=== PATIENT | female | born 1950 | race Caucasian/White ===

== ENCOUNTER → 2016-08-06 | Outpatient (CLI) | payer OTHER ==
[2016-08-06 13:53] VITALS: BP 133/61; PULSE 60; RESP 16; TEMP 97; BMI 52.5
--- NOTE | 2016-08-07 07:55 | PN ---
DATE OF SERVICE: 08/06/2016 CHIEF COMPLAINT: Bariatric assessment. HISTORY OF PRESENT ILLNESS: Rita Morales is a 66-year-old female who has been undergoing the bariatric program. At her height of 5 foot 3-1/2 inches, her ideal body weight is 140 pounds. Her highest weight was 304 pounds. Today she comes in weighing 301 pounds. Since her last visit a month ago, she has lost another 3 pounds. Body mass index is reduced and 53.1 down to 52.6. She was also recently hospitalized for hyperkalemia as well as chronic renal insufficiency. She regularly sees a cutter brake lining. She is also seeing the pc network technician for history of congestive heart failure. She is still pending a psych assessment. She is also pending completion of her medical supervised weight loss. She has been seeing her primary care provider regularly for over 2 years on a monthly basis. Now she presents particularly looking for a Nancy-en-Y gastric bypass to address both her reflux disease including her insulin-dependent diabetes. She is 161 pounds overweight. PAST MEDICAL HISTORY: 1. Gout. 2. Vitamin D deficiency. 3. Hyperlipidemia. 4. Hypertension. 5. Hypothyroidism. 6. Hypertensive cardiomyopathy. 7. Gastroesophageal reflux disease. 8. Magnesium deficiency. 9. Insulin-dependent diabetes. 10. Congestive heart failure. 11. Asthma. 12. Deep venous thrombosis. 13. Fibromyalgia. 14. Varicose veins. 15. Obstructive sleep apnea. 16. History of abnormal vaginal bleeding. 17. Renal insufficiency. PAST SURGICAL HISTORY: 1. . 2. Cholecystectomy. 3. Heart catheterization. 4. Tubal ligation. 5. History of cardioversion. 6. Upper endoscopy. MEDICATIONS: 1. Coumadin. 2. Omeprazole. 3. Lopressor. 4. Magnesium oxide. 5. Synthroid. 6. Humalog mix. 7. [place]. 8. Lasix. 9. Fenofibrate. 10. Vitamin D. 11. Lipitor. 12. Amiodarone. 13. Allopurinol. 14. Ventolin inhaler. 15. Ventolin nebulizer. ALLERGIES: 1. CLINDAMYCIN. 2. HYDROCODONE. SOCIAL HISTORY: No active alcohol or tobacco use. FAMILY HISTORY: Pertinent for diabetes including morbid obesity. REVIEW OF SYSTEMS: CONSTITUTIONAL: [place] body weight of 140 pounds. Highest weight is 304 pounds. Body mass index reduced from 53.1 down to 52.6. CARDIOVASCULAR: History of congestive heart failure. Denies any recent chest pain or heart attack. GENITOURINARY: History of persistent hyperkalemia as well as chronic renal insufficiency secondary to diabetes. She was recently hospitalized and is pending clearance from her cutter brake lining. GASTROINTESTINAL: History of gastroesophageal. No reported hepatitis. Also has diaphragmatic hiatal hernia with Hill grade 3 lower esophageal valve. HEENT: No troubles with vision or hearing. No reports of active dysphagia. ENDOCRINE: History of insulin-dependent diabetes type 2 over 10+ years. No active thyroid disorder. RESPIRATORY: History of obstructive sleep apnea. History of asthma. NEURO: No reports of recent stroke or seizure disorders. PSYCH: No active depression. Anxiety. HEMATOLOGIC: Prior history of DVT. No reports easy bruising or bleeding. PHYSICAL EXAM: VITAL SIGNS: 97.0, 60, 16, 133/61, 5 feet 3-1/2 inches, 301 pounds. Body mass index of 52.6. GENERAL: Well-developed female in no acute distress. HEENT: No scleral icterus. Extraocular movements grossly intact. Moist mucosa. NECK: Supple without lymphadenopathy. CHEST: Nonlabored respirations. Equal bilateral excursions. CARDIOVASCULAR: Regular rate and rhythm. ABDOMEN: Soft, nontender, nondistended. MUSCULOSKELETAL: No clubbing, cyanosis, or edema. NEURO: No focal or lateralizing signs. Cranial nerves II through XII grossly within normal limits. PSYCH: Appropriate affect. Alert and oriented to person, place and time. LABS: Previous labs reviewed, demonstrating hemoglobin low at 11.2. MCHC was low at 30.6. INR was subtherapeutic at 1.6. Potassium was elevated at 5.1. BUN elevated at 51 and creatinine was elevated at 2.15. Hemoglobin A1c was 8.8%. This is down from 9.9. Albumin low at 3.4. Triglycerides elevated at 239. ASSESSMENT: 1. Morbid obesity due to excess calories. 2. Body mass index reduced from 53.1 down to 52.6. 3. Uncontrolled insulin-dependent diabetes type 2, with stage III, renal insufficiency. 4. Hypertensive heart disease with cardiomyopathy. 5. Obstructive sleep apnea. 6. Fibromyalgia. 7. Osteoarthritis bilateral hips. 8. Osteoarthritis lower back. 9. Prior history of deep venous thromboses. 10. Chronic obstructive pulmonary disease. 11. Dietary surveillance and counseling. 12. Chronic kidney disease, stage III. 13. Chronic pain syndrome. 14. Congestive heart failure with diastolic dysfunction. PLAN: 1. She has received cardiac risk assessment from her pc network technician, Dr. Puga. Optimization of her cardiac status is recommended. 2. She is on Coumadin with renal insufficiency and we discussed anticoagulation. Lovenox will be challenging to manage with chronic renal insufficiency, hence alternatives to anticoagulation were described. Likely IV heparin and Coumadin were also reviewed. Alternatives such as Xarelto or Pradaxa is pending her cardiology assessment. 3. She will need a nephrology assessment as the dietary guidelines include high protein burden onto the kidneys. This may put her at risk of worsening renal function including hyperkalemia. 4. Would recommend optimize renal status prior to proceeding with surgical intervention. 5. She will likely need multiple consultants during her hospitalization as she is a very high risk for cardiac, including renal and surgical complications which she demonstrated understanding. 6. She will need medical supervised weight loss visits as she has had been consistently for 2 years with her primary care provider on a regular basis monthly. 7. Surgical options were reviewed she has elected for Nancy-en-Y gastric bypass. An 8-page bariatric consent form was handed to her for additional review. 8. She will follow up in one month. NAV
--- NOTE | 2016-08-17 19:07 | P.PN ---
Progress Note - Text DATE OF SERVICE: 08/06/2016 CHIEF COMPLAINT: Bariatric assessment. HISTORY OF PRESENT ILLNESS: Rita Morales is a 66-year-old female who has been undergoing the bariatric program. At her height of 5 foot 3-1/2 inches, her ideal body weight is 140 pounds. Her highest weight was 304 pounds. Today she comes in weighing 301 pounds. Since her last visit a month ago, she has lost another 3 pounds. Body mass index is reduced and 53.1 down to 52.6. She was also recently hospitalized for hyperkalemia as well as chronic renal insufficiency. She regularly sees a gravure press operator. She is also seeing the relationship consultant for history of congestive heart failure. She is still pending a psych assessment. She is also pending completion of her medical supervised weight loss. She has been seeing her primary care provider regularly for over 2 years on a monthly basis. Now she presents particularly looking for a Nancy-en-Y gastric bypass to address both her reflux disease including her insulin-dependent diabetes. She is 161 pounds overweight. PAST MEDICAL HISTORY: 1. Gout. 2. Vitamin D deficiency. 3. Hyperlipidemia. 4. Hypertension. 5. Hypothyroidism. 6. Hypertensive cardiomyopathy. 7. Gastroesophageal reflux disease. 8. Magnesium deficiency. 9. Insulin-dependent diabetes. 10. Congestive heart failure. 11. Asthma. 12. Deep venous thrombosis. 13. Fibromyalgia. 14. Varicose veins. 15. Obstructive sleep apnea. 16. History of abnormal vaginal bleeding. 17. Renal insufficiency. PAST SURGICAL HISTORY: 1. . 2. Cholecystectomy. 3. Heart catheterization. 4. Tubal ligation. 5. History of cardioversion. 6. Upper endoscopy. MEDICATIONS: 1. Coumadin. 2. Omeprazole. 3. Lopressor. 4. Magnesium oxide. 5. Synthroid. 6. Humalog mix. 7. [place]. 8. Lasix. 9. Fenofibrate. 10. Vitamin D. 11. Lipitor. 12. Amiodarone. 13. Allopurinol. 14. Ventolin inhaler. 15. Ventolin nebulizer. ALLERGIES: 1. CLINDAMYCIN. 2. HYDROCODONE. SOCIAL HISTORY: No active alcohol or tobacco use. FAMILY HISTORY: Pertinent for diabetes including morbid obesity. REVIEW OF SYSTEMS: CONSTITUTIONAL: [place] body weight of 140 pounds. Highest weight is 304 pounds. Body mass index reduced from 53.1 down to 52.6. CARDIOVASCULAR: History of congestive heart failure. Denies any recent chest pain or heart attack. GENITOURINARY: History of persistent hyperkalemia as well as chronic renal insufficiency secondary to diabetes. She was recently hospitalized and is pending clearance from her gravure press operator. GASTROINTESTINAL: History of gastroesophageal. No reported hepatitis. Also has diaphragmatic hiatal hernia with Hill grade 3 lower esophageal valve. HEENT: No troubles with vision or hearing. No reports of active dysphagia. ENDOCRINE: History of insulin-dependent diabetes type 2 over 10+ years. No active thyroid disorder. RESPIRATORY: History of obstructive sleep apnea. History of asthma. NEURO: No reports of recent stroke or seizure disorders. PSYCH: No active depression. Anxiety. HEMATOLOGIC: Prior history of DVT. No reports easy bruising or bleeding. PHYSICAL EXAM: VITAL SIGNS: 97.0, 60, 16, 133/61, 5 feet 3-1/2 inches, 301 pounds. Body mass index of 52.6. GENERAL: Well-developed female in no acute distress. HEENT: No scleral icterus. Extraocular movements grossly intact. Moist mucosa. NECK: Supple without lymphadenopathy. CHEST: Nonlabored respirations. Equal bilateral excursions. CARDIOVASCULAR: Regular rate and rhythm. ABDOMEN: Soft, nontender, nondistended. MUSCULOSKELETAL: No clubbing, cyanosis, or edema. NEURO: No focal or lateralizing signs. Cranial nerves II through XII grossly within normal limits. PSYCH: Appropriate affect. Alert and oriented to person, place and time. LABS: Previous labs reviewed, demonstrating hemoglobin low at 11.2. MCHC was low at 30.6. INR was subtherapeutic at 1.6. Potassium was elevated at 5.1. BUN elevated at 51 and creatinine was elevated at 2.15. Hemoglobin A1c was 8.8%. This is down from 9.9. Albumin low at 3.4. Triglycerides elevated at 239. ASSESSMENT: 1. Morbid obesity due to excess calories. 2. Body mass index reduced from 53.1 down to 52.6. 3. Uncontrolled insulin-dependent diabetes type 2, with stage III, renal insufficiency. 4. Hypertensive heart disease with cardiomyopathy. 5. Obstructive sleep apnea. 6. Fibromyalgia. 7. Osteoarthritis bilateral hips. 8. Osteoarthritis lower back. 9. Prior history of deep venous thromboses. 10. Chronic obstructive pulmonary disease. 11. Dietary surveillance and counseling. 12. Chronic kidney disease, stage III. 13. Chronic pain syndrome. 14. Congestive heart failure with diastolic dysfunction. PLAN: 1. She has received cardiac risk assessment from her relationship consultant, Dr. Puga. Optimization of her cardiac status is recommended. 2. She is on Coumadin with renal insufficiency and we discussed anticoagulation. Lovenox will be challenging to manage with chronic renal insufficiency, hence alternatives to anticoagulation were described. Likely IV heparin and Coumadin were also reviewed. Alternatives such as Xarelto or Pradaxa is pending her cardiology assessment. 3. She will need a nephrology assessment as the dietary guidelines include high protein burden onto the kidneys. This may put her at risk of worsening renal function including hyperkalemia. 4. Would recommend optimize renal status prior to proceeding with surgical intervention. 5. She will likely need multiple consultants during her hospitalization as she is a very high risk for cardiac, including renal and surgical complications which she demonstrated understanding. 6. She will need medical supervised weight loss visits as she has had been consistently for 2 years with her primary care provider on a regular basis monthly. 7. Surgical options were reviewed she has elected for Nancy-en-Y gastric bypass. An 8-page bariatric consent form was handed to her for additional review. 8. She will follow up in one month.
== END | disposition home or self-care (01) ==
LOC: BARWHC3 13:07
PROVIDERS: ATTEND Surgery Plastic and Reconstructive Surgery
DX: Z01.818 Encounter for other preprocedural examination (principal); Z79.4 Long term (current) use of insulin; Z68.43 Body mass index [BMI] 50.0-59.9, adult; E11.21 Type 2 diabetes mellitus with diabetic nephropathy; E66.01 Morbid (severe) obesity due to excess calories; N18.3 Chronic kidney disease, stage 3 (moderate); G89.4 Chronic pain syndrome; I50.30 Unspecified diastolic (congestive) heart failure; Z79.01 Long term (current) use of anticoagulants; Z79.899 Other long term (current) drug therapy
CPT/HCPCS: 99211

== ENCOUNTER → 2016-08-11 | Outpatient (CLI) | payer OTHER ==
[2016-08-11 12:40] VITALS: BMI 52.9
== END | disposition home or self-care (01) ==
LOC: BARWHC3 09:05
PROVIDERS: ATTEND Surgery Plastic and Reconstructive Surgery
DX: Z71.3 Dietary counseling and surveillance (principal); E66.01 Morbid (severe) obesity due to excess calories; Z68.43 Body mass index [BMI] 50.0-59.9, adult
CPT/HCPCS: 97804

== ENCOUNTER → 2016-09-04 | Outpatient (CLI) | payer OTHER ==
[2016-09-04 10:04] VITALS: BP 141/60; PULSE 61; RESP 20; TEMP 97.5; BMI 52.4
--- NOTE | 2016-10-20 11:18 | PN ---
DATE OF SERVICE: 09/04/2016 CHIEF COMPLAINT: Bariatric assessment. HISTORY OF PRESENT ILLNESS: Rita Morales is a 66-year-old female who had her [facility] a month ago. At her height of 5 foot 3-1/2 inches, her ideal body weight is 140 pounds. Her initial weight was 304 pounds. She has now lost 4 pounds. Body mass index is reduced from 53.1 down to 52.5. She is still 160 pounds overweight. In the last several months, she had troubles with her kidneys whereby she has diabetic nephropathy. Separately, she has history of diverticulosis including intermittent constipation. With her history of severe kidney disease, now she is evaluating for gastrectomy-type procedures. Her main goal is to get to under 300 pounds potentially 292 pounds. She also reports moderate swelling of the bilateral legs. At this time, she is pending completion of her specialist evaluation, including from her appeals specialist, her tool maker and infant toddler lead teacher. PAST MEDICAL HISTORY: 1. Gout. 2. Vitamin D deficiency. 3. Hyperlipidemia. 4. Hypertension. 5. Hypothyroidism. 6. Hypertensive cardiomyopathy. 7. Gastroesophageal reflux disease. 8. Magnesium deficiency. 9. Insulin-dependent diabetes. 10. Congestive heart failure. 11. Asthma. 12. Deep venous thrombosis. 13. Fibromyalgia. 14. Varicose veins. 15. Obstructive sleep apnea. 16. History of abnormal vaginal bleeding. 17. Renal insufficiency. PAST SURGICAL HISTORY: 1. . 2. Cholecystectomy. 3. Heart catheterization. 4. Tubal ligation. 5. History of cardioversion. 6. Upper endoscopy. MEDICATIONS: 1. Albuterol inhaler. 2. Magnesium oxide. 3. Synthroid. 4. Insulin. 5. Hydrocodone 7.5. 6. Lasix. 7. Fenofibrate. 8. Vitamin D. 9. Lipitor. 10. Amiodarone. 11. Allopurinol. 12. Amlodipine. 13. Coumadin. 14. Omeprazole. 15. Lopressor. ALLERGIES: 1. CLINDAMYCIN. 2. HYDROCODONE. SOCIAL HISTORY: No active alcohol or tobacco use. FAMILY HISTORY: Pertinent for diabetes including morbid obesity. REVIEW OF SYSTEMS: CONSTITUTIONAL: Recent weight loss of 4 pounds in one month. At her height of 5 foot 3-1/2 inches, her ideal body weight is 140 pounds. Her initial weight was 304 pounds. She has now lost 4 pounds. Body mass index is reduced from 53.1 down to 52.5. She is still 160 pounds overweight. GASTROINTESTINAL: History of gastroesophageal. No reported hepatitis. Also has diaphragmatic hiatal hernia with Hill grade 3 lower esophageal valve. She reports severe constipation. GENITOURINARY: History of persistent hyperkalemia as well as chronic renal insufficiency secondary to diabetes. She was recently hospitalized and is pending clearance from her tool maker. MUSCULOSKELETAL: Reports increased leg swelling. CARDIOVASCULAR: History of congestive heart failure. Denies any recent chest pain or heart attack. HEENT: No troubles with vision or hearing. No reports of active dysphagia. ENDOCRINE: History of insulin-dependent diabetes type 2 over 10+ years. No active thyroid disorder. RESPIRATORY: History of obstructive sleep apnea. History of asthma. NEURO: No reports of recent stroke or seizure disorders. PSYCH: No active depression. Anxiety. HEMATOLOGIC: Prior history of DVT. No reports easy bruising or bleeding. PHYSICAL EXAM: VITAL SIGNS: 97.5, 61, 20, 141/60, 5 foot 3-1/2, 300 pounds. Body mass index of 52.5. ABDOMEN: Soft, nontender, nondistended. GENERAL: Well-developed female in no acute distress. HEENT: No scleral icterus. Extraocular movements grossly intact. Moist mucosa. NECK: Supple without lymphadenopathy. CHEST: Nonlabored respirations. Equal bilateral excursions. CARDIOVASCULAR: Regular rate and rhythm. MUSCULOSKELETAL: No clubbing, cyanosis. 2+ bilateral pitting edema. NEURO: No focal or lateralizing signs. Cranial nerves II through XII grossly within normal limits. PSYCH: Appropriate affect. Alert and oriented to person, place and time. ASSESSMENT: 1. Morbid obesity due to excess calories. 2. Body mass index down from 53.1 down to 52.5. 3. Uncontrolled insulin-dependent diabetes type 2, with stage III, renal insufficiency. 4. Hypertensive heart disease with cardiomyopathy. 5. Obstructive sleep apnea. 6. Fibromyalgia. 7. Osteoarthritis bilateral hips. 8. Osteoarthritis lower back. 9. Prior history of deep venous thromboses. 10. Chronic obstructive pulmonary disease. 11. Dietary surveillance and counseling. 12. Stage III renal insufficiency from diabetic nephropathy. 13. Chronic pain syndrome. 14. Congestive heart failure with diastolic dysfunction. 15. Bilateral lower extremity edema. 16. Diverticulosis. 17. Constipation. PLAN: 1. She has completed most of her bariatric evaluation and a bariatric consent form was reviewed in detail. 2. As she is almost pounds 200 pounds with her multiple medical comorbidities, she is still evaluating for a Nancy-en-Y gastric bypass. 3. I did review with her the increased risk of burden along her kidneys with a protein shake diet. As a result, close evaluation with her tool maker during her presurgical stage is recommended. 4. On exam, she does have 2+ pitting edema, including dyspnea. Again, recommend further evaluation with her infant toddler lead teacher. 5. Review of her weight loss journey, ideally more weight loss would definitely help with the safety of her surgery. Goal to 292 pounds was also discussed. 6. Recommend followup upon completion of evaluation from the rest of her specialist including completion of her dietary class. NAV
--- NOTE | 2016-10-26 19:49 | P.PN ---
Progress Note - Text DATE OF SERVICE: 09/04/2016 CHIEF COMPLAINT: Bariatric assessment. HISTORY OF PRESENT ILLNESS: Rita Morales is a 66-year-old female who had her last visit [facility] a month ago. At her height of 5 foot 3-1/2 inches, her ideal body weight is 140 pounds. Her initial weight was 304 pounds. She has now lost 4 pounds. Body mass index is reduced from 53.1 down to 52.5. She is still 160 pounds overweight. In the last several months, she had troubles with her kidneys whereby she has diabetic nephropathy. Separately, she has history of diverticulosis including intermittent constipation. With her history of severe kidney disease, now she is evaluating for gastrectomy-type procedures. Her main goal is to get to under 300 pounds potentially 292 pounds. She also reports moderate swelling of the bilateral legs. At this time, she is pending completion of her specialist evaluation, including from her supervisor furnace process, her head of it and integrated circuits inspector. PAST MEDICAL HISTORY: 1. Gout. 2. Vitamin D deficiency. 3. Hyperlipidemia. 4. Hypertension. 5. Hypothyroidism. 6. Hypertensive cardiomyopathy. 7. Gastroesophageal reflux disease. 8. Magnesium deficiency. 9. Insulin-dependent diabetes. 10. Congestive heart failure. 11. Asthma. 12. Deep venous thrombosis. 13. Fibromyalgia. 14. Varicose veins. 15. Obstructive sleep apnea. 16. History of abnormal vaginal bleeding. 17. Renal insufficiency. PAST SURGICAL HISTORY: 1. . 2. Cholecystectomy. 3. Heart catheterization. 4. Tubal ligation. 5. History of cardioversion. 6. Upper endoscopy. MEDICATIONS: 1. Albuterol inhaler. 2. Magnesium oxide. 3. Synthroid. 4. Insulin. 5. Hydrocodone 7.5. 6. Lasix. 7. Fenofibrate. 8. Vitamin D. 9. Lipitor. 10. Amiodarone. 11. Allopurinol. 12. Amlodipine. 13. Coumadin. 14. Omeprazole. 15. Lopressor. ALLERGIES: 1. CLINDAMYCIN. 2. HYDROCODONE. SOCIAL HISTORY: No active alcohol or tobacco use. FAMILY HISTORY: Pertinent for diabetes including morbid obesity. REVIEW OF SYSTEMS: CONSTITUTIONAL: Recent weight loss of 4 pounds in one month. At her height of 5 foot 3-1/2 inches, her ideal body weight is 140 pounds. Her initial weight was 304 pounds. She has now lost 4 pounds. Body mass index is reduced from 53.1 down to 52.5. She is still 160 pounds overweight. GASTROINTESTINAL: History of gastroesophageal. No reported hepatitis. Also has diaphragmatic hiatal hernia with Hill grade 3 lower esophageal valve. She reports severe constipation. GENITOURINARY: History of persistent hyperkalemia as well as chronic renal insufficiency secondary to diabetes. She was recently hospitalized and is pending clearance from her head of it. MUSCULOSKELETAL: Reports increased leg swelling. CARDIOVASCULAR: History of congestive heart failure. Denies any recent chest pain or heart attack. HEENT: No troubles with vision or hearing. No reports of active dysphagia. ENDOCRINE: History of insulin-dependent diabetes type 2 over 10+ years. No active thyroid disorder. RESPIRATORY: History of obstructive sleep apnea. History of asthma. NEURO: No reports of recent stroke or seizure disorders. PSYCH: No active depression. Anxiety. HEMATOLOGIC: Prior history of DVT. No reports easy bruising or bleeding. PHYSICAL EXAM: VITAL SIGNS: 97.5, 61, 20, 141/60, 5 foot 3-1/2, 300 pounds. Body mass index of 52.5. ABDOMEN: Soft, nontender, nondistended. GENERAL: Well-developed female in no acute distress. HEENT: No scleral icterus. Extraocular movements grossly intact. Moist mucosa. NECK: Supple without lymphadenopathy. CHEST: Nonlabored respirations. Equal bilateral excursions. CARDIOVASCULAR: Regular rate and rhythm. MUSCULOSKELETAL: No clubbing, cyanosis. 2+ bilateral pitting edema. NEURO: No focal or lateralizing signs. Cranial nerves II through XII grossly within normal limits. PSYCH: Appropriate affect. Alert and oriented to person, place and time. ASSESSMENT: 1. Morbid obesity due to excess calories. 2. Body mass index down from 53.1 down to 52.5. 3. Uncontrolled insulin-dependent diabetes type 2, with stage III, renal insufficiency. 4. Hypertensive heart disease with cardiomyopathy. 5. Obstructive sleep apnea. 6. Fibromyalgia. 7. Osteoarthritis bilateral hips. 8. Osteoarthritis lower back. 9. Prior history of deep venous thromboses. 10. Chronic obstructive pulmonary disease. 11. Dietary surveillance and counseling. 12. Stage III renal insufficiency from diabetic nephropathy. 13. Chronic pain syndrome. 14. Congestive heart failure with diastolic dysfunction. 15. Bilateral lower extremity edema. 16. Diverticulosis. 17. Constipation. PLAN: 1. She has completed most of her bariatric evaluation and a bariatric consent form was reviewed in detail. 2. As she is almost pounds 200 pounds with her multiple medical comorbidities, she is still evaluating for a Nancy-en-Y gastric bypass. 3. I did review with her the increased risk of burden along her kidneys with a protein shake diet. As a result, close evaluation with her head of it during her presurgical stage is recommended. 4. On exam, she does have 2+ pitting edema, including dyspnea. Again, recommend further evaluation with her integrated circuits inspector. 5. Review of her weight loss journey, ideally more weight loss would definitely help with the safety of her surgery. Goal to 292 pounds was also discussed. 6. Recommend followup upon completion of evaluation from the rest of her specialist including completion of her dietary class.
== END | disposition home or self-care (01) ==
LOC: BARWHC3 09:39
PROVIDERS: ATTEND Surgery Plastic and Reconstructive Surgery
DX: Z01.818 Encounter for other preprocedural examination (principal); E66.01 Morbid (severe) obesity due to excess calories; Z68.43 Body mass index [BMI] 50.0-59.9, adult; Z79.4 Long term (current) use of insulin; Z79.01 Long term (current) use of anticoagulants; Z79.899 Other long term (current) drug therapy; Z88.1 Allergy status to other antibiotic agents; Z88.8 Allergy status to other drugs, medicaments and biological substances; M10.9 Gout, unspecified; E03.9 Hypothyroidism, unspecified; E11.22 Type 2 diabetes mellitus with diabetic chronic kidney disease; E11.65 Type 2 diabetes mellitus with hyperglycemia; N18.3 Chronic kidney disease, stage 3 (moderate); E11.21 Type 2 diabetes mellitus with diabetic nephropathy; I11.9 Hypertensive heart disease without heart failure; I42.9 Cardiomyopathy, unspecified; G47.33 Obstructive sleep apnea (adult) (pediatric); M79.7 Fibromyalgia; M16.0 Bilateral primary osteoarthritis of hip; M47.816 Spondylosis without myelopathy or radiculopathy, lumbar region; Z86.718 Personal history of other venous thrombosis and embolism; J44.9 Chronic obstructive pulmonary disease, unspecified; J45.909 Unspecified asthma, uncomplicated; G89.4 Chronic pain syndrome; I50.30 Unspecified diastolic (congestive) heart failure; R60.0 Localized edema; K57.90 Diverticulosis of intestine, part unspecified, without perforation or abscess without bleeding; K59.09 Other constipation
CPT/HCPCS: 99211

== ENCOUNTER → 2016-09-25 | Outpatient (CLI) | payer OTHER ==
[2016-09-25 09:10] VITALS: BP 179/80; PULSE 64; RESP 20; TEMP 97.6; BMI 53.1
--- NOTE | 2016-10-27 12:21 | PN ---
DATE OF SERVICE: 09/25/2016 CHIEF COMPLAINT: Bariatric assessment. HISTORY OF PRESENT ILLNESS: Rita Morales is a 66-year-old female who comes in with a history of morbid obesity including multiple comorbidities related to her weight such as congestive heart failure, hypertensive heart disease, hypercholesterolemia, diabetes type 2, with kidney disorder as well as obstructive sleep apnea. She comes in after completion of multiple consultants including a transport driver, semiconductor dies loader as well. Her kidneys are poorly functioning at least at stage III to stage IV. She is aware of being on protein shakes may also aggravate her kidney disorder. She has also been seeing her transport driver in the interim as well. She reports moderate increase in lower leg swelling. At her height of 5 feet 3-1/2 inch frame, her ideal body weight is 140 pounds. Her highest weight is 326 pounds. Today she comes in weighing 304 pounds, it appears she has maintained a 22-pound weight loss. Percent excess weight loss is 12%. She is still 164 pounds overweight. Body mass index is reduced from 57 down to 53. BMI point reduction is 4. PAST MEDICAL HISTORY: 1. Gout. 2. Vitamin D deficiency. 3. Hyperlipidemia. 4. Hypertension. 5. Hypothyroidism. 6. Hypertensive cardiomyopathy. 7. Gastroesophageal reflux disease. 8. Magnesium deficiency. 9. Insulin-dependent diabetes. 10. Congestive heart failure. 11. Asthma. 12. Deep venous thrombosis. 13. Fibromyalgia. 14. Varicose veins. 15. Obstructive sleep apnea. 16. History of abnormal vaginal bleeding. 17. Renal insufficiency. PAST SURGICAL HISTORY: 1. . 2. Cholecystectomy. 3. Heart catheterization. 4. Tubal ligation. 5. History of cardioversion. 6. Upper endoscopy. MEDICATIONS: 1. Norvasc. 2. Coumadin. 3. MiraLax. 4. Omeprazole. 5. Lopressor. 6. Magnesium oxide. 7. Synthroid. 8. Humalog. 9. [place]. 10. Lasix. 11. Fenofibrate. 12. Drisdol. 13. Lipitor. 14. Cordarone. 15. Zyloprim. 16. Ventolin nebulizer. ALLERGIES: 1. CLINDAMYCIN. 2. HYDROCODONE. SOCIAL HISTORY: No active alcohol or tobacco use. FAMILY HISTORY: Pertinent for diabetes including morbid obesity. REVIEW OF SYSTEMS: CONSTITUTIONAL: [place] body weight of 140 pounds. Highest weight of 326 pounds. Present weight is 304 pounds. Attained weight loss of 22 pounds since being in the program. Body mass index reduced from 57 down to 53. MUSCULOSKELETAL: Has history of osteoarthritis of the lower back and joints. CARDIOVASCULAR: History of congestive heart failure with diastolic dysfunction. She reports seeing her transport driver recently. Separately, she reports increased lower leg swelling. GENITOURINARY: History of persistent hyperkalemia as well as chronic renal insufficiency secondary to diabetes. She was recently hospitalized and is pending clearance from her semiconductor dies loader. GASTROINTESTINAL: History of gastroesophageal. No reported hepatitis. Also has diaphragmatic hiatal hernia with Hill grade 3 lower esophageal valve. HEENT: No troubles with vision or hearing. No reports of active dysphagia. ENDOCRINE: History of insulin-dependent diabetes type 2 over 10+ years. No active thyroid disorder. RESPIRATORY: History of obstructive sleep apnea. History of asthma. NEURO: No reports of recent stroke or seizure disorders. PSYCH: No active depression. Anxiety. HEMATOLOGIC: Prior history of DVT. No reports easy bruising or bleeding. PHYSICAL EXAM: VITAL SIGNS: 97.6, 64, 20, 179/80, 5 foot 3-1/2, 304 pounds. Body mass of 53.1. GENERAL: Well-developed female in no acute distress. HEENT: No scleral icterus. Extraocular movements grossly intact. Moist mucosa. NECK: Supple without lymphadenopathy. CHEST: Nonlabored respirations. Equal bilateral excursions. CARDIOVASCULAR: Regular rate and rhythm. ABDOMEN: Soft, nontender, nondistended. MUSCULOSKELETAL: No clubbing, cyanosis. 3+ bilateral pitting edema. NEURO: No focal or lateralizing signs. Cranial nerves II through XII grossly within normal limits. PSYCH: Appropriate affect. Alert and oriented to person, place and time. LABS: No new labs at this time. ASSESSMENT: 1. Morbid obesity due to excess calories. 2. Body mass index reduced from 57 down to 53. 3. Uncontrolled insulin-dependent diabetes type 2, with stage III, renal insufficiency. 4. Hypertensive heart disease with cardiomyopathy. 5. Obstructive sleep apnea. 6. Fibromyalgia. 7. Osteoarthritis bilateral hips. 8. Osteoarthritis lower back. 9. Prior history of deep venous thromboses. 10. Chronic obstructive pulmonary disease. 11. Dietary surveillance and counseling. 12. 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 13. Chronic pain syndrome. 14. Severe bilateral lower extremity edema. PLAN: 1. I have recommended reevaluation with a transport driver and semiconductor dies loader as she will likely need increase in her Lasix. She has severe swelling of her legs. 2. She may also benefit from compression devices of at least 30 mmHg from the ankle to above the knee. 3. With her history of severe kidney disease, I have recommended cutting back on her protein intake from 3 shakes a day to 2 shakes a day with close followup with myself including semiconductor dies loader. 4. Benefits and risks of surgical intervention with a bariatric procedure were described using a second-generation bariatric consent form. 5. [place] bariatric surgery collaborative data was reviewed including comorbidity resolution. 6. Again, she is at highest risk for bleeding as she is on Coumadin as well as leak, infection, stricture and potentially was also reviewed with her in detail. 7. Inpatient hospitalization anticipated at minimum for 2 nights with the possibility of the intensive care unit for evaluation. 8. Deep venous thrombosis prophylaxis. 9. Antibiotic prophylaxis. 10. She is extremely high risk for which I would recommend home health care evaluation and potentially subacute rehab and close evaluation for kidney disease with multiple consultants, including Cardiovascular, Nephrology, and Pulmonary will be advised at the time of her hospitalization and she demonstrated understanding. 11. Recommend a 2 week low-caloric diet with adjustments of her protein intake. NAV
--- NOTE | 2016-10-29 01:08 | P.PN ---
Progress Note - Text DATE OF SERVICE: 09/25/2016 CHIEF COMPLAINT: Bariatric assessment. HISTORY OF PRESENT ILLNESS: Rita Morales is a 66-year-old female who comes in with a history of morbid obesity including multiple comorbidities related to her weight such as congestive heart failure, hypertensive heart disease, hypercholesterolemia, diabetes type 2, with kidney disorder as well as obstructive sleep apnea. She comes in after completion of multiple consultants including a rating specialist, director of academic as well. Her kidneys are poorly functioning at least at stage III to stage IV. She is aware of being on protein shakes may also aggravate her kidney disorder. She has also been seeing her rating specialist in the interim as well. She reports moderate increase in lower leg swelling. At her height of 5 feet 3-1/2 inch frame, her ideal body weight is 140 pounds. Her highest weight is 326 pounds. Today she comes in weighing 304 pounds, it appears she has maintained a 22-pound weight loss. Percent excess weight loss is 12%. She is still 164 pounds overweight. Body mass index is reduced from 57 down to 53. BMI point reduction is 4. PAST MEDICAL HISTORY: 1. Gout. 2. Vitamin D deficiency. 3. Hyperlipidemia. 4. Hypertension. 5. Hypothyroidism. 6. Hypertensive cardiomyopathy. 7. Gastroesophageal reflux disease. 8. Magnesium deficiency. 9. Insulin-dependent diabetes. 10. Congestive heart failure. 11. Asthma. 12. Deep venous thrombosis. 13. Fibromyalgia. 14. Varicose veins. 15. Obstructive sleep apnea. 16. History of abnormal vaginal bleeding. 17. Renal insufficiency. PAST SURGICAL HISTORY: 1. . 2. Cholecystectomy. 3. Heart catheterization. 4. Tubal ligation. 5. History of cardioversion. 6. Upper endoscopy. MEDICATIONS: 1. Norvasc. 2. Coumadin. 3. MiraLax. 4. Omeprazole. 5. Lopressor. 6. Magnesium oxide. 7. Synthroid. 8. Humalog. 9. [place]. 10. Lasix. 11. Fenofibrate. 12. Drisdol. 13. Lipitor. 14. Cordarone. 15. Zyloprim. 16. Ventolin nebulizer. ALLERGIES: 1. CLINDAMYCIN. 2. HYDROCODONE. SOCIAL HISTORY: No active alcohol or tobacco use. FAMILY HISTORY: Pertinent for diabetes including morbid obesity. REVIEW OF SYSTEMS: CONSTITUTIONAL: [place] body weight of 140 pounds. Highest weight of 326 pounds. Present weight is 304 pounds. Attained weight loss of 22 pounds since being in the program. Body mass index reduced from 57 down to 53. MUSCULOSKELETAL: Has history of osteoarthritis of the lower back and joints. CARDIOVASCULAR: History of congestive heart failure with diastolic dysfunction. She reports seeing her rating specialist recently. Separately, she reports increased lower leg swelling. GENITOURINARY: History of persistent hyperkalemia as well as chronic renal insufficiency secondary to diabetes. She was recently hospitalized and is pending clearance from her director of academic. GASTROINTESTINAL: History of gastroesophageal. No reported hepatitis. Also has diaphragmatic hiatal hernia with Hill grade 3 lower esophageal valve. HEENT: No troubles with vision or hearing. No reports of active dysphagia. ENDOCRINE: History of insulin-dependent diabetes type 2 over 10+ years. No active thyroid disorder. RESPIRATORY: History of obstructive sleep apnea. History of asthma. NEURO: No reports of recent stroke or seizure disorders. PSYCH: No active depression. Anxiety. HEMATOLOGIC: Prior history of DVT. No reports easy bruising or bleeding. PHYSICAL EXAM: VITAL SIGNS: 97.6, 64, 20, 179/80, 5 foot 3-1/2, 304 pounds. Body mass of 53.1. GENERAL: Well-developed female in no acute distress. HEENT: No scleral icterus. Extraocular movements grossly intact. Moist mucosa. NECK: Supple without lymphadenopathy. CHEST: Nonlabored respirations. Equal bilateral excursions. CARDIOVASCULAR: Regular rate and rhythm. ABDOMEN: Soft, nontender, nondistended. MUSCULOSKELETAL: No clubbing, cyanosis. 3+ bilateral pitting edema. NEURO: No focal or lateralizing signs. Cranial nerves II through XII grossly within normal limits. PSYCH: Appropriate affect. Alert and oriented to person, place and time. LABS: No new labs at this time. ASSESSMENT: 1. Morbid obesity due to excess calories. 2. Body mass index reduced from 57 down to 53. 3. Uncontrolled insulin-dependent diabetes type 2, with stage III, renal insufficiency. 4. Hypertensive heart disease with cardiomyopathy. 5. Obstructive sleep apnea. 6. Fibromyalgia. 7. Osteoarthritis bilateral hips. 8. Osteoarthritis lower back. 9. Prior history of deep venous thromboses. 10. Chronic obstructive pulmonary disease. 11. Dietary surveillance and counseling. 12. 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 13. Chronic pain syndrome. 14. Severe bilateral lower extremity edema. PLAN: 1. I have recommended reevaluation with a rating specialist and director of academic as she will likely need increase in her Lasix. She has severe swelling of her legs. 2. She may also benefit from compression devices of at least 30 mmHg from the ankle to above the knee. 3. With her history of severe kidney disease, I have recommended cutting back on her protein intake from 3 shakes a day to 2 shakes a day with close followup with myself including director of academic. 4. Benefits and risks of surgical intervention with a bariatric procedure were described using a second-generation bariatric consent form. 5. [place] bariatric surgery collaborative data was reviewed including comorbidity resolution. 6. Again, she is at highest risk for bleeding as she is on Coumadin as well as leak, infection, stricture and potentially was also reviewed with her in detail. 7. Inpatient hospitalization anticipated at minimum for 2 nights with the possibility of the intensive care unit for evaluation. 8. Deep venous thrombosis prophylaxis. 9. Antibiotic prophylaxis. 10. She is extremely high risk for which I would recommend home health care evaluation and potentially subacute rehab and close evaluation for kidney disease with multiple consultants, including Cardiovascular, Nephrology, and Pulmonary will be advised at the time of her hospitalization and she demonstrated understanding. 11. Recommend a 2 week low-caloric diet with adjustments of her protein intake.
== END | disposition home or self-care (01) ==
LOC: BARWHC3 08:54
PROVIDERS: ATTEND Surgery Plastic and Reconstructive Surgery
DX: Z01.818 Encounter for other preprocedural examination (principal); I10 Essential (primary) hypertension; I87.309 Chronic venous hypertension (idiopathic) without complications of unspecified lower extremity
CPT/HCPCS: 99211

== ENCOUNTER 2016-11-02 11:51 | Inpatient (IN) | payer OTHER ==
[2016-11-02] MEDS ORDERED: MORPHINE SULFATE 4 MG/ML SYRINGE IVP PRN (12:46)
[2016-11-02] MEDS ORDERED: SODIUM CHLORIDE 0.9% 1,000 ML IV STA ×2 (12:46)
[2016-11-02] MEDS ORDERED: SODIUM CHLORIDE 0.9% 1,000 ML IV ONE (12:46)
[2016-11-02] MEDS ORDERED: MORPHINE SULFATE 4 MG/ML SYRINGE IVP STA (12:46)
--- NOTE | 2016-11-02 12:46 | ED ---
General Adult HPI - General Chief complaint: Abdominal Pain Stated complaint: Abd Pain Time Seen by Provider: 11/02/16 12:05 Source: patient, RN notes reviewed, old records reviewed Mode of arrival: EMS Limitations: no limitations - History of Present Illness Initial comments: This is a 66-year-old female the ER for evaluation. This patient presents today for evaluation of abdominal pain, nausea vomiting. Patient has a history of cholecystectomy. Patient is coming in as a transfer patient for evaluation and treatment of acute pancreatitis. No fevers. Positive nausea no vomiting mild diarrhea. - Related Data Home Medications Medication Instructions Recorded Confirmed Allopurinol [Zyloprim] 100 mg PO DAILY 01/25/16 11/02/16 Magnesium Oxide [Mag-Ox] 400 mg PO BID 01/25/16 11/02/16 Omeprazole 20 mg PO DAILY 01/25/16 11/02/16 Amiodarone [Cordarone] 200 mg PO DAILY 03/31/16 11/02/16 Atorvastatin [Lipitor] 40 mg PO HS 05/28/16 11/02/16 Ergocalciferol (Vitamin D2) 50,000 unit PO MO 05/28/16 11/02/16 [Drisdol] Levothyroxine Sodium [Synthroid] 25 mcg PO DAILY 05/28/16 11/02/16 Albuterol Inhaler [Ventolin Hfa 2 puff INHALATION RT-Q6H PRN 07/04/16 11/02/16 Inhaler] Furosemide [Lasix] 20 mg PO BID 07/04/16 11/02/16 Fenofibrate [Lofibra] 160 mg PO DAILY 08/06/16 11/02/16 HYDROcodone/APAP 7.5-325MG [[place] 1 tab PO Q6HR PRN 08/06/16 11/02/16 7.5-325] Insulin NPL/Insulin Lispro 60 unit SQ BID 08/06/16 11/02/16 [HumaLOG MIX 50-50 VIAL] Fenofibrate,Micronized 200 mg PO DAILY 09/04/16 11/02/16 [Fenofibrate] amLODIPine [Norvasc] 5 mg PO DAILY 09/04/16 11/02/16 Albuterol Nebulized [Ventolin 2.5 mg INHALATION RT-Q6H PRN 11/02/16 11/02/16 Nebulized] Warfarin Sodium [Coumadin] 5 mg PO DAILY 11/02/16 11/02/16 Previous Rx's Medication Instructions Recorded Metoprolol Tartrate [Lopressor] 50 mg PO BID #60 tab 02/01/16 Polyethylene Glycol 3350 [Miralax] 17 gm PO DAILY #255 gm 09/04/16 Allergies Allergy/AdvReac Type Severity Reaction Status Date / Time ciprofloxacin [From Cipro] Allergy Unknown Verified 11/02/16 12:05 clarithromycin [From Biaxin] Allergy Anaphylaxis Verified 11/02/16 12:05 nitrofurantoin Allergy Unknown Verified 11/02/16 12:05 [From Macrodantin] hydrocodone AdvReac Nausea & Verified 11/02/16 12:05 Vomiting Review of Systems ROS Statement: Those systems with pertinent positive or pertinent negative responses have been documented in the HPI. ROS Other: All systems not noted in ROS Statement are negative. Past Medical History Past Medical History: Asthma, Diabetes Mellitus, Deep Vein Thrombosis (DVT), Fibromyalgia, GERD/Reflux, Hyperlipidemia, Hypertension, Osteoarthritis (OA), Skin Disorder, Sleep Apnea/CPAP/BIPAP Additional Past Medical History / Comment(s): varicose veins. DVT RIGHT LEG, constipation, dry skin, abnormal vaginal bleeding, decreased kidney function History of Any Multi-Drug Resistant Organisms: None Reported Past Surgical History: Section, Cholecystectomy, Heart Catheterization , Tubal Ligation Additional Past Surgical History / Comment(s): cardioversion Past Anesthesia/Blood Transfusion Reactions: No Reported Reaction Past Psychological History: Depression Smoking Status: Never smoker Past Alcohol Use History: None Reported Past Drug Use History: None Reported - Past Family History Mother Family Medical History: Deep Vein Thrombosis (DVT) Brother(s) Family Medical History: Cancer Additional Family Medical History / Comment(s): blood clot-in arm secondary to surgery Sister(s) Family Medical History: Deep Vein Thrombosis (DVT) General Exam Limitations: no limitations General appearance: alert, in no apparent distress Head exam: Present: atraumatic, normocephalic, normal inspection Eye exam: Present: normal appearance, PERRL, EOMI. Absent: scleral icterus, conjunctival injection, periorbital swelling ENT exam: Present: normal exam, mucous membranes moist Neck exam: Present: normal inspection. Absent: tenderness, meningismus, lymphadenopathy Respiratory exam: Present: normal lung sounds bilaterally. Absent: respiratory distress, wheezes, rales, rhonchi, stridor Cardiovascular Exam: Present: regular rate, normal rhythm, normal heart sounds. Absent: systolic murmur, diastolic murmur, rubs, gallop, clicks GI/Abdominal exam: Present: soft, normal bowel sounds. Absent: distended, tenderness, guarding, rebound, rigid Extremities exam: Present: normal inspection, full ROM, normal capillary refill. Absent: tenderness, pedal edema, joint swelling, calf tenderness Back exam: Present: normal inspection Neurological exam: Present: alert, oriented X3, CN II-XII intact Psychiatric exam: Present: normal affect, normal mood Skin exam: Present: warm, dry, intact, normal color. Absent: rash Course Vital Signs 11/02/16 11:56 Pulse Rate 68 Respiratory 18 Rate Blood Pressure 172/81 O2 Sat by Pulse 96 Oximetry - Reevaluation(s) Reevaluation #1: 11/02/16 12:44 Patient's pain is improved, in no acute distress Reevaluation #2: 11/02/16 12:44 Spoke with transferring physician regarding patient Reevaluation #3: 11/02/16 12:45 Patient stretcher records are reviewed Medical Decision Making - Medical Decision Making 66 female transferred for evaluation of acute pancreatitis. Patient has history of gallbladder disease and cholecystectomy, patient will be admitted for IV hydration and pain control. - Radiology Data Radiology results: report reviewed (Ultrasound is negative for acute disease), image reviewed Disposition Clinical Impression: Acute pancreatitis Disposition: HOME SELF-CARE Condition: Good Referrals: Jean Paul Ricketts MD [Primary Care Provider] - 1-2 days
--- NOTE | 2016-11-02 12:49 | US ---
EXAMINATION TYPE: US gallbladder DATE OF EXAM: 11/02/2016 12:32 PM COMPARISON: CT on PACS CLINICAL HISTORY: Pain. EC patient with epigastric and midline abdominal pain x 3 days, with nausea, fever and chill type symptoms per patient; gallbladder removed 2000 per patient; diabetic EXAM MEASUREMENTS: Liver Length: 19.2 cm CBD: 0.8 cm Right Kidney: 11.0 x 7.0 x 4.8cm Pancreas: hyperechoic Liver: periportal wall brightness noted in right and left lobes; enlarged liver, heterogeneous appea sheree Gallbladder: surgically removed CBD: wnl post cholecystectomy Right Kidney: mid pole hyperechoic focus is noted with posterior shadowing = 0.5 x 0.8 x 0.2cm and c ould represent small stone vs. vessel wall calcification IMPRESSION: Possible nonobstructing 5 mm calculus in the interpolar right kidney. No hydronephrosis. Large common bile duct consistent with cholecystectomy. No dilation of the intrahepatic bile ducts. Numerous echogenic foci throughout the liver raise the possibility of multiple liver masses. CT scan would be helpful for further evaluation if clinically indicated. This liver appearance appear s to be a change compared to old ultrasound of 11/22/2014. No pancreatic mass seen.
[2016-11-02] MEDS ORDERED: ONDANSETRON 4 MG/2 ML VIAL IVP STA (13:02)
[2016-11-02] MEDS ORDERED: ONDANSETRON 4 MG/2 ML VIAL IVP PRN (13:35)
[2016-11-02] MEDS ORDERED: ALBUTEROL NEBULIZED 2.5 MG/3 ML INHALATION PRN (14:16)
[2016-11-02] MEDS ORDERED: POLYETHYLENE GLYCOL 3350 17 GM POWD.PACK PO PRN (14:16)
[2016-11-02 14:24] LABS: Glucose,Whole Blood 145 mg/dL (75-99)
[2016-11-02] MEDS ORDERED: BISACODYL 10 MG SUPP RECTAL PRN (14:38)
[2016-11-02 14:59] LABS: Basophils # (A) 0.1 k/uL (0-0.2); Basophils % (A) 1 %; CH 29.1; CHCM 27.3; Eosinophils # (A) 0.1 k/uL (0-0.7); Eosinophils % (A) 1 %; HCT 41.4 % (34.0-46.0); HDW 2.53; Hypochromasia Marked; Luc # (Auto) 0.14; Luc % (Auto) 2; Lymphocytes # (A) 0.7 k/uL (1.0-4.8); Lymphocytes % (A) 10 %; MCH 31.1 pg (25.0-35.0); MCV 107.1 fL (80.0-100.0); Macrocytosis Moderate; Mean Platelet Volume 7.8; Monocytes # (A) 0.4 k/uL (0-1.0); Monocytes % (A) 5 %; Neutrophils # (A) 5.9 k/uL (1.3-7.7); Neutrophils % (A) 82 %; RBC 3.86 m/uL (3.80-5.40); RDW 14.8 % (11.5-15.5); WBC 7.2 k/uL (3.8-10.6); WBC (Perox) 7.48
--- NOTE | 2016-11-02 15:02 | XR ---
EXAMINATION TYPE: XR chest 1V portable DATE OF EXAM: 11/02/2016 2:54 PM COMPARISON: 01/27/2016 HISTORY: Right upper quadrant pain. Chest pain. TECHNIQUE: Single frontal view of the chest is obtained. FINDINGS: There is no heart failure nor confluent pneumonic infiltrate. There are no hilar masses. T here is no sign of pleural effusion. IMPRESSION: No active cardiopulmonary disease. No adverse change compared to old exam. Pulmonary vas cularity is decreased compared to old exam.
[2016-11-02 15:12] LABS: Magnesium 2.3 mg/dL (1.6-2.3); Phosphorous 4.2 mg/dL (2.5-4.5)
[2016-11-02 15:59] LABS: Prothrombin Time >130.0 sec (9.0-12.0)
[2016-11-02 16:00] LABS: INR >10.0 (<1.1)
[2016-11-02] MEDS ORDERED: PHYTONADIONE ORAL 5 MG/5 ML ORAL.SYRG PO STA (16:16)
[2016-11-02 16:47] LABS: Glucose,Whole Blood 143 mg/dL (75-99)
[2016-11-02] MEDS: FUROSEMIDE 20 MG TAB PO SCH (17:07)
[2016-11-02] MEDS: INSULIN LISPRO (humaLOG) 300 UNIT/3 ML VIAL SQ SCH ×2 (17:09→21:06)
[2016-11-02] MEDS: ONDANSETRON 4 MG/2 ML VIAL IVP PRN (17:13)
[2016-11-02] MEDS: HYDROcodone/APAP 7.5-325MG 1 EACH TAB PO PRN (17:14)
[2016-11-02] MEDS ORDERED: WARFARIN 5 MG TAB PO SCH (18:00)
--- NOTE | 2016-11-02 19:33 | HP ---
DATE OF ADMISSION: 11/02/2016 66-year-old who came in and was seen in outside ER with epigastric abdominal pain, sharp in nature, 9/10 in severity. The patient denied any fever, chills. Patient found to have elevated lipase because of which patient is admitted for possibility of pancreatitis although patient's pain is not typical for that. Patient mostly has gastritis. Patient's lipase is around 900, the lab maximal for, normal lipase level for that lab is around 300. Patient denied any fever, chills. Patient denied any diarrhea but is constipated. Patient denied any fever, chills. Her past medical history is significant for atrial fibrillation on Coumadin. I do not have an INR available, which will be ordered. I will also order magnesium and phosphorus level. 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 Patient is on 70/30 insulin about 6 units twice a day, I am changing it to 40 units tonight. We will add that to Lantus as patient is going to be n.p.o. tonight and the other issue is patient has congestive heart failure, ejection fraction of around less than 20%. Patient is getting 100 mL of normal saline which will be discontinued. Patient is on 20 b.i.d. of Lasix. Patient appears to be in intravascular volume depleted and hypovolemic at this point of time because of which I will hold off on Lasix because of pancreatitis, but I will also discontinue IV fluids because of symptoms of congestive heart failure exacerbation. I will also obtain chest x-ray. REVIEW OF SYSTEMS: CONSTITUTIONAL: No fever, no malaise, no fatigue. HEENT: No recent visual problems or hearing problems. Denied any sore throat. CARDIOVASCULAR: No chest pain, orthopnea, PND, no palpitations, no syncope. PULMONARY: No shortness of breath, no cough, no hemoptysis. GASTROINTESTINAL: As described in HPI. NEUROLOGICAL: No headaches, no weakness, no numbness. HEMATOLOGICAL: Denies any bleeding or petechiae. GENITOURINARY: Denies any burning micturition, frequency, or urgency. MUSCULOSKELETAL/RHEUMATOLOGICAL: Denies any joint pain, swelling, or any muscle pain. ENDOCRINE: Denies any polyuria or polydipsia. The rest of the 14 point review of systems is negative. Home medications include: 1. Allopurinol. 2. Magnesium oxide. 3. Omeprazole. 4. Amiodarone. 5. Atorvastatin. 6. Cholecalciferol. 7. Levothyroxine. 8. Albuterol. 9. Fenofibrate. 10. Lasix 20 p.o. b.i.d. 11. Hydromorphone. 12. NPH insulin. 13. Amlodipine. 14. Warfarin. 15. Albuterol. 16. Coumadin. 17. Metoprolol. 18. Polyethylene glycol. ALLERGIES: ALLERGIC TO CIPRO, ( ) MYCIN AND HYDROCODONE. Past medical history is significant for: 1. Chronic obstructive pulmonary disease. 2. Type 2 diabetes mellitus. 3. DVT. 4. Fibromyalgia. 5. Gastroesophageal reflux disease. 6. Hyperlipidemia. 7. Hypertension. 8. CKD secondary to hypertensive nephropathy. 9. Osteoarthritis. 10. Sleep apnea, uses CPAP machine at home. 11. Varicose veins. 12. Morbid obesity. 13. Congestive heart failure. 14. Chronic systolic dysfunction, ejection fraction of less than 20%. 15. Atrial fibrillation history on Coumadin. Denied any smoking, alcohol abuse or any drug abuse. FAMILY HISTORY: Mother had DVT and brother had blood clot after surgery. PHYSICAL EXAMINATION: VITAL SIGNS: Temperature 97.4, pulse of 64, respiratory rate of 18, blood pressure is 161/85, saturating at 100% on 3 liters of oxygen by nasal cannula. GENERAL: Morbidly obese, alert and oriented x3. HEENT: Pupils are round and equally reacting to light. EOMI. No scleral icterus. No conjunctival pallor. Normocephalic, atraumatic. No pharyngeal erythema. No thyromegaly. CARDIOVASCULAR: S1 and S2 present. No murmurs, rubs, or gallops. PULMONARY: Chest is clear to auscultation, no wheezing or crackles. ABDOMEN: Patient has minimal epigastric abdominal tenderness was appreciated and patient has 2+ pitting pedal edema. MUSCULOSKELETAL: No joint swelling or deformity. EXTREMITIES: No cyanosis, clubbing, or pedal edema. NEUROLOGICAL: Gross neurological examination did not reveal any focal deficits. SKIN: No rashes. LABORATORY DATA: CBC, CMP are abnormal for the elevated lipids as mentioned above. Creatinine is around 3.5. Her baseline is around 2.5. Ultrasound of the gallbladder showed some incidental nephrolithiasis. Nonobstructing primary renal calculi in the interpolar right kidney, although patient does not have any symptoms from that. ASSESSMENT AND PLAN: 1. Epigastric abdominal pain mostly related to gastritis. Patient will be started on Protonix IV b.i.d. There can be a bit of pancreatitis too. I will obtain a lipase tomorrow and make sure it is not going up tomorrow as we may be seeing early phases of either pancreatitis or gastritis. 2. Congestive heart failure, chronic systolic dysfunction, patient is fairly euvolemic at this point in time. Patient will be resumed on Lasix as mentioned above. 3. Atrial fibrillation, rate controlled. Patient is on Coumadin. I will obtain an INR. 4. Hypertension. 5. Morbid obesity with sleep apnea. Patient will continue her CPAP machine. 6. Hyperthyroidism. 7. Chronic kidney disease stage IV secondary to diabetic nephropathy with proteinuria and nephrology was consulted from ER, which will be continued. 8. History of atrial fibrillation, rate controlled at this point of time. Continue with amiodarone and metoprolol. 9. Diabetes mellitus type 2 on insulin management as mentioned above along with we will also use sliding scale insulin and Accu-Cheks t.i.d. a.c.
[2016-11-02 20:48] LABS: Glucose,Whole Blood 141 mg/dL (75-99)
[2016-11-02] MEDS: PANTOPRAZOLE 40 MG/10 ML VIAL IVP SCH (21:06)
[2016-11-02] MEDS: METOPROLOL TARTRATE 50 MG TAB PO SCH (21:07)
[2016-11-02] MEDS: ATORVASTATIN 40 MG TAB PO SCH (21:07)
[2016-11-02] MEDS: INSULIN GLARGINE 100 UNIT/ML 10 ML VIAL SQ SCH (21:07)
[2016-11-02] MEDS ORDERED: BISACODYL 5 MG TABLET.DR PO PRN (21:28)
[2016-11-03] MEDS: LEVOTHYROXINE 25 MCG TAB PO SCH (05:54)
[2016-11-03 07:30] LABS: Glucose,Whole Blood 184 mg/dL (75-99)
[2016-11-03] MEDS ORDERED: PANTOPRAZOLE 40 MG TABLET PO SCH (07:30)
[2016-11-03] MEDS: HYDROcodone/APAP 7.5-325MG 1 EACH TAB PO PRN ×2 (07:38→18:03)
[2016-11-03] MEDS: INSULIN LISPRO (humaLOG) 300 UNIT/3 ML VIAL SQ SCH ×4 (07:40→20:33)
[2016-11-03] MEDS: FENOFIBRATE 160 MG TAB PO SCH (08:20)
[2016-11-03] MEDS: FUROSEMIDE 20 MG TAB PO SCH (08:20)
[2016-11-03] MEDS: amLODIPine 5 MG TAB PO SCH (08:20)
[2016-11-03] MEDS: PANTOPRAZOLE 40 MG/10 ML VIAL IVP SCH ×2 (08:20→20:12)
[2016-11-03] MEDS: METOPROLOL TARTRATE 50 MG TAB PO SCH ×2 (08:20→20:13)
[2016-11-03] MEDS: ALLOPURINOL 100 MG TAB PO SCH (08:20)
[2016-11-03] MEDS ORDERED: ENOXAPARIN 40 MG/0.4 ML SYRINGE SQ SCH (09:00)
--- NOTE | 2016-11-03 09:53 | P.PN ---
Subjective Consultation: Acute kidney injury on chronic kidney disease History of present illness: Patient is seen in renal consultation for acute kidney injury on chronic kidney disease. Patient has chronic kidney disease stage IV secondary to diabetic kidney disease with baseline creatinine in the range of 2.1-2.5. Patient presented to [facility] with abdominal pain nausea and vomiting. Her lipase level was greater than 1000. Her creatinine was elevated at 3.9 over there. She was subsequently transferred to [facility] for further care. She is currently on Lasix 20 mg twice daily. She does have history of systolic CHF with ejection fraction of less than 20%. She is currently nothing by mouth. Continues to have abdominal pain. No vomiting or diarrhea while she' s been here. Chest x-ray is negative for any acute process. She admits to good urine output. No hematuria or dysuria. She has insulin-dependent diabetes mellitus and was initially diagnosed about 30 years ago. Denies use of NSAIDs. Denies family history of renal disease. Vital signs are stable. General: The patient appeared well nourished and normally developed. HEENT: Head exam is unremarkable. Neck is without jugular venous distension. LUNGS: Lungs are clear to auscultation and percussion. Breath sounds decreased. HEART: Rate and Rhythm are regular. First and second heart sounds normal. No murmurs, rubs or gallops. ABDOMEN: Abdominal exam reveals normal bowel sounds. Diffuse tenderness. EXTREMITITES: No clubbing, cyanosis, or edema. Objective - Vital Signs Vital signs: Vital Signs Temp 96.9 F L 11/03/16 07:00 Pulse 64 11/03/16 07:00 Resp 18 11/03/16 07:00 BP 150/65 11/03/16 07:00 Pulse Ox 90 L 11/03/16 07:00 Intake & Output 11/02/16 11/03/16 11/03/16 18:59 06:59 18:59 Intake Total 0 Balance 0 Weight 136 kg Intake: Oral 0 Other: # Voids 2 - Labs CBC & Chem 7: 11/02/16 14:36 Labs: Abnormal Lab Results - Last 24 Hours (Table) 11/02/16 11/02/16 11/02/16 Range/Units 14:05 14:36 14:36 MCV 107.1 H (80.0-100.0) fL MCHC 29.0 L (31.0-37.0) g/dL Lymphocytes # 0.7 L (1.0-4.8) k/uL PT >130.0 H (9.0-12.0) sec INR >10.0 H* (<1.1) POC Glucose (mg/dL) 145 H (75-99) mg/dL Lipase (23-300) U/L 11/02/16 11/02/16 11/02/16 Range/Units 14:36 16:45 20:45 MCV (80.0-100.0) fL MCHC (31.0-37.0) g/dL Lymphocytes # (1.0-4.8) k/uL PT (9.0-12.0) sec INR (<1.1) POC Glucose (mg/dL) 143 H 141 H (75-99) mg/dL Lipase 1003 H (23-300) U/L 11/03/16 Range/Units 07:28 MCV (80.0-100.0) fL MCHC (31.0-37.0) g/dL Lymphocytes # (1.0-4.8) k/uL PT (9.0-12.0) sec INR (<1.1) POC Glucose (mg/dL) 184 H (75-99) mg/dL Lipase (23-300) U/L Assessment and Plan Plan: Assessment: #1. Nonoliguric acute kidney injury mostly prerenal secondary to vomiting and pancreatitis. Creatinine 3.9 at [facility]. #2. Chronic kidney disease stage IV secondary to diabetic kidney disease with baseline creatinine in the range of 2.1-2.5. #3. Systolic CHF with ejection fraction of less than 20%. Compensated. #4. Acute pancreatitis. #5. Insulin-dependent diabetes mellitus. Plan: Start normal saline to be run at 50 mL an hour. Hold diuretics for now. Avoid nephrotoxic agents and hypotensive episodes. Patient has undergone dialysis education and will be doing in center hemodialysis when needed. She has undergone vein mapping. Repeat electrolytes in the morning. Follow up morning labs. Thank you for the consultation. I will continue to follow the patient with you during her hospital stay.
[2016-11-03 10:07] LABS: INR >10.0 (<1.1); Prothrombin Time >130.0 sec (9.0-12.0)
[2016-11-03 10:20] LABS: Potassium 5.1 mmol/L (3.5-5.1); Total Bilirubin 4.2 mg/dL (0.2-1.3); Total Protein 6.6 g/dL (6.3-8.2)
[2016-11-03] MEDS: SODIUM CHLORIDE 0.9% 1,000 ML IV SCH ×2 (10:53→20:10)
[2016-11-03] MEDS ORDERED: PHYTONADIONE ORAL 5 MG/5 ML ORAL.SYRG PO STA (11:17)
[2016-11-03 11:22] LABS: Hemoglobin A1C 8.1 % (4.2-6.1)
[2016-11-03 11:30] LABS: Amylase 92 U/L (30-110)
[2016-11-03 11:57] LABS: Glucose,Whole Blood 187 mg/dL (75-99)
[2016-11-03] MEDS ORDERED: ERGOCALCIFEROL 50,000 UNIT CAP PO SCH (12:00)
--- NOTE | 2016-11-03 17:07 | P.PN ---
Subjective Date of service 11/03/2016 Progress note being dictated for Dr. Bridges This is a 66-year-old female admitted with worsening abdominal pain, elevated T bili, LFTs, lipase, Coumadin coagulopathy and multiple other medical issues. States abdominal distention and pain worsening. Maintained on IV fluid hydration. Lipase improved , currently at 391.remains NPO.Passing no flatus, no bowel movement. Denies nausea or vomiting. Received vitamin K yesterday and INR remains greater than 10 .elevated renal function. T bili 4.2 with elevated LFTs. Denies chest pain, palpitations. Objective - Vital Signs Vital signs: Vital Signs Temp 98.0 F 11/03/16 15:00 Pulse 58 L 11/03/16 15:00 Resp 18 11/03/16 15:00 BP 144/69 11/03/16 15:00 Pulse Ox 98 11/03/16 15:00 Intake & Output 11/02/16 11/03/16 11/03/16 18:59 06:59 18:59 Intake Total 0 0 Balance 0 0 Weight 136 kg Intake: Oral 0 0 Other: # Voids 2 3 - Exam PHYSICAL EXAM: VITAL SIGNS: As above GENERAL: [Sitting up at side of bed, obese, alert and oriented 3] HEENT: [Pupils equal conjunctiva normal.] No conjunctival pallor, normocephalic atraumatic. NECK: [Supple, no JVD] RESPIRATORY EFFORT:[Normal] LUNGS: [Clear to auscultation, no wheezing rhonchi or crackles] CARDIOVASCULAR[regular S1-S2, no murmurs rubs or gallops, no edema] GI: [Abdomen soft, distended, diffuse epigastric abdominal tenderness radiating to right upper and lower quadrants and further to right flank area, positive bowel sounds.] SKIN: [Extremities with no cyanosis, clubbing] NEURO: [Gross neurological examination did not reveal any focal deficits] - Labs CBC & Chem 7: 11/02/16 14:36 11/03/16 08:40 Labs: Abnormal Lab Results - Last 24 Hours (Table) 11/02/16 11/02/16 11/03/16 Range/Units 16:45 20:45 07:28 PT (9.0-12.0) sec INR (<1.1) Chloride (98-107) mmol/L BUN (7-17) mg/dL Creatinine (0.52-1.04) mg/dL Glucose (74-99) mg/dL POC Glucose (mg/dL) 143 H 141 H 184 H (75-99) mg/dL Hemoglobin A1c (4.2-6.1) % Total Bilirubin (0.2-1.3) mg/dL AST (14-36) U/L ALT (9-52) U/L Alkaline Phosphatase (38-126) U/L Lipase (23-300) U/L 11/03/16 11/03/16 11/03/16 Range/Units 08:40 08:40 08:40 PT >130.0 H (9.0-12.0) sec INR >10.0 H* (<1.1) Chloride 108 H (98-107) mmol/L BUN 51 H (7-17) mg/dL Creatinine 2.83 H (0.52-1.04) mg/dL Glucose 188 H (74-99) mg/dL POC Glucose (mg/dL) (75-99) mg/dL Hemoglobin A1c 8.1 H (4.2-6.1) % Total Bilirubin 4.2 H (0.2-1.3) mg/dL AST 726 H (14-36) U/L ALT 332 H (9-52) U/L Alkaline Phosphatase 234 H (38-126) U/L Lipase (23-300) U/L 11/03/16 11/03/16 Range/Units 08:40 11:54 PT (9.0-12.0) sec INR (<1.1) Chloride (98-107) mmol/L BUN (7-17) mg/dL Creatinine (0.52-1.04) mg/dL Glucose (74-99) mg/dL POC Glucose (mg/dL) 187 H (75-99) mg/dL Hemoglobin A1c (4.2-6.1) % Total Bilirubin (0.2-1.3) mg/dL AST (14-36) U/L ALT (9-52) U/L Alkaline Phosphatase (38-126) U/L Lipase 391 H (23-300) U/L Assessment and Plan Plan: 1. Epigastric abdominal pain mostly related to gastritis, possible acute pancreatitis, probably hepatic. 2. [Congestive heart failure, chronic systolic dysfunction, EF less than 20%, in a patient euvolemic at this time]. 3. Chronic persistent Atrial fibrillation, rate controlled. 4. Coumadin monitoring. 5. Hypertension. 6. Morbid obesity, BMI 51.5. 7. Obstructive sleep apnea uses CPAP machine at home 8. Acute renal failure, mostly prerenal secondary to pancreatitis,.Chronic kidney disease, stage IV secondary to diabetic neuropathy with Protein urea. 9. Diabetes mellitus type 2 Plan: Continue on current medication regime ,monitoring and symptomatic treatment. Maintain IV fluid hydration.GI consulted because abdominal pain worsening with no flatus or bowel movement, worsening tbili, LFTs. Close monitoring of CMP with repeat labs ordered for a.m. patient has a EF of 20%, repeat chest x-ray in a.m. prognosis guarded given multiple complex medical issues. Evaluated by nephrology with recommendations noted. Further recommendations to follow. The impression and plan of care has been dictated as directed. : I performed a H&P examination of this patient and discussed the same with the dictator. I agree with the dictator's note. Any additional findings/opinions/ etc. will be noted.
[2016-11-03 17:11] LABS: Glucose,Whole Blood 225 mg/dL (75-99)
[2016-11-03] MEDS: ONDANSETRON 4 MG/2 ML VIAL IVP PRN (17:53)
[2016-11-03] MEDS: ATORVASTATIN 40 MG TAB PO SCH (20:13)
[2016-11-03] MEDS: INSULIN GLARGINE 100 UNIT/ML 10 ML VIAL SQ SCH (20:35)
[2016-11-03 20:40] LABS: Glucose,Whole Blood 274 mg/dL (75-99)
--- NOTE | 2016-11-03 20:53 | P.PN ---
Progress Note - Text Patient notified the bariatric center for me to evaluate her. She comes in with 4 day history of epigastric abdominal pain with radiation to the right upper quadrant. She has a pertinent history of cholecystectomy done in the past. She is pending a gastric bypass in 2 weeks however given her current clinical state, surgery is on hold. Chemistries are reviewed consistent with elevated liver enzymes and elevated lipase of unclear etiology. Ultrasound report also reviewed. Agree with MRI. Per discussion with patient and family she cannot fit into the MRI. She may need open MRI or transfer to tertiary care facility for further evaluation and management. Will discuss with GI. At this time no surgical intervention. We'll defer future bariatric surgery as well.
--- NOTE | 2016-11-03 21:27 | CONS ---
DATE OF CONSULTATION: 11/03/2016 REASON FOR CONSULTATION: Abdominal pain, elevated LFTs. HISTORY OF PRESENT ILLNESS: The patient is a 66-year-old white female who was transferred from [facility], wherein she presented with severe epigastric pain that radiated to the right upper quadrant area that started about 4 days ago. The pain continued to progressively get worse, and she went to the emergency room at [facility], from where she was transferred here for further evaluation. Apparently she was noted to have mild elevation of amylase and lipase as well as serum transaminases. Since being in the hospital, she continues to have epigastric pain, but it is much less intense. She had gallbladder surgery in 1999 and does not recall if she had any gallstones. She reports no fever, chills, night sweats. Her past medical history is significant for: 1. Atrial fibrillation, on Coumadin. 2. Congestive heart failure; ejection fraction of about 20%. 3. Chronic renal failure. 4. Diabetic nephropathy. 5. Long-standing history of diabetes mellitus. 6. Hypertension. 7. Hyperlipidemia. HOME MEDICATIONS: 1. Allopurinol. 2. Magnesium oxide. 3. Omeprazole. 4. Amiodarone. 5. Atorvastatin. 6. Coumadin. 7. Levothyroxine. 8. Albuterol. 9. Fenofibrate. 10. Lasix. 11. Hydromorphone. 12. NPH. 13. Metoprolol. 14. Polyethylene glycol. ALLERGIES: CIPRO and HYDROCODONE. SOCIAL HISTORY: No smoking. No alcohol use. FAMILY HISTORY: Unremarkable. REVIEW OF SYSTEMS: CARDIOPULMONARY: She denies any chest pain or shortness of breath. GENITOURINARY: No dysuria or hematuria. MUSCULOSKELETAL: Unremarkable. SKIN: Unremarkable. ENDOCRINE: Unremarkable. PSYCHIATRIC: Unremarkable. NEUROLOGY: Unremarkable. ENT/VISION: Unremarkable. CONSTITUTIONAL: Moderate obesity. No fever, chills, night sweats. PAST SURGICAL HISTORY: 1. Varicose vein surgery. 2. Gallbladder surgery. On physical examination, she appears comfortable, in no apparent distress. Vital signs are stable. Blood pressure is 144/69, pulse rate 58, temperature 98. HEENT EXAMINATION: Unremarkable. Conjunctivae pink. Sclerae anicteric. Oral cavity with no lesions. NECK: No JVD or lymph node enlargement. Chest was clear to auscultation. HEART: Regular rate and rhythm. ABDOMEN: Morbidly obese. There was mild tenderness in the epigastric area. Bowel sounds are positive. No organomegaly. EXTREMITIES: No pedal edema. SKIN: No rashes. NEURO: Alert and oriented x3. No focal deficits. LABS FROM TODAY: WBC 7.2, hemoglobin 12. Platelets are 348. INR is more than 10. PT is 130. AST 726, ALT 332, alkaline phosphatase 234, T-bili 4.2. Yesterday T-bili was 3. AST and ALT were in the range of 600. Lipase was 1003. Amylase is normal. Today lipase is down to 391. IMPRESSION: 1. This is a lady who presented to the hospital with acute onset of severe epigastric pain radiating to the right upper quadrant area and noted to have elevated lipase and elevated serum transaminases with bilirubin up to 4.2. All of this could be indicative of acute biliary pancreatitis. She is status post gallbladder surgery in 1999 and she does not recall if she had any gallstones. She did have ultrasound of the right upper quadrant done that showed mild hepatomegaly and CBD measuring 8 mm in diameter. No intrahepatic biliary ductal dilation was noted. At this time possibility of a recurrent common bile duct stone cannot be excluded. 2. History of congestive heart failure with an ejection fraction of 20%. 3. Stage IV renal disease. 4. Long-standing history of diabetes mellitus. 5. Atrial fibrillation, on Coumadin with an INR of more than 10. RECOMMENDATIONS: 1. Agree with clear liquid diet. 2. Continue with pain medications as needed. 3. Repeat labs in the morning. 4. I will schedule the patient for M.R.C.P. to evaluate for any retained common bile duct stone. Further recommendations will follow, based on the results. Thank you for this consultation.
[2016-11-04] MEDS: ONDANSETRON 4 MG/2 ML VIAL IVP PRN (00:54)
[2016-11-04] MEDS: LEVOTHYROXINE 25 MCG TAB PO SCH (05:42)
[2016-11-04] MEDS: INSULIN LISPRO (humaLOG) 300 UNIT/3 ML VIAL SQ SCH ×2 (07:38→12:36)
[2016-11-04 07:45] LABS: Glucose,Whole Blood 190 mg/dL (75-99)
[2016-11-04 07:51] VITALS: BP 144/71; PULSE 65; RESP 22; TEMP 97
[2016-11-04] MEDS: FENOFIBRATE 160 MG TAB PO SCH (08:07)
[2016-11-04] MEDS: METOPROLOL TARTRATE 50 MG TAB PO SCH (08:07)
[2016-11-04] MEDS: amLODIPine 5 MG TAB PO SCH (08:07)
[2016-11-04] MEDS: ALLOPURINOL 100 MG TAB PO SCH (08:07)
[2016-11-04] MEDS: PANTOPRAZOLE 40 MG/10 ML VIAL IVP SCH (08:08)
[2016-11-04] MEDS: HYDROcodone/APAP 7.5-325MG 1 EACH TAB PO PRN (08:13)
--- NOTE | 2016-11-04 09:26 | XR ---
EXAMINATION TYPE: XR chest 2V DATE OF EXAM: 11/04/2016 7:34 AM COMPARISON: 11/02/2016 INDICATION: Asthma CHF TECHNIQUE: Single frontal view of the chest is obtained. FINDINGS: The heart size is normal. The pulmonary vasculature is prominent. There is slight increased lung markings diffusely. Correlate for alveolar pulmonary edema IMPRESSION: 1. Clinical correlation recommended for early congestive heart failure. Continued follow-up is recomm ended.
[2016-11-04 09:54] LABS: Basophils % (A) 0 %; CH 29.9; CHCM 31.2; Eosinophils # (A) 0.2 k/uL (0-0.7); Eosinophils % (A) 2 %; HCT 33.3 % (34.0-46.0); HDW 2.68; HGB 10.6 gm/dL (11.4-16.0); Hypochromasia Slight; Luc # (Auto) 0.14; Luc % (Auto) 2; Lymphocytes # (A) 0.6 k/uL (1.0-4.8); Lymphocytes % (A) 7 %; MCH 30.8 pg (25.0-35.0); MCHC 31.9 g/dL (31.0-37.0); Mean Platelet Volume 7.8; Monocytes # (A) 0.4 k/uL (0-1.0); Monocytes % (A) 5 %; Neutrophils # (A) 7.3 k/uL (1.3-7.7); Neutrophils % (A) 84 %; RBC 3.44 m/uL (3.80-5.40); RDW 15.6 % (11.5-15.5); WBC 8.6 k/uL (3.8-10.6); WBC (Perox) 8.37
[2016-11-04 10:11] LABS: MCV 96.6 fL (80.0-100.0)
[2016-11-04 10:30] LABS: Calcium 9.1 mg/dL (8.4-10.2); Potassium 4.5 mmol/L (3.5-5.1); Total Bilirubin 5.4 mg/dL (0.2-1.3); Total Protein 7.1 g/dL (6.3-8.2)
[2016-11-04] MEDS ORDERED: FUROSEMIDE 40 MG TAB PO STA (11:00)
--- NOTE | 2016-11-04 11:25 | DS ---
DATE OF ADMISSION: 11/02/2016 DATE OF DISCHARGE: FINAL DIAGNOSES: 1. Epigastric and abdominal pain, possibly acute choledocholithiasis leading to acute pancreatitis, present on admission. 2. Congestive heart failure with chronic systolic dysfunction, ejection fraction 30%. 3. Chronic persistent atrial fibrillation, rate controlled. 4. Coumadin coagulopathy, present on admission. 5. Coumadin monitoring. 6. Hypertension. 7. Morbid obesity with body mass index of 51.5. 8. Obstructive sleep apnea on CPAP. 9. Acute on chronic renal failure with chronic kidney disease stage IV, secondary to diabetic nephropathy. 10. Diabetes mellitus type 2. 11. FULL CODE. DISCHARGE DISPOSITION: The patient will be discharged in a stable condition with guarded prognosis. Total time taken 35 minutes. HISTORY OF PRESENT ILLNESS: This is a 66-year-old woman with a past medical history of multiple medical problems admitted with abdominal pain and gallstone pancreatitis suspected on admission, but the choledocholithiasis also noted in the ultrasound. The patient was seen by Dr. Aguilar and Dr. Ramírez. Dr. Aguilar recommended MRCP which could not be done because of technical reasons. I discussed the case at length with the [facility] Transfer Team and because of the high complex CT and multiple complex medical issues as discussed including renal failure and CHF and other medical issues, the patient will be transferred to [facility] for further evaluation and treatment. On exam, vitals as noted. CARDIOVASCULAR SYSTEM: S1, S2, muffled. RESPIRATION: Clear to auscultation. ABDOMEN: Soft. Minimal discomfort in the epigastrium. NERVOUS SYSTEM: No focal deficit. The labs show WBC 8.6, hemoglobin is 10.6, and INR more than 10. Sodium 142, potassium 5.1, creatinine is 2.83, total bilirubin is 4.2 and AST was 726, ALT 232, alk phos 234. The current medications are: 1. Albuterol p.r.n. 2. Zyloprim 100 mg p.o. daily. 3. Bisacodyl 10 mg daily p.r.n. 4. Vitamin D 5. [place] 7.5 mg q.6 p.r.n. 6. Lantus 40 units subQ q.h.s. 7. Levothyroxine 25 mcg p.o. daily. 8. Metoprolol 50 mg p.o. b.i.d. 9. Zofran 4 mg IV q.6 p.r.n. 10. Protonix 40 mg IV b.i.d. 11. Vitamin K 5 mg p.o. daily. 12. IV fluids per Nephrology recommendations at 50 mL/h. 13. Norvasc 5 mg p.o. daily. MTDD
[2016-11-04 11:46] VITALS: BMI 49.7
[2016-11-04 12:23] LABS: Glucose,Whole Blood 170 mg/dL (75-99)
[2016-11-04 12:29] LABS: Prothrombin Time >130.0 sec (9.0-12.0)
[2016-11-04 12:30] LABS: INR >10.0 (<1.1)
== END 2016-11-04 14:00 | disposition short-term general hospital (02) | DRG 439 ==
LOC: SUPCPDRO 11:51 → EC 11:51 → 4MS4W 12:46
PROVIDERS: ADMIT Internal Medicine; ATTEND Internal Medicine
DX: K85.10 Biliary acute pancreatitis without necrosis or infection (principal); I13.0 Hypertensive heart and chronic kidney disease with heart failure and stage 1 through stage 4 chronic kidney disease, or unspecified chronic kidney disease; N18.4 Chronic kidney disease, stage 4 (severe); N17.9 Acute kidney failure, unspecified; E11.21 Type 2 diabetes mellitus with diabetic nephropathy; I48.1 Persistent atrial fibrillation; I50.22 Chronic systolic (congestive) heart failure; Z68.43 Body mass index [BMI] 50.0-59.9, adult; K80.50 Calculus of bile duct without cholangitis or cholecystitis without obstruction; E11.22 Type 2 diabetes mellitus with diabetic chronic kidney disease; E05.90 Thyrotoxicosis, unspecified without thyrotoxic crisis or storm; E66.01 Morbid (severe) obesity due to excess calories; E78.5 Hyperlipidemia, unspecified; G47.33 Obstructive sleep apnea (adult) (pediatric); I48.2 Chronic atrial fibrillation; J45.909 Unspecified asthma, uncomplicated; K21.9 Gastro-esophageal reflux disease without esophagitis; K29.70 Gastritis, unspecified, without bleeding; K59.00 Constipation, unspecified; M79.7 Fibromyalgia; R79.1 Abnormal coagulation profile; T45.515A Adverse effect of anticoagulants, initial encounter; Z79.01 Long term (current) use of anticoagulants; Z79.4 Long term (current) use of insulin; Z79.899 Other long term (current) drug therapy
CPT/HCPCS: 71010; 71020; 76705; 80053; 82150; 83036; 83690; 83735; 84100; 85025; 85610; 96361; 96374; 96375; 99285

== ENCOUNTER → 2016-12-17 | Outpatient (CLI) | payer OTHER ==
[2016-12-17 15:04] VITALS: BP 185/84; PULSE 65; RESP 16; TEMP 97.3; BMI 51.2
--- NOTE | 2017-01-17 11:33 | P.PN ---
Progress Note - Text DATE OF SERVICE: 12/17/2016 CHIEF COMPLAINT: Bariatric assessment. HISTORY OF PRESENT ILLNESS: Rita Morales is a 66-year-old female who is undergoing the bariatric program when she developed acute elevated liver enzymes and pancreatitis of unclear etiology. She was hospitalized a little over a month ago as a result. In fact, she was actually transferred to an outside facility whereby she states no further workup was performed. Separately she reports no abdominal pain. Given her current comorbidities including stage IV kidney disease she is here to pursue weight loss surgery. She also has multiple medical conditions including personal history of DVTs as well as uncontrolled diabetes. She now presents for further evaluation to undergo weight loss procedure. At a height of 5 feet 3-1/2 inches, her ideal body weight is 140 pounds. Her highest weight is 326 pounds. Today, she comes in weighing 293 pounds. She has lost 33 pounds. Percent excess weight loss is up to 18%. Body mass index is reduced from 56.5 down to 50.8. She is still 153 pounds over weight. She has lost approximately 11 pounds since her last evaluation, almost 2 months ago. PAST MEDICAL HISTORY: 1. Gout. 2. Vitamin D deficiency. 3. Hyperlipidemia. 4. Hypertension. 5. Hypothyroidism. 6. Hypertensive cardiomyopathy. 7. Gastroesophageal reflux disease. 8. Magnesium deficiency. 9. Insulin-dependent diabetes. 10. Congestive heart failure. 11. Asthma. 12. Deep venous thrombosis. 13. Fibromyalgia. 14. Varicose veins. 15. Obstructive sleep apnea. 16. History of abnormal vaginal bleeding. 17. Renal insufficiency. 18. History of pancreatitis of unclear etiology. 19. Acute hepatitis. 20. Stage IV chronic kidney disease. PAST SURGICAL HISTORY: 1. . 2. Cholecystectomy. 3. Heart catheterization. 4. Tubal ligation. 5. History of cardioversion. 6. Upper endoscopy. MEDICATIONS: 1. Norvasc. 2. Omeprazole. 3. Lopressor. 4. Synthroid. 5. Lantus. 6. Humalog. 7. Lasix. 8. Lipitor. 9. Nebulized inhaler. 10. Coumadin. ALLERGIES: 1. CLINDAMYCIN. 2. HYDROCODONE. SOCIAL HISTORY: No active alcohol or tobacco use. FAMILY HISTORY: Pertinent for diabetes including morbid obesity. ORGAN SYSTEMS: CONSTITUTIONAL: [place] body weight of 140 pounds. Highest weight 326 pounds. Present weight 293 pounds. She has lost 33 pounds. Percent excess weight loss 18%. Body mass index reduced from 56.5 down to 50.8. GENITOURINARY: History of severe stage IV chronic kidney disease secondary to diabetes. History of persistent hyperkalemia as well as chronic renal insufficiency secondary to diabetes. GASTROINTESTINAL: History of pancreatitis including acute hepatitis, now resolved. History of gastroesophageal reflux disease. Also has diaphragmatic hiatal hernia with Hill grade 3 lower esophageal valve. MUSCULOSKELETAL: Has history of osteoarthritis of the lower back and joints. CARDIOVASCULAR: History of congestive heart failure with diastolic dysfunction. She reports seeing her call taker recently. Separately, she reports increased lower leg swelling. HEENT: No troubles with vision or hearing. No reports of active dysphagia. ENDOCRINE: History of insulin-dependent diabetes type 2 over 10+ years. No active thyroid disorder. RESPIRATORY: History of obstructive sleep apnea. History of asthma. NEURO: No reports of recent stroke or seizure disorders. PSYCH: No active depression. Anxiety. HEMATOLOGIC: Prior history of DVT. No reports easy bruising or bleeding. PHYSICAL EXAM: VITAL SIGNS: 97.3, 65, 16, 185/84, 5 feet 3-1/2 inches, 293 pounds. Body mass index of 51.2. MUSCULOSKELETAL: 2+ bilateral pitting edema. No clubbing, cyanosis. GENERAL: Well-developed female in no acute distress. HEENT: No scleral icterus. Extraocular movements grossly intact. Moist mucosa. NECK: Supple without lymphadenopathy. CHEST: Nonlabored respirations. Equal bilateral excursions. CARDIOVASCULAR: Regular rate and rhythm. ABDOMEN: Soft, nontender, nondistended. NEURO: No focal or lateralizing signs. Cranial nerves II through XII grossly within normal limits. PSYCH: Appropriate affect. Alert and oriented to person, place and time. LABS: Pending. ASSESSMENT: 1. Morbid obesity due to excess calories. 2. Body mass index reduced from 56.5 down to 50.8. 3. Uncontrolled insulin-dependent diabetes type 2. 4. Hypertensive heart disease with cardiomyopathy. 5. Obstructive sleep apnea. 6. Fibromyalgia. 7. Osteoarthritis bilateral hips. 8. Osteoarthritis lower back. 9. Prior history of deep venous thromboses. 10. Chronic obstructive pulmonary disease. 11. Dietary surveillance and counseling. 12. 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 13. Chronic pain syndrome. 14. Severe bilateral lower extremity edema. PLAN: 1. Recommend repeat bariatric metabolic panel including review of her labs. 2. Inpatient hospitalization suggested over 2 nights. 3. The second generation bariatric consent form was reviewed in detail. 4. With her multiple comorbidities, she is aware she is extremely high risk for any of the complications including bleeding, infection, leaks and need for further surgery and prolonged hospitalization. 5. I have also discussed potential home health care and rehab perioperatively. 6. She is on Coumadin for which will be cautiously evaluated post procedure. 7. Recommend inpatient consultation to freight car loader including big machine consultant as well. 8. Overall risks were described whereby she is high risk for complications including which the patient accepted those risks.
== END | disposition home or self-care (01) ==
LOC: BARWHC3 13:55
PROVIDERS: ATTEND Surgery Plastic and Reconstructive Surgery
DX: Z01.818 Encounter for other preprocedural examination (principal); I10 Essential (primary) hypertension
CPT/HCPCS: 99211

== ENCOUNTER → 2016-12-22 | Outpatient (CLI) | payer OTHER ==
[2016-12-22 09:48] LABS: Basophils # (A) 0.1 k/uL (0-0.2); Basophils % (A) 1 %; CH 30.2; CHCM 31.2; Eosinophils # (A) 0.3 k/uL (0-0.7); Eosinophils % (A) 5 %; HCT 39.5 % (34.0-46.0); HDW 2.29; HGB 12.2 gm/dL (11.4-16.0); Luc # (Auto) 0.18; Luc % (Auto) 3; Lymphocytes # (A) 1.1 k/uL (1.0-4.8); Lymphocytes % (A) 18 %; MCH 30.2 pg (25.0-35.0); MCV 97.4 fL (80.0-100.0); Mean Platelet Volume 7.7; Monocytes # (A) 0.4 k/uL (0-1.0); Monocytes % (A) 7 %; Neutrophils # (A) 3.8 k/uL (1.3-7.7); Neutrophils % (A) 66 %; RBC 4.05 m/uL (3.80-5.40); WBC 5.7 k/uL (3.8-10.6); WBC (Perox) 5.86
[2016-12-22 09:56] LABS: INR 1.1 (<1.1); Partial Thromboplastin Time 23.2 sec (22.0-30.0); Prothrombin Time 11.1 sec (9.0-12.0)
[2016-12-22 10:22] LABS: Calcium 9.7 mg/dL (8.4-10.2); Magnesium 2.3 mg/dL (1.6-2.3); Potassium 5.2 mmol/L (3.5-5.1); Total Bilirubin 0.8 mg/dL (0.2-1.3); Total Protein 7.6 g/dL (6.3-8.2)
== END | disposition home or self-care (01) ==
LOC: LABWHC1 09:08
PROVIDERS: ATTEND Surgery Plastic and Reconstructive Surgery
DX: Z01.812 Encounter for preprocedural laboratory examination (principal); Z01.810 Encounter for preprocedural cardiovascular examination; Z01.818 Encounter for other preprocedural examination; I10 Essential (primary) hypertension; Z51.81 Encounter for therapeutic drug level monitoring; Z79.01 Long term (current) use of anticoagulants
CPT/HCPCS: 36415; 80053; 83036; 83735; 85025; 85610; 85730

== ENCOUNTER 2016-12-29 10:23 | Inpatient (IN) | payer OTHER ==
[2016-12-25 12:55] VITALS: BMI 50.1
--- NOTE | 2016-12-29 06:36 | P.GSHP ---
History of Present Illness H&P Date: 12/29/16 CHIEF COMPLAINT: Bariatric assessment. HISTORY OF PRESENT ILLNESS: Rita Morales is a 66-year-old female who comes in with a history of morbid obesity including multiple comorbidities related to her weight such as congestive heart failure, hypertensive heart disease, hypercholesterolemia, diabetes type 2, with kidney disorder as well as obstructive sleep apnea. She comes in after completion of multiple consultants including a senior system operator, inside sales associate as well. Her kidneys are poorly functioning at least at stage III to stage IV. She is aware of being on protein shakes may also aggravate her kidney disorder. She has also been seeing her senior system operator in the interim as well. She reports moderate increase in lower leg swelling. At her height of 5 feet 3-1/2 inch frame, her ideal body weight is 140 pounds. Her highest weight is 326 pounds. PAST MEDICAL HISTORY: 1. Gout. 2. Vitamin D deficiency. 3. Hyperlipidemia. 4. Hypertension. 5. Hypothyroidism. 6. Hypertensive cardiomyopathy. 7. Gastroesophageal reflux disease. 8. Magnesium deficiency. 9. Insulin-dependent diabetes. 10. Congestive heart failure. 11. Asthma. 12. Deep venous thrombosis. 13. Fibromyalgia. 14. Varicose veins. 15. Obstructive sleep apnea. 16. History of abnormal vaginal bleeding. 17. Renal insufficiency. PAST SURGICAL HISTORY: 1. . 2. Cholecystectomy. 3. Heart catheterization. 4. Tubal ligation. 5. History of cardioversion. 6. Upper endoscopy. MEDICATIONS: 1. Norvasc. 2. Coumadin. 3. MiraLax. 4. Omeprazole. 5. Lopressor. 6. Magnesium oxide. 7. Synthroid. 8. Humalog. 9. Mccarr. 10. Lasix. 11. Fenofibrate. 12. Drisdol. 13. Lipitor. 14. Cordarone. 15. Zyloprim. 16. Ventolin nebulizer. ALLERGIES: 1. CLINDAMYCIN. 2. HYDROCODONE. SOCIAL HISTORY: No active alcohol or tobacco use. FAMILY HISTORY: Pertinent for diabetes including morbid obesity. REVIEW OF SYSTEMS: CONSTITUTIONAL: [place] body weight of 140 pounds. Highest weight of 326 pounds. Present weight is 291 pounds. Body mass index reduced from 57. MUSCULOSKELETAL: Has history of osteoarthritis of the lower back and joints. CARDIOVASCULAR: History of congestive heart failure with diastolic dysfunction. She reports seeing her senior system operator recently. Separately, she reports increased lower leg swelling. GENITOURINARY: History of persistent hyperkalemia as well as chronic renal insufficiency secondary to diabetes. She was recently hospitalized and is pending clearance from her inside sales associate. GASTROINTESTINAL: History of gastroesophageal. No reported hepatitis. Also has diaphragmatic hiatal hernia with Hill grade 3 lower esophageal valve. HEENT: No troubles with vision or hearing. No reports of active dysphagia. ENDOCRINE: History of insulin-dependent diabetes type 2 over 10+ years. No active thyroid disorder. RESPIRATORY: History of obstructive sleep apnea. History of asthma. NEURO: No reports of recent stroke or seizure disorders. PSYCH: No active depression. Anxiety. HEMATOLOGIC: Prior history of DVT. No reports easy bruising or bleeding. PHYSICAL EXAM: VITAL SIGNS: 97.6, 64, 20, 179/80, 5 foot 3-1/2, 291 pounds. Body mass of 50.1. GENERAL: Well-developed female in no acute distress. HEENT: No scleral icterus. Extraocular movements grossly intact. Moist mucosa. NECK: Supple without lymphadenopathy. CHEST: Nonlabored respirations. Equal bilateral excursions. CARDIOVASCULAR: Regular rate and rhythm. ABDOMEN: Soft, nontender, nondistended. MUSCULOSKELETAL: No clubbing, cyanosis. 3+ bilateral pitting edema. NEURO: No focal or lateralizing signs. Cranial nerves II through XII grossly within normal limits. PSYCH: Appropriate affect. Alert and oriented to person, place and time. LABS: No new labs at this time. ASSESSMENT: 1. Morbid obesity due to excess calories. 2. Body mass index reduced from 57 down to 50.1. 3. Uncontrolled insulin-dependent diabetes type 2, with stage III, renal insufficiency. 4. Hypertensive heart disease with cardiomyopathy. 5. Obstructive sleep apnea. 6. Fibromyalgia. 7. Osteoarthritis bilateral hips. 8. Osteoarthritis lower back. 9. Prior history of deep venous thromboses. 10. Chronic obstructive pulmonary disease. 11. Dietary surveillance and counseling. 12. 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 13. Chronic pain syndrome. 14. Severe bilateral lower extremity edema. PLAN: 1. Generation consent form was reviewed in detail regarding benefits and risks of all procedures including band, sleeve, gastric bypass. She has selected for gastric bypass. 2. She may also benefit from compression devices of at least 30 mmHg from the ankle to above the knee. 3. With her history of severe kidney disease, I have recommended cutting back on her protein intake from 3 shakes a day to 2 shakes a day with close followup with myself including inside sales associate. 4. Benefits and risks of surgical intervention with a bariatric procedure were described using a second-generation bariatric consent form. 5. [place] bariatric surgery collaborative data was reviewed including comorbidity resolution. 6. Again, she is at highest risk for bleeding as she is on Coumadin/Xarelto as well as leak, infection, stricture and potentially was also reviewed with her in detail. 7. Inpatient hospitalization anticipated at minimum for 2 nights with the possibility of the intensive care unit for evaluation. 8. Deep venous thrombosis prophylaxis with heparin only as lovenox is contraindicated in patients with chronic kidney failure, grade 3 and over. 9. Antibiotic prophylaxis. 10. She is extremely high risk for which I would recommend home health care evaluation and potentially subacute rehab and close evaluation for kidney disease with multiple consultants, including Cardiovascular, Nephrology, and Pulmonary will be advised at the time of her hospitalization and she demonstrated understanding. 11. Recommend a 2 week low-caloric diet with adjustments of her protein intake. Past Medical History Past Medical History: Atrial Fibrillation, Asthma, Heart Failure, Diabetes Mellitus, Deep Vein Thrombosis (DVT), GERD/Reflux, Hyperlipidemia, Hypertension , Osteoarthritis (OA), Renal Disease, Skin Disorder, Sleep Apnea/CPAP/BIPAP Additional Past Medical History / Comment(s): varicose veins. DVT RIGHT LEG, constipation, dry skin, decreased kidney function History of Any Multi-Drug Resistant Organisms: None Reported Past Surgical History: Section, Cholecystectomy, Heart Catheterization , Tubal Ligation Additional Past Surgical History / Comment(s): cardioversion Past Anesthesia/Blood Transfusion Reactions: No Reported Reaction Past Psychological History: Depression Smoking Status: Never smoker Past Alcohol Use History: None Reported Past Drug Use History: None Reported - Past Family History Mother Family Medical History: Deep Vein Thrombosis (DVT) Brother(s) Family Medical History: Cancer Additional Family Medical History / Comment(s): blood clot-in arm secondary to surgery Sister(s) Family Medical History: Deep Vein Thrombosis (DVT) Medications and Allergies Home Medications Medication Instructions Recorded Confirmed Type Allopurinol [Zyloprim] 100 mg PO DAILY 01/25/16 12/25/16 History Magnesium Oxide [Mag-Ox] 400 mg PO BID 01/25/16 12/25/16 History Omeprazole 20 mg PO DAILY 01/25/16 12/25/16 History Atorvastatin [Lipitor] 40 mg PO HS 05/28/16 12/25/16 History Ergocalciferol (Vitamin D2) 50,000 unit PO MO 05/28/16 12/25/16 History [Drisdol] Levothyroxine Sodium [Synthroid] 25 mcg PO DAILY 05/28/16 12/25/16 History Albuterol Inhaler [Ventolin Hfa 2 puff INHALATION Q6H PRN 07/04/16 12/25/16 History Inhaler] Furosemide [Lasix] 20 mg PO BID 07/04/16 12/25/16 History HYDROcodone/APAP 7.5-325MG [Mccarr 1 tab PO Q6HR PRN 08/06/16 12/25/16 History 7.5-325] Fenofibrate,Micronized 200 mg PO DAILY 09/04/16 12/25/16 History [Fenofibrate] amLODIPine [Norvasc] 5 mg PO DAILY 09/04/16 12/25/16 History Albuterol Nebulized [Ventolin 2.5 mg INHALATION Q6HR PRN 11/02/16 12/25/16 History Nebulized] Calcium Polycarbophil [Fiber-Lax] 1,250 mg PO TID 11/02/16 12/25/16 History Polyethylene Glycol 3350 [Miralax] 17 gm PO DAILY PRN 11/02/16 12/25/16 History Apixaban [Eliquis] 5 mg PO BID 12/17/16 12/25/16 History INSULIN LISPRO (HumaLOG) [HumaLOG] 2 units SQ ACHS 12/17/16 12/25/16 History Insulin Glargine [Lantus] 40 unit SQ HS 12/17/16 12/25/16 History Multivitamins, Thera [Multivitamin 1 tab PO DAILY 12/25/16 12/25/16 History (formulary)] Allergies Allergy/AdvReac Type Severity Reaction Status Date / Time ciprofloxacin [From Cipro] Allergy Unknown Verified 12/25/16 12:43 clarithromycin [From Biaxin] Allergy Anaphylaxis Verified 12/25/16 12:43 nitrofurantoin Allergy Wheezing Verified 12/25/16 12:43 [From Macrodantin]
[~2016-12-29 10:23] MED LIST: CHLORHEXIDINE GLUCONATE 15 ML CUP MUCOUS MEM ONE; DEXAMETHASONE SOD PHOSPHATE 10 MG/ML 1 ML VIAL IV ONE; HEPARIN SODIUM,PORCINE 5,000 UNIT/ML 1 ML VIAL SQ ONE; HYDROmorphone 1 MG/ML 1 ML SYRINGE IVP PRN; MIDAZOLAM 2 MG/2 ML VIAL IV PRN; ONDANSETRON 4 MG/2 ML VIAL IVP ONE; PANTOPRAZOLE 40 MG/10 ML VIAL IV STA; SCOPOLAMINE 1.5MG/72HR PATCH TRANSDERM ONE; ceFAZolin 3 GM in SODIUM CHLORIDE 0.9% 100 ML IVPB ONE
[2016-12-29 11:11] LABS: Glucose,Whole Blood 76 mg/dL (75-99)
[2016-12-29] MEDS: LACTATED RINGERS 1,000 ML IV SCH (11:18)
[2016-12-29] MEDS ORDERED: LIDOCAINE 1% 20 ML VIAL (10MG/ML) FOR IV START INTRADERMA ONE (11:18)
[2016-12-29 11:53] LABS: Amylase <30 U/L (30-110)
[2016-12-29 12:19] LABS: INR 1.1 (<1.1); Prothrombin Time 11.1 sec (9.0-12.0)
[2016-12-29 12:26] LABS: Partial Thromboplastin Time 21.2 sec (22.0-30.0)
[2016-12-29] MEDS ORDERED: GLYCOPYRROLATE 0.2 MG/ML 2 ML VIAL ONE (14:04)
[2016-12-29] MEDS ORDERED: SUCCINYLCHOLINE CHLORIDE 100 MG/5 ML SYR IV ONE (14:04)
[2016-12-29] MEDS ORDERED: LIDOCAINE 1% INJ 10MG/ML (20 ML MDV) ONE (14:04)
[2016-12-29] MEDS ORDERED: MIDAZOLAM 2 MG/2 ML VIAL ONE (14:04)
[2016-12-29] MEDS ORDERED: ROCURONIUM BROMIDE 10 MG/ML 10 ML VIAL IV ONE (14:04)
[2016-12-29] MEDS ORDERED: PROPOFOL 10 MG/ML 20 ML VIAL IV ONE (14:04)
[2016-12-29] MEDS ORDERED: NEOSTIGMINE 1 MG/ML 10 ML VIAL ONE (14:04)
[2016-12-29] MEDS ORDERED: fentaNYL (PF) 50 MCG/ML 2 ML AMP ONE (14:04)
[2016-12-29] MEDS ORDERED: BUPIVACAIN-EPI 0.25%-1:200,000 30 ML VIAL SQ ONE ×2 (14:38→14:50)
[2016-12-29] MEDS ORDERED: LACTATED RINGERS 1,000 ML IV ONE (14:46)
[2016-12-29] MEDS ORDERED: NALOXONE 0.4 MG/ML 1 ML VIAL IV PRN (16:52)
[2016-12-29] MEDS ORDERED: ALBUTEROL NEBULIZED 2.5 MG/3 ML INHALATION PRN (16:59)
--- NOTE | 2016-12-29 17:18 | P.OP ---
Date of Procedure: 12/29/16 Preoperative Diagnosis: Postoperative Diagnosis: Procedure(s) Performed: Implants: Indications for Procedure: Operative Findings: Description of Procedure: SURGEON: MANNIE CAMACHO MD RN CLINICAL DOCUMENTATION: DENISE VELASQUEZ. PREOPERATIVE DIAGNOSES: 1. Morbid obesity due to excess calories. 2. Body mass index reduced from 57 down to 50.1. 3. Uncontrolled insulin-dependent diabetes type 2, with stage III, renal insufficiency. 4. Hypertensive heart disease with cardiomyopathy. 5. Obstructive sleep apnea. 6. Fibromyalgia. 7. Osteoarthritis bilateral hips. 8. Osteoarthritis lower back. 9. Prior history of deep venous thromboses. 10. Chronic obstructive pulmonary disease. 11. Dietary surveillance and counseling. 12. 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 13. Chronic pain syndrome. 14. Severe bilateral lower extremity edema. 15. Congestive heart failure with diastolic dysfunction. 16. Gastroesophageal reflux disease. 17. Magnesium deficiency. 18. Vitamin D deficiency. 19. Hyperlipidemia. POSTOPERATIVE DIAGNOSES: 1. Morbid obesity due to excess calories. 2. Body mass index reduced from 57 down to 50.1. 3. Uncontrolled insulin-dependent diabetes type 2, with stage III, renal insufficiency. 4. Hypertensive heart disease with cardiomyopathy. 5. Obstructive sleep apnea. 6. Fibromyalgia. 7. Osteoarthritis bilateral hips. 8. Osteoarthritis lower back. 9. Prior history of deep venous thromboses. 10. Chronic obstructive pulmonary disease. 11. Dietary surveillance and counseling. 12. 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 13. Chronic pain syndrome. 14. Severe bilateral lower extremity edema. 15. Congestive heart failure with diastolic dysfunction. 16. Gastroesophageal reflux disease. 17. Magnesium deficiency. 18. Vitamin D deficiency. 19. Hyperlipidemia. OPERATION: 1. Laparoscopic Nancy-en-Y gastric bypass, 75 cm antecolic and gastric Nancy limb , with 25 mm EEA. 2. Intraoperative esophagogastrojejunoscopy. 3. Laparoscopic lysis of adhesions over 30 minutes greater omentum to the lower abdominal wall secondary to previous . ESTIMATED BLOOD LOSS: 5 mL SPECIMENS REMOVED: None. COMPLICATIONS: None. INDICATIONS: The patient is a very pleasant, 66-year-old female who presents with morbid obesity as her body mass index was 57. Highest lifetime weight 326 pounds. [place] body weight of 144 pounds. Height of 5 feet 4 inches. Her body mass index has been recently reduced from 57 down of 50.1. Today she comes in weighing 292 pounds and have lost 34 pounds. She comes in with extremely high risk including previous history of supratherapeutic INR for previous history of DVTs, stage IV renal nephropathy secondary to insulin-dependent diabetes. Per discussion with her correctional cook, bariatric intervention was advised however risk of renal failure were reviewed. All surgical options for morbid obesity had been described using the [place] bariatric surgery collaborative comorbidity resolution including complication risk score. The patient had elected for a gastric bypass with possible sleeve gastrectomy. A second-generation bariatric consent form was described in detail including the possibility of protein malnutrition, leaks, gastrojejunal stricture, venous thrombosis for which she demonstrated understanding. Benefits and risks of the procedure were described at length. Informed consent was obtained. DESCRIPTION: The patient was brought into the operating room theater. She was placed on a split leg table. Preoperatively she had received heparin subcutaneously for DVT prophylaxis as Lovenox is contraindicated for severe renal insufficiency. Additionally she had undergone Peridex oral solution as an oral decontaminant. After general induction, the abdomen was prepped and draped in standard sterile fashion. A Collins catheter was placed. Ioban draping was placed along the abdomen. A 0 10 mm laparoscopic trocar entry was performed along the epigastrium approximately 18 cm distal to the xiphoid process. Her xiphoid to her umbilicus was 29 cm for her height of 5 foot 4 inches. Diagnostic laparoscopy demonstrated no injury to bowel, viscera, or mesentery. The liver surface was unremarkable. No injury had occurred to the small bowel or viscera. Moderate greater omental adhesions of the lower abdomen was confirmed from her previous history of . Along the hiatus a small defect of a hiatal hernia was encountered. At the left upper quadrant 2- 12 mm trocars were placed 1 along the left midclavicular line and another along the anterior axillary line. In a mirror-shine fashion, 2 - 12 mm trocars were also placed along the right upper abdomen in a mirror-shine fashion. The patient was repositioned to supine position with the bed levelled. Initial adhesions were taken down of the greater omentum to the lower abdominal wall for 30 minutes for extensive lysis of adhesions using Sonicision. The transverse mesocolon, including the omentum, was reflected over the stomach. The ligament of Treitz was identified and measured 60 cm antegrade. The jejunum was divided at the 60 cm point after using metered graspers for measurement. The biliopancreatic limb was held in place by the investigative assistant. The Nancy limb was then measured 75 cm distally to avoid tension along the proposed gastrojejunal anastomosis. The Nancy limb was marked using a [place] drain and 2-0 silk on an Endo Stitch along its proximal staple edge. At 75 cm along the anti-mesenteric border of the Nancy limb, a jejunojejunostomy was proposed whereby enterotomies were created along the biliopancreatic limb including the Nancy limb using a suction Bovie cautery. The enterotomies were widened using a [place]. A bidirectional fire was performed whereby from the right side a 45 mm torrez load was fired. From the left side a separate 45 mm firing had occurred, creating a 90 mm jejunojejunostomy. The defect was then closed using a 60 mm torrez load. The jejunojejunostomy was found to be hemostatic. Attention was now brought to the creation of the gastrojejunostomy. Placement of a medium size Ana liver retractor was used to elevate the left lobe of the liver for greater visualization of the upper abdomen, particularly the superior pole of the stomach. The patient was then placed in reverse Trendelenburg. The Ana liver retractor was held in place using an iron civil engineering intern. Along the lesser curvature of the stomach between the second and third veins, dissection was made along the retrogastric space to allow first firing of the Covidien Tri-Staple purple load. Once adequately mobilized, an initial firing using a 60 mm purple load was performed perpendicular to the lesser curvature of the stomach. To completely divide the pouch from the remnant stomach, three 60 mm purple loads were fired towards the angle of His. A total of 3 - 60 mm purple and 1 - 45 mm torrez staplers were used to create the gastric pouch. Hemostasis was checked with electro-Bovie cautery along the left lateral edge of the gastric remnant stomach. The patient was then prepared for placement of a Orvil. The patient was Mallampati 1. A 25-mm Orvil was selected for placement by the nurse single spindle screw machine operator. The Orvil tubing was placed anterior to the staple line of the gastric pouch and brought out through the left inferior lateral port along the investigative assistant port. The Orvil was then carefully and successfully navigated with the help of the nurse single spindle screw machine operator into the gastric pouch. The sutures were identified and divided. The tubing was from the 25 mm anvil. Using aseptic technique all instruments including port sites were exchanged. As the Orvil had been placed, the blind jejunal limb was brought proximally into the upper abdomen. The transverse mesocolon was cleaved using a Harmonic scalpel. The patient was repositioned in reverse Trendelenburg. No torsion was found upon the Nancy limb. No tension was identified as the limb was brought along the upper abdomen. The blind jejunal limb was opened using a cordless Harmonic scalpel. The 25-mm EEA stapler was brought through the left anterior lateral port site from the left side. Please note that the trocars from the Orvil tubing, including the port, were removed to minimize contamination from the oral aj. The EEA stapler was brought through the open jejunal limb and its needle was deployed at the antimesenteric border where the anvil were mated for approximately 1 minute upon firing. The stapler was removed after irrigating the shaft of the instrument with warm normal saline. Donuts were found to be intact on both sides. The open jejunal limb defect was closed using a 60 mm torrez load after releasing any tension from the blind jejunal limb. Hemostasis was checked with Sonicision along the blind jejunal limb mesentery. Care was taken to avoid any long blind limb to avoid candycane syndrome. Reinforcement sutures were placed at 3:00 and 9 o'clock position along the gastrojejunal anastomosis using a 2-0 Polysorb on an Endo Stitch. Closure of the mesenteric defects was performed, initially of the Wahl defect using 2-0 silk on an Endo Stitch and a Lapra-Ty and the jejunojejunostomy mesenteric defect. I then went to the head of the bed to perform the esophagogastrojejunoscopy and a leak test. An Olympus gastroscope was passed along the posterior oropharynx which was unremarkable for any injury to the vocal cords. The scope was passed down to the proximal portion of the pouch, whereby no active bleeding was encountered. Excellent visualization of the gastrojejunostomy anastomosis, including the Nancy limb was encountered with endoscopic image obtained. The anastomosis was found to be patent. The gastrointestinal tract was desufflated. No evidence of intraoperative leak was encountered as the gastric pouch and anastomosis were submerged under normal saline solution. I then went back to the bedside of the patient, whereby with coordinated effort of the investigative assistant, irrigation was aspirated from the upper abdominal cavity. Tisseal was placed circumferentially over the anastomosis of the gastrojejunostomy. All instruments and pneumoperitoneum were evacuated from the abdominal cavity. The port correlating with the EEA stapler device was copiously irrigated with 3 L of warm normal saline solution and 50 mL of hydrogen peroxide. The fascial defect was closed using 0 Vicryl. The rest of incisions were reapproximated using 3-0 Vicryl for deep subcutaneous tissue and dermis followed by 4-0 Monocryl in a running subcuticular fashion. For local anesthetic, 90 mL 0.25% percent Marcaine with epinephrine was infiltrated along the skin for postop analgesia. Dermabond was applied to the skin. OptiFoam dressing was placed along the EEA stapler site. At the end of the procedure, needle, sponge and instrument count had been verified correct by the surgical instrument technician. She had tolerated the procedure well and was taken to the postanesthesia unit in stable condition. Total skin to skin time was 126 minutes. Intraoperative films were reviewed with the patient's family who are very pleased with the level of care. FINDINGS: 1. Negative intraoperative esophagogastrojejunoscopy leak test. 2. No fatty liver disease or hepatomegaly. 3. All defects including jejunojejunostomy Wahl defects were closed. 4. Total of 4 staple loads including 3 - 60 mm Covidien tri-stapler purple and 1 - 45 mm tab loads used to create the gastric pouch. 5. Gastrojejunostomy created using 25 mm Orvil. 6. Jejunojejunostomy created with 90 mm moses-lumen 7. Xiphoid to umbilical height of 29 cm.
[2016-12-29 17:24] LABS: Glucose,Whole Blood 121 mg/dL (75-99)
--- NOTE | 2016-12-29 17:35 | XR ---
EXAMINATION TYPE: XR chest 1V portable DATE OF EXAM: 12/29/2016 COMPARISON: 11/04/2016 HISTORY: Dyspnea TECHNIQUE: Single frontal portable AP semiupright view of the chest is obtained. FINDINGS: Chest x-ray is LPO rotated. There is prominent airspace filling process in the bilateral hilar positions, correlate for flash pul monary edema with relative sparing of the periphery, versus bilateral perihilar atelectasis. Repeat r adiography will be able to delineate if clinically necessary. There is no pneumothorax. The mediastinum appears midline. IMPRESSION: Prominent bilateral perihilar abnormalities.
[2016-12-29] MEDS ORDERED: AMPICILLIN-SULBACTAM 3 GM in SODIUM CHLORIDE 0.9% 100 ML IVPB SCH (18:00)
[2016-12-29] MEDS: SIMETHICONE 40 MG/0.6 ML DROPS 2,000 MG/30 ML BOTTLE PO SCH ×2 (18:50→23:20)
[2016-12-29] MEDS: HYOSCYAMINE ORAL DROPS 1.875 MG/15 ML BOTTLE PO SCH ×2 (18:50→23:20)
[2016-12-29] MEDS: HYDROmorphone 1 MG/ML 1 ML SYRINGE IVP PRN ×2 (18:53→23:41)
[2016-12-29 18:54] LABS: Glucose,Whole Blood 144 mg/dL (75-99)
[2016-12-29] MEDS: 0.9% NACL WITH KCL 20 MEQ/L 1,000 ML IV SCH (18:57)
[2016-12-29] MEDS: INSULIN LISPRO (humaLOG) 300 UNIT/3 ML VIAL SQ SCH (18:57)
--- NOTE | 2016-12-29 20:05 | P.PN ---
Progress Note - Text Patient is comfortable this evening. Findings of surgery described where she is doing quite well. Additional consultants including nephrology obtained for the severity of her chronic kidney disease. Additionally pulmonary obtained for history of COPD. Additional consultants including cardiology and medicine pending. With her history of contaminated case, will continue with antibiotics beyond 24 hours.
[2016-12-29] MEDS: FUROSEMIDE 10 MG/ML 2 ML VIAL IV SCH (20:43)
[2016-12-29] MEDS: METOPROLOL TARTRATE 50 MG TAB PO SCH (20:44)
[2016-12-29] MEDS: ALBUTEROL NEBULIZED 2.5 MG/3 ML INHALATION SCH (22:03)
[2016-12-29] MEDS: ceFAZolin 3 GM in SODIUM CHLORIDE 0.9% 100 ML IVPB SCH (23:19)
[2016-12-30] MEDS: INSULIN LISPRO (humaLOG) 300 UNIT/3 ML VIAL SQ SCH ×5 (00:07→23:07)
[2016-12-30 00:08] LABS: Glucose,Whole Blood 183 mg/dL (75-99)
[2016-12-30] MEDS: LACTATED RINGERS 1,000 ML IV SCH (00:26)
[2016-12-30] MEDS: 0.9% NACL WITH KCL 20 MEQ/L 1,000 ML IV SCH (00:27)
[2016-12-30] MEDS: ONDANSETRON 4 MG/2 ML VIAL IVP PRN ×3 (01:52→22:43)
[2016-12-30] MEDS: SIMETHICONE 40 MG/0.6 ML DROPS 2,000 MG/30 ML BOTTLE PO SCH ×4 (05:16→23:01)
[2016-12-30] MEDS: HYOSCYAMINE ORAL DROPS 1.875 MG/15 ML BOTTLE PO SCH ×4 (05:16→23:01)
[2016-12-30 06:16] LABS: Glucose,Whole Blood 172 mg/dL (75-99)
[2016-12-30] MEDS: HYDROmorphone 1 MG/ML 1 ML SYRINGE IVP PRN (06:51)
[2016-12-30 07:34] LABS: Basophils % (A) 0 %; CH 30.4; CHCM 31.9; Eosinophils % (A) 0 %; HCT 40.4 % (34.0-46.0); HDW 2.43; HGB 12.8 gm/dL (11.4-16.0); Luc # (Auto) 0.06; Luc % (Auto) 1; Lymphocytes # (A) 0.4 k/uL (1.0-4.8); Lymphocytes % (A) 3 %; MCH 30.4 pg (25.0-35.0); MCHC 31.7 g/dL (31.0-37.0); MCV 95.8 fL (80.0-100.0); Mean Platelet Volume 7.4; Monocytes # (A) 0.4 k/uL (0-1.0); Monocytes % (A) 3 %; Neutrophils # (A) 11.2 k/uL (1.3-7.7); Neutrophils % (A) 93 %; RBC 4.21 m/uL (3.80-5.40); RDW 14.5 % (11.5-15.5); WBC (Perox) 12.66
[2016-12-30 07:46] LABS: Magnesium 2.1 mg/dL (1.6-2.3); Phosphorous 6.7 mg/dL (2.5-4.5); Potassium 5.5 mmol/L (3.5-5.1)
[2016-12-30] MEDS ORDERED: FUROSEMIDE 10 MG/ML 2 ML VIAL IV ONE (08:00)
[2016-12-30] MEDS ORDERED: 0.9% NACL WITH KCL 20 MEQ/L 1,000 ML IV SCH (08:00)
[2016-12-30] MEDS ORDERED: HEPARIN SODIUM,PORCINE 5,000 UNIT/ML 1 ML VIAL IV PRN (08:36)
--- NOTE | 2016-12-30 08:41 | XR ---
EXAMINATION TYPE: XR chest 1V DATE OF EXAM: 12/30/2016 COMPARISON: 12/29/2016 INDICATION: COPD post Nancy-en-Y TECHNIQUE: Single frontal view of the chest is obtained. FINDINGS: The heart size is normal. The pulmonary vasculature is normal. Some mild plate atelectasis is in the right midlung. Some faint retrocardiac subsegmental atelectasis may be present. Findings are improving from comparis on. IMPRESSION: 1. Mild plate atelectasis right midlung. Subsegmental atelectasis may be in the retrocardiac region.
[2016-12-30] MEDS: amLODIPine 5 MG TAB PO SCH (08:42)
[2016-12-30] MEDS: METOPROLOL TARTRATE 50 MG TAB PO SCH ×2 (08:42→20:36)
[2016-12-30] MEDS: PANTOPRAZOLE 40 MG/10 ML VIAL IV SCH (08:44)
[2016-12-30] MEDS: FUROSEMIDE 10 MG/ML 2 ML VIAL IV SCH (08:44)
[2016-12-30] MEDS: SODIUM CHLORIDE 0.9% 1,000 ML IV SCH (08:45)
[2016-12-30 08:59] LABS: INR 1.1 (<1.1); Partial Thromboplastin Time 22.1 sec (22.0-30.0); Prothrombin Time 11.1 sec (9.0-12.0)
[2016-12-30] MEDS: ALBUTEROL NEBULIZED 2.5 MG/3 ML INHALATION SCH ×4 (09:06→19:57)
[2016-12-30] MEDS: ceFAZolin 3 GM in SODIUM CHLORIDE 0.9% 100 ML IVPB SCH (09:09)
[2016-12-30] MEDS: HEPARIN SODIUM,PORCINE/D5W PMX 25,000 UNIT in DEXTROSE/WATER 1 500ML.BAG IV SCH ×2 (09:53→20:28)
[2016-12-30 11:06] LABS: Hemoglobin A1C 7.8 % (4.2-6.1)
[2016-12-30 11:32] LABS: Glucose,Whole Blood 225 mg/dL (75-99)
[2016-12-30] MEDS: HYDROcodone/APAP 15 ML SOLUTION PO PRN ×2 (12:20→22:15)
--- NOTE | 2016-12-30 14:35 | P.PN ---
Subjective 66-year-old female seen and evaluated appears in no acute distress. Patient states pain medication effective for pain control. Patient is Laparoscopic Nancy -en-Y gastric bypass done on December 29 patient has a significant past medical history of stage IV diabetic nephropathy. 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 Patient stated she has only been on Elquis for the last month prior to that had been on Coumadin therapy Patient states she's been up ambulating in the dewards 1 this morning the white count this morning is 12. is on IV heparin drip Objective - Vital Signs Vital signs: Vital Signs Temp 97.9 F 12/30/16 07:26 Pulse 60 12/30/16 09:21 Resp 17 12/30/16 07:26 BP 142/66 12/30/16 07:26 Pulse Ox 99 12/30/16 09:07 Intake & Output 12/29/16 12/30/16 12/30/16 18:59 06:59 18:59 Intake Total 2000 1100 Output Total 505 600 775 Balance 1495 500 -775 Intake: IV 2000 1100 0.9% NaCl with KCl 20 Meq 1100 /l 1,000 ml @ 100 mls/hr IV .Q10H [facility] Rx#: [id number] Output: Urine 500 600 775 Uretheral (Collins) 600 Estimated Blood Loss 5 Other: Voiding Method Indwelling Catheter Indwelling Catheter - Exam Physical exam 66-year-old female resting in bed states that she is just been up ambulating in the hallway denying dizziness lightheadedness chest pain or shortness of breath Lungs essentially clear with adequate air movement Heart S1-S2 audible regular Abdomen obese soft surgical sites benign no redness no drainage indwelling Collins catheter in place states no stool passing no gas rectally Extremities 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 - Labs CBC & Chem 7: 12/30/16 06:39 12/30/16 12:26 Labs: Abnormal Lab Results - Last 24 Hours (Table) 12/29/16 12/29/16 12/30/16 Range/Units 17:16 18:52 00:06 WBC (3.8-10.6) k/uL Neutrophils # (1.3-7.7) k/uL Lymphocytes # (1.0-4.8) k/uL Potassium (3.5-5.1) mmol/L Chloride (98-107) mmol/L Carbon Dioxide (22-30) mmol/L BUN (7-17) mg/dL Creatinine (0.52-1.04) mg/dL POC Glucose (mg/dL) 121 H 144 H 183 H (75-99) mg/dL Hemoglobin A1c (4.2-6.1) % Phosphorus (2.5-4.5) mg/dL 12/30/16 12/30/16 12/30/16 Range/Units 06:14 06:39 06:39 WBC 12.0 H (3.8-10.6) k/uL Neutrophils # 11.2 H (1.3-7.7) k/uL Lymphocytes # 0.4 L (1.0-4.8) k/uL Potassium (3.5-5.1) mmol/L Chloride (98-107) mmol/L Carbon Dioxide (22-30) mmol/L BUN (7-17) mg/dL Creatinine (0.52-1.04) mg/dL POC Glucose (mg/dL) 172 H (75-99) mg/dL Hemoglobin A1c 7.8 H (4.2-6.1) % Phosphorus (2.5-4.5) mg/dL 12/30/16 12/30/16 Range/Units 06:39 11:25 WBC (3.8-10.6) k/uL Neutrophils # (1.3-7.7) k/uL Lymphocytes # (1.0-4.8) k/uL Potassium 5.5 H (3.5-5.1) mmol/L Chloride 109 H (98-107) mmol/L Carbon Dioxide 21 L (22-30) mmol/L BUN 64 H (7-17) mg/dL Creatinine 2.67 H (0.52-1.04) mg/dL POC Glucose (mg/dL) 225 H (75-99) mg/dL Hemoglobin A1c (4.2-6.1) % Phosphorus 6.7 H (2.5-4.5) mg/dL Assessment and Plan Plan: Impression Morbid obesity due to excessive calories Body mass index reduced from 57 down to 50 Osteoarthritis bilateral hips History of obstructive sleep apnea History of diastolic congestive heart failure chronic compensated Chronic bilateral lower extremity edema Esophageal reflux disease Vitamin D deficiency status post december 29 Laparoscopic Nancy-en-Y gastric bypass Chronic kidney disease stage IV Type 2 diabetes insulin requiring uncontrolled hemoglobin A1c 7.8 hypertension with hypertensive heart disease COPD no evidence of an exacerbation Plan Continue IV heparin as ordered Await input from nephrology service Await input from pulmonary service Continue postop surgical care Discuss with nephrology the indwelling Collins catheter be removed Resume home meds as appropriate DVT and GI prophylaxis Monitor labs dining room manager to pursue the discharge plan patient may benefit from subacute rehab or home care The above dictated assessment and findings were discussed with dr alo De La Rosa and the plan of care have been dictated as directed. Patricia Crocker nurse practitioner acting as a scribe for dr prajapati.
--- NOTE | 2016-12-30 14:54 | P.CNPUL ---
History of Present Illness Consult date: 12/30/16 Requesting physician: Amy Ramírez Reason for consult: hypoxemia Chief complaint: Morbid obesity History of present illness: This is a very pleasant 66-year-old female patient who lives with Aparna Louis as her primary care provider and has a history of congestive heart failure, hypertension, hyperlipidemia, diabetes mellitus, diabetic nephropathy, gout, hypothyroidism. She also has a history of obstructive sleep apnea and asthma has been seen by Dr. Julian in the past. She has not followed up in quite some time however. He only uses a Ventolin inhaler as needed. She presented here yesterday for an elective laparoscopic Nancy-en-Y gastric bypass and laparoscopic lysis of adhesions of the greater omentum to the lower abdominal wall secondary to previous section. Postoperatively she had developed decreased O2 saturations in the 80s on room air. We are consulted for the same. He is seen today on the surgical floor. She is awake and alert in no acute distress. She is having some ongoing issues with nausea but does deny any worsening shortness of breath, cough or congestion. No wheezing. She is doing minimally with the incentive spirometer only pulling approximately 500 mL today. Chest x-ray does show some atelectatic changes in the right lung base. An enema leukocytosis at 12.0. Hemoglobin stable. Bicarb 23. BUN 64, creatinine 2.67. Review of Systems 14 point review of system was conducted. All negative other than as mentioned in HPI. Past Medical History Past Medical History: Atrial Fibrillation, Asthma, Heart Failure, Diabetes Mellitus, Deep Vein Thrombosis (DVT), GERD/Reflux, Hyperlipidemia, Hypertension , Osteoarthritis (OA), Renal Disease, Skin Disorder, Sleep Apnea/CPAP/BIPAP Additional Past Medical History / Comment(s): varicose veins. DVT RIGHT LEG, constipation, dry skin, decreased kidney function History of Any Multi-Drug Resistant Organisms: None Reported Past Surgical History: Section, Cholecystectomy, Heart Catheterization , Tubal Ligation Additional Past Surgical History / Comment(s): cardioversion Past Anesthesia/Blood Transfusion Reactions: No Reported Reaction Past Psychological History: Depression Smoking Status: Never smoker Past Alcohol Use History: None Reported Past Drug Use History: None Reported - Past Family History Mother Family Medical History: Deep Vein Thrombosis (DVT) Brother(s) Family Medical History: Cancer Additional Family Medical History / Comment(s): blood clot-in arm secondary to surgery Sister(s) Family Medical History: Deep Vein Thrombosis (DVT) Medications and Allergies Home Medications Medication Instructions Recorded Confirmed Type Allopurinol [Zyloprim] 100 mg PO DAILY 01/25/16 12/29/16 History Magnesium Oxide [Mag-Ox] 400 mg PO BID 01/25/16 12/29/16 History Omeprazole 20 mg PO DAILY 01/25/16 12/29/16 History Atorvastatin [Lipitor] 40 mg PO HS 05/28/16 12/29/16 History Ergocalciferol (Vitamin D2) 50,000 unit PO MO 05/28/16 12/29/16 History [Drisdol] Levothyroxine Sodium [Synthroid] 25 mcg PO DAILY 05/28/16 12/29/16 History Albuterol Inhaler [Ventolin Hfa 2 puff INHALATION RT-Q6H PRN 07/04/16 12/29/16 History Inhaler] Furosemide [Lasix] 20 mg PO BID 07/04/16 12/25/16 History HYDROcodone/APAP 7.5-325MG [[place] 1 tab PO Q6HR PRN 08/06/16 12/29/16 History 7.5-325] Fenofibrate,Micronized 200 mg PO DAILY 09/04/16 12/29/16 History [Fenofibrate] amLODIPine [Norvasc] 5 mg PO DAILY 09/04/16 12/25/16 History Albuterol Nebulized [Ventolin 2.5 mg INHALATION RT-Q6H PRN 11/02/16 12/29/16 History Nebulized] Calcium Polycarbophil [Fiber-Lax] 1,250 mg PO TID 11/02/16 12/29/16 History Polyethylene Glycol 3350 [Miralax] 17 gm PO DAILY PRN 11/02/16 12/29/16 History Apixaban [Eliquis] 5 mg PO BID 12/17/16 12/25/16 History INSULIN LISPRO (HumaLOG) [HumaLOG] 2 units SQ ACHS 12/17/16 12/29/16 History Insulin Glargine [Lantus] 40 unit SQ HS 12/17/16 12/29/16 History Multivitamins, Thera [Multivitamin 1 tab PO DAILY 12/25/16 12/25/16 History (formulary)] Allergies Allergy/AdvReac Type Severity Reaction Status Date / Time ciprofloxacin [From Cipro] Allergy Unknown Verified 12/25/16 12:43 clarithromycin [From Biaxin] Allergy Anaphylaxis Verified 12/25/16 12:43 nitrofurantoin Allergy Wheezing Verified 12/25/16 12:43 [From Macrodantin] Physical Exam Vitals: Vital Signs Temp Pulse Pulse Pulse Resp BP Pulse Ox 12/30/16 09:21 60 12/30/16 09:07 58 L 99 12/30/16 07:26 97.9 F 66 17 142/66 98 12/30/16 03:39 86 L 12/30/16 03:29 94 L 12/30/16 01:53 97.5 F L 69 16 122/68 93 L 12/29/16 20:35 97.3 F L 73 148/73 96 12/29/16 20:29 96 12/29/16 20:00 102 H 128/68 12/29/16 19:45 103 H 113/68 12/29/16 19:30 103 H 118/67 12/29/16 19:15 100 16 121/68 12/29/16 19:00 102 H 16 121/68 12/29/16 18:45 101 H 16 118/63 12/29/16 18:30 101 H 16 114/69 12/29/16 18:15 96.7 F L 72 16 172/74 12/29/16 18:00 73 16 152/68 94 L 12/29/16 17:45 77 16 156/71 93 L 12/29/16 17:30 77 18 164/74 95 12/29/16 17:15 78 16 158/70 96 12/29/16 17:01 98 F 76 14 167/75 93 L Intake and Output 12/29/16 12/30/16 12/30/16 22:59 06:59 14:59 Intake Total 500 700 Output Total 600 775 Balance 500 100 -775 Intake: IV 500 700 0.9% NaCl with KCl 20 Meq 400 700 /l 1,000 ml @ 100 mls/hr IV .Q10H [facility] Rx#: [id number] Output: Urine 600 775 Uretheral (Collins) 600 Other: Voiding Method Indwelling Catheter Indwelling Catheter GENERAL EXAM: Morbidly obese. Alert, active, comfortable in no apparent distress. HEAD: Normocephalic. EYES: Normal reaction of pupils, equal size. NOSE: Clear with pink turbinates. THROAT: There is crowding the posterior pharynx. No erythema or exudates. NECK: Short. No masses, no JVD. CHEST: No chest wall deformity. LUNGS: Equal air entry with no crackles, wheeze, rhonchi or dullness. CVS: S1 and S2 normal with no audible murmurs, regular rhythm. ABDOMEN: No hepatosplenomegaly, normal bowel sounds, no guarding or rigidity. SPINE: No scoliosis or deformity SKIN: No rashes CENTRAL NERVOUS SYSTEM: No focal deficits, tone is normal in all 4 extremities. Extremities: There is trace peripheral edema. No clubbing, no cyanosis. Peripheral pulses are intact. Results - Laboratory Findings CBC and BMP: 12/30/16 06:39 12/30/16 12:26 PT/INR, D-dimer PT 11.1 sec (9.0-12.0) 12/30/16 06:39 INR 1.1 (<1.1) 12/30/16 06:39 Abnormal lab findings: Abnormal Labs 12/29/16 12/29/16 12/29/16 11:28 11:28 17:16 WBC Neutrophils # Lymphocytes # APTT 21.2 L Potassium Chloride Carbon Dioxide BUN Creatinine POC Glucose (mg/dL) 121 H Hemoglobin A1c Phosphorus Amylase <30 L 12/29/16 12/30/16 12/30/16 18:52 00:06 06:14 WBC Neutrophils # Lymphocytes # APTT Potassium Chloride Carbon Dioxide BUN Creatinine POC Glucose (mg/dL) 144 H 183 H 172 H Hemoglobin A1c Phosphorus Amylase 12/30/16 12/30/16 12/30/16 06:39 06:39 06:39 WBC 12.0 H Neutrophils # 11.2 H Lymphocytes # 0.4 L APTT Potassium 5.5 H Chloride 109 H Carbon Dioxide 21 L BUN 64 H Creatinine 2.67 H POC Glucose (mg/dL) Hemoglobin A1c 7.8 H Phosphorus 6.7 H Amylase 12/30/16 11:25 WBC Neutrophils # Lymphocytes # APTT Potassium Chloride Carbon Dioxide BUN Creatinine POC Glucose (mg/dL) 225 H Hemoglobin A1c Phosphorus Amylase - Diagnostic Findings Chest x-ray: image reviewed Assessment and Plan Plan: Impression: #1 Morbid obesity status post laparoscopic Nancy-en-Y procedure with lysis of adhesions, postoperative day #1. #2 Acute hypoxic respiratory failure 18 expected outcome in a patient with morbid obesity, obstructive sleep apnea, asthma. #3 Obstructive sleep apnea and utilizes CPAP. #4 History of atrial fibrillation. #5 History of congestive heart failure. #6 Diabetes mellitus, type II. #5 Diabetic nephropathy. #6 Hypertension. #7 Hyperlipidemia. #8 Osteoarthritis. #9 Gastroesophageal reflux disease. #10 History of depression. Plan: The patient was seen and evaluated by Dr. Obregon. Her chest x-ray was reviewed. She is again encouraged regarding the increased use of the incentive spirometer and cough and deep breathing exercises. Early ambulation. Continue IV Lasix. Continue bronchodilators. She is on empiric antibiotics in the form of cefazolin. Continue heparin drip. Utilize her CPAP from home. Wean down her FiO2 as tolerated to maintain O2 saturations greater than 90%. She should have a follow-up in our office with Dr. Julian as it has been quite some time. She may need repeat PFTs and make further recommendations regarding maintenance medications in regards her asthma. She also could follow-up regarding her obstructive sleep apnea if she is successful with significant weight loss her pressures may need to be adjusted. In the interim we'll continue to follow her here closely. We'll make further recommendations based on her clinical status. Time with Patient: Greater than 30
[2016-12-30 17:00] LABS: Glucose,Whole Blood 230 mg/dL (75-99)
[2016-12-30] MEDS: ceFAZolin 2 GM in SODIUM CHLORIDE 0.9% 100 ML IVPB SCH (20:36)
--- NOTE | 2016-12-30 20:49 | CONS ---
DATE OF CONSULTATION: December 30, 2016 REASON FOR CONSULTATION: Renal failure. HISTORY OF PRESENT ILLNESS: Patient is a 66-year-old female with a history of CKD stage 4, secondary to diabetic kidney disease, with baseline creatinine about 2.7 to 2.5 mg/dL. Patient is status post laparoscopic Nancy-en-Y gastric bypass done by Dr. Ramírez on 12/29/2016. Patient has an indwelling Collins catheter. She has good urine output. Her blood pressure has not been low. She is maintained on IV fluids at about 100 mL an hour. Her potassium was noted to be elevated at 5.5 mEq/L today. I do see she is on Lasix 10 mg q.12 hours IV. Patient is not on any KELLIE inhibitors. She is currently awake, comfortable. She is not in any acute distress. Patient denies any chest pains or shortness of breath. Pain is fairly well controlled. PAST MEDICAL HISTORY: 1. Significant for history of DVT maintained on Eliquis. Prior to admission, she had right lower extremity DVT. 2. Hyperlipidemia. 3. Hypertension. 4. A. fib. 5. Asthma. PAST SURGICAL HISTORY: , cholecystectomy, cardiac catheterization, tubal ligation, cardioversion. SOCIAL HISTORY: Negative for smoking, drug abuse or alcohol abuse. Medications prior to admission included: 1. Zyloprim. 2. Mag-Oxide. 3. Omeprazole. 4. Lipitor. 5. Vitamin D. 6. Synthroid. 7. [place]. 8. Fenofibrate. 9. Norvasc. 10. MiraLax. 11. Insulin. 12. Eliquis. ALLERGIES INCLUDE CIPRO, BIAXIN, MACRODANTIN. On examination, the patient is comfortable, awake. She is not in any acute distress. Blood pressure was 142/66, heart rate 58 per minute. The patient is afebrile. HEART: S1 and S2. LUNGS: Bilateral breath sounds are heard. ABDOMEN: Soft, mildly tender. Lower extremities show trace edema bilaterally. DIRECTOR OF AVIATION: Grossly intact. Patient is moving all 4 extremities. Labs show sodium 144, potassium 5.5, chloride 109, serum creatinine 2.67 mg/dL. ASSESSMENT: 1. Chronic kidney disease, [employer] stage 4 secondary to diabetic nephropathy with baseline creatinine about 2.5 to 2.6 mg/dL. Renal function at baseline. 2. Mild hyperkalemia associated with advanced kidney disease and possibly exacerbated by IV heparin. Patient is not on angiotensin-converting enzyme inhibitors. She has been maintained on IV Lasix, which has helped the hyperkalemia. I ordered repeat electrolytes which showed a potassium of 5.0. I will hold off on the IV Lasix and switch it to p.o. 3. History of deep venous thrombosis and therefore patient is maintained on IV heparin. 4. Hyperphosphatemia associated with advanced renal failure. 5. Nutritional vitamin D deficiency maintained on supplementation. 6. Benign hypertension with chronic kidney disease. Continue with Lopressor. Monitor heart rate. 7. Secondary hyperparathyroidism as outpatient, fairly stable. PLAN: Decrease IV fluids, change Lasix to p.o. Repeat labs in a.m. Once patient is eating, we can add a phosphate binder in the form of PhosLo or Renvela. I would prefer Renvela, given her calcium of 9. Thank you for this consultation. Will continue to follow the patient with you during her hospitalization. In regard to her anticoagulation, given her advanced renal failure, recommend using Coumadin. The Eliquis did not worsen her kidney function, but can be associated with significant bleeding, as we are not able to monitor the degree of anticoagulation. There are, however, some patients where we have used Eliquis without any significant events with a GFR as low as 20 mL per minute. We can also discontinue the Collins catheter.
--- NOTE | 2016-12-30 21:13 | P.PN ---
Progress Note - Text Patient seen and evaluated this evening. Patient with history of multiple comorbidities and high risk operation. Incisions are clean dry and intact without signs of infection or cellulitis. Recommended home health care including evaluation for rehab as she is high risk. Appreciate nephrology including pulmonary evaluation. Insulin to be adjusted depending on response. Will start Coumadin given severity of kidney disease and contraindicated with Lovenox including Eliquis, Xarelto.
[2016-12-30 23:08] LABS: Glucose,Whole Blood 308 mg/dL (75-99)
[2016-12-31] MEDS: HYDROcodone/APAP 15 ML SOLUTION PO PRN ×2 (05:23→20:54)
[2016-12-31] MEDS: HYOSCYAMINE ORAL DROPS 1.875 MG/15 ML BOTTLE PO SCH ×4 (05:25→23:15)
[2016-12-31] MEDS: SIMETHICONE 40 MG/0.6 ML DROPS 2,000 MG/30 ML BOTTLE PO SCH ×4 (05:25→23:16)
[2016-12-31] MEDS: SODIUM CHLORIDE 0.9% 1,000 ML IV SCH ×2 (05:26→10:34)
[2016-12-31] MEDS: INSULIN LISPRO (humaLOG) 300 UNIT/3 ML VIAL SQ SCH ×4 (06:02→20:53)
[2016-12-31 06:04] LABS: Glucose,Whole Blood 262 mg/dL (75-99)
[2016-12-31 07:22] LABS: Glucose,Whole Blood 250 mg/dL (75-99)
[2016-12-31 07:28] LABS: Basophils % (A) 0 %; CH 30.1; CHCM 30.4; Eosinophils # (A) 0.1 k/uL (0-0.7); Eosinophils % (A) 1 %; HGB 11.7 gm/dL (11.4-16.0); Hypochromasia Slight; Luc # (Auto) 0.08; Luc % (Auto) 1; Lymphocytes # (A) 0.7 k/uL (1.0-4.8); Lymphocytes % (A) 7 %; MCH 29.9 pg (25.0-35.0); MCHC 30.1 g/dL (31.0-37.0); MCV 99.6 fL (80.0-100.0); Macrocytosis Slight; Mean Platelet Volume 7.9; Monocytes # (A) 0.4 k/uL (0-1.0); Monocytes % (A) 4 %; Neutrophils # (A) 8.7 k/uL (1.3-7.7); Neutrophils % (A) 87 %; RBC 3.91 m/uL (3.80-5.40); RDW 14.7 % (11.5-15.5); WBC 9.9 k/uL (3.8-10.6); WBC (Perox) 10.58
[2016-12-31 08:37] LABS: Calcium 8.6 mg/dL (8.4-10.2); Potassium 4.3 mmol/L (3.5-5.1)
[2016-12-31] MEDS ORDERED: FUROSEMIDE 40 MG TAB PO SCH (09:00)
[2016-12-31] MEDS: ALBUTEROL NEBULIZED 2.5 MG/3 ML INHALATION SCH ×4 (09:45→20:20)
--- NOTE | 2016-12-31 10:05 | XR ---
EXAMINATION TYPE: XR chest 1V DATE OF EXAM: 12/31/2016 CLINICAL HISTORY: Difficulty breathing and COPD progress study. TECHNIQUE: Single AP portable frontal view of the chest is obtained. COMPARISON: Chest x-ray from one day earlier. Older x-rays back through November 04, 2016. FINDINGS: There is persistent cardiomegaly. Somewhat low lung volumes redemonstrated. There is sugge stion of mild central vascular congestion. There is persistent right midlung linear scarring. There i s no large pleural effusion or pneumothorax seen bilaterally. Osseous structures are intact. IMPRESSION: Overall stable findings, cannot exclude CHF exacerbation as there is persistent cardiom egaly with perhaps mild central vascular congestion. Clinical correlation advised.
[2016-12-31] MEDS: HEPARIN SODIUM,PORCINE/D5W PMX 25,000 UNIT in DEXTROSE/WATER 1 500ML.BAG IV SCH (10:15)
[2016-12-31] MEDS: METOPROLOL TARTRATE 50 MG TAB PO SCH ×2 (10:20→20:53)
[2016-12-31] MEDS: PANTOPRAZOLE 40 MG/10 ML VIAL IV SCH (10:20)
[2016-12-31] MEDS: ceFAZolin 2 GM in SODIUM CHLORIDE 0.9% 100 ML IVPB SCH ×2 (10:21→20:53)
[2016-12-31] MEDS: amLODIPine 5 MG TAB PO SCH (10:21)
[2016-12-31] MEDS: HEPARIN SODIUM,PORCINE 25,000 UNIT in SODIUM CHLORIDE 0.9% 500 ML IV SCH (10:22)
[2016-12-31 11:38] LABS: Glucose,Whole Blood 252 mg/dL (75-99)
--- NOTE | 2016-12-31 12:39 | P.PN ---
Subjective Principal diagnosis: Morbid obesity This is a very pleasant 66-year-old female patient who lives with Aparna Louis as her primary care provider and has a history of congestive heart failure, hypertension, hyperlipidemia, diabetes mellitus, diabetic nephropathy, gout, hypothyroidism. She also has a history of obstructive sleep apnea and asthma has been seen by Dr. Julian in the past. She has not followed up in quite some time however. He only uses a Ventolin inhaler as needed. She presented here yesterday for an elective laparoscopic Nancy-en-Y gastric bypass and laparoscopic lysis of adhesions of the greater omentum to the lower abdominal wall secondary to previous section. Postoperatively she had developed decreased O2 saturations in the 80s on room air. We are consulted for the same. He is seen today on the surgical floor. She is awake and alert in no acute distress. She is having some ongoing issues with nausea but does deny any worsening shortness of breath, cough or congestion. No wheezing. She is doing minimally with the incentive spirometer only pulling approximately 500 mL today. Chest x-ray does show some atelectatic changes in the right lung base. An enema leukocytosis at 12.0. Hemoglobin stable. Bicarb 23. BUN 64, creatinine 2.67. The patient is seen again today 12/31/2016 in follow-up on the surgical floor. She is awake and alert in no acute distress. She denies any shortness of breath , cough or congestion. She is only pulling approximately 500 and also on the incentive spirometer. She is on bronchodilators. He does desaturate into the 80s on room air. She is requiring 3 L/m per nasal cannula to maintain O2 saturations greater than 90%. She has not been wearing her CPAP as at home. She denies any well here in the hospital. She remains on cefazolin. Her pain is well controlled. She has been up ambulating with assistance. Her chest x- ray did reveal stable findings and some component of mild central vascular congestion with persistent cardiomegaly. Objective - Vital Signs Vital signs: Vital Signs Temp 98.8 F 12/31/16 07:00 Pulse 65 12/31/16 07:00 Resp 16 12/31/16 07:00 BP 144/66 12/31/16 07:00 Pulse Ox 86 L 12/31/16 07:00 Intake & Output 0612/31/16 12/31/16 18:59 06:59 18:59 Intake Total 522.826 2037.319 500 Output Total 1025 650 Balance -613.363 543.319 500 Intake: IV 900 Sodium Chloride 0.9% 1, 900 000 ml @ 50 mls/hr IV . Q20H [facility] Rx#:[id number] Intake, IV Titration 411.637 293.319 Amount Heparin Sodium,Porcine/ 411.637 293.319 D5w Pmx 25,000 unit In Dextrose/Water 1 500ml. bag @ 18 UNITS/KG/HR 47. 68 mls/hr IV .[id number] [facility] Rx#:[id number] Oral 500 Output: Urine 1025 650 Uretheral (Collins) 250 Other: Voiding Method Indwelling Catheter - Exam GENERAL EXAM: Morbidly obese. Alert, active, comfortable in no apparent distress. HEAD: Normocephalic. EYES: Normal reaction of pupils, equal size. NOSE: Clear with pink turbinates. THROAT: There is crowding the posterior pharynx. No erythema or exudates. NECK: Short. No masses, no JVD. CHEST: No chest wall deformity. LUNGS: Equal air entry with no crackles, wheeze, rhonchi or dullness. CVS: S1 and S2 normal with no audible murmurs, regular rhythm. ABDOMEN: Obese. Surgical incisions clean dry well approximated. Normal bowel sounds, no guarding or rigidity. SPINE: No scoliosis or deformity SKIN: No rashes CENTRAL NERVOUS SYSTEM: No focal deficits, tone is normal in all 4 extremities. Extremities: There is trace peripheral edema. No clubbing, no cyanosis. Peripheral pulses are intact. - Labs CBC & Chem 7: 12/31/16 06:35 12/31/16 06:35 Labs: Abnormal Lab Results - Last 24 Hours (Table) 12/30/16 12/30/16 12/30/16 Range/Units 15:15 16:38 23:06 MCHC (31.0-37.0) g/dL Neutrophils # (1.3-7.7) k/uL Lymphocytes # (1.0-4.8) k/uL APTT 102.3 H* (22.0-30.0) sec BUN (7-17) mg/dL Creatinine (0.52-1.04) mg/dL Glucose (74-99) mg/dL POC Glucose (mg/dL) 230 H 308 H (75-99) mg/dL Phosphorus (2.5-4.5) mg/dL 12/31/16 12/31/16 12/31/16 Range/Units 00:53 05:59 06:35 MCHC 30.1 L (31.0-37.0) g/dL Neutrophils # 8.7 H (1.3-7.7) k/uL Lymphocytes # 0.7 L (1.0-4.8) k/uL APTT 145.6 H* (22.0-30.0) sec BUN (7-17) mg/dL Creatinine (0.52-1.04) mg/dL Glucose (74-99) mg/dL POC Glucose (mg/dL) 262 H (75-99) mg/dL Phosphorus (2.5-4.5) mg/dL 12/31/16 12/31/16 12/31/16 Range/Units 06:35 06:35 07:16 MCHC (31.0-37.0) g/dL Neutrophils # (1.3-7.7) k/uL Lymphocytes # (1.0-4.8) k/uL APTT 75.0 H (22.0-30.0) sec BUN 61 H (7-17) mg/dL Creatinine 2.84 H (0.52-1.04) mg/dL Glucose 259 H (74-99) mg/dL POC Glucose (mg/dL) 250 H (75-99) mg/dL Phosphorus 6.0 H (2.5-4.5) mg/dL 12/31/16 Range/Units 11:26 MCHC (31.0-37.0) g/dL Neutrophils # (1.3-7.7) k/uL Lymphocytes # (1.0-4.8) k/uL APTT (22.0-30.0) sec BUN (7-17) mg/dL Creatinine (0.52-1.04) mg/dL Glucose (74-99) mg/dL POC Glucose (mg/dL) 252 H (75-99) mg/dL Phosphorus (2.5-4.5) mg/dL Assessment and Plan Plan: Impression: #1 Morbid obesity status post laparoscopic Nancy-en-Y procedure with lysis of adhesions, postoperative day #2. #2 Acute hypoxic respiratory failure as an expected outcome in a patient with morbid obesity, obstructive sleep apnea, asthma. #3 Obstructive sleep apnea and utilizes CPAP. #4 History of atrial fibrillation. #5 History of congestive heart failure. #6 Diabetes mellitus, type II. #5 Diabetic nephropathy. #6 Hypertension. #7 Hyperlipidemia. #8 Osteoarthritis. #9 Gastroesophageal reflux disease. #10 History of depression. Plan: The patient was seen and evaluated by Dr. Obregon. Her chest x-ray was reviewed. She is again encouraged regarding the increased use of the incentive spirometer and cough and deep breathing exercises. Early ambulation. Continue Lasix. Continue bronchodilators. She is on empiric antibiotics in the form of cefazolin. Continue heparin drip. Resume Eliquis. Wean down her FiO2 as tolerated to maintain O2 saturations greater than 90%. She should have a follow -up in our office with Dr. Julian as it has been quite some time. She may need repeat PFTs and make further recommendations regarding maintenance medications in regards her asthma. She also could follow-up regarding her obstructive sleep apnea if she is successful with significant weight loss her pressures may need to be adjusted. In the interim we'll continue to follow her here closely. We'll make further recommendations based on her clinical status.
[2016-12-31 12:52] LABS: CH 30.1; CHCM 30.4; HCT 35.9 % (34.0-46.0); HDW 2.29; HGB 11.1 gm/dL (11.4-16.0); Hypochromasia Slight; MCH 30.8 pg (25.0-35.0); MCV 99.3 fL (80.0-100.0); Macrocytosis Slight; Mean Platelet Volume 7.8; RBC 3.62 m/uL (3.80-5.40); RDW 14.8 % (11.5-15.5); WBC 10.7 k/uL (3.8-10.6)
[2016-12-31 16:38] LABS: Glucose,Whole Blood 181 mg/dL (75-99)
[2016-12-31] MEDS ORDERED: WARFARIN 7.5 MG TAB PO ONE (18:00)
--- NOTE | 2016-12-31 20:07 | P.PN ---
Progress Note - Text Patient seen and evaluated. Her family and son are at bedside. She reports no shortness of breath. She is ambulating. Incentive spirometer volume at 500 mL. Family describes that they are willing to watch her at home. has declined home health care or rehab. They have a family member friend who is a nurse will monitor her closely. Separately, her Lasix has been adjusted from oral to IV as oral dose is unreliable with recent gastric bypass surgery. IV Lasix prescribed for history of congestive heart failure. Adjustment of bariatric to renal diet per nephrology. IV fluid adjustment pending follow-up of BUN and creatinine per nephrology. At this time, medications and pills should be no larger than a tic-tac. All medications to be crushed or in liquid form. Thank you consultants for monitoring her closely. Prognosis is guarded.
[2016-12-31 20:18] LABS: Glucose,Whole Blood 200 mg/dL (75-99)
--- NOTE | 2016-12-31 20:47 | PN ---
Patient is seen for follow-up for chronic kidney disease. She is currently status post Nancy-En-Y gastric bypass surgery. Renal function is close to baseline. Patient was hyperkalemic initially and was started on IV Lasix. This was switched over to p.o. Lasix yesterday. Her sodium has improved. It is at 4.3 mEq/L. Current fluids are running at 100 mL an hour. IV fluids were decreased yesterday, but increased back to 100 mL an hour this morning. Patient denies any chest pains or shortness of breath. She states her pain is controlled. On examination, blood pressure was 129/62, heart rate of 71 per minute. The patient is afebrile. Examination of the heart S1 and S2. Examination of the lungs: Bilateral breath sounds are heard. ABDOMEN: Soft, mild tenderness noted. Examination of lower extremities shows trace edema bilaterally. CLINICAL RESEARCH COORDINATOR exam is grossly intact. Patient is moving all 4 extremities. Labs reveal sodium 141, potassium 4.3, BUN 61, serum creatinine 2.84, hemoglobin 11.1 g/dL serum phosphorus is 6.0. ASSESSMENT: 1. Chronic kidney disease secondary to diabetic kidney disease, NKF stage IV, with renal function close to baseline. 2. Hyperkalemia improve post loop diuretics. Patient had been on IV heparin also at that time. She should be maintained on a low potassium diet for now. Continue with the loop diuretics. 3. Status post Nancy-En-Y gastric bypass surgery. 4. Hypertension with chronic kidney disease PLAN: Add Renvela, consider decreasing IV fluids, particularly once patient is eating well and repeat labs in a.m.
[2017-01-01] MEDS: SODIUM CHLORIDE 0.9% 1,000 ML IV SCH ×4 (03:14→12:35)
[2017-01-01] MEDS: HEPARIN SODIUM,PORCINE 25,000 UNIT in SODIUM CHLORIDE 0.9% 500 ML IV SCH ×2 (03:14→09:25)
[2017-01-01] MEDS: SIMETHICONE 40 MG/0.6 ML DROPS 2,000 MG/30 ML BOTTLE PO SCH ×3 (05:39→17:18)
[2017-01-01] MEDS: HYOSCYAMINE ORAL DROPS 1.875 MG/15 ML BOTTLE PO SCH ×3 (05:39→17:18)
[2017-01-01 07:04] LABS: Glucose,Whole Blood 255 mg/dL (75-99)
[2017-01-01] MEDS: ALBUTEROL NEBULIZED 2.5 MG/3 ML INHALATION SCH ×4 (07:27→20:19)
[2017-01-01 07:44] LABS: Basophils # (A) 0.1 k/uL (0-0.2); Basophils % (A) 1 %; CHCM 29.9; Eosinophils # (A) 0.2 k/uL (0-0.7); Eosinophils % (A) 3 %; HDW 2.32; HGB 10.6 gm/dL (11.4-16.0); Hypochromasia Marked; Luc % (Auto) 1; Lymphocytes # (A) 0.9 k/uL (1.0-4.8); Lymphocytes % (A) 11 %; MCH 30.3 pg (25.0-35.0); MCHC 30.1 g/dL (31.0-37.0); MCV 100.8 fL (80.0-100.0); Macrocytosis Slight; Monocytes # (A) 0.4 k/uL (0-1.0); Monocytes % (A) 5 %; Neutrophils # (A) 7.2 k/uL (1.3-7.7); Neutrophils % (A) 81 %; RBC 3.48 m/uL (3.80-5.40); RDW 14.7 % (11.5-15.5); WBC 8.9 k/uL (3.8-10.6); WBC (Perox) 9.09
[2017-01-01] MEDS: INSULIN LISPRO (humaLOG) 300 UNIT/3 ML VIAL SQ SCH ×4 (07:48→21:20)
[2017-01-01 08:12] LABS: Calcium 8.4 mg/dL (8.4-10.2); Phosphorous 4.2 mg/dL (2.5-4.5); Potassium 4.6 mmol/L (3.5-5.1)
[2017-01-01 08:13] LABS: INR 1.4 (<1.1); Prothrombin Time 14.1 sec (9.0-12.0)
[2017-01-01] MEDS: HYDROcodone/APAP 15 ML SOLUTION PO PRN ×2 (08:17→20:43)
--- NOTE | 2017-01-01 09:28 | XR ---
EXAMINATION TYPE: XR chest 1V DATE OF EXAM: 01/01/2017 COMPARISON: 12/31/2016 HISTORY: Shortness of breath TECHNIQUE: Single frontal view of the chest is obtained. FINDINGS: A right upper lobe consolidation seen. No pleural effusion or pneumothorax. Heart is enlar ged. Interstitium remains mildly prominent. IMPRESSION: 1. Mild prominence of interstitium is stable there is a more confluent consolidative process in the r ight upper lobe. Asymmetric pulmonary edema versus pneumonia. 2. Prominence of the right hilum could reflect underlying adenopathy.
[2017-01-01] MEDS: PANTOPRAZOLE 40 MG/10 ML VIAL IV SCH (09:37)
[2017-01-01] MEDS: FUROSEMIDE 10 MG/ML 2 ML VIAL IV SCH (09:37)
[2017-01-01] MEDS: amLODIPine 5 MG TAB PO SCH (09:37)
[2017-01-01] MEDS: METOPROLOL TARTRATE 50 MG TAB PO SCH ×2 (09:37→21:19)
[2017-01-01] MEDS: ceFAZolin 2 GM in SODIUM CHLORIDE 0.9% 100 ML IVPB SCH ×2 (09:38→21:19)
[2017-01-01 11:29] LABS: Glucose,Whole Blood 256 mg/dL (75-99)
[2017-01-01] MEDS ORDERED: FUROSEMIDE 10 MG/ML 2 ML VIAL IV ONE (12:28)
--- NOTE | 2017-01-01 13:40 | P.PN ---
Subjective 66-year-old female being seen currently resting in bed. Patient stated that she did ambulate to the bathroom and back. Denies any shortness of breath denies a cough. Patient needs encouragement to use the incentive spirometer can only achieve 500. Patients being followed by pulmonary service. Currently patient is on a nasal cannula at 2 L patient does have a history of obstructive sleep apnea with asthma follows up with Dr. Dotson in. Patient reportedly has not been seen in pulmonary service and some time. Patient did present on December 29 2 undergo an elective laparoscopic Nancy-en-Y gastric bypass and laparoscopic lysis of adhesions of the greater omentum to the lower abdominal wall secondary to previous section. Postoperatively she had developed decreased O2 saturations in the 80s on which have resolved and improved. Patient has been initiated on Coumadin with IV heparin. The INR this morning 1.4 patient states at home when she was on Coumadin she normally took 5 mg. Creatinine is morning is 2.6 being followed by nephrology service current IV fluid at 75 an hour Objective - Vital Signs Vital signs: Vital Signs Temp 98.5 F 01/01/17 07:00 Pulse 70 01/01/17 11:47 Resp 17 01/01/17 07:00 BP 133/68 01/01/17 07:00 Pulse Ox 92 L 01/01/17 07:00 Intake & Output 12/31/16 01/01/17 01/01/17 18:59 06:59 18:59 Intake Total 700 500 419.139 Balance 700 500 419.139 Intake: Intake, IV Titration 500 179.139 Amount Heparin Sodium,Porcine 25 500 179.139 ,000 unit In Sodium Chloride 0.9% 500 ml @ 18 UNITS/KG/HR 47.68 mls/hr IV .[id number] [facility] Rx#: [id number] Oral 700 240 Other: Voiding Method Toilet Toilet # Voids 3 1 - Exam Physical exam 66-year-old female sitting up in a chair pleasant cooperative oriented 3 denying dizziness lightheadedness chest pain or shortness of breath Lungs essentially clear with adequate air movement La on room air Heart S1-S2 audible regular Abdomen obese soft surgical sites benign no redness no drainage states no stool passing no gas rectally urinating no difficulty Extremities 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 - Labs CBC & Chem 7: 01/01/17 07:11 01/01/17 07:11 Labs: Abnormal Lab Results - Last 24 Hours (Table) 12/31/16 12/31/16 01/01/17 Range/Units 16:30 20:14 07:02 RBC (3.80-5.40) m/uL Hgb (11.4-16.0) gm/dL MCV (80.0-100.0) fL MCHC (31.0-37.0) g/dL Lymphocytes # (1.0-4.8) k/uL PT (9.0-12.0) sec APTT (22.0-30.0) sec Chloride (98-107) mmol/L Carbon Dioxide (22-30) mmol/L BUN (7-17) mg/dL Creatinine (0.52-1.04) mg/dL Glucose (74-99) mg/dL POC Glucose (mg/dL) 181 H 200 H 255 H (75-99) mg/dL Iron (37-170) ug/dL % Saturation (20-50) % Ferritin (11-264) ng/mL 01/01/17 01/01/17 01/01/17 Range/Units 07:11 07:11 07:11 RBC 3.48 L (3.80-5.40) m/uL Hgb 10.6 L (11.4-16.0) gm/dL MCV 100.8 H (80.0-100.0) fL MCHC 30.1 L (31.0-37.0) g/dL Lymphocytes # 0.9 L (1.0-4.8) k/uL PT 14.1 H (9.0-12.0) sec APTT 101.0 H* (22.0-30.0) sec Chloride 110 H (98-107) mmol/L Carbon Dioxide 19 L (22-30) mmol/L BUN 56 H (7-17) mg/dL Creatinine 2.62 H (0.52-1.04) mg/dL Glucose 249 H (74-99) mg/dL POC Glucose (mg/dL) (75-99) mg/dL Iron (37-170) ug/dL % Saturation (20-50) % Ferritin (11-264) ng/mL 01/01/17 01/01/17 Range/Units 07:11 11:26 RBC (3.80-5.40) m/uL Hgb (11.4-16.0) gm/dL MCV (80.0-100.0) fL MCHC (31.0-37.0) g/dL Lymphocytes # (1.0-4.8) k/uL PT (9.0-12.0) sec APTT (22.0-30.0) sec Chloride (98-107) mmol/L Carbon Dioxide (22-30) mmol/L BUN (7-17) mg/dL Creatinine (0.52-1.04) mg/dL Glucose (74-99) mg/dL POC Glucose (mg/dL) 256 H (75-99) mg/dL Iron 30 L (37-170) ug/dL % Saturation 10.0 L (20-50) % Ferritin 283 H (11-264) ng/mL Assessment and Plan Plan: Impression Morbid obesity due to excessive calories Body mass index reduced from 57 down to 50 Osteoarthritis bilateral hips History of obstructive sleep apnea History of diastolic congestive heart failure chronic compensated Chronic bilateral lower extremity edema Esophageal reflux disease Vitamin D deficiency status post december 29 Laparoscopic Nancy-en-Y gastric bypass Chronic kidney disease stage IV Type 2 diabetes insulin requiring uncontrolled hemoglobin A1c 7.8 hypertension with hypertensive heart disease COPD no evidence of an exacerbation Depressive disorder nonspecified Plan Continue IV heparin as ordered until the INR is to continue dosing Coumadin PT OT eval Continue postop surgical care Resume home meds as appropriate DVT and GI prophylaxis Monitor labs 7.5 of Coumadin to be given tonight The above dictated assessment and findings were discussed with dr prajapati Impression and the plan of care have been dictated as directed. Patricia Crocker nurse practitioner acting as a scribe for dr prajapati.
--- NOTE | 2017-01-01 14:34 | P.PN ---
Subjective Principal diagnosis: Morbid obesity This is a very pleasant 66-year-old female patient who lives with Aparna Louis as her primary care provider and has a history of congestive heart failure, hypertension, hyperlipidemia, diabetes mellitus, diabetic nephropathy, gout, hypothyroidism. She also has a history of obstructive sleep apnea and asthma has been seen by Dr. Julian in the past. She has not followed up in quite some time however. He only uses a Ventolin inhaler as needed. She presented here yesterday for an elective laparoscopic Nancy-en-Y gastric bypass and laparoscopic lysis of adhesions of the greater omentum to the lower abdominal wall secondary to previous section. Postoperatively she had developed decreased O2 saturations in the 80s on room air. We are consulted for the same. He is seen today on the surgical floor. She is awake and alert in no acute distress. She is having some ongoing issues with nausea but does deny any worsening shortness of breath, cough or congestion. No wheezing. She is doing minimally with the incentive spirometer only pulling approximately 500 mL today. Chest x-ray does show some atelectatic changes in the right lung base. An enema leukocytosis at 12.0. Hemoglobin stable. Bicarb 23. BUN 64, creatinine 2.67. The patient is seen again today 12/31/2016 in follow-up on the surgical floor. She is awake and alert in no acute distress. She denies any shortness of breath , cough or congestion. She is only pulling approximately 500 and also on the incentive spirometer. She is on bronchodilators. He does desaturate into the 80s on room air. She is requiring 3 L/m per nasal cannula to maintain O2 saturations greater than 90%. She has not been wearing her CPAP as at home. She denies any well here in the hospital. She remains on cefazolin. Her pain is well controlled. She has been up ambulating with assistance. Her chest x- ray did reveal stable findings and some component of mild central vascular congestion with persistent cardiomegaly. The patient is seen again today 01/01/2017 in follow-up on the surgical floor. She is currently awake and alert in no acute distress. She denies any worsening shortness of breath, cough or congestion. She is maintaining good O2 saturations in the low 90s on room air at rest. She is working well of the incentive spirometer that still only pulling approximate 500 mL. Her chest x- ray shows some interstitial prominence in the right upper lobe. Suspect asymmetrical pulmonary edema versus pneumonia. There is also noted right hilum prominence and underlying adenopathy is not totally excluded. She remains on Lasix 20 mg IV daily. She remains on cefazolin. She has been ambulating in the hallway. Her pain is well controlled. Objective - Vital Signs Vital signs: Vital Signs Temp 98.5 F 01/01/17 07:00 Pulse 70 01/01/17 11:47 Resp 17 01/01/17 07:00 BP 133/68 01/01/17 07:00 Pulse Ox 92 L 01/01/17 07:00 Intake & Output 12/31/16 01/01/17 01/01/17 18:59 06:59 18:59 Intake Total 700 500 599.139 Balance 700 500 599.139 Intake: Intake, IV Titration 500 179.139 Amount Heparin Sodium,Porcine 25 500 179.139 ,000 unit In Sodium Chloride 0.9% 500 ml @ 18 UNITS/KG/HR 47.68 mls/hr IV .[id number] [facility] Rx#: [id number] Oral 700 420 Other: Voiding Method Toilet Toilet # Voids 3 1 - Labs CBC & Chem 7: 01/01/17 07:11 01/01/17 07:11 Labs: Abnormal Lab Results - Last 24 Hours (Table) 12/31/16 12/31/16 01/01/17 Range/Units 16:30 20:14 07:02 RBC (3.80-5.40) m/uL Hgb (11.4-16.0) gm/dL MCV (80.0-100.0) fL MCHC (31.0-37.0) g/dL Lymphocytes # (1.0-4.8) k/uL PT (9.0-12.0) sec APTT (22.0-30.0) sec Chloride (98-107) mmol/L Carbon Dioxide (22-30) mmol/L BUN (7-17) mg/dL Creatinine (0.52-1.04) mg/dL Glucose (74-99) mg/dL POC Glucose (mg/dL) 181 H 200 H 255 H (75-99) mg/dL Iron (37-170) ug/dL % Saturation (20-50) % Ferritin (11-264) ng/mL 01/01/17 01/01/17 01/01/17 Range/Units 07:11 07:11 07:11 RBC 3.48 L (3.80-5.40) m/uL Hgb 10.6 L (11.4-16.0) gm/dL MCV 100.8 H (80.0-100.0) fL MCHC 30.1 L (31.0-37.0) g/dL Lymphocytes # 0.9 L (1.0-4.8) k/uL PT 14.1 H (9.0-12.0) sec APTT 101.0 H* (22.0-30.0) sec Chloride 110 H (98-107) mmol/L Carbon Dioxide 19 L (22-30) mmol/L BUN 56 H (7-17) mg/dL Creatinine 2.62 H (0.52-1.04) mg/dL Glucose 249 H (74-99) mg/dL POC Glucose (mg/dL) (75-99) mg/dL Iron (37-170) ug/dL % Saturation (20-50) % Ferritin (11-264) ng/mL 01/01/17 01/01/17 Range/Units 07:11 11:26 RBC (3.80-5.40) m/uL Hgb (11.4-16.0) gm/dL MCV (80.0-100.0) fL MCHC (31.0-37.0) g/dL Lymphocytes # (1.0-4.8) k/uL PT (9.0-12.0) sec APTT (22.0-30.0) sec Chloride (98-107) mmol/L Carbon Dioxide (22-30) mmol/L BUN (7-17) mg/dL Creatinine (0.52-1.04) mg/dL Glucose (74-99) mg/dL POC Glucose (mg/dL) 256 H (75-99) mg/dL Iron 30 L (37-170) ug/dL % Saturation 10.0 L (20-50) % Ferritin 283 H (11-264) ng/mL Assessment and Plan Plan: Impression: #1 Morbid obesity status post laparoscopic Nancy-en-Y procedure with lysis of adhesions, postoperative day #3. #2 Acute hypoxic respiratory failure as an expected outcome in a patient with morbid obesity, obstructive sleep apnea, asthma. She did develop right upper lobe consolidation which is an unexpected outcome. #3 Obstructive sleep apnea and utilizes CPAP. #4 History of atrial fibrillation. #5 History of congestive heart failure. #6 Diabetes mellitus, type II. #5 Diabetic nephropathy. #6 Hypertension. #7 Hyperlipidemia. #8 Osteoarthritis. #9 Gastroesophageal reflux disease. #10 History of depression. Plan: The patient was seen and evaluated by Dr. Obregon. Her chest x-ray was reviewed. He does feel these areas of concern are mainly atelectasis and will improve with increase activity and cough and deep breathing exercises. She is again encouraged regarding the increased use of the incentive spirometer. Early ambulation. Continue Lasix. Continue bronchodilators. She is on empiric antibiotics in the form of cefazolin. Continue heparin drip. Resume warfarin. Wean down her FiO2 as tolerated to maintain O2 saturations greater than 90%. She should have a follow-up in our office with Dr. Julian as it has been quite some time. She may need repeat PFTs and make further recommendations regarding maintenance medications in regards her asthma. She also could follow-up regarding her obstructive sleep apnea if she is successful with significant weight loss her pressures may need to be adjusted. In the interim we'll continue to follow her here closely. We'll make further recommendations based on her clinical status.
--- NOTE | 2017-01-01 16:25 | PN ---
The patient is seen for follow-up for chronic kidney disease NKF stage IV. Renal function has been fairly stable. She is status post Nancy-En-Y gastric bypass surgery. The patient is maintained on IV fluids. She denies any chest pains or shortness of breath. The Lasix was switched to IV as patient is not able to take a whole tablet due to her recent surgery. She was hyperkalemic initially. This has now improved with initiation of loop diuretics. On examination, blood pressure is 133/68, heart rate 76 per minute. The patient is afebrile. Examination of the heart S1 and S2. Examination of the lungs: Bilateral breath sounds are heard. ABDOMEN: Soft, nontender. Examination of lower extremities shows trace edema bilaterally. SUPERVISOR CASE LOADING exam is grossly intact. Patient is moving all 4 extremities. Labs show serum creatinine at 2.6, sodium 142, potassium 4.6. Hemoglobin 10.6 g/dL. ASSESSMENT: 1. Chronic kidney disease, NKF stage IV, renal function at baseline. 2. Hyperkalemia associated with advanced kidney disease as well as IV heparin, currently improved with loop diuretics, will continue with the Lasix for now. He has been given IV as patient is not able to take a whole tablet up due to when he is in surgery. 3. Status post Nancy-en-Y gastric bypass surgery. 4. Anemia postoperatively. Patient will not qualify for Procrit given that her hemoglobin is not below 10. It has been a more recent drop in her hemoglobin and she does not have significant anemia of chronic disease as outpatient. 5. Severe iron deficiency with iron saturation at 10%. PLAN: Begin to give IV iron and repeat labs in a.m.
[2017-01-01] MEDS ORDERED: SODIUM FERRIC GLUCONAT-SUCROSE 125 MG in SODIUM CHLORIDE 0.9% 100 ML IVPB SCH (17:00)
[2017-01-01 17:14] LABS: Glucose,Whole Blood 239 mg/dL (75-99)
[2017-01-01] MEDS ORDERED: INSULIN LISPRO (humaLOG) 300 UNIT/3 ML VIAL SQ SCH (17:30)
[2017-01-01] MEDS ORDERED: WARFARIN 7.5 MG TAB PO ONE (18:00)
--- NOTE | 2017-01-01 19:55 | P.PN ---
Progress Note - Text Patient seen and evaluated this evening. Goals of care were described including improved glycemic control with blood sugars under 200. She has been placed back on her insulin dose at home. Additionally, her creatinine function is fairly stable and is being followed by nephrology. Her IV fluids has been adjusted. Her hemoglobin has dropped secondary to heparin drip. She will continue with Coumadin daily. Her home dose includes 5 mg. Adjustment will be based on INR stability. She will start her protein shake diet tomorrow with adjustment from 3 protein shakes and 2 protein shakes given her chronic kidney disease. Potential discharge home the next 24-48 hours pending placement home versus rehab for which patient will decide. Close surveillance including immediate follow-up was reviewed as she is high-risk for readmission and guarded prognosis. The patient's questions were reviewed in detail and answered.
[2017-01-01 20:57] LABS: Glucose,Whole Blood 235 mg/dL (75-99)
[2017-01-01] MEDS ORDERED: INSULIN GLARGINE 100 UNIT/ML 10 ML VIAL SQ SCH (21:00)
[2017-01-02] MEDS: SIMETHICONE 40 MG/0.6 ML DROPS 2,000 MG/30 ML BOTTLE PO SCH ×3 (00:05→12:22)
[2017-01-02] MEDS: HYOSCYAMINE ORAL DROPS 1.875 MG/15 ML BOTTLE PO SCH ×3 (00:05→12:21)
[2017-01-02] MEDS: SODIUM CHLORIDE 0.9% 1,000 ML IV SCH (00:07)
[2017-01-02] MEDS: ALBUTEROL NEBULIZED 2.5 MG/3 ML INHALATION SCH ×2 (01:16→07:32)
[2017-01-02 07:04] LABS: Basophils % (A) 1 %; CH 30.2; CHCM 30.5; Eosinophils # (A) 0.3 k/uL (0-0.7); Eosinophils % (A) 5 %; HCT 35.5 % (34.0-46.0); HDW 2.38; HGB 10.7 gm/dL (11.4-16.0); Hypochromasia Slight; Luc # (Auto) 0.11; Luc % (Auto) 2; Lymphocytes # (A) 0.8 k/uL (1.0-4.8); Lymphocytes % (A) 11 %; MCH 30.1 pg (25.0-35.0); MCHC 30.2 g/dL (31.0-37.0); MCV 99.4 fL (80.0-100.0); Macrocytosis Slight; Mean Platelet Volume 8.4; Monocytes # (A) 0.3 k/uL (0-1.0); Monocytes % (A) 5 %; Neutrophils # (A) 5.6 k/uL (1.3-7.7); Neutrophils % (A) 77 %; RBC 3.57 m/uL (3.80-5.40); RDW 15.1 % (11.5-15.5); WBC 7.3 k/uL (3.8-10.6); WBC (Perox) 8.17
[2017-01-02 07:15] LABS: Calcium 8.7 mg/dL (8.4-10.2); Phosphorous 3.6 mg/dL (2.5-4.5); Potassium 4.5 mmol/L (3.5-5.1)
[2017-01-02 07:16] LABS: INR 2.5 (<1.1); Prothrombin Time 24.3 sec (9.0-12.0)
--- NOTE | 2017-01-02 08:09 | XR ---
EXAMINATION TYPE: XR chest 1V DATE OF EXAM: 01/02/2017 COMPARISON: 01/01/2017 INDICATION: Pulmonary vascular congestion TECHNIQUE: Single frontal view of the chest is obtained. FINDINGS: The heart size is enlarged. The pulmonary vasculature is normal. No suspicious focal consolidations are evident. Previous right upper lobe infiltrate is resolved. IMPRESSION: 1. Cardiomegaly
[2017-01-02 08:10] VITALS: BP 141/58; RESP 16; TEMP 97.5
[2017-01-02] MEDS: INSULIN LISPRO (humaLOG) 300 UNIT/3 ML VIAL SQ SCH ×2 (08:13→12:41)
[2017-01-02] MEDS: amLODIPine 5 MG TAB PO SCH (08:13)
[2017-01-02] MEDS: METOPROLOL TARTRATE 50 MG TAB PO SCH (08:13)
[2017-01-02] MEDS: FUROSEMIDE 10 MG/ML 2 ML VIAL IV SCH (08:13)
[2017-01-02] MEDS: PANTOPRAZOLE 40 MG/10 ML VIAL IV SCH (08:14)
[2017-01-02] MEDS: ceFAZolin 2 GM in SODIUM CHLORIDE 0.9% 100 ML IVPB SCH (08:26)
[2017-01-02] MEDS: HYDROcodone/APAP 15 ML SOLUTION PO PRN (09:10)
--- NOTE | 2017-01-02 11:46 | P.PN ---
Subjective 66-year-old female seen sitting up in a chair. Daughter is at bedside. Did update on plan of care. Did note the INR this morning is 2.5. Hemoglobin 10.7. Patient states no bowel movement. The creatinine is improving it's to 0.3 this morning blood sugars remain a little high 235,239 patient has been started on a protein shake diet 2 protein shakes taking into account chronic kidney disease history. Anticipate patient will be discharged today after seen by Dr. Ramírez Objective - Vital Signs Vital signs: Vital Signs Temp 97.5 F L 01/02/17 07:00 Pulse 74 01/02/17 08:00 Resp 16 01/02/17 08:00 BP 141/58 01/02/17 07:00 Pulse Ox 100 01/02/17 07:00 Intake & Output 01/01/17 01/02/17 01/02/17 18:59 06:59 18:59 Intake Total 8576.433 4492 Output Total 400 Balance 1599.139 800 Intake: Intake, IV Titration 049.451 1543 Amount Heparin Sodium,Porcine 25 179.139 ,000 unit In Sodium Chloride 0.9% 500 ml @ 18 UNITS/KG/HR 47.68 mls/hr IV .[id number] REA Rx#: [id number] Sodium Ferric Gluconat- 1100 Sucrose 125 mg In Sodium Chloride 0.9% 100 ml @ 100 mls/hr IVPB Q24H REA Rx#:[id number] Oral 1420 100 Output: Urine 400 Other: Voiding Method Toilet Toilet Toilet # Voids 1 2 - Exam Physical exam 66-year-old female sitting up in a chair pleasant cooperative oriented 3 denying dizziness lightheadedness chest pain or shortness of breath the nasal cannulas at 2 L sats are documented 100% Lungs essentially clear no cough noted no conversational dyspnea noted Heart S1-S2 audible regular denies chest pain Abdomen obese soft surgical sites benign no redness no drainage states no stool passing no gas rectally urinating no difficulty Extremities 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 - Labs CBC & Chem 7: 01/02/17 06:49 01/02/17 06:49 Labs: Abnormal Lab Results - Last 24 Hours (Table) 01/01/17 01/01/17 01/01/17 Range/Units 07:11 17:05 20:56 RBC (3.80-5.40) m/uL Hgb (11.4-16.0) gm/dL MCHC (31.0-37.0) g/dL Lymphocytes # (1.0-4.8) k/uL PT (9.0-12.0) sec Chloride (98-107) mmol/L Carbon Dioxide (22-30) mmol/L BUN (7-17) mg/dL Creatinine (0.52-1.04) mg/dL Glucose (74-99) mg/dL POC Glucose (mg/dL) 239 H 235 H (75-99) mg/dL Iron 30 L (37-170) ug/dL % Saturation 10.0 L (20-50) % Ferritin 283 H (11-264) ng/mL 01/02/17 01/02/17 01/02/17 Range/Units 06:49 06:49 06:49 RBC 3.57 L (3.80-5.40) m/uL Hgb 10.7 L (11.4-16.0) gm/dL MCHC 30.2 L (31.0-37.0) g/dL Lymphocytes # 0.8 L (1.0-4.8) k/uL PT 24.3 H (9.0-12.0) sec Chloride 110 H (98-107) mmol/L Carbon Dioxide 21 L (22-30) mmol/L BUN 49 H (7-17) mg/dL Creatinine 2.38 H (0.52-1.04) mg/dL Glucose 217 H (74-99) mg/dL POC Glucose (mg/dL) (75-99) mg/dL Iron (37-170) ug/dL % Saturation (20-50) % Ferritin (11-264) ng/mL Assessment and Plan Plan: Impression Morbid obesity due to excessive calories Body mass index reduced from 57 down to 50 Osteoarthritis bilateral hips History of obstructive sleep apnea History of diastolic congestive heart failure chronic compensated Chronic bilateral lower extremity edema Esophageal reflux disease Vitamin D deficiency status post december 29 Laparoscopic Nancy-en-Y gastric bypass Chronic kidney disease stage IV Type 2 diabetes insulin requiring uncontrolled hemoglobin A1c 7.8 hypertension with hypertensive heart disease COPD no evidence of an exacerbation Depressive disorder nonspecified Plan IV heparin stopped INR 2. 5 as morning PT OT eval Continue postop surgical care Resume home meds as appropriate DVT and GI prophylaxis Monitor labs Coumadin to be restarted home dose 5 mg daily Anticipate discharging today after Dr. Ramírez evaluates Family at the bedside patient will be discharged home with home care The above dictated assessment and findings were discussed with dr ramírez Impression and the plan of care have been dictated as directed. Patricia Crocker nurse practitioner acting as a scribe for dr ramírez.
[2017-01-02 12:01] LABS: Glucose,Whole Blood 198 mg/dL (75-99)
--- NOTE | 2017-01-02 12:56 | P.DS ---
Providers Date of admission: 12/29/16 10:23 Expected date of discharge: 01/02/17 Attending physician: Amy Prajapati Consults: 12/29/16 16:56 Consult Physician Routine Consulting Provider: Lida Bermeo Consult Reason/Comments: Stage 4 kidney disease, chronic renal disease Do you want consulting provider notified?: Yes 12/29/16 16:57 Consult Physician Routine Consulting Provider: Tamika Julian Consult Reason/Comments: COPD, GILL Do you want consulting provider notified?: Yes Primary care physician: Stated None Hospital Course: 66-year-old female who presented on the 29 of December undergo an elective gastric bypass surgery for morbid obesity. On December 29 the patient did undergo Laparoscopic Nancy-en-Y gastric bypass, . Patient was followed throughout the hospitalization by Dr. bermeo nephrology given patient's history of stage III renal failure . Recommendations by nephrology were appreciated. Additionally postprocedure patient was started on IV heparin and anticoagulation Coumadin initiated INR was monitored closely patient has a history of DVTs and had been on elquis anticoagulation in which the patient stated that she started about a month ago but was told by her lens blank gauger to stop taking and needed to be placed back on Coumadin patient states home dose of Coumadin had been 5 mg daily, day of discharge the INR was 2.4 Postprocedure patient developed decreased O2 saturation in the 80s on room air pulmonary consultation was requested. Patient was in no acute distress. Chest x-ray showed atelectasis changes in the right lung base. Patient was followed throughout the hospitalization by pulmonary service. Patient was started on bronchodilators. The oxygen was able to be titrated off and the repeat chest x- ray findings reviewed stable findings pulmonary indicated there was no further urinary workup at this time. on the was felt to be medically stable from all consulting physicians and that the patient could be discharged home on the day of discharge patient was afebrile not tachycardic and on room air sats were greater than 90% Impression Morbid obesity due to excessive calories Body mass index reduced from 57 down to 50 Osteoarthritis bilateral hips History of obstructive sleep apnea History of diastolic congestive heart failure chronic compensated Chronic bilateral lower extremity edema Esophageal reflux disease Vitamin D deficiency status post december 29 Laparoscopic Nancy-en-Y gastric bypass Chronic kidney disease stage IV Type 2 diabetes insulin requiring uncontrolled hemoglobin A1c 7.8 hypertension with hypertensive heart disease COPD no evidence of an exacerbation Depressive disorder nonspecified The above dictated assessment and findings were discussed with dr prajapati Impression and the plan of care have been dictated as directed. Patricia Crocker nurse practitioner acting as a scribe for dr prajapati. Plan - Discharge Summary New Discharge Prescriptions: New Warfarin [Coumadin] 5 mg PO DAILY #30 tab HYDROcodone/APAP [Scammon Elixir 7.5-325Mg/15Ml] 15 ml PO Q4HR PRN #480 ml PRN Reason: Pain Discontinued Allopurinol [Zyloprim] 100 mg PO DAILY Magnesium Oxide [Mag-Ox] 400 mg PO BID Ergocalciferol (Vitamin D2) [Drisdol] 50,000 unit PO MO HYDROcodone/APAP 7.5-325MG [Scammon 7.5-325] 1 tab PO Q6HR PRN PRN Reason: Pain Fenofibrate,Micronized [Fenofibrate] 200 mg PO DAILY Polyethylene Glycol 3350 [Miralax] 17 gm PO DAILY PRN PRN Reason: CONSTIPATION Calcium Polycarbophil [Fiber-Lax] 1,250 mg PO TID Apixaban [Eliquis] 5 mg PO BID Multivitamins, Thera [Multivitamin (formulary)] 1 tab PO DAILY No Action Omeprazole 20 mg PO DAILY Metoprolol Tartrate [Lopressor] 50 mg PO BID #60 tab Atorvastatin [Lipitor] 40 mg PO HS Levothyroxine Sodium [Synthroid] 25 mcg PO DAILY Furosemide [Lasix] 20 mg PO BID Albuterol Inhaler [Ventolin Hfa Inhaler] 2 puff INHALATION RT-Q6H PRN PRN Reason: Shortness Of Breath amLODIPine [Norvasc] 5 mg PO DAILY Albuterol Nebulized [Ventolin Nebulized] 2.5 mg INHALATION RT-Q6H PRN PRN Reason: Shortness Of Breath Insulin Glargine [Lantus] 40 unit SQ HS INSULIN LISPRO (HumaLOG) [HumaLOG] 2 units SQ ACHS Discharge Medication List Omeprazole 20 mg PO DAILY 01/25/16 [History] Metoprolol Tartrate [Lopressor] 50 mg PO BID #60 tab 02/01/16 [Rx] Atorvastatin [Lipitor] 40 mg PO HS 05/28/16 [History] Levothyroxine Sodium [Synthroid] 25 mcg PO DAILY 05/28/16 [History] Albuterol Inhaler [Ventolin Hfa Inhaler] 2 puff INHALATION RT-Q6H PRN 07/04/16 [ History] Furosemide [Lasix] 20 mg PO BID 07/04/16 [History] amLODIPine [Norvasc] 5 mg PO DAILY 09/04/16 [History] Albuterol Nebulized [Ventolin Nebulized] 2.5 mg INHALATION RT-Q6H PRN 11/02/16 [ History] INSULIN LISPRO (HumaLOG) [HumaLOG] 2 units SQ ACHS 12/17/16 [History] Insulin Glargine [Lantus] 40 unit SQ HS 12/17/16 [History] HYDROcodone/APAP [Scammon Elixir 7.5-325Mg/15Ml] 15 ml PO Q4HR PRN #480 ml [Rx] Warfarin [Coumadin] 5 mg PO DAILY #30 tab 01/02/17 [Rx] Follow up Appointment(s)/Referral(s): Amy Prajapati MD [STAFF PHYSICIAN] - 01/05/17 Activity/Diet/Wound Care/Special Instructions: [facility]: #[phone] Can purchase a wheel kit from [facility] for about $30, call [facility] [phone] Care Plan Goals (MU): Patient is to be seen the bariatric clinic this coming Thursday with Dr. Prajapati January 05 No vitamins to be taken Do not resume the Coumadin until directed by Dr. Prajapati No Lipitor No lifting over 10 pounds
[2017-01-02 14:18] VITALS: PULSE 68
--- NOTE | 2017-01-02 14:32 | P.PN ---
Subjective Principal diagnosis: Morbid obesity This is a very pleasant 66-year-old female patient who lives with Aparna Louis as her primary care provider and has a history of congestive heart failure, hypertension, hyperlipidemia, diabetes mellitus, diabetic nephropathy, gout, hypothyroidism. She also has a history of obstructive sleep apnea and asthma has been seen by Dr. Julian in the past. She has not followed up in quite some time however. He only uses a Ventolin inhaler as needed. She presented here yesterday for an elective laparoscopic Nancy-en-Y gastric bypass and laparoscopic lysis of adhesions of the greater omentum to the lower abdominal wall secondary to previous section. Postoperatively she had developed decreased O2 saturations in the 80s on room air. We are consulted for the same. He is seen today on the surgical floor. She is awake and alert in no acute distress. She is having some ongoing issues with nausea but does deny any worsening shortness of breath, cough or congestion. No wheezing. She is doing minimally with the incentive spirometer only pulling approximately 500 mL today. Chest x-ray does show some atelectatic changes in the right lung base. An enema leukocytosis at 12.0. Hemoglobin stable. Bicarb 23. BUN 64, creatinine 2.67. The patient is seen again today 12/31/2016 in follow-up on the surgical floor. She is awake and alert in no acute distress. She denies any shortness of breath , cough or congestion. She is only pulling approximately 500 and also on the incentive spirometer. She is on bronchodilators. He does desaturate into the 80s on room air. She is requiring 3 L/m per nasal cannula to maintain O2 saturations greater than 90%. She has not been wearing her CPAP as at home. She denies any well here in the hospital. She remains on cefazolin. Her pain is well controlled. She has been up ambulating with assistance. Her chest x- ray did reveal stable findings and some component of mild central vascular congestion with persistent cardiomegaly. The patient is seen again today 01/01/2017 in follow-up on the surgical floor. She is currently awake and alert in no acute distress. She denies any worsening shortness of breath, cough or congestion. She is maintaining good O2 saturations in the low 90s on room air at rest. She is working well of the incentive spirometer that still only pulling approximate 500 mL. Her chest x- ray shows some interstitial prominence in the right upper lobe. Suspect asymmetrical pulmonary edema versus pneumonia. There is also noted right hilum prominence and underlying adenopathy is not totally excluded. She remains on Lasix 20 mg IV daily. She remains on cefazolin. She has been ambulating in the hallway. Her pain is well controlled. The patient is seen again today 01/02/2017 in follow-up on the surgical floor. She is currently sitting up in the chair at the bedside. She denies any worsening shortness of breath, cough or congestion. She is maintaining O2 saturations in the low 90s on room air. She's been afebrile. Her INR is therapeutic at 2.5. Current creatinine 2.38. Objective - Vital Signs Vital signs: Vital Signs Temp 97.5 F L 01/02/17 07:00 Pulse 68 01/02/17 13:25 Resp 16 01/02/17 08:00 BP 141/58 01/02/17 07:00 Pulse Ox 100 01/02/17 07:00 Intake & Output 01/01/17 01/02/17 01/02/17 18:59 06:59 18:59 Intake Total 9010.842 2575 Output Total 400 2 Balance 1599.139 800 -2 Intake: Intake, IV Titration 881.515 0878 Amount Heparin Sodium,Porcine 25 179.139 ,000 unit In Sodium Chloride 0.9% 500 ml @ 18 UNITS/KG/HR 47.68 mls/hr IV .[id number] REA Rx#: [id number] Sodium Ferric Gluconat- 1100 Sucrose 125 mg In Sodium Chloride 0.9% 100 ml @ 100 mls/hr IVPB Q24H REA Rx#:[id number] Oral 1420 100 Output: Urine 400 Stool 2 Other: Voiding Method Toilet Toilet Toilet # Voids 1 2 - Exam GENERAL EXAM: Morbidly obese. Alert, active, comfortable in no apparent distress. HEAD: Normocephalic. EYES: Normal reaction of pupils, equal size. NOSE: Clear with pink turbinates. THROAT: There is crowding the posterior pharynx. No erythema or exudates. NECK: Short. No masses, no JVD. CHEST: No chest wall deformity. LUNGS: Equal air entry with no crackles, wheeze, rhonchi or dullness. CVS: S1 and S2 normal with no audible murmurs, regular rhythm. ABDOMEN: Obese. Surgical incisions clean dry well approximated. Normal bowel sounds, no guarding or rigidity. SPINE: No scoliosis or deformity SKIN: No rashes CENTRAL NERVOUS SYSTEM: No focal deficits, tone is normal in all 4 extremities. Extremities: There is trace peripheral edema. No clubbing, no cyanosis. Peripheral pulses are intact. - Labs CBC & Chem 7: 01/02/17 06:49 01/02/17 06:49 Labs: Abnormal Lab Results - Last 24 Hours (Table) 01/01/17 01/01/17 01/02/17 Range/Units 17:05 20:56 06:49 RBC 3.57 L (3.80-5.40) m/uL Hgb 10.7 L (11.4-16.0) gm/dL MCHC 30.2 L (31.0-37.0) g/dL Lymphocytes # 0.8 L (1.0-4.8) k/uL PT (9.0-12.0) sec Chloride (98-107) mmol/L Carbon Dioxide (22-30) mmol/L BUN (7-17) mg/dL Creatinine (0.52-1.04) mg/dL Glucose (74-99) mg/dL POC Glucose (mg/dL) 239 H 235 H (75-99) mg/dL 01/02/17 01/02/17 01/02/17 Range/Units 06:49 06:49 11:59 RBC (3.80-5.40) m/uL Hgb (11.4-16.0) gm/dL MCHC (31.0-37.0) g/dL Lymphocytes # (1.0-4.8) k/uL PT 24.3 H (9.0-12.0) sec Chloride 110 H (98-107) mmol/L Carbon Dioxide 21 L (22-30) mmol/L BUN 49 H (7-17) mg/dL Creatinine 2.38 H (0.52-1.04) mg/dL Glucose 217 H (74-99) mg/dL POC Glucose (mg/dL) 198 H (75-99) mg/dL Assessment and Plan Plan: Impression: #1 Morbid obesity status post laparoscopic Nancy-en-Y procedure with lysis of adhesions, postoperative day #4. #2 Acute hypoxic respiratory failure as an expected outcome in a patient with morbid obesity, obstructive sleep apnea, asthma. She did develop right upper lobe consolidation which is an unexpected outcome. Resolved on today's chest x- ray 01/02/2017. #3 Obstructive sleep apnea and utilizes CPAP. #4 History of atrial fibrillation. #5 History of congestive heart failure. #6 Diabetes mellitus, type II. #5 Diabetic nephropathy. #6 Hypertension. #7 Hyperlipidemia. #8 Osteoarthritis. #9 Gastroesophageal reflux disease. #10 History of depression. Plan: The patient was seen and evaluated by Dr. Obregon. Her chest x-ray was reviewed. She is cleared for discharge from the pulmonary standpoint. She is again encouraged regarding the increased use of the incentive spirometer. Continue bronchodilators. She should have a follow-up in our office with Dr. Julian as it has been quite some time. She may need repeat PFTs and make further recommendations regarding maintenance medications in regards her asthma. She also could follow-up regarding her obstructive sleep apnea if she is successful with significant weight loss her pressures may need to be adjusted. She is encouraged to call sooner however with any recurrence of pulmonary symptoms or other questions or concerns.
== END 2017-01-02 15:20 | disposition home health service (06) | DRG 619 ==
LOC: 2ORWHC 10:23 → 3SUR 17:19
PROVIDERS: ADMIT Surgery Plastic and Reconstructive Surgery; ATTEND Surgery Plastic and Reconstructive Surgery
PROC: 0DNS4ZZ (ICD-10-PCS; 2016-12-29)
PROC: 0DJ08ZZ Inspection of Upper Intestinal Tract, Via Natural or Artificial Opening Endoscopic (ICD-10-PCS; 2016-12-29)
PROC: 0D164ZA Bypass Stomach to Jejunum, Percutaneous Endoscopic Approach (ICD-10-PCS; principal; 2016-12-29 11:15)
DX: E66.01 Morbid (severe) obesity due to excess calories (principal); J96.01 Acute respiratory failure with hypoxia; I50.32 Chronic diastolic (congestive) heart failure; I43 Cardiomyopathy in diseases classified elsewhere; N18.4 Chronic kidney disease, stage 4 (severe); I13.0 Hypertensive heart and chronic kidney disease with heart failure and stage 1 through stage 4 chronic kidney disease, or unspecified chronic kidney disease; E11.21 Type 2 diabetes mellitus with diabetic nephropathy; N25.81 Secondary hyperparathyroidism of renal origin; J98.11 Atelectasis; M16.0 Bilateral primary osteoarthritis of hip; K21.9 Gastro-esophageal reflux disease without esophagitis; J44.9 Chronic obstructive pulmonary disease, unspecified; E87.5 Hyperkalemia; G47.33 Obstructive sleep apnea (adult) (pediatric); E11.22 Type 2 diabetes mellitus with diabetic chronic kidney disease; E55.9 Vitamin D deficiency, unspecified; E11.65 Type 2 diabetes mellitus with hyperglycemia; E78.5 Hyperlipidemia, unspecified; E03.9 Hypothyroidism, unspecified; K44.9 Diaphragmatic hernia without obstruction or gangrene; E78.00 Pure hypercholesterolemia, unspecified; K66.0 Peritoneal adhesions (postprocedural) (postinfection); E83.39 Other disorders of phosphorus metabolism; F32.9 Major depressive disorder, single episode, unspecified; I83.90 Asymptomatic varicose veins of unspecified lower extremity; M10.9 Gout, unspecified; D72.829 Elevated white blood cell count, unspecified; G89.4 Chronic pain syndrome; M79.7 Fibromyalgia; R11.0 Nausea; D64.9 Anemia, unspecified; E61.1 Iron deficiency; J45.909 Unspecified asthma, uncomplicated; M47.9 Spondylosis, unspecified; Z88.1 Allergy status to other antibiotic agents; Z87.42 Personal history of other diseases of the female genital tract; Z87.2 Personal history of diseases of the skin and subcutaneous tissue; Z86.718 Personal history of other venous thrombosis and embolism; Z79.899 Other long term (current) drug therapy; Z83.3 Family history of diabetes mellitus; Z79.4 Long term (current) use of insulin; Z79.01 Long term (current) use of anticoagulants; Z87.19 Personal history of other diseases of the digestive system; Z68.43 Body mass index [BMI] 50.0-59.9, adult; Z71.3 Dietary counseling and surveillance; Z83.49 Family history of other endocrine, nutritional and metabolic diseases; Z82.49 Family history of ischemic heart disease and other diseases of the circulatory system; Z80.9 Family history of malignant neoplasm, unspecified; Z90.49 Acquired absence of other specified parts of digestive tract; Z98.51 Tubal ligation status; Z86.79 Personal history of other diseases of the circulatory system
CPT/HCPCS: 71010; 80048; 80051; 82150; 82310; 82565; 82728; 83036; 83540; 83550; 83690; 83735; 84100; 84132; 84520; 85025; 85027; 85610; 85730; 86850; 86900; 86901; 94640; 94760; 94762

== ENCOUNTER → 2017-01-05 | Outpatient (CLI) | payer OTHER ==
[2017-01-05 11:26] VITALS: BP 151/106; PULSE 57; TEMP 97.1
[2017-01-05 11:35] VITALS: BMI 50.9
[2017-01-05 11:41] LABS: INR 2.7 (<1.1); Prothrombin Time 25.7 sec (9.0-12.0)
== END | disposition home or self-care (01) ==
LOC: BARWHC3 09:50
PROVIDERS: ATTEND Surgery Plastic and Reconstructive Surgery
DX: Z48.815 Encounter for surgical aftercare following surgery on the digestive system (principal); E66.01 Morbid (severe) obesity due to excess calories; Z68.43 Body mass index [BMI] 50.0-59.9, adult; Z71.3 Dietary counseling and surveillance; Z79.01 Long term (current) use of anticoagulants; Z51.81 Encounter for therapeutic drug level monitoring; Z98.84 Bariatric surgery status
CPT/HCPCS: 85610; 97803; G0463; 99211

== ENCOUNTER → 2017-01-07 | Outpatient (CLI) | payer OTHER ==
--- NOTE | 2017-01-07 13:05 | CT ---
EXAMINATION TYPE: CT abdomen pelvis wo con DATE OF EXAM: 01/07/2017 HISTORY: LLQ pain, history of gastric bypass surgery [address] DLP: 2189.4 mGycm. Automated Exposure Control for Dose Reduction was Utilized. TECHNIQUE: CT scan of the abdomen and pelvis is performed without oral or IV contrast. COMPARISON: CT abdomen and pelvis January 26, 2016 FINDINGS: Within the limitations of a non-contrast study, the following observations are made. LUNG BASES: There is interval resolution of small right pleural effusion. There is new tiny left pleu ral effusion with associated compressive atelectasis. LIVER/GB: Cholecystectomy clips are redemonstrated. PANCREAS: Some fat replaced atrophy of pancreas is again seen. SPLEEN: No significant abnormality is seen. ADRENALS: No significant abnormality is seen. KIDNEYS: Some cortical thinning in both kidneys is redemonstrated. BOWEL: Some diverticula are present in the sigmoid colon. There is no CT evidence for acute diverticu litis. Surgical changes from gastric bypass procedure with sutures epigastric region are noted. Sutures from small bowel anastomosis are seen anterior and inferior to this. No suspicious small or large bowel d ilatation is present. GENITAL ORGANS: No gross abnormality seen. LYMPH NODES: No greater than 1cm abdominal or pelvic lymph nodes are appreciated. OSSEOUS STRUCTURES: There is marked disc space narrowing with spurring and vacuum disc phenomenon as well as sclerosis L4-L5 level. There is vacuum disc phenomenon with disc space narrowing L5-S1 level. Multilevel spurring in the visualized thoracic spine is present. OTHER: There is dense vascular calcification in the splenic arterial branch redemonstrated. Some ill-defined fluid and air in the deep subcutaneous tissue anterior abdominal wall is presumed pr oduct of recent surgery. IMPRESSION: No significant finding is seen to account for patient's symptoms. No unusual intra-abdomi nal fluid collection is noted. No suspicious bowel dilatation.
[2017-01-07 13:32] LABS: CH 30.8; HCT 39.9 % (34.0-46.0); HDW 2.56; HGB 12.7 gm/dL (11.4-16.0); MCH 30.9 pg (25.0-35.0); MCHC 31.8 g/dL (31.0-37.0); Mean Platelet Volume 7.5; RBC 4.12 m/uL (3.80-5.40); RDW 15.3 % (11.5-15.5); WBC 7.3 k/uL (3.8-10.6)
[2017-01-07 13:46] LABS: INR 3.2 (<1.1); Partial Thromboplastin Time 35.3 sec (22.0-30.0); Prothrombin Time 31.2 sec (9.0-12.0)
[2017-01-07 13:58] LABS: Calcium 9.6 mg/dL (8.4-10.2); Potassium 4.9 mmol/L (3.5-5.1); Total Bilirubin 0.7 mg/dL (0.2-1.3); Total Protein 6.6 g/dL (6.3-8.2)
[2017-01-07 14:41] VITALS: BP 167/77; PULSE 60; TEMP 97.5; BMI 49.1
== END | disposition home or self-care (01) ==
LOC: RADXRMAIN 12:37
PROVIDERS: ATTEND Surgery Plastic and Reconstructive Surgery
DX: R19.04 Left lower quadrant abdominal swelling, mass and lump (principal); E66.01 Morbid (severe) obesity due to excess calories; Z79.01 Long term (current) use of anticoagulants
CPT/HCPCS: 80053; 85027; 85610; 85730; 74176; G0463; 99211

== ENCOUNTER → 2017-01-28 | Outpatient (CLI) | payer OTHER ==
[2017-01-28 13:16] VITALS: BP 157/69; PULSE 61; RESP 16; TEMP 97.7; BMI 45.4
[2017-01-28 15:53] LABS: CH 29.5; CHCM 31.8; HCT 42.6 % (34.0-46.0); HDW 2.43; HGB 14.1 gm/dL (11.4-16.0); MCH 30.9 pg (25.0-35.0); MCHC 33.2 g/dL (31.0-37.0); MCV 93.2 fL (80.0-100.0); Mean Platelet Volume 9.3; RBC 4.57 m/uL (3.80-5.40); WBC 6.4 k/uL (3.8-10.6)
[2017-01-28 16:05] LABS: Partial Thromboplastin Time 31.1 sec (22.0-30.0)
[2017-01-28 16:07] LABS: INR 3.9 (<1.1); Prothrombin Time 38.6 sec (9.0-12.0)
[2017-01-28 16:15] LABS: ALT 34 U/L (9-52); AST 33 U/L (14-36); Alkaline Phosphatase 133 U/L (38-126); Anion Gap 11 mmol/L; Blood Urea Nitrogen 31 mg/dL (7-17); Calcium 9.8 mg/dL (8.4-10.2); Carbon Dioxide 26 mmol/L (22-30); Chloride 107 mmol/L (98-107); Cholesterol 224 mg/dL (<200); Glucose 170 mg/dL (74-99); HDL Cholesterol 56 mg/dL (40-60); Iron 78 ug/dL (37-170); Magnesium 1.8 mg/dL (1.6-2.3); Non-African American GFR(MDRD) 25 (>60 ml/min/1.73 sqM); Phosphorous 3.5 mg/dL (2.5-4.5); Potassium 5.1 mmol/L (3.5-5.1); Sodium 144 mmol/L (137-145); Total Bilirubin 0.8 mg/dL (0.2-1.3); Total Protein 6.9 g/dL (6.3-8.2)
[2017-01-28 16:25] LABS: % Iron Saturation 28.6 % (20-50); Prealbumin 20 mg/dL (18-36); Total Iron Binding Capacity 273 ug/dL (265-497)
[2017-01-28 17:26] LABS: Vitamin B12 >1000 pg/mL (239-931)
[2017-01-28 20:15] LABS: Hemoglobin A1C 7.7 % (4.2-6.1)
[2017-02-03 16:43] LABS: Selenium 126 mcg/L (63-160)
--- NOTE | 2017-02-27 22:13 | P.PN ---
Progress Note - Text DATE OF SERVICE: 01/28/2017 CHIEF COMPLAINT: Follow up gastric bypass. HISTORY OF PRESENT ILLNESS: Rita Morales is a 66-year-old female who is status post gastric bypass on 12/29/2016. She has reduced her insulin from half a further 2 units from previous. She denies any more swollen legs. Overall she feels better. At a height of 5 feet 3-1/2 inches, her ideal body weight is 140 pounds. Her highest weight is 326 pounds. Today, she comes in weighing 260 pounds. She also lost 21 pounds in 3 weeks, since her last visit. Otherwise she has lost 33 pounds in 1 month. She has lost 66 pounds lifetime. Percent excess weight loss is 35%. Body mass index is reduced from 57 down to 45.4. She is 120 pounds over weight. Her kidney function is moderately improved. PHYSICAL EXAM: VITAL SIGNS: 5 feet 3-1/2 inches, 260 pounds. Body mass index of 45.4. Vital Signs 01/28/17 13:06 Temperature 97.7 F Pulse Rate 61 Respiratory 16 Rate Blood Pressure 157/69 MUSCULOSKELETAL: No clubbing, cyanosis or edema. GENERAL: Well-developed female in no acute distress. HEENT: No scleral icterus. Extraocular movements grossly intact. Moist mucosa. NECK: Supple without lymphadenopathy. CHEST: Nonlabored respirations. Equal bilateral excursions. CARDIOVASCULAR: Regular rate and rhythm. ABDOMEN: Soft, nondistended. Dressing along the abdomen discontinued. No signs of infection or cellulitis. NEURO: No focal or lateralizing signs. Cranial nerves II through XII grossly within normal limits. PSYCH: Appropriate affect. Alert and oriented to person, place and time. LABS: Pending. ASSESSMENT: 1. Morbid obesity due to excess calories. 2. Body mass index reduced from 57 down to 45.4 3. Uncontrolled insulin-dependent diabetes type 2, now controlled. 4. Hypertensive heart disease with cardiomyopathy. 5. Obstructive sleep apnea. 6. Fibromyalgia. 7. Osteoarthritis bilateral hips. 8. Osteoarthritis lower back. 9. Prior history of deep venous thromboses. 10. Chronic obstructive pulmonary disease. 11. Dietary surveillance and counseling. 12. 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 13. Chronic pain syndrome. 14. Severe bilateral lower extremity edema, now resolved. 15. Chronic anticoagulant therapy. PLAN: 1. Recommend repeat labs. 2. Recommend adjustment of Coumadin to potentially 1 every 4 days. 3. Recommend goal protein diet maintained at least 2 shakes a day otherwise 40 g daily. 4. May need adjustments of his blood pressure medications to protect kidney function.
== END ==
LOC: BARWHC3 12:41
PROVIDERS: ATTEND Surgery Plastic and Reconstructive Surgery
DX: Z48.815 Encounter for surgical aftercare following surgery on the digestive system (principal); E11.9 Type 2 diabetes mellitus without complications; Z79.4 Long term (current) use of insulin; I42.9 Cardiomyopathy, unspecified; I11.9 Hypertensive heart disease without heart failure; G47.33 Obstructive sleep apnea (adult) (pediatric); M79.7 Fibromyalgia; M16.0 Bilateral primary osteoarthritis of hip; M47.816 Spondylosis without myelopathy or radiculopathy, lumbar region; J44.9 Chronic obstructive pulmonary disease, unspecified; N28.9 Disorder of kidney and ureter, unspecified; E11.21 Type 2 diabetes mellitus with diabetic nephropathy; E21.1 Secondary hyperparathyroidism, not elsewhere classified; E89.1 Postprocedural hypoinsulinemia; D50.8 Other iron deficiency anemias; K90.89 Other intestinal malabsorption; E55.9 Vitamin D deficiency, unspecified; K76.9 Liver disease, unspecified; N19 Unspecified kidney failure; K50.90 Crohn's disease, unspecified, without complications; E66.01 Morbid (severe) obesity due to excess calories; Z71.3 Dietary counseling and surveillance; Z68.42 Body mass index [BMI] 45.0-49.9, adult; Z79.01 Long term (current) use of anticoagulants; Z98.84 Bariatric surgery status
CPT/HCPCS: 84255; 84134; 84425; 80061; 80053; 82607; 82728; 83036; 82525; 82746; 83540; 83550; 83735; 84100; 84443; 84590; 84630; 85027; 85610; 85730; 82306; 83970; 97803; G0463; 99211

== ENCOUNTER 2017-03-20 06:46 | Day surgery (SDC) | payer MEDICARE, OTHER ==
[2017-03-18 11:41] VITALS: BMI 41.5
[~2017-03-20 06:46] MED LIST changes: -CHLORHEXIDINE GLUCONATE 15 ML CUP MUCOUS MEM ONE; -DEXAMETHASONE SOD PHOSPHATE 10 MG/ML 1 ML VIAL IV ONE; -HEPARIN SODIUM,PORCINE 5,000 UNIT/ML 1 ML VIAL SQ ONE; -HYDROmorphone 1 MG/ML 1 ML SYRINGE IVP PRN; +LACTATED RINGERS 1,000 ML IV SCH; -MIDAZOLAM 2 MG/2 ML VIAL IV PRN; -ONDANSETRON 4 MG/2 ML VIAL IVP ONE; -PANTOPRAZOLE 40 MG/10 ML VIAL IV STA; -SCOPOLAMINE 1.5MG/72HR PATCH TRANSDERM ONE; -ceFAZolin 3 GM in SODIUM CHLORIDE 0.9% 100 ML IVPB ONE
[2017-03-20] MEDS ORDERED: LACTATED RINGERS 1,000 ML IV ONE (07:07)
[2017-03-20 07:21] VITALS: TEMP 97.1
[2017-03-20 07:21] LABS: Glucose,Whole Blood 165 mg/dL (75-99)
--- NOTE | 2017-03-20 07:27 | P.GSHP ---
History of Present Illness H&P Date: 03/20/17 CHIEF COMPLAINT: GERD HISTORY OF PRESENT ILLNESS: The patient is a 67-year-old female who presents reports gastroesophageal reflux disease. Upper endoscopy was offered for further evaluation and management. PAST MEDICAL HISTORY: Please see list. PAST SURGICAL HISTORY: Please see list. MEDICATIONS: Please see list. ALLERGIES: Please see list. SOCIAL HISTORY: No illicit drug use FAMILY HISTORY: No reports of Crohn disease or ulcerative colitis. REVIEW OF ORGAN SYSTEMS: CONSTITUTIONAL: No reports of fevers or chills. GI: Denies any blood in stools or constipation. PHYSICAL EXAM: VITAL SIGNS: Stable GENERAL: Well-developed and pleasant in no acute distress. HEENT: No scleral icterus. Extraocular movements grossly intact. Moist buccal mucosa. NECK: Supple without lymphadenopathy. CHEST: Unlabored respirations. Equal bilateral excursions. CARDIOVASCULAR: Regular rate and rhythm. Distal 2+ pulses. ABDOMEN: Soft, nondistended. MUSCULOSKELETAL: No clubbing, cyanosis, or edema. ASSESSMENT: 1. Gastroesophageal reflux disease PLAN: 1. Recommend proceeding with an upper endoscopy Past Medical History Past Medical History: Asthma, Heart Failure, Diabetes Mellitus, Deep Vein Thrombosis (DVT), Fibromyalgia, GERD/Reflux, Hyperlipidemia, Hypertension, Osteoarthritis (OA), Skin Disorder, Sleep Apnea/CPAP/BIPAP Additional Past Medical History / Comment(s): varicose veins. DVT RIGHT LEG, constipation, dry skin, decreased kidney function History of Any Multi-Drug Resistant Organisms: None Reported Past Surgical History: Bariatric Surgery, Section, Cholecystectomy, Heart Catheterization, Tubal Ligation Additional Past Surgical History / Comment(s): cardioversion ,gastric bypass 07-05, COLONOSCOPY AND EGD Past Anesthesia/Blood Transfusion Reactions: No Reported Reaction Smoking Status: Never smoker - Past Family History Mother Family Medical History: Deep Vein Thrombosis (DVT) Brother(s) Family Medical History: Cancer, Deep Vein Thrombosis (DVT) Additional Family Medical History / Comment(s): ONE BROTHER blood clot-in arm secondary to surgery. OTHER BROTHER CANCER Sister(s) Family Medical History: Deep Vein Thrombosis (DVT) Medications and Allergies Home Medications Medication Instructions Recorded Confirmed Type Omeprazole 20 mg PO DAILY 01/25/16 03/20/17 History Metoprolol Tartrate [Lopressor] 50 mg PO BID #60 tab 02/01/16 03/20/17 Rx Levothyroxine Sodium [Synthroid] 25 mcg PO DAILY 05/28/16 03/20/17 History amLODIPine [Norvasc] 5 mg PO DAILY 09/04/16 03/20/17 History Insulin Glargine [Lantus] 40 unit SQ HS 12/17/16 03/20/17 History Warfarin [Coumadin] 5 mg PO MOFR 01/28/17 03/20/17 History Sennosides/Docusate Sodium [Dok 1 each PO DAILY #30 tablet 02/10/17 03/20/17 Rx Plus Tablet] Calcium Citrate/Vitamin D3 2 each PO DAILY 03/18/17 03/20/17 History [Calcitrate + Vit D Caplet] Insulin Regular, Human [NovoLIN R] 1 - 5 units SQ ACHS 03/18/17 03/20/17 History Multivitamin [Multivitamins Adult 2 each PO DAILY 03/18/17 03/20/17 History Gummies] Thiamine HCl [Vitamin B-1] 250 mg PO DAILY 03/18/17 03/20/17 History Allergies Allergy/AdvReac Type Severity Reaction Status Date / Time ciprofloxacin [From Cipro] Allergy Unknown Verified 03/20/17 07:12 clarithromycin [From Biaxin] Allergy Anaphylaxis Verified 03/20/17 07:12 nitrofurantoin Allergy Wheezing Verified 03/20/17 07:12 [From Macrodantin] Surgical - Exam Vital Signs Temp Pulse Resp BP Pulse Ox 97.1 F L 67 18 155/77 99 03/20/17 07:19 03/20/17 07:19 03/20/17 07:19 03/20/17 07:19 03/20/17 07:19 Results - Labs Abnormal Lab Results - Last 24 Hours (Table) 03/20/17 Range/Units 07:16 POC Glucose (mg/dL) 165 H (75-99) mg/dL
[2017-03-20] MEDS ORDERED: LIDOCAINE 1% INJ 10MG/ML (20 ML MDV) ONE (07:29)
[2017-03-20] MEDS ORDERED: PROPOFOL 10 MG/ML 20 ML VIAL IV ONE (07:29)
--- NOTE | 2017-03-20 07:44 | P.PCN ---
Date of Procedure: 03/20/17 Preoperative Diagnosis: Postoperative Diagnosis: Procedure(s) Performed: Implants: Indications for Procedure: Operative Findings: Description of Procedure: PREOPERATIVE DIAGNOSIS: Dysphagia. Nausea with vomiting. Morbid obesity. Diabetes type 2. POSTOPERATIVE DIAGNOSIS: Dysphagia. Nausea with vomiting. Morbid obesity. Diabetes type 2. Gastrojejunal stricture with chronic ulcer without perforation OPERATION: Esophagogastrojejunoscopy with balloon dilatation from 10 to 19 mm. SURGEON: Amy Ramírez MD ANESTHESIA: MAC. INDICATIONS: The patient is a 67-year-old female who presents with a history of dysphagia including nausea and vomiting. Benefits and risks of the procedure were described. Informed consent was obtained. DESCRIPTION: The patient was brought into the endoscopy suite and laid in the left lateral decubitus position. After a timeout was confirmed, the procedure was initiated. An Olympus gastroscope was passed along the posterior oropharynx down to the distal esophagus where the squamocolumnar junction was unremarkable. The gastric pouch was entered. A gastrojejunal stricture of 10 mm was found as the adult gastroscope was 9.5 mm in size. A [employer] balloon dilator was placed through the scope. Final insufflation up to 19 mm was performed with a total of 2 minutes. The scope was advanced up to 60 cm from the incisors into the Nancy limb. The mucosa of the gastrojejunal anastomosis was intact. However small chronic gastrojejunal marginal ulcer was encountered. No full-thickness injury was encountered. The GI tract was desufflated. The patient tolerated the procedure well. FINDINGS: Squamocolumnar junction unremarkable at 38 cm. Stricture of 10 mm encountered. Small chronic gastrojejunal ulceration encountered. Successful balloon dilatation to 19 mm. Diaphragmatic hiatus at 40 cm. Anastomosis at 41 cm. Gastric pouch 3 cm. RECOMMENDATIONS: Start combined therapy of Carafate and omeprazole of at least 4 weeks.
[2017-03-20 07:49] VITALS: BP 120/61; PULSE 60; RESP 16
== END 2017-03-20 08:30 | disposition home or self-care (01) ==
LOC: ORWHC2ENDO 06:46
PROVIDERS: ATTEND Surgery Plastic and Reconstructive Surgery
DX: K31.89 Other diseases of stomach and duodenum (principal); K28.7 Chronic gastrojejunal ulcer without hemorrhage or perforation; E66.01 Morbid (severe) obesity due to excess calories; E11.9 Type 2 diabetes mellitus without complications; K21.9 Gastro-esophageal reflux disease without esophagitis; Z98.84 Bariatric surgery status; J45.909 Unspecified asthma, uncomplicated; I11.0 Hypertensive heart disease with heart failure; I50.9 Heart failure, unspecified; Z86.718 Personal history of other venous thrombosis and embolism; M79.7 Fibromyalgia; E78.5 Hyperlipidemia, unspecified; M19.90 Unspecified osteoarthritis, unspecified site; L98.9 Disorder of the skin and subcutaneous tissue, unspecified; I25.10 Atherosclerotic heart disease of native coronary artery without angina pectoris; G47.33 Obstructive sleep apnea (adult) (pediatric); Z99.89 Dependence on other enabling machines and devices; Z98.51 Tubal ligation status; Z79.01 Long term (current) use of anticoagulants; Z79.4 Long term (current) use of insulin; Z79.899 Other long term (current) drug therapy; Z88.1 Allergy status to other antibiotic agents
CPT/HCPCS: 43245; J2001; J2704; C1726

== ENCOUNTER → 2017-05-27 | Outpatient (CLI) | payer MEDICARE ==
[2017-05-27 13:27] VITALS: RESP 16; BMI 41.0
[2017-05-27 14:28] VITALS: BP 191/88; PULSE 62; TEMP 97.2
[2017-05-27 16:24] LABS: HCT 44.8 % (34.0-46.0); HGB 13.8 gm/dL (11.4-16.0); Hypochromasia Moderate; MCHC 30.8 g/dL (31.0-37.0); MCV 97.6 fL (80.0-100.0); Mean Platelet Volume 8.6; Platelet Count 261 k/uL (150-450); RBC 4.59 m/uL (3.80-5.40); RDW 15.9 % (11.5-15.5); WBC 6.8 k/uL (3.8-10.6)
[2017-05-27 16:31] LABS: INR 2.3 (<1.2); Partial Thromboplastin Time 28.1 sec (22.0-30.0); Prothrombin Time 22.3 sec (9.0-12.0)
[2017-05-27 16:40] LABS: Albumin 3.5 g/dL (3.5-5.0); Magnesium 1.6 mg/dL (1.6-2.3); Phosphorus 4.6 mg/dL (2.5-4.5); Total Bilirubin 0.5 mg/dL (0.2-1.3); Total Protein 6.7 g/dL (6.3-8.2)
[2017-05-28 01:06] LABS: Iron Saturation 19.84 (12.00-45.00)
[2017-05-28 01:10] LABS: Vitamin D 25 Hydroxy 32.5 ng/mL (30.0-100.0)
[2017-05-28 01:11] LABS: Folate, Serum 10.6 ng/mL
[2017-05-28 02:07] LABS: Parathyroid Hormone Intact 117.8 pg/mL (14.0-72.0)
[2017-05-28 07:39] LABS: Hemoglobin A1C 8.7 % (4.0-6.0)
[2017-05-28 13:33] LABS: Zinc, Serum 47 ug/dL (60-130)
[2017-05-29 07:14] LABS: Vitamin B1 57 ug/L (38-122)
[2017-05-29 09:11] LABS: Vitamin A 56 ug/dL (38-106)
[2017-05-29 19:07] LABS: Selenium 102 mcg/L (63-160)
--- NOTE | 2017-07-20 18:25 | P.PN ---
Subjective Progress Note Date: 05/27/17 DATE OF SERVICE: 05/27/2017 CHIEF COMPLAINT: Bariatric assessment. HISTORY OF PRESENT ILLNESS: Rita Morales is a 67-year-old female who is status post gastric bypass 12/29/2016. She is 5 months postop. She has lost 93 pounds since her bariatric assessment. She is drinking moderate amount of salt in soups. She reports improvement of her blood sugar glucose. She is no longer requiring moderate amount of insulin. No reports of nausea or vomiting. No reports of dysphagia. The swelling of her lower legs has moderately improved. Her kidney function has moderately improved. She is very happy with level of weight loss. At a height of 5 feet 3-1/2 inches, her ideal body weight is 140 pounds. Her highest weight is 326 pounds. Today, she comes in weighing 233 pounds. She has lost 27 pounds in 4 months. She completed an upper endoscopy with dilatation with resolution of her dysphagia to solid foods. Percent excess weight loss is 50%. Body mass index is reduced from 57.0 down to 40.7. She is 93 pounds overweight. PAST MEDICAL HISTORY: 1. Gout. 2. Vitamin D deficiency. 3. Hyperlipidemia. 4. Hypertension. 5. Hypothyroidism. 6. Hypertensive cardiomyopathy. 7. Gastroesophageal reflux disease. 8. Magnesium deficiency. 9. Insulin-dependent diabetes. 10. Congestive heart failure. 11. Asthma. 12. Deep venous thrombosis. 13. Fibromyalgia. 14. Varicose veins. 15. Obstructive sleep apnea. 16. History of abnormal vaginal bleeding. 17. Renal insufficiency. 18. History of pancreatitis of unclear etiology. 19. Acute hepatitis. 20. Stage IV chronic kidney disease improved. PAST SURGICAL HISTORY: 1. . 2. Cholecystectomy. 3. Heart catheterization. 4. Tubal ligation. 5. History of cardioversion. 6. Upper endoscopy. 7. Status post gastric bypass. MEDICATIONS: 1. Norvasc. 2. Omeprazole. 3. Lopressor. 4. Synthroid. 5. Lantus. 6. Humalog. 7. Lasix. 8. Lipitor. 9. Nebulized inhaler. 10. Coumadin. ALLERGIES: 1. CLINDAMYCIN. 2. HYDROCODONE. SOCIAL HISTORY: No active alcohol or tobacco use. FAMILY HISTORY: Pertinent for diabetes including morbid obesity. ORGAN SYSTEMS: CONSTITUTIONAL: Foley body weight of 140 pounds. Highest weight 326 pounds. Present weight 233 pounds. She has lost 93 pounds. Percent excess weight loss 50%. Body mass index reduced from 60.0 down to 40.7. GENITOURINARY: History of severe stage IV chronic kidney disease secondary to diabetes now improved. GASTROINTESTINAL: Gastroesophageal reflux disease resolved. Denies dumping syndrome. MUSCULOSKELETAL: Has history of osteoarthritis of the lower back and joints. CARDIOVASCULAR: History of congestive heart failure with diastolic dysfunction. She reports seeing her cable coverer recently. Separately, she reports decreased lower leg swelling. HEENT: No troubles with vision or hearing. ENDOCRINE: History of insulin-dependent diabetes type 2 over 10+ years. No active thyroid disorder. Moderate reduction of insulin use. RESPIRATORY: History of obstructive sleep apnea. History of asthma. NEURO: No reports of recent stroke or seizure disorders. PSYCH: No active depression. Anxiety. HEMATOLOGIC: Prior history of DVT. No reports easy bruising or bleeding. PHYSICAL EXAM: VITAL SIGNS: 5 feet 3-1/2 inches, 233 pounds. Body mass index of 40.7. Vital Signs Temp 97.2 F L 05/27/17 13:24 Pulse 62 05/27/17 13:24 Resp 16 05/27/17 13:24 BP 191/88 05/27/17 13:24 Pulse Ox MUSCULOSKELETAL: No clubbing, cyanosis or edema. GENERAL: Well-developed female in no acute distress. HEENT: No scleral icterus. Extraocular movements grossly intact. Moist mucosa. NECK: Supple without lymphadenopathy. CHEST: Nonlabored respirations. Equal bilateral excursions. CARDIOVASCULAR: Regular rate and rhythm. ABDOMEN: Soft, nontender, nondistended. NEURO: No focal or lateralizing signs. Cranial nerves II through XII grossly within normal limits. PSYCH: Appropriate affect. Alert and oriented to person, place and time. SKIN: Chronic venous stasis disease. No rash. LABS: Pending. ASSESSMENT: 1. Morbid obesity due to excess calories. 2. Body mass index reduced from 57.0 down to 40.7. 3. Uncontrolled insulin-dependent diabetes type 2, improved. 4. Hypertensive heart disease with cardiomyopathy, improved. 5. Obstructive sleep apnea, improved. 6. Fibromyalgia. 7. Osteoarthritis bilateral hips, improved. 8. Osteoarthritis lower back. 9. Prior history of deep venous thromboses. 10. Chronic obstructive pulmonary disease. 11. Dietary surveillance and counseling. 12. 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 13. Chronic pain syndrome. 14. Severe bilateral lower extremity edema, now improved. PLAN: 1. Recommend bariatric metabolic panel as she is due for her 5-6 months follow -up. 2. She has moderate hypertension during her assessment. Further discussion, she drinks high salt foods including can soups. Recommend low-sodium diet. 3. Recommend follow-up with cable coverer for history of hypertensive cardiomyopathy. Laboratory Last Values WBC 6.8 k/uL (3.8-10.6) 05/27/17 14:53 RBC 4.59 m/uL (3.80-5.40) 05/27/17 14:53 Hgb 13.8 gm/dL (11.4-16.0) 05/27/17 14:53 Hct 44.8 % (34.0-46.0) 05/27/17 14:53 MCV 97.6 fL (80.0-100.0) 05/27/17 14:53 MCH 30.0 pg (25.0-35.0) 05/27/17 14:53 MCHC 30.8 g/dL (31.0-37.0) L 05/27/17 14:53 RDW 15.9 % (11.5-15.5) H 05/27/17 14:53 Plt Count 261 k/uL (150-450) 05/27/17 14:53 Hypochromasia Moderate 05/27/17 14:53 PT 22.3 sec (9.0-12.0) H 05/27/17 14:53 INR 2.3 (<1.2) H 05/27/17 14:53 APTT 28.1 sec (22.0-30.0) 05/27/17 14:53 Sodium 142 mmol/L (137-145) 05/27/17 14:53 Potassium 5.0 mmol/L (3.5-5.1) 05/27/17 14:53 Chloride 111 mmol/L (98-107) H 05/27/17 14:53 Carbon Dioxide 24 mmol/L (22-30) 05/27/17 14:53 Anion Gap 7 mmol/L 05/27/17 14:53 BUN 21 mg/dL (7-17) H 05/27/17 14:53 Creatinine 1.60 mg/dL (0.52-1.04) H 05/27/17 14:53 Est GFR (MDRD) Af Amer 39 (>60 ml/min/1.73 sqM) 05/27/17 14:53 Est GFR (MDRD) Non-Af 32 (>60 ml/min/1.73 sqM) 05/27/17 14:53 Glucose 73 mg/dL (74-99) L 05/27/17 14:[address] Glu mg/dL 203 05/27/17 14:53 Hemoglobin A1c 8.7 % (4.0-6.0) H 05/27/17 14:53 Calcium 9.0 mg/dL (8.4-10.2) 05/27/17 14:53 Phosphorus 4.6 mg/dL (2.5-4.5) H 05/27/17 14:53 Magnesium 1.6 mg/dL (1.6-2.3) 05/27/17 14:53 Iron 50 ug/dL (50-170) 05/27/17 14:53 TIBC 252 ug/dL (228-460) 05/27/17 14:53 Iron Saturation 19.84 (12.00-45.00) 05/27/17 14:53 Ferritin 357.2 ng/mL (10.0-291.0) H 05/27/17 14:53 Total Bilirubin 0.5 mg/dL (0.2-1.3) 05/27/17 14:53 AST 23 U/L (14-36) 05/27/17 14:53 ALT 29 U/L (9-52) 05/27/17 14:53 Alkaline Phosphatase 113 U/L (38-126) 05/27/17 14:53 Total Protein 6.7 g/dL (6.3-8.2) 05/27/17 14:53 Albumin 3.5 g/dL (3.5-5.0) 05/27/17 14:53 Prealbumin 19.0 mg/dL (18.0-42.0) 05/27/17 14:53 Triglycerides 261 mg/dL (<150) H 05/27/17 14:53 Cholesterol 263 mg/dL (<200) H 05/27/17 14:53 LDL Cholesterol, Calc 154 mg/dL (0-99) H 05/27/17 14:53 HDL Cholesterol 57 mg/dL (40-60) 05/27/17 14:53 Vitamin A 56 ug/dL (38-106) 05/27/17 14:53 Vitamin B1 57 ug/L (38-122) 05/27/17 14:53 Vitamin B12 580.0 pg/mL (200.0-944.0) 05/27/17 14:53 Vitamin D 25-Hydroxy 32.5 ng/mL (30.0-100.0) 05/27/17 14:53 Folate 10.6 ng/mL 05/27/17 14:53 TSH 4.040 mIU/L (0.465-4.680) 05/27/17 14:53 PTH Intact 117.8 pg/mL (14.0-72.0) H 05/27/17 14:53 Copper 1305 ug/L (810-1990) 05/27/17 14:53 Selenium 102 mcg/L (63-160) 05/27/17 14:53 Zinc 47 ug/dL (60-130) L 05/27/17 14:53 Objective - Vital Signs Vital signs: Vital Signs Temp Pulse 115 H 05/27/17 13:24 Resp 16 05/27/17 13:24 BP 172/84 05/27/17 13:24 Pulse Ox Intake & Output 05/26/17 05/27/17 05/27/17 18:59 06:59 18:59 Weight 105.914 kg - Labs CBC & Chem 7: 05/27/17 14:53 05/27/17 14:53
== END | disposition home or self-care (01) ==
LOC: BARWHC3 13:07
PROVIDERS: ATTEND Surgery Plastic and Reconstructive Surgery
DX: Z48.815 Encounter for surgical aftercare following surgery on the digestive system (principal); E66.01 Morbid (severe) obesity due to excess calories; I11.9 Hypertensive heart disease without heart failure; E11.65 Type 2 diabetes mellitus with hyperglycemia; G47.33 Obstructive sleep apnea (adult) (pediatric); M79.7 Fibromyalgia; M16.0 Bilateral primary osteoarthritis of hip; M47.816 Spondylosis without myelopathy or radiculopathy, lumbar region; J44.9 Chronic obstructive pulmonary disease, unspecified; G89.4 Chronic pain syndrome; N28.9 Disorder of kidney and ureter, unspecified; E11.21 Type 2 diabetes mellitus with diabetic nephropathy; K21.9 Gastro-esophageal reflux disease without esophagitis; E78.5 Hyperlipidemia, unspecified; I50.9 Heart failure, unspecified; E03.9 Hypothyroidism, unspecified; E21.1 Secondary hyperparathyroidism, not elsewhere classified; K90.9 Intestinal malabsorption, unspecified; E55.9 Vitamin D deficiency, unspecified; K76.9 Liver disease, unspecified; K50.90 Crohn's disease, unspecified, without complications; E89.1 Postprocedural hypoinsulinemia; D50.9 Iron deficiency anemia, unspecified; Z68.41 Body mass index [BMI] 40.0-44.9, adult; Z71.3 Dietary counseling and surveillance; Z88.1 Allergy status to other antibiotic agents; Z88.5 Allergy status to narcotic agent; Z90.49 Acquired absence of other specified parts of digestive tract; Z98.84 Bariatric surgery status; Z79.4 Long term (current) use of insulin; Z79.01 Long term (current) use of anticoagulants; Z79.899 Other long term (current) drug therapy; Z98.890 Other specified postprocedural states
CPT/HCPCS: 84255; 84134; 84425; 80061; 80053; 82607; 82728; 82525; 82746; 83540; 83550; 83735; 84100; 84443; 84590; 84630; 85027; 85610; 85730; 82306; 83970; 83036; G0463; 99211

== ENCOUNTER → 2017-05-27 | Outpatient (CLI) | payer MEDICARE ==
--- NOTE | 2017-05-27 15:44 | XR ---
EXAMINATION TYPE: XR shoulder complete RT DATE OF EXAM: 05/27/2017 CLINICAL HISTORY: pain TECHNIQUE: Three views of the right shoulder are obtained. COMPARISON: None FINDINGS: There is no acute fracture/dislocation evident. The acromioclavicular and glenohumeral lucas int spaces appear mildly narrowed.. The visualized ribs are intact and unremarkable. IMPRESSION: 1. There is no acute fracture or dislocation. ICD 10 NO FRACTURE, INITIAL EVALUATION
== END | disposition home or self-care (01) ==
LOC: RADXRMAIN 15:06
PROVIDERS: ATTEND Surgery Plastic and Reconstructive Surgery
DX: M79.621 Pain in right upper arm (principal)

== ENCOUNTER → 2017-10-28 | Outpatient (CLI) | payer MEDICARE ==
[2017-10-28 14:02] VITALS: BP 157/90; PULSE 60; TEMP 97.7; BMI 36.7
[2017-10-28 15:13] LABS: HCT 43.8 % (34.0-46.0); HGB 13.5 gm/dL (11.4-16.0); MCH 29.1 pg (25.0-35.0); MCHC 30.7 g/dL (31.0-37.0); MCV 94.6 fL (80.0-100.0); Mean Platelet Volume 8.2; Platelet Count 262 k/uL (150-450); RBC 4.63 m/uL (3.80-5.40); RDW 13.5 % (11.5-15.5); WBC 8.2 k/uL (3.8-10.6)
[2017-10-28 15:17] LABS: Partial Thromboplastin Time 26.9 sec (22.0-30.0); Prothrombin Time 18.2 sec (9.0-12.0)
[2017-10-28 15:23] LABS: Albumin 3.8 g/dL (3.5-5.0); Calcium 9.5 mg/dL (8.4-10.2); Magnesium 1.9 mg/dL (1.6-2.3); Phosphorus 4.4 mg/dL (2.5-4.5); Total Bilirubin 0.4 mg/dL (0.2-1.3); Total Protein 6.7 g/dL (6.3-8.2)
[2017-10-28 19:08] LABS: Iron Saturation 16.38 (12.00-45.00)
[2017-10-28 19:17] LABS: Vitamin D 25 Hydroxy 25.5 ng/mL (30.0-100.0)
[2017-10-28 19:20] LABS: Folate, Serum 16.2 ng/mL
[2017-10-28 21:56] LABS: Hemoglobin A1C 9.1 % (4.0-6.0)
[2017-10-29 12:31] LABS: Zinc, Serum 106 ug/dL (60-130)
[2017-10-30 08:47] LABS: Vitamin A 54 ug/dL (38-106)
[2017-10-30 21:13] LABS: Selenium 108 mcg/L (63-160)
[2017-11-02 06:03] LABS: Vitamin B1 56 ug/L (38-122)
== END | disposition home or self-care (01) ==
LOC: BARWHC3 13:03
PROVIDERS: ATTEND Surgery Plastic and Reconstructive Surgery
DX: E66.01 Morbid (severe) obesity due to excess calories (principal); E21.1 Secondary hyperparathyroidism, not elsewhere classified; E89.1 Postprocedural hypoinsulinemia; D50.9 Iron deficiency anemia, unspecified; K90.9 Intestinal malabsorption, unspecified; E44.0 Moderate protein-calorie malnutrition; E55.9 Vitamin D deficiency, unspecified; K74.1 Hepatic sclerosis; N19 Unspecified kidney failure; K50.90 Crohn's disease, unspecified, without complications; Z68.36 Body mass index [BMI] 36.0-36.9, adult; Z71.3 Dietary counseling and surveillance
CPT/HCPCS: 84255; 84134; 84425; 80061; 80053; 82607; 82728; 82525; 82746; 83540; 83550; 83735; 84100; 84443; 84590; 84630; 85027; 85610; 85730; 82306; 83970; 83036; 97803; 36415; G0463; 99211

== ENCOUNTER → 2018-01-28 | Outpatient (CLI) | payer MEDICARE ==
[2018-01-28 12:12] VITALS: BMI 34.2
--- NOTE | 2018-01-28 12:41 | P.PN ---
Subjective Progress Note Date: 01/28/18 HPI: She is 1 year out. She comes in with panniculitis for over 1 year. She has worst back pain. PLAN: 1. Recommend panniculectomy 2. Nystatin 3. Get labs 4. Follow up with Dr. Westbrook. 5. Get pictures. Objective - Vital Signs Vital signs: Intake & Output 01/27/18 01/28/18 01/28/18 18:59 06:59 18:59 Weight 89.176 kg
[2018-01-28 13:04] VITALS: BP 150/85; PULSE 75; RESP 14; TEMP 97.5
== END | disposition home or self-care (01) ==
LOC: BARWHC3 11:04
PROVIDERS: ATTEND Surgery Plastic and Reconstructive Surgery
DX: M79.3 Panniculitis, unspecified (principal); M54.9 Dorsalgia, unspecified; E66.01 Morbid (severe) obesity due to excess calories; Z68.34 Body mass index [BMI] 34.0-34.9, adult
CPT/HCPCS: 97803; G0463; 99211

== ENCOUNTER → 2018-01-29 | Outpatient (CLI) | payer MEDICARE ==
[2018-01-29 07:12] LABS: HCT 40.6 % (34.0-46.0); HGB 13.1 gm/dL (11.4-16.0); MCHC 32.1 g/dL (31.0-37.0); MCV 93.3 fL (80.0-100.0); Mean Platelet Volume 7.9; Platelet Count 242 k/uL (150-450); RBC 4.35 m/uL (3.80-5.40); RDW 14.1 % (11.5-15.5); WBC 7.2 k/uL (3.8-10.6)
[2018-01-29 07:18] LABS: Partial Thromboplastin Time 23.4 sec (22.0-30.0); Prothrombin Time 9.5 sec (9.0-12.0)
[2018-01-29 07:20] LABS: Albumin 3.9 g/dL (3.5-5.0); Calcium 9.4 mg/dL (8.4-10.2); Magnesium 2.2 mg/dL (1.6-2.3); Phosphorus 4.6 mg/dL (2.5-4.5); Potassium 4.7 mmol/L (3.5-5.1); Total Bilirubin 0.5 mg/dL (0.2-1.3); Total Protein 6.7 g/dL (6.3-8.2)
[2018-01-29 11:50] LABS: Iron Saturation 29.52 (12.00-45.00)
[2018-01-29 11:56] LABS: Parathyroid Hormone Intact 104.7 pg/mL (14.0-72.0)
[2018-01-29 12:02] LABS: Vitamin D 25 Hydroxy 34.6 ng/mL (30.0-100.0)
[2018-01-29 12:13] LABS: Folate, Serum 22.2 ng/mL
[2018-01-29 15:01] LABS: Hemoglobin A1C 11.6 % (4.0-6.0)
[2018-02-01 15:51] LABS: Zinc, Serum 107 ug/dL (60-130)
[2018-02-02 05:57] LABS: Vitamin A 59 ug/dL (38-106)
[2018-02-02 10:57] LABS: Vitamin B1 62 ug/L (38-122)
== END | disposition home or self-care (01) ==
LOC: LABWHC1 06:41
PROVIDERS: ATTEND Surgery Plastic and Reconstructive Surgery
DX: E66.01 Morbid (severe) obesity due to excess calories (principal); E21.1 Secondary hyperparathyroidism, not elsewhere classified; E89.1 Postprocedural hypoinsulinemia; D50.9 Iron deficiency anemia, unspecified; K90.9 Intestinal malabsorption, unspecified; E55.9 Vitamin D deficiency, unspecified; K74.1 Hepatic sclerosis; N19 Unspecified kidney failure; K50.90 Crohn's disease, unspecified, without complications
CPT/HCPCS: 36415; 80053; 80061; 82306; 82525; 82607; 82728; 82746; 83036; 83540; 83550; 83735; 83970; 84100; 84134; 84255; 84425; 84443; 84590; 84630; 85027; 85610; 85730

== ENCOUNTER → 2018-07-29 | Outpatient (CLI) | payer MEDICARE ==
[2018-07-29 10:12] LABS: Basophils % (A) 0 %; Eosinophils # (A) 0.1 k/uL (0-0.7); Eosinophils % (A) 3 %; HCT 36.6 % (34.0-46.0); HGB 11.9 gm/dL (11.4-16.0); Lymphocytes # (A) 1.8 k/uL (1.0-4.8); Lymphocytes % (A) 33 %; MCH 30.9 pg (25.0-35.0); MCHC 32.5 g/dL (31.0-37.0); MCV 95.1 fL (80.0-100.0); Mean Platelet Volume 7.6; Monocytes # (A) 0.3 k/uL (0-1.0); Monocytes % (A) 5 %; Neutrophils % (A) 56 %; Platelet Count 212 k/uL (150-450); RBC 3.84 m/uL (3.80-5.40); RDW 13.7 % (11.5-15.5); WBC 5.3 k/uL (3.8-10.6)
[2018-07-29 10:26] LABS: Potassium 4.7 mmol/L (3.5-5.1)
== END | disposition home or self-care (01) ==
LOC: LABPAT 08:48
PROVIDERS: ATTEND Anesthesiology
DX: Z01.812 Encounter for preprocedural laboratory examination (principal)
CPT/HCPCS: 36415; 80051; 82565; 84520; 85025

== ENCOUNTER 2019-06-09 07:29 | Day surgery (SDC) | payer MEDICARE ==
[2019-06-08 12:11] VITALS: BMI 24.5
[~2019-06-09 07:29] MED LIST changes: +DEXAMETHASONE SOD PHOSPHATE 10 MG/ML 1 ML VIAL IV ONE; +ONDANSETRON 4 MG/2 ML VIAL IVP ONE
--- NOTE | 2019-06-09 07:41 | P.GSHP ---
History of Present Illness H&P Date: 06/09/19 CHIEF COMPLAINT: GERD HISTORY OF PRESENT ILLNESS: The patient is a 69-year-old female who presents reports gastroesophageal reflux disease. Upper endoscopy was offered for further evaluation and management. PAST MEDICAL HISTORY: Please see list. PAST SURGICAL HISTORY: Please see list. MEDICATIONS: Please see list. ALLERGIES: Please see list. SOCIAL HISTORY: No illicit drug use FAMILY HISTORY: No reports of Crohn disease or ulcerative colitis. REVIEW OF ORGAN SYSTEMS: CONSTITUTIONAL: No reports of fevers or chills. GI: Denies any blood in stools or constipation. PHYSICAL EXAM: VITAL SIGNS: Stable GENERAL: Well-developed and pleasant in no acute distress. HEENT: No scleral icterus. Extraocular movements grossly intact. Moist buccal mucosa. NECK: Supple without lymphadenopathy. CHEST: Unlabored respirations. Equal bilateral excursions. CARDIOVASCULAR: Regular rate and rhythm. Distal 2+ pulses. ABDOMEN: Soft, nondistended. MUSCULOSKELETAL: No clubbing, cyanosis, or edema. ASSESSMENT: 1. Gastroesophageal reflux disease PLAN: 1. Recommend proceeding with an upper endoscopy Past Medical History Past Medical History: Asthma, Diabetes Mellitus, Deep Vein Thrombosis (DVT), Fibromyalgia, Hyperlipidemia, Hypertension, Osteoarthritis (OA), Skin Disorder, Sleep Apnea/CPAP/BIPAP, Thyroid Disorder Additional Past Medical History / Comment(s): DVT ross LEGS, decreased kidney function, cpap NOT USED CURRENTLY, OCCASIONAL sinus issues, leaky valve. History of Any Multi-Drug Resistant Organisms: None Reported Past Surgical History: Bariatric Surgery, Section, Cholecystectomy, Heart Catheterization, Tubal Ligation Additional Past Surgical History / Comment(s): cardioversion, gastric bypass, COLONOSCOPY AND EGD, ross cataracts Past Anesthesia/Blood Transfusion Reactions: No Reported Reaction Smoking Status: Never smoker - Past Family History Mother Family Medical History: Deep Vein Thrombosis (DVT) Brother(s) Family Medical History: Cancer, Deep Vein Thrombosis (DVT) Additional Family Medical History / Comment(s): . Sister(s) Family Medical History: Deep Vein Thrombosis (DVT) Father Family Medical History: Deep Vein Thrombosis (DVT) Medications and Allergies Home Medications Medication Instructions Recorded Confirmed Type Levothyroxine Sodium [Synthroid] 25 mcg PO DAILY 05/28/16 06/08/19 History Insulin Glargine [Lantus] 20 unit SQ QAM 12/17/16 06/08/19 History Calcium Citrate/Vitamin D3 2 each PO DAILY 03/18/17 06/08/19 History [Calcitrate + Vit D Caplet] Insulin Regular, Human [NovoLIN R] 1 - 5 units SQ ACHS PRN 03/18/17 06/08/19 History Alive 1 tab PO DAILY 07/28/18 06/08/19 History Apixaban [Eliquis] 5 mg PO DAILY 07/28/18 06/08/19 History Atorvastatin [Lipitor] 40 mg PO DAILY 07/28/18 06/08/19 History Nystatin 100,000 Unit/gm Powd 1 applic TOPICAL BID PRN 07/28/18 06/08/19 History [Mycostatin Powder] Omeprazole [PriLOSEC] 20 mg PO [id number] 07/28/18 06/08/19 History Albuterol Inhaler [Ventolin Hfa 1 - 2 puff INHALATION RT-Q6H PRN 02/14/19 06/08/19 History Inhaler] Wellbutrin 1 tab PO DAILY 02/14/19 06/08/19 History Simvastatin [Zocor] 5 mg PO QAM 06/08/19 06/08/19 History Allergies Allergy/AdvReac Type Severity Reaction Status Date / Time ciprofloxacin [From Cipro] Allergy Unknown Verified 06/08/19 11:51 clarithromycin [From Biaxin] Allergy Anaphylaxis Verified 06/08/19 11:51 nitrofurantoin Allergy Wheezing Verified 06/08/19 11:51 [From Macrodantin]
[2019-06-09 08:03] VITALS: RESP 16; TEMP 97.7
[2019-06-09] MEDS ORDERED: LIDOCAINE 1% 20 ML VIAL (10MG/ML) FOR IV START INTRADERMA ONE (08:04)
[2019-06-09] MEDS ORDERED: DEXTROSE 10 % IN WATER 250 ML IV STA (08:11)
[2019-06-09 08:17] LABS: Glucose,Whole Blood 68 mg/dL (75-99)
[2019-06-09] MEDS ORDERED: PROPOFOL 10 MG/ML 20 ML VIAL IV ONE (08:30)
[2019-06-09] MEDS ORDERED: LIDOCAINE 1% INJ 10MG/ML (20 ML MDV) ONE (08:30)
[2019-06-09 08:56] VITALS: BP 118/69; PULSE 82
--- NOTE | 2019-06-09 09:13 | P.PCN ---
Date of Procedure: 06/09/19 Description of Procedure: PREOPERATIVE DIAGNOSIS: Dysphagia. Nausea with vomiting. Diabetes type 2. POSTOPERATIVE DIAGNOSIS: Dysphagia. ausea with vomiting. Diabetes type 2. 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 INDICATIONS: The patient is a 56-year-old female who presents with a history of dysphagia, gastric bypass including new-onset nausea and vomiting. Benefits and risks of the procedure were described. Informed consent was obtained. DESCRIPTION: The patient was brought into the endoscopy suite and laid in the left lateral decubitus position. After a timeout was confirmed, the procedure was initiated. An Olympus gastroscope was passed along the posterior oropharynx down to the distal esophagus where the squamocolumnar junction was hypertensive including of the distal esophagus. The gastric pouch was extremely small less than 1 cm. A gastrojejunal stricture of 15 mm was found as the adult gastroscope was 9.5 mm in size. A Tiqets balloon dilator was placed through the scope. Final insufflation up to 20 mm was performed with a total of 2 minutes. The scope was advanced up to 60 cm from the incisors into the Nancy limb. The mucosa of the gastrojejunal anastomosis was intact. However chronic gastrojejunal marginal ulcer was encountered. No full-thickness injury was encountered. The GI tract was desufflated. The patient tolerated the procedure well. FINDINGS: Stricture of approximately 15 mm encountered. Chronic gastrojejunal ulceration encountered. Successful balloon dilatation to 20 mm of distal esophagus and anastomosis RECOMMENDATIONS: Omeprazole of at least 4 weeks. Plan - Discharge Summary Discharge Rx Participant: Yes New Discharge Prescriptions: No Action Levothyroxine Sodium [Synthroid] 25 mcg PO DAILY Insulin Glargine [Lantus] 20 unit SQ QAM Calcium Citrate/Vitamin D3 [Calcitrate + Vit D Caplet] 2 each PO DAILY Insulin Regular, Human [NovoLIN R] 1 - 5 units SQ ACHS PRN PRN Reason: Blood Sugar - High Alive 1 tab PO DAILY Apixaban [Eliquis] 5 mg PO DAILY Atorvastatin [Lipitor] 40 mg PO DAILY Nystatin 100,000 Unit/gm Powd [Mycostatin Powder] 1 applic TOPICAL BID PRN PRN Reason: Rash Omeprazole [PriLOSEC] 20 mg PO AC-BRKFST Albuterol Inhaler [Ventolin Hfa Inhaler] 1 - 2 puff INHALATION RT-Q6H PRN PRN Reason: Shortness Of Breath Wellbutrin 1 tab PO DAILY ?Blood Pressure Med 1 tab PO DAILY Discharge Medication List Levothyroxine Sodium [Synthroid] 25 mcg PO DAILY 05/28/16 [History] Insulin Glargine [Lantus] 20 unit SQ QAM 12/17/16 [History] Calcium Citrate/Vitamin D3 [Calcitrate + Vit D Caplet] 2 each PO DAILY 03/18/17 [History] Insulin Regular, Human [NovoLIN R] 1 - 5 units SQ ACHS PRN 03/18/17 [History] Alive 1 tab PO DAILY 07/28/18 [History] Apixaban [Eliquis] 5 mg PO DAILY 07/28/18 [History] Atorvastatin [Lipitor] 40 mg PO DAILY 07/28/18 [History] Nystatin 100,000 Unit/gm Powd [Mycostatin Powder] 1 applic TOPICAL BID PRN 07/28/18 [History] Omeprazole [PriLOSEC] 20 mg PO AC-BRKFST 07/28/18 [History] Albuterol Inhaler [Ventolin Hfa Inhaler] 1 - 2 puff INHALATION RT-Q6H PRN 02/14/19 [History] Wellbutrin 1 tab PO DAILY 02/14/19 [History] ?Blood Pressure Med 1 tab PO DAILY 06/09/19 [History] Follow [facility]ment[facility] [facility] [place] [place] - [place]19 Patient Instructions/Handouts: Esophageal Dilation (DC) Activity/Diet/Wound Care/Special Instructions: Recommend warm beverages. Please drink warm beverages prior to eating food Discharge Disposition: HOME SELF-CARE
[2019-06-09 09:16] LABS: Glucose,Whole Blood 148 mg/dL (75-99)
== END 2019-06-09 09:52 | disposition home or self-care (01) ==
LOC: ORWHC2ENDO 07:29
PROVIDERS: ATTEND Surgery Plastic and Reconstructive Surgery
DX: K95.89 Other complications of other bariatric procedure (principal); K56.699 Other intestinal obstruction unspecified as to partial versus complete obstruction; K28.7 Chronic gastrojejunal ulcer without hemorrhage or perforation; K22.4 Dyskinesia of esophagus; K21.9 Gastro-esophageal reflux disease without esophagitis; E11.9 Type 2 diabetes mellitus without complications; J45.909 Unspecified asthma, uncomplicated; M79.7 Fibromyalgia; E78.5 Hyperlipidemia, unspecified; I10 Essential (primary) hypertension; M19.90 Unspecified osteoarthritis, unspecified site; L98.9 Disorder of the skin and subcutaneous tissue, unspecified; G47.33 Obstructive sleep apnea (adult) (pediatric); Z91.19 Patient's noncompliance with other medical treatment and regimen; E07.9 Disorder of thyroid, unspecified; I38 Endocarditis, valve unspecified; Z98.0 Intestinal bypass and anastomosis status; Z88.1 Allergy status to other antibiotic agents; Z88.2 Allergy status to sulfonamides; Z86.718 Personal history of other venous thrombosis and embolism; Z87.448 Personal history of other diseases of urinary system; Z98.890 Other specified postprocedural states; Z90.49 Acquired absence of other specified parts of digestive tract; Z98.51 Tubal ligation status; Z98.42 Cataract extraction status, left eye; Z98.41 Cataract extraction status, right eye; Z79.890 Hormone replacement therapy; Z79.4 Long term (current) use of insulin; Z79.899 Other long term (current) drug therapy; Z79.01 Long term (current) use of anticoagulants; Z80.9 Family history of malignant neoplasm, unspecified; Z82.49 Family history of ischemic heart disease and other diseases of the circulatory system
CPT/HCPCS: 43245; J2001; J2704; C1726; 43249

== ENCOUNTER → 2019-06-22 | Outpatient (CLI) | payer MEDICARE ==
[2019-06-22 12:31] VITALS: BP 144/81; PULSE 75; TEMP 97.8; BMI 22.3
--- NOTE | 2019-06-22 13:52 | P.PN ---
Subjective Progress Note Date: 06/22/19 DATE OF SERVICE: 06/22/2019 CHIEF COMPLAINT: Follow up gastric bypass HISTORY OF PRESENT ILLNESS: Rita Morales is a 67-year-old female who is status post gastric bypass 12/29/2016. She is over 2 year out postop. She has pain at the epigastrium. She has an ulcer found on upper endoscopy. She was not able to get her prescription of Omeprazole. She has lost over 180 pounds. Separately, she reports moderate lower back pain from her pannus including ulcerations along her pannus from panniculitis. She is being treated for panniculitis for over 2 years without improvement of her symptoms. She comes in for management of her abdominal pain and panniculitis. At a height of 5 feet 3-1/2 inches, her ideal body weight is 140 pounds. Her highest weight is 326 pounds. Today, she comes in weighing 128 pounds from 196 pounds, 1 year ago. She has lost 68 pounds in 1 year. Her total lifetime weight loss is 198 pounds. Percent excess weight loss is 107 %. Body mass index is reduced from 57.0 down to 22.3. PAST MEDICAL HISTORY: 1. Gout. 2. Vitamin D deficiency. 3. Hyperlipidemia. 4. Hypertension. 5. Hypothyroidism. 6. Hypertensive cardiomyopathy. 7. Gastroesophageal reflux disease. 8. Magnesium deficiency. 9. Insulin-dependent diabetes. 10. Congestive heart failure. 11. Asthma. 12. Deep venous thrombosis. 13. Fibromyalgia. 14. Varicose veins. 15. Obstructive sleep apnea. 16. History of abnormal vaginal bleeding. 17. Renal insufficiency. 18. History of pancreatitis of unclear etiology. 19. Acute hepatitis. 20. Stage IV chronic kidney disease improved. 21. Morbid obesity, BMI 57.0 initial PAST SURGICAL HISTORY: 1. . 2. Cholecystectomy. 3. Heart catheterization. 4. Tubal ligation. 5. History of cardioversion. 6. Upper endoscopy. 7. Status post gastric bypass. MEDICATIONS: 1. Norvasc. 2. Omeprazole. 3. Lopressor. 4. Synthroid. 5. Lantus. 6. Humalog. 7. Lasix. 8. Lipitor. 9. Nebulized inhaler. 10. Coumadin. ALLERGIES: 1. CLINDAMYCIN. 2. HYDROCODONE. SOCIAL HISTORY: No active alcohol or tobacco use. FAMILY HISTORY: Pertinent for diabetes including morbid obesity. REVIEW OF ORGAN SYSTEMS: CONSTITUTIONAL: At a height of 5 feet 3-1/2 inches, her ideal body weight is 140 pounds. Her highest weight is 326 pounds. GENITOURINARY: History of severe stage IV chronic kidney disease secondary to diabetes now improved. GASTROINTESTINAL: Gastroesophageal reflux disease resolved. Denies dumping syndrome. MUSCULOSKELETAL: Has history of osteoarthritis of the lower back and joints. CARDIOVASCULAR: History of congestive heart failure with diastolic dysfunction, improved. She reports seeing her photographic intelligence officer recently. Separately, she reports decreased lower leg swelling. HEENT: No troubles with vision or hearing. ENDOCRINE: History of insulin-dependent diabetes type 2 over 10+ years. No active thyroid disorder. Moderate reduction of insulin use. RESPIRATORY: History of obstructive sleep apnea. History of asthma. NEURO: No reports of recent stroke or seizure disorders. PSYCH: No active depression. Anxiety. HEMATOLOGIC: Prior history of DVT. No reports easy bruising or bleeding. PHYSICAL EXAM: VITAL SIGNS: 5 feet 3-1/2 inches, 128 pounds. Body mass index of 22.3 Vital Signs Temp 97.8 F 06/22/19 12:28 Pulse 75 06/22/19 12:28 Resp BP 144/81 06/22/19 12:28 Pulse Ox MUSCULOSKELETAL: No clubbing, cyanosis or edema. GENERAL: Well-developed female in no acute distress. HEENT: No scleral icterus. Extraocular movements grossly intact. Moist mucosa. NECK: Supple without lymphadenopathy. CHEST: Nonlabored respirations. Equal bilateral excursions. CARDIOVASCULAR: Regular rate and rhythm. ABDOMEN: Soft, nontender, nondistended. Pannus with hyperemia consistent panniculitis. Pannus extends over pubis 6 cm. Weight over 10 pounds. NEURO: No focal or lateralizing signs. Cranial nerves II through XII grossly within normal limits. PSYCH: Appropriate affect. Alert and oriented to person, place and time. SKIN: Chronic venous stasis disease. No rash. Good skin turgor. STUDIES: EGD FINDINGS: Stricture of approximately 15 mm encountered. Chronic gastrojejunal ulceration encountered. Successful balloon dilatation to 20 mm of distal esophagus and anastomosis ASSESSMENT: 1. Morbid obesity due to excess calories. 2. Body mass index reduced from 57.0 down to 22.3 3. Uncontrolled insulin-dependent diabetes type 2, improved. 4. Hypertensive heart disease with cardiomyopathy, improved. 5. Obstructive sleep apnea, improved. 6. Fibromyalgia. 7. Osteoarthritis bilateral hips, improved. 8. Osteoarthritis lower back. 9. Prior history of deep venous thromboses. 10. Chronic obstructive pulmonary disease. 11. Dietary surveillance and counseling. 12. 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 13. Chronic pain syndrome. 14. Severe bilateral lower extremity edema, now improved. 15. Dysphagia 16. Panniculitis 17. Massive weight loss, 198 pounds s/p gastric bypass. PLAN: 1. Omeprazole 40 mg daily prescribed for gastric ulcers and to address pain at the epigastrium. 2. Recommend bariatric labs to correct nutritional deficiencies. 3. Recommend pictures for panniculectomy 4. Will need follow up upper endoscopy in 1 month with EGD for ulcers. Laboratory Last Values WBC 4.5 k/uL (3.8-10.6) 06/22/19 14:20 RBC 3.71 m/uL (3.80-5.40) L 06/22/19 14:20 Hgb 11.4 gm/dL (11.4-16.0) 06/22/19 14:20 Hct 35.5 % (34.0-46.0) 06/22/19 14:20 MCV 95.6 fL (80.0-100.0) 06/22/19 14:20 MCH 30.7 pg (25.0-35.0) 06/22/19 14:20 MCHC 32.1 g/dL (31.0-37.0) 06/22/19 14:20 RDW 13.4 % (11.5-15.5) 06/22/19 14:20 Plt Count 138 k/uL (150-450) L 06/22/19 14:20 PT 10.2 sec (9.0-12.0) 06/22/19 14:20 INR 0.9 (<1.2) 06/22/19 14:20 APTT 24.3 sec (22.0-30.0) 06/22/19 14:20 Sodium 143 mmol/L (135-145) 06/22/19 14:20 Potassium 5.2 mmol/L (3.5-5.5) 06/22/19 14:20 Chloride 114 mmol/L (96-109) H 06/22/19 14:20 Carbon Dioxide 24.6 mmol/L (21.6-31.8) 06/22/19 14:20 Anion Gap 4.40 mmol/L (4.00-12.00) 06/22/19 14:20 BUN 28.0 mg/dL (9.0-27.0) H 06/22/19 14:20 Creatinine 1.6 mg/dL (0.6-1.5) H 06/22/19 14:20 Est GFR (CKD-EPI)AfAm 38.2 (60.0-200.0) L 06/22/19 14:20 Est GFR (CKD-EPI)NonAf 33.0 (60.0-200.0) L 06/22/19 14:20 BUN/Creatinine Ratio 17.50 Ratio (12.00-20.00) 06/22/19 14:20 Glucose 141 mg/dL (70-110) H 06/22/19 14:[address] Glu mg/dL 194 06/22/19 14:20 Hemoglobin A1c 8.4 % (4.0-6.0) H 06/22/19 14:20 Calcium 9.1 mg/dL (8.7-10.3) 06/22/19 14:20 Phosphorus 3.7 mg/dL (2.4-5.1) 06/22/19 14:20 Magnesium 1.8 mg/dL (1.5-2.4) 06/22/19 14:20 Iron 74 ug/dL (50-170) 06/22/19 14:20 TIBC 248 ug/dL (228-460) 06/22/19 14:20 % Saturation 29.84 (12.00-45.00) 06/22/19 14:20 Ferritin 365.4 ng/mL (10.0-291.0) H 06/22/19 14:20 Total Bilirubin 0.4 mg/dL (0.2-1.2) 06/22/19 14:20 AST 31 U/L (13-35) 06/22/19 14:20 ALT 28 U/L (8-44) 06/22/19 14:20 Alkaline Phosphatase 99 U/L (41-126) 06/22/19 14:20 Total Protein 5.8 g/dL (6.2-8.2) L 06/22/19 14:20 Albumin 3.70 g/dL (3.80-4.90) L 06/22/19 14:20 Globulin 2.1 g/dL (1.6-3.3) 06/22/19 14:20 Albumin/Globulin Ratio 1.76 g/dL (1.60-3.17) 06/22/19 14:20 Prealbumin 18.0 mg/dL (18.0-42.0) 06/22/19 14:20 Triglycerides 107.0 mg/dL (0.0-149.0) 06/22/19 14:20 Cholesterol 149 mg/dL (0-200) 06/22/19 14:20 LDL Cholesterol, Calc 68.6 mg/dL (0.0-131.0) 06/22/19 14:20 VLDL Cholesterol, Calc 21.40 mg/dL (5.00-40.00) 06/22/19 14:20 HDL Cholesterol 59.0 mg/dL (40.0-60.0) 06/22/19 14:20 Cholesterol/HDL Ratio 2.53 06/22/19 14:20 Vitamin A 41 ug/dL (38-106) 06/22/19 14:20 Vitamin B1 53 ug/L (38-122) 06/22/19 14:20 Vitamin B12 532.0 pg/mL (200.0-944.0) 06/22/19 14:20 Vitamin D 25-Hydroxy 31.1 ng/mL (30.0-100.0) 06/22/19 14:20 Folate 9.3 ng/mL 06/22/19 14:20 TSH 1.890 uIU/mL (0.350-5.500) 06/22/19 14:20 PTH Intact 116.4 pg/mL (14.0-72.0) H 06/22/19 14:20 Selenium 88 mcg/L (63-160) 06/22/19 14:20 Zinc 47 ug/dL (60-130) L 06/22/19 14:20 Platelet is low. Hgb A1c 8.4% Total protein is low Albumin is low. Zinc is low PTH is elevated Will need correction of poorly controlled diabetes. Will need protein intake over 75 grams daily. Zinc supplement advised Objective - Vital Signs Vital signs: Vital Signs Temp 97.8 F 06/22/19 12:28 Pulse 75 06/22/19 12:28 Resp BP 144/81 06/22/19 12:28 Pulse Ox Intake & Output 06/21/19 06/22/19 06/22/19 18:59 06:59 18:59 Weight 58.06 kg - Labs CBC & Chem 7: 06/22/19 14:20 06/22/19 14:20
[2019-06-22 14:41] LABS: HCT 35.5 % (34.0-46.0); HGB 11.4 gm/dL (11.4-16.0); MCH 30.7 pg (25.0-35.0); MCHC 32.1 g/dL (31.0-37.0); MCV 95.6 fL (80.0-100.0); Mean Platelet Volume 7.8; Platelet Count 138 k/uL (150-450); RBC 3.71 m/uL (3.80-5.40); RDW 13.4 % (11.5-15.5); WBC 4.5 k/uL (3.8-10.6)
[2019-06-22 14:46] LABS: INR 0.9 (<1.2); Partial Thromboplastin Time 24.3 sec (22.0-30.0); Prothrombin Time 10.2 sec (9.0-12.0)
[2019-06-22 19:30] LABS: Folate, Serum 9.3 ng/mL
[2019-06-22 19:40] LABS: % Iron Saturation 29.84 (12.00-45.00); African American GFR (CKD) 38.2 (60.0-200.0); Albumin 3.7 g/dL (3.80-4.90); Albumin/Globulin Ratio 1.76 (1.60-3.17); Anion Gap 4.4 mmol/L (4.00-12.00); BUN/Creat Ratio 17.5 Ratio (12.00-20.00); Calcium 9.1 mg/dL (8.7-10.3); Carbon Dioxide 24.6 mmol/L (21.6-31.8); Chol/HDL Ratio 2.53; Globulin 2.1 g/dL (1.6-3.3); LDL Cholesterol,Calculated 68.6 mg/dL (0.0-131.0); Magnesium 1.8 mg/dL (1.5-2.4); Phosphorus 3.7 mg/dL (2.4-5.1); Potassium 5.2 mmol/L (3.5-5.5); Total Bilirubin 0.4 mg/dL (0.2-1.2); Total Protein 5.8 g/dL (6.2-8.2); VLDL Calculation 21.4 mg/dL (5.00-40.00)
[2019-06-22 19:42] LABS: Ferritin 365.4 ng/mL (10.0-291.0)
[2019-06-22 21:16] LABS: Hemoglobin A1C 8.4 % (4.0-6.0)
[2019-06-23 12:55] LABS: Zinc, Serum 47 ug/dL (60-130)
[2019-06-24 06:24] LABS: Vitamin A 41 ug/dL (38-106)
[2019-06-24 06:49] LABS: Vit B1(Thiamine) 53 ug/L (38-122)
[2019-06-27 18:30] LABS: Selenium 88 mcg/L (63-160)
== END | disposition home or self-care (01) ==
LOC: BARWHC3 11:45
PROVIDERS: ATTEND Surgery Plastic and Reconstructive Surgery
DX: Z48.815 Encounter for surgical aftercare following surgery on the digestive system (principal); E66.01 Morbid (severe) obesity due to excess calories; I42.9 Cardiomyopathy, unspecified; G47.33 Obstructive sleep apnea (adult) (pediatric); M79.7 Fibromyalgia; M16.0 Bilateral primary osteoarthritis of hip; Z86.718 Personal history of other venous thrombosis and embolism; J44.9 Chronic obstructive pulmonary disease, unspecified; N28.9 Disorder of kidney and ureter, unspecified; E11.21 Type 2 diabetes mellitus with diabetic nephropathy; I13.0 Hypertensive heart and chronic kidney disease with heart failure and stage 1 through stage 4 chronic kidney disease, or unspecified chronic kidney disease; E11.22 Type 2 diabetes mellitus with diabetic chronic kidney disease; N18.4 Chronic kidney disease, stage 4 (severe); I50.9 Heart failure, unspecified; G89.4 Chronic pain syndrome; R60.0 Localized edema; E03.9 Hypothyroidism, unspecified; R13.10 Dysphagia, unspecified; E78.5 Hyperlipidemia, unspecified; M79.3 Panniculitis, unspecified; Z68.22 Body mass index [BMI] 22.0-22.9, adult; Z98.84 Bariatric surgery status; Z83.49 Family history of other endocrine, nutritional and metabolic diseases; Z79.4 Long term (current) use of insulin; Z79.899 Other long term (current) drug therapy; Z79.01 Long term (current) use of anticoagulants; Z88.6 Allergy status to analgesic agent; Z88.1 Allergy status to other antibiotic agents; Z90.49 Acquired absence of other specified parts of digestive tract; Z71.3 Dietary counseling and surveillance; Z79.890 Hormone replacement therapy; E22.1 Hyperprolactinemia; E89.1 Postprocedural hypoinsulinemia; D50.9 Iron deficiency anemia, unspecified; K90.9 Intestinal malabsorption, unspecified; E55.9 Vitamin D deficiency, unspecified; K76.9 Liver disease, unspecified; K50.90 Crohn's disease, unspecified, without complications
CPT/HCPCS: 84255; 84134; 84425; 80061; 80053; 82607; 82728; 82746; 83540; 83550; 83735; 84100; 84443; 84590; 84630; 85027; 85610; 85730; 82306; 83970; 83036; G0463; 99211

== ENCOUNTER → 2019-11-22 | Outpatient (CLI) | payer MEDICARE | END | disposition home or self-care (01) | LOC: LABWHC1 12:19 | PROVIDERS: ATTEND Surgery Plastic and Reconstructive Surgery | DX: U07.1 COVID-19 (principal) | CPT/HCPCS: 87635 ==

== ENCOUNTER 2019-11-24 08:27 | Day surgery (SDC) | payer MEDICARE ==
[2019-11-22 11:23] VITALS: BMI 20.1
[~2019-11-24 08:27] MED LIST changes: -DEXAMETHASONE SOD PHOSPHATE 10 MG/ML 1 ML VIAL IV ONE; -ONDANSETRON 4 MG/2 ML VIAL IVP ONE
[2019-11-24] MEDS ORDERED: LIDOCAINE 1% (10MG/ML) FOR IV START INTRADERMA ONE (08:56)
[2019-11-24 09:02] VITALS: TEMP 97.8
[2019-11-24 09:09] LABS: Glucose,Whole Blood 177 mg/dL (75-99)
[2019-11-24] MEDS ORDERED: PROPOFOL 10 MG/ML 20 ML VIAL IV ONE (09:16)
--- NOTE | 2019-11-24 09:20 | P.GSHP ---
History of Present Illness H&P Date: 11/24/19 CHIEF COMPLAINT: Dysphagia HISTORY OF PRESENT ILLNESS: The patient is a 69-year-old female who presents reports dysphagia. Upper endoscopy was offered for further evaluation and management. PAST MEDICAL HISTORY: Please see list. PAST SURGICAL HISTORY: Please see list. MEDICATIONS: Please see list. ALLERGIES: Please see list. SOCIAL HISTORY: No illicit drug use FAMILY HISTORY: No reports of Crohn disease or ulcerative colitis. REVIEW OF ORGAN SYSTEMS: CONSTITUTIONAL: No reports of fevers or chills. GI: Denies any blood in stools or constipation. PHYSICAL EXAM: VITAL SIGNS: Stable GENERAL: Well-developed and pleasant in no acute distress. HEENT: No scleral icterus. Extraocular movements grossly intact. Moist buccal mucosa. NECK: Supple without lymphadenopathy. CHEST: Unlabored respirations. Equal bilateral excursions. CARDIOVASCULAR: Regular rate and rhythm. Distal 2+ pulses. ABDOMEN: Soft, nondistended. MUSCULOSKELETAL: No clubbing, cyanosis, or edema. ASSESSMENT: 1. Dysphagia PLAN: 1. Recommend proceeding with an upper endoscopy with dilation Past Medical History Past Medical History: Asthma, CVA/TIA, Diabetes Mellitus, Deep Vein Thrombosis (DVT), GERD/Reflux, Hypertension, Osteoarthritis (OA), Renal Disease, Sleep Apnea/CPAP/BIPAP, Thyroid Disorder Additional Past Medical History / Comment(s): DVT ross LEGS, decreased kidney function, cpap NOT USED CURRENTLY, leaky heart valve. TIA 07/2019-left side weakness, ulcer, constipation History of Any Multi-Drug Resistant Organisms: None Reported Past Surgical History: Bariatric Surgery, Section, Cholecystectomy, Heart Catheterization, Tubal Ligation Additional Past Surgical History / Comment(s): cardioversion, gastric bypass, COLONOSCOPY AND EGD, ross cataracts Past Anesthesia/Blood Transfusion Reactions: No Reported Reaction Smoking Status: Never smoker - Past Family History Mother Family Medical History: Deep Vein Thrombosis (DVT) Brother(s) Family Medical History: Cancer, Deep Vein Thrombosis (DVT) Additional Family Medical History / Comment(s): . Sister(s) Family Medical History: Deep Vein Thrombosis (DVT) Father Family Medical History: Deep Vein Thrombosis (DVT) Medications and Allergies Home Medications Medication Instructions Recorded Confirmed Type Levothyroxine Sodium [Synthroid] 25 mcg PO DAILY 05/28/16 11/24/19 History Insulin Glargine [Lantus] 10 unit SQ Q48H 12/17/16 11/24/19 History Apixaban [Eliquis] 5 mg PO DAILY 07/28/18 11/24/19 History Atorvastatin [Lipitor] 40 mg PO DAILY 07/28/18 11/24/19 History Albuterol Inhaler (Mhu) [Ventolin 1 - 2 puff INHALATION RT-Q6H PRN 02/14/19 11/24/19 History Hfa Inhaler] Omeprazole 40 mg PO DAILY #90 capsule. 06/22/19 11/24/19 Rx Acetaminophen [Tylenol] 500 mg PO TID 10/04/19 11/24/19 History Ascorbic Acid [Vitamin C] 1,000 mg PO DAILY 10/04/19 11/24/19 History Aspirin [Adult Low Dose Aspirin EC] 81 mg PO DAILY 10/04/19 11/24/19 History Calcium Carbonate [Calcium] 600 mg PO DAILY 10/04/19 11/24/19 History Cholecalciferol [Vitamin D3 (25 2,000 unit PO DAILY 10/04/19 11/24/19 History Mcg = 1000 Iu)] Furosemide [Lasix] 20 mg PO Q48H 10/04/19 11/24/19 History Humalog(Dose Unknown) 1 applicate IJ BID-W/MEALS 10/04/19 11/24/19 History Lisinopril [Zestril] 5 mg PO DAILY 10/04/19 11/24/19 History Allergies Allergy/AdvReac Type Severity Reaction Status Date / Time ciprofloxacin [From Cipro] Allergy Unknown Verified 11/24/19 08:48 clarithromycin [From Biaxin] Allergy Anaphylaxis Verified 11/24/19 08:48 nitrofurantoin Allergy Wheezing Verified 11/24/19 08:48 [From Macrodantin] Surgical - Exam Vital Signs Temp Pulse Resp BP Pulse Ox 97.8 F 70 18 172/78 100 11/24/19 08:57 11/24/19 08:57 11/24/19 08:57 11/24/19 08:57 11/24/19 08:57 Results - Labs Abnormal Lab Results - Last 24 Hours (Table) 11/24/19 Range/Units 08:55 POC Glucose (mg/dL) 177 H (75-99) mg/dL
--- NOTE | 2019-11-24 09:35 | P.PCN ---
Date of Procedure: 11/24/19 Description of Procedure: PREOPERATIVE DIAGNOSES: 1. Epigastric abdominal pain. 2. Nausea and vomiting. 3. History of gastric bypass. 4. History of gastric ulcers. POSTOPERATIVE DIAGNOSES: 1. Acute on chronic gastrojejunal ulcer with obstruction PROCEDURE PERFORMED: Esophagogastrojejunoscopy. SURGEON: Amy Ramírez MD ANESTHESIA: MAC. INDICATIONS: The patient is a 69-year-old male with prior history of Nancy-en-Y gastric bypass. She presents with cachexia, intermittent nausea and vomiting, particularly of the epigastric abdominal pain. With her history of Nancy-en-Y gastric bypass, upper endoscopy was offered for further evaluation and management. DESCRIPTION: Patient was brought to the endoscopy suite and laid in the left lateral decubitus position. After adequate IV sedation, a bite block was placed. An Olympus gastroscope was passed along the posterior oropharynx down to the distal esophagus where the squamocolumnar junction was found at approximately 38 cm from the incisors. At the GE junction, moderate hypertension was identified. The scope was gently advanced with applied pressure into the gastric pouch and Nancy limb. An active 1 cm acute on chronic gastrojejunal ulcer was identified. The scope was advanced 60 cm from the incisors. No evidence of foreign body was found. Secondary to the severe nature of the ulcer, balloon dilation was avoided to prevent perforation. The GI tract was desufflated. The patient tolerated the procedure well. FINDINGS: 1. Acute on chronic 1 cm gastrojejunal ulcer with obstruction. PLAN: 1. Protonix 40 mg twice daily for 4 weeks minimal 2. Carafate 1 g twice a day liquid suspension 3. Will need repeat upper endoscopy for dilation once ulcer resolves Plan - Discharge Summary Discharge Rx Participant: No New Discharge Prescriptions: New Omeprazole [PriLOSEC] 40 mg PO BID #120 cap Sucralfate [Carafate] 1 gm PO BID #480 ml Continue Levothyroxine Sodium [Synthroid] 25 mcg PO DAILY Insulin Glargine [Lantus] 10 unit SQ Q48H Apixaban [Eliquis] 5 mg PO DAILY Atorvastatin [Lipitor] 40 mg PO DAILY Albuterol Inhaler (Mhu) [Ventolin Hfa Inhaler (Mhu)] 1 - 2 puff INHALATION RT-Q6H PRN PRN Reason: Shortness Of Breath Calcium Carbonate [Calcium] 600 mg PO DAILY Ascorbic Acid [Vitamin C] 1,000 mg PO DAILY Acetaminophen [Tylenol] 500 mg PO TID Cholecalciferol [Vitamin D3 (25 Mcg = 1000 Iu)] 2,000 unit PO DAILY Lisinopril [Zestril] 5 mg PO DAILY Furosemide [Lasix] 20 mg PO Q48H Aspirin [Adult Low Dose Aspirin EC] 81 mg PO DAILY Humalog(Dose Unknown) 1 applicate IJ BID-W/MEALS Discontinued Omeprazole 40 mg PO DAILY #90 capsule.dr Discharge Medication List Levothyroxine Sodium [Synthroid] 25 mcg PO DAILY 05/28/16 [History] Insulin Glargine [Lantus] 10 unit SQ Q48H 12/17/16 [History] Apixaban [Eliquis] 5 mg PO DAILY 07/28/18 [History] Atorvastatin [Lipitor] 40 mg PO DAILY 07/28/18 [History] Albuterol Inhaler (Mhu) [Ventolin Hfa Inhaler (Mhu)] 1 - 2 puff INHALATION RT- Q6H PRN 02/14/19 [History] Acetaminophen [Tylenol] 500 mg PO TID 10/04/19 [History] Ascorbic Acid [Vitamin C] 1,000 mg PO DAILY 10/04/19 [History] Aspirin [Adult Low Dose Aspirin EC] 81 mg PO DAILY 10/04/19 [History] Calcium Carbonate [Calcium] 600 mg PO DAILY 10/04/19 [History] Cholecalciferol [Vitamin D3 (25 Mcg = 1000 Iu)] 2,000 unit PO DAILY 10/04/19 [History] Furosemide [Lasix] 20 mg PO Q48H 10/04/19 [History] Humalog(Dose Unknown) 1 applicate IJ BID-W/MEALS 10/04/19 [History] Lisinopril [Zestril] 5 mg PO DAILY 10/04/19 [History] Omeprazole [PriLOSEC] 40 mg PO BID #120 cap 11/24/19 [Rx] Sucralfate [Carafate] 1 gm PO BID #480 ml 11/24/19 [Rx] Follow up Appointment(s)/Referral(s): Amy Ramírez MD [STAFF PHYSICIAN] - 12/06/19 Patient Instructions/Handouts: Chronic Dysphagia (GEN), Level 3 National Dysphagia Diet (DC), Peptic Ulcer (DC) Activity/Diet/Wound Care/Special Instructions: Recommend pured foods. Avoid NSAIDs. Avoid ibuprofen, aspirin, Aleve, naproxen. Discharge Disposition: HOME SELF-CARE
[2019-11-24 10:00] VITALS: BP 146/71; PULSE 66; RESP 16
== END 2019-11-24 10:41 | disposition home or self-care (01) ==
LOC: ORWHC2ENDO 08:27
PROVIDERS: ATTEND Surgery Plastic and Reconstructive Surgery
DX: K28.3 Acute gastrojejunal ulcer without hemorrhage or perforation (principal); K28.7 Chronic gastrojejunal ulcer without hemorrhage or perforation; K91.89 Other postprocedural complications and disorders of digestive system; K31.89 Other diseases of stomach and duodenum; I10 Essential (primary) hypertension; E11.9 Type 2 diabetes mellitus without complications; K21.9 Gastro-esophageal reflux disease without esophagitis; J45.909 Unspecified asthma, uncomplicated; G47.33 Obstructive sleep apnea (adult) (pediatric); I69.354 Hemiplegia and hemiparesis following cerebral infarction affecting left non-dominant side; E07.9 Disorder of thyroid, unspecified; N28.9 Disorder of kidney and ureter, unspecified; M19.90 Unspecified osteoarthritis, unspecified site; Z98.84 Bariatric surgery status; Z79.890 Hormone replacement therapy; Z79.01 Long term (current) use of anticoagulants; Z79.82 Long term (current) use of aspirin; Z79.4 Long term (current) use of insulin; Z79.899 Other long term (current) drug therapy; Z88.1 Allergy status to other antibiotic agents; Z88.2 Allergy status to sulfonamides; Z86.718 Personal history of other venous thrombosis and embolism; Z90.49 Acquired absence of other specified parts of digestive tract; Z98.51 Tubal ligation status; Z98.41 Cataract extraction status, right eye; Z98.42 Cataract extraction status, left eye; Z82.49 Family history of ischemic heart disease and other diseases of the circulatory system
CPT/HCPCS: 43235

== ENCOUNTER 2019-12-08 12:05 | Inpatient (IN) | payer MEDICARE ==
[2019-12-08] MEDS ORDERED: MORPHINE SULFATE 2 MG/ML SYRINGE IVP ONE (12:33)
[2019-12-08] MEDS ORDERED: SODIUM CHLORIDE 0.9% 1,000 ML IV STA (12:33)
[2019-12-08] MEDS ORDERED: PANTOPRAZOLE 40 MG/10 ML VIAL IVP STA (12:33)
--- NOTE | 2019-12-08 12:42 | ED ---
Abdominal Pain HPI - General Chief Complaint: Abdominal Pain Stated Complaint: Weakness Time Seen by Provider: 12/08/19 12:12 Source: patient, family Mode of arrival: wheelchair Limitations: no limitations - History of Present Illness Initial Comments: Patient is a 69-year-old female, with multiple comorbidities, presenting to the emergency Department with complaints of weakness and lower abdominal pain 4 days. Patient recently had upper GI scope by Dr. Ramírez and had follow-up appointment 2 days ago. Patient was started on omeprazole and Carafate for an ulcer. They are awaiting for the ulcer to improve before doing an enlargement of a stricture. Patient's family did call Dr. Connolly office today who recommended she go into the ER. Patient states she is not been able to eat or drink over the past 4 days and is feeling very weak and having trouble walking secondary to the weakness. She is also having lower abdominal pain that started a few days ago as well. She is nauseous. There is been no fever, no chills. She denies vomiting. Patient states she is having bouts of diarrhea and unable to make it to the restroom. She does have history of recent TIA with left-sided weakness. She does walk with a cane. She denies any chest pain, shortness of breath. She has no other complaints at this time. Upon arrival to the ER, patient's blood pressures 96/53, 92% on room air, 97.6 temporal, 62 pulse, 16 respiration rate. - Related Data Home Medications Medication Instructions Recorded Confirmed Levothyroxine Sodium [Synthroid] 25 mcg PO DAILY 05/28/16 11/24/19 Insulin Glargine [Lantus] 10 unit SQ Q48H 12/17/16 11/24/19 Apixaban [Eliquis] 5 mg PO DAILY 07/28/18 11/24/19 Atorvastatin [Lipitor] 40 mg PO DAILY 07/28/18 11/24/19 Albuterol Inhaler (Mhu) [Ventolin 1 - 2 puff INHALATION RT-Q6H PRN 02/14/19 11/24/19 Hfa Inhaler (Mhu)] Acetaminophen [Tylenol] 500 mg PO TID 10/04/19 11/24/19 Ascorbic Acid [Vitamin C] 1,000 mg PO DAILY 10/04/19 11/24/19 Aspirin [Adult Low Dose Aspirin EC] 81 mg PO DAILY 10/04/19 11/24/19 Calcium Carbonate [Calcium] 600 mg PO DAILY 10/04/19 11/24/19 Cholecalciferol [Vitamin D3 (25 2,000 unit PO DAILY 10/04/19 11/24/19 Mcg = 1000 Iu)] Furosemide [Lasix] 20 mg PO Q48H 10/04/19 11/24/19 Humalog(Dose Unknown) 1 applicate IJ BID-W/MEALS 10/04/19 11/24/19 Lisinopril [Zestril] 5 mg PO DAILY 10/04/19 11/24/19 Previous Rx's Medication Instructions Recorded Omeprazole [PriLOSEC] 40 mg PO BID #120 cap 11/24/19 Sucralfate [Carafate] 1 gm PO BID #60 tab 11/24/19 Allergies Allergy/AdvReac Type Severity Reaction Status Date / Time ciprofloxacin [From Cipro] Allergy Unknown Verified 12/08/19 12:12 clarithromycin [From Biaxin] Allergy Anaphylaxis Verified 12/08/19 12:12 nitrofurantoin Allergy Wheezing Verified 12/08/19 12:12 [From Macrodantin] Review of Systems ROS Statement: Those systems with pertinent positive or pertinent negative responses have been documented in the HPI. ROS Other: All systems not noted in ROS Statement are negative. Past Medical History Past Medical History: Asthma, CVA/TIA, Diabetes Mellitus, Deep Vein Thrombosis (DVT), GERD/Reflux, Hypertension, Osteoarthritis (OA), Renal Disease, Sleep Apnea/CPAP/BIPAP, Thyroid Disorder Additional Past Medical History / Comment(s): DVT ross LEGS, decreased kidney function, cpap NOT USED CURRENTLY, leaky heart valve. TIA 07/2019-left side weakness, ulcer, constipation History of Any Multi-Drug Resistant Organisms: None Reported Past Surgical History: Bariatric Surgery, Section, Cholecystectomy, Heart Catheterization, Tubal Ligation Additional Past Surgical History / Comment(s): cardioversion, gastric bypass, COLONOSCOPY AND EGD, ross cataracts Past Anesthesia/Blood Transfusion Reactions: No Reported Reaction Past Psychological History: No Psychological Hx Reported Smoking Status: Never smoker Past Alcohol Use History: None Reported Past Drug Use History: None Reported - Past Family History Mother Family Medical History: Deep Vein Thrombosis (DVT) Brother(s) Family Medical History: Cancer, Deep Vein Thrombosis (DVT) Additional Family Medical History / Comment(s): . Sister(s) Family Medical History: Deep Vein Thrombosis (DVT) Father Family Medical History: Deep Vein Thrombosis (DVT) General Exam - General Exam Comments Initial Comments: GENERAL: Patient appears cachexia, fatigued, in no acute distress. HEAD: Atraumatic, normocephalic. EYES: Pupils equal round and reactive to light, extraocular movements intact, sclera anicteric, conjunctiva are normal. ENT: TMs normal, nares patent, oropharynx clear without exudates. Moist mucous membranes. NECK: Normal range of motion, supple without lymphadenopathy or JVD. LUNGS: Breath sounds clear to auscultation bilaterally and equal. No wheezes rales or rhonchi. HEART: Regular rate and rhythm without murmurs, rubs or gallops. ABDOMEN: Tender to palpation of the suprapubic, lower abdominal region. Soft, normoact bon bowel sounds. No guarding, no rebound. No masses appreciated. : Deferred EXTREMITIES: Bilateral lower leg edema. Normal range of motion. No clubbing or cyanosis. NEUROLOGICAL: Cranial nerves II through XII grossly intact. Normal speech, normal gait. PSYCH: Normal mood, normal affect. SKIN: Warm, Dry, normal turgor, no rashes or lesions noted. Limitations: no limitations Course Vital Signs 12/08/19 12/08/19 12/08/19 12:07 12:56 13:30 Temperature 97.6 F Pulse Rate 62 67 82 Respiratory 16 16 18 Rate Blood Pressure 96/53 115/65 119/64 O2 Sat by Pulse 92 L 97 82 L Oximetry 12/08/19 12/08/19 14:00 14:30 Temperature Pulse Rate 85 80 Respiratory 18 20 Rate Blood Pressure 130/64 126/68 O2 Sat by Pulse 94 L 96 Oximetry Medical Decision Making - Medical Decision Making Patient is a 69-year-old female here for nausea, vomiting, trouble swallowing, abdominal pain 4 days. Vitals are stable. White count is normal. Lactic acid is 2.2. Patient's kidney function is almost double from baseline, creatinine is 2.29, BUN is 50. Lipase is elevated at 363. A noncontrast CT of the abdomen was ordered secondary to LINK and reveals moderate left hydronephrosis, perip ancreatic fluid. Patient received pain medicine and fluids and does report mild improvement in her symptoms. Patient will be admitted for acute kidney injury, weakness, nausea/vomiting. Dr. Tirado accepted patient. Dr. Ramírez will be on consult secondary for trouble swallowing and recent scope. Case discussed with Dr. Gabriel. - Lab Data Result diagrams: 12/08/19 12:32 12/08/19 12:32 Lab Results 12/08/19 12/08/19 12/08/19 Range/Units 12:32 12:32 12:32 WBC 7.1 (3.8-10.6) k/uL RBC 3.67 L (3.80-5.40) m/uL Hgb 11.5 (11.4-16.0) gm/dL Hct 36.5 (34.0-46.0) % MCV 99.6 (80.0-100.0) fL MCH 31.4 (25.0-35.0) pg MCHC 31.5 (31.0-37.0) g/dL RDW 14.2 (11.5-15.5) % Plt Count 249 (150-450) k/uL Neutrophils % 76 % Lymphocytes % 18 % Monocytes % 3 % Eosinophils % 1 % Basophils % 0 % Neutrophils # 5.4 (1.3-7.7) k/uL Lymphocytes # 1.3 (1.0-4.8) k/uL Monocytes # 0.2 (0-1.0) k/uL Eosinophils # 0.1 (0-0.7) k/uL Basophils # 0.0 (0-0.2) k/uL Hypochromasia Slight PT 10.4 (9.0-12.0) sec INR 1.0 (<1.2) APTT 26.9 (22.0-30.0) sec Sodium 138 (137-145) mmol/L Potassium 4.8 (3.5-5.1) mmol/L Chloride 108 H (98-107) mmol/L Carbon Dioxide 20 L (22-30) mmol/L Anion Gap 10 mmol/L BUN 50 H (7-17) mg/dL Creatinine 2.29 H (0.52-1.04) mg/dL Est GFR (CKD-EPI)AfAm 25 (>60 ml/min/1.73 sqM) Est GFR (CKD-EPI)NonAf 21 (>60 ml/min/1.73 sqM) Glucose 135 H (74-99) mg/dL Plasma Lactic Acid Qamar (0.7-2.0) mmol/L Calcium 8.9 (8.4-10.2) mg/dL Total Bilirubin 0.6 (0.2-1.3) mg/dL AST 47 H (14-36) U/L ALT 27 (4-34) U/L Alkaline Phosphatase 179 H (38-126) U/L Total Protein 6.1 L (6.3-8.2) g/dL Albumin 2.9 L (3.5-5.0) g/dL Amylase 45 (30-110) U/L Lipase 363 H (23-300) U/L TSH 1.330 (0.465-4.680) mIU/L Urine Color Urine Appearance (Clear) Urine pH (5.0-8.0) Ur Specific [place] (1.001-1.035) Urine Protein (Negative) Urine Glucose (UA) (Negative) Urine Ketones (Negative) Urine Blood (Negative) Urine Nitrite (Negative) Urine Bilirubin (Negative) Urine Urobilinogen (<2.0) mg/dL Ur Leukocyte Esterase (Negative) Urine RBC (0-5) /hpf Urine WBC (0-5) /hpf Ur Squamous Epith Cells (0-4) /hpf Hyaline Casts (0-2) /lpf Urine Mucus (None) /hpf 12/08/19 12/08/19 Range/Units 12:32 14:44 WBC (3.8-10.6) k/uL RBC (3.80-5.40) m/uL Hgb (11.4-16.0) gm/dL Hct (34.0-46.0) % MCV (80.0-100.0) fL MCH (25.0-35.0) pg MCHC (31.0-37.0) g/dL RDW (11.5-15.5) % Plt Count (150-450) k/uL Neutrophils % % Lymphocytes % % Monocytes % % Eosinophils % % Basophils % % Neutrophils # (1.3-7.7) k/uL Lymphocytes # (1.0-4.8) k/uL Monocytes # (0-1.0) k/uL Eosinophils # (0-0.7) k/uL Basophils # (0-0.2) k/uL Hypochromasia PT (9.0-12.0) sec INR (<1.2) APTT (22.0-30.0) sec Sodium (137-145) mmol/L Potassium (3.5-5.1) mmol/L Chloride (98-107) mmol/L Carbon Dioxide (22-30) mmol/L Anion Gap mmol/L BUN (7-17) mg/dL Creatinine (0.52-1.04) mg/dL Est GFR (CKD-EPI)AfAm (>60 ml/min/1.73 sqM) Est GFR (CKD-EPI)NonAf (>60 ml/min/1.73 sqM) Glucose (74-99) mg/dL Plasma Lactic Acid Qamar 2.2 H* (0.7-2.0) mmol/L Calcium (8.4-10.2) mg/dL Total Bilirubin (0.2-1.3) mg/dL AST (14-36) U/L ALT (4-34) U/L Alkaline Phosphatase (38-126) U/L Total Protein (6.3-8.2) g/dL Albumin (3.5-5.0) g/dL Amylase (30-110) U/L Lipase (23-300) U/L TSH (0.465-4.680) mIU/L Urine Color Yellow Urine Appearance Cloudy H (Clear) Urine pH 5.0 (5.0-8.0) Ur Specific [place] 1.012 (1.001-1.035) Urine Protein Negative (Negative) Urine Glucose (UA) Negative (Negative) Urine Ketones Negative (Negative) Urine Blood Negative (Negative) Urine Nitrite Negative (Negative) Urine Bilirubin Negative (Negative) Urine Urobilinogen <2.0 (<2.0) mg/dL Ur Leukocyte Esterase Small H (Negative) Urine RBC 1 (0-5) /hpf Urine WBC 4 (0-5) /hpf Ur Squamous Epith Cells 7 H (0-4) /hpf Hyaline Casts 15 H (0-2) /lpf Urine Mucus Rare H (None) /hpf Disposition Clinical Impression: Acute kidney injury, Abdominal pain, Elevated lipase, Trouble swallowing, Nausea & vomiting Disposition: ADMITTED IP TO THIS HOSP Condition: Good Is patient prescribed a controlled substance at d/c from ED?: No Referrals: Jean Paul Ricketts MD [Primary Care Provider] - 1-2 days Decision Date: 12/08/19 Decision Time: 14:52
[2019-12-08 12:47] LABS: Basophils % (A) 0 %; Eosinophils # (A) 0.1 k/uL (0-0.7); Eosinophils % (A) 1 %; HCT 36.5 % (34.0-46.0); HGB 11.5 gm/dL (11.4-16.0); Hypochromasia Slight; Lymphocytes # (A) 1.3 k/uL (1.0-4.8); Lymphocytes % (A) 18 %; MCH 31.4 pg (25.0-35.0); MCHC 31.5 g/dL (31.0-37.0); MCV 99.6 fL (80.0-100.0); Mean Platelet Volume 8.9; Monocytes # (A) 0.2 k/uL (0-1.0); Monocytes % (A) 3 %; Neutrophils # (A) 5.4 k/uL (1.3-7.7); Neutrophils % (A) 76 %; Platelet Count 249 k/uL (150-450); RBC 3.67 m/uL (3.80-5.40); RDW 14.2 % (11.5-15.5); WBC 7.1 k/uL (3.8-10.6)
[2019-12-08 13:02] LABS: Partial Thromboplastin Time 26.9 sec (22.0-30.0); Prothrombin Time 10.4 sec (9.0-12.0)
[2019-12-08 13:09] LABS: Albumin 2.9 g/dL (3.5-5.0); Calcium 8.9 mg/dL (8.4-10.2); Potassium 4.8 mmol/L (3.5-5.1); Total Bilirubin 0.6 mg/dL (0.2-1.3); Total Protein 6.1 g/dL (6.3-8.2)
--- NOTE | 2019-12-08 14:18 | CT ---
EXAMINATION TYPE: CT abdomen pelvis wo con DATE OF EXAM: 12/08/2019 COMPARISON: 01/07/2017 HISTORY: Acute abdominal pain and weakness CT DLP: 323.6 mGycm Automated exposure control for dose reduction was used. TECHNIQUE: Helical acquisition of images was performed from the lung bases through the pelvis. FINDINGS: Lack of intravenous and oral contrast Limited evaluation of both hollow and solid viscera. The exam is further limited by cachexia, anasarca, and ascites. LUNG BASES: No significant abnormality is appreciated. LIVER/GB: Unremarkable unenhanced morphology of the liver. Gallbladder surgically absent. Perihepatic ascites is seen. PANCREAS: Poorly delineated margins of the pancreas. Pancreatic evaluation is nondiagnostic on this e xamination. Peripancreatic fluid is seen. Postsurgical change of gastric bypass also abuts the adjace nt pancreas making delineation difficult without oral contrast. SPLEEN: Vascular calcifications throughout. No splenomegaly. ADRENALS: Suboptimally viewed but grossly unremarkable. KIDNEYS: Moderate left hydroureteronephrosis is seen without radiopaque obstructing calculus visualiz ed. Renal arterial calcifications are seen bilaterally. Perinephric fat stranding is present bilatera lly. Mild prominence of the right collecting system. FREE AIR: No free air is visualized ADENOPATHY: Overall nondiagnostic given the limitations above. No gross adenopathy seen. OSSEOUS STRUCTURES: There is diffuse osseous demineralization and degenerative change of the osseous structures throughout. Probable disc herniation at L5-S1. This could be further evaluated with MRI. BOWEL: No dilated large or small bowel. Evaluation of surrounding inflammatory fat stranding and bow el thickening are overall nondiagnostic without contrast and given the abdominal ascites/mesenteric e valorie. Few colonic diverticula are seen. OTHER: As discussed above there is mild abdominal ascites, mesenteric edema throughout, fluid in the peripancreatic and periaortic retroperitoneal space, cachexia, and anasarca. IMPRESSION: 1. MARKEDLY LIMITED EXAM GIVEN LACK OF CONTRAST, ASCITES, CACHEXIA, AND ANASARCA. EXTENSIVE VASCULAR CALCIFICATIONS THROUGHOUT. THEREFORE IF THERE IS CONCERN FOR BOWEL ISCHEMIA CT WITH CONTRAST AND JM ELATION WITH LACTIC ACID RECOMMENDED. 2. NEW MODERATE LEFT HYDROURETERONEPHROSIS AND PROMINENCE OF THE RIGHT RENAL COLLECTING SYSTEM IN COM PARISON TO THE PRIOR EXAM WITHOUT RADIOPAQUE OBSTRUCTING CALCULUS. 3. PERIPANCREATIC FLUID IN PERIAORTIC FLUID OF UNKNOWN ETIOLOGY. CORRELATE WITH SERUM AMYLASE AND LIP ASE.
[2019-12-08] MEDS ORDERED: ACETAMINOPHEN TAB 325 MG TAB PO PRN ×2 (14:46→17:51)
[2019-12-08] MEDS ORDERED: NALOXONE 0.4 MG/ML 1 ML VIAL IV PRN (14:46)
[2019-12-08] MEDS ORDERED: SODIUM CHLORIDE 0.9% 1,000 ML IV SCH (15:00)
[2019-12-08 15:09] LABS: Appearance,Urine Cloudy (Clear); Bilirubin,Urine Negative (Negative); Blood,Urine Negative (Negative); Color,Urine Yellow; Glucose,Urine (UA) Negative (Negative); Hyaline Casts,Urine 15 /lpf (0-2); Ketones,Urine Negative (Negative); Leukocyte Esterase,Urine Small (Negative); Mucus,Urine Rare /hpf; Nitrite,Urine Negative (Negative); Protein,Urine Negative (Negative); RBC,Urine 1 /hpf (0-5); Specific Gravity,Urine 1.012 (1.001-1.035); Squamous Epithelial Cell,Urine 7 /hpf (0-4); Urobilinogen,Urine <2.0 mg/dL (<2.0); WBC,Urine 4 /hpf (0-5)
[2019-12-08 16:34] LABS: Glucose,Whole Blood 106 mg/dL (75-99)
[2019-12-08] MEDS: MORPHINE SULFATE 4 MG/ML SYRINGE IV PRN (19:34)
--- NOTE | 2019-12-08 19:36 | P.GSCN ---
History of Present Illness Consult date: 12/08/19 History of present illness: CHIEF COMPLAINT: Abdominal pain HISTORY OF PRESENT ILLNESS: Rita Morales is a 69-year-old female who was admitted to the hospital secondary to severe dehydration, intractable nausea and vomiting, and abdominal pain of the epigastrium burning sensation. She has known history of gastrojejunal ulcer diagnosed 3 weeks ago. She was just seen in surgical office 2 days ago for review of her medications including overall health. Patient had continued to take NSAIDs which is contraindicated for an active ulcer. Secondary to intractable nausea and vomiting, she then presented to the emergency room. She presented in severe dehydration. She has lost moderate weight from her past history of a gastric bypass. General surgery is consulted regarding her abdominal pain. Rita Morales is status post gastric bypass 12/29/2016. She is almost 3 years out. At a height of 5 feet 3-1/2 inches, her ideal body weight is 140 pounds. Her highest weight is 326 pounds. Today, she comes in weighing 104 pounds from 128 pounds, 6 months ago. She has lost 24 pounds in 6 months. Her total lifetime weight loss is 222 pounds. Percent excess weight loss is over 110 %. Body mass index is reduced from 57.0 down to 19.1. PAST MEDICAL HISTORY: 1. Gout. 2. Vitamin D deficiency. 3. Hyperlipidemia. 4. Hypertension. 5. Hypothyroidism. 6. Hypertensive cardiomyopathy. 7. Gastroesophageal reflux disease. 8. Magnesium deficiency. 9. Insulin-dependent diabetes. 10. Congestive heart failure. 11. Asthma. 12. Deep venous thrombosis. 13. Fibromyalgia. 14. Varicose veins. 15. Obstructive sleep apnea. 16. History of abnormal vaginal bleeding. 17. Renal insufficiency. 18. History of pancreatitis of unclear etiology. 19. Acute hepatitis. 20. Stage IV chronic kidney disease improved. 21. Morbid obesity, BMI 57.0 initial PAST SURGICAL HISTORY: 1. . 2. Cholecystectomy. 3. Heart catheterization. 4. Tubal ligation. 5. History of cardioversion. 6. Upper endoscopy. 7. Status post gastric bypass. MEDICATIONS: Home Medications Medication Instructions Recorded Confirmed Levothyroxine Sodium [Synthroid] 25 mcg PO DAILY 05/28/16 12/08/19 Insulin Glargine [Lantus] See Protocol SQ DAILY 12/17/16 12/08/19 Apixaban [Eliquis] 5 mg PO DAILY 07/28/18 12/08/19 Atorvastatin [Lipitor] 40 mg PO DAILY 07/28/18 12/08/19 Furosemide [Lasix] 20 mg PO Q48H 10/04/19 12/08/19 Lisinopril [Zestril] 5 mg PO DAILY 10/04/19 12/08/19 Acetaminophen [Tylenol Arthritis] 650 mg PO Q8H PRN 12/08/19 12/08/19 Albuterol Inhaler [Ventolin Hfa 2 puff INHALATION RT-QID PRN 12/08/19 12/08/19 Inhaler] Albuterol Nebulized [Ventolin 2.5 mg INHALATION RT-TID PRN 12/08/19 12/08/19 Nebulized] Budesonide/Formoterol Fumarate 2 puff INHALATION RT-BID 12/08/19 12/08/19 [Symbicort 80-4.5 Mcg Inhaler] Diclofenac Sodium [Voltaren Gel] 4 gram TOPICAL QID PRN 12/08/19 12/08/19 Ergocalciferol [Vitamin D2] 50,000 unit PO Q30D 12/08/19 12/08/19 Insulin Lispro [humaLOG Kwikpen] See Protocol SQ ACHS 12/08/19 12/08/19 Multivitamins, Thera [Multivitamin 1 tab PO DAILY 12/08/19 12/08/19 (formulary)] Nystatin 100,000 Unit/gm Powd 1 applic TOPICAL BID PRN 12/08/19 12/08/19 [Mycostatin Powder] Vitamin B-12(Unknown Dose) 1 tab PO DAILY 12/08/19 12/08/19 Previous Rx's Medication Instructions Recorded Omeprazole [PriLOSEC] 40 mg PO BID #120 cap 11/24/19 Sucralfate [Carafate] 1 gm PO BID #60 tab 11/24/19 ALLERGIES: 1. CLINDAMYCIN. 2. HYDROCODONE. SOCIAL HISTORY: No active alcohol or tobacco use. FAMILY HISTORY: Pertinent for diabetes including morbid obesity. REVIEW OF ORGAN SYSTEMS: CONSTITUTIONAL: At a height of 5 feet 3-1/2 inches, her ideal body weight is 140 pounds. Her highest weight is 326 pounds. GENITOURINARY: History of severe stage IV chronic kidney disease secondary to diabetes now improved. GASTROINTESTINAL: Has dysphagia with gastrojejunal ulcer MUSCULOSKELETAL: Has history of osteoarthritis of the lower back and joints. CARDIOVASCULAR: History of congestive heart failure with diastolic dysfunction, improved. She reports seeing her fine hairer recently. Separately, she reports decreased lower leg swelling. HEENT: No troubles with vision or hearing. ENDOCRINE: History of insulin-dependent diabetes type 2 over 10+ years. No active thyroid disorder. Moderate reduction of insulin use. RESPIRATORY: History of obstructive sleep apnea. History of asthma. NEURO: No reports of recent stroke or seizure disorders. PSYCH: No active depression. Anxiety. HEMATOLOGIC: Prior history of DVT. No reports easy bruising or bleeding. PHYSICAL EXAM: VITAL SIGNS: 5 feet 3-1/2 inches, 104 pounds. Body mass index of 19.1 Vital Signs Temp 96.9 F L 12/08/19 15:49 Pulse 79 12/08/19 16:00 Resp 15 12/08/19 16:00 BP 155/84 12/08/19 15:49 Pulse Ox 94 L 12/08/19 15:49 Intake & Output 12/08/19 12/08/19 12/09/19 06:59 18:59 06:59 Weight 47.4 kg Other: Voiding Method Toilet MUSCULOSKELETAL: No clubbing, cyanosis or edema. GENERAL: Well-developed female in no acute distress. HEENT: No scleral icterus. Extraocular movements grossly intact. Moist mucosa. NECK: Supple without lymphadenopathy. CHEST: Nonlabored respirations. Equal bilateral excursions. CARDIOVASCULAR: Regular rate and rhythm. ABDOMEN: Scaphoid tender along the epigastrium. No peritonitis. NEURO: No focal or lateralizing signs. Cranial nerves II through XII grossly within normal limits. PSYCH: Appropriate affect. Alert and oriented to person, place and time. SKIN: Chronic venous stasis disease. No rash. Good skin turgor. EGD FINDINGS: 1. Acute on chronic 1 cm gastrojejunal ulcer STUDIES: CT of the abdomen and pelvis independently reviewed without findings of free air or small bowel obstruction. This is my personal interpretation LABS: Reviewed with white blood cell count normal. Elevated LFTs including elevated lipase. ASSESSMENT: 1. Intractable nausea and vomiting 2. Severe dehydration 3. Under weight 4. Gastrojejunal ulcer with dysphagia 5. Body mass index reduced from 57.0 down to 19.1 6. Uncontrolled insulin-dependent diabetes type 2 7. Hypertensive heart disease with cardiomyopathy 8. Obstructive sleep apnea 9. Fibromyalgia. 10. Osteoarthritis bilateral hips 11. Osteoarthritis lower back. 12. Prior history of deep venous thromboses. 13. Chronic obstructive pulmonary disease. 14. 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 Bilateral lower extremity edema, 16. Massive weight loss, 222 pounds s/p gastric bypass PLAN: 1. Recommend IV fluid hydration at least 2 L normal saline bolus 2. Protonix 40 mg twice daily for active gastrojejunal ulcer 3. Carafate 1 g twice daily 4. Repeat upper endoscopy tomorrow for possible balloon dilation for dysphagia 5. Recommend full bariatric labs secondary to profound malnutrition 6. Recommend consultation to bariatric dietitian to address both malnutrition and uncontrolled diabetes in light of chronic kidney disease 7. In the interim, may have bariatric full liquid diet Past Medical History Past Medical History: Asthma, CVA/TIA, Diabetes Mellitus, Deep Vein Thrombosis (DVT), GERD/Reflux, Hypertension, Osteoarthritis (OA), Renal Disease, Sleep Apnea/CPAP/BIPAP, Thyroid Disorder Additional Past Medical History / Comment(s): DVT ross LEGS, decreased kidney function, cpap NOT USED CURRENTLY, leaky heart valve. TIA 07/2019-left side weakness, ulcer, constipation History of Any Multi-Drug Resistant Organisms: None Reported Past Surgical History: Bariatric Surgery, Section, Cholecystectomy, Heart Catheterization, Tubal Ligation Additional Past Surgical History / Comment(s): cardioversion, gastric bypass, C OLONOSCOPY AND EGD, ross cataracts Past Anesthesia/Blood Transfusion Reactions: No Reported Reaction Past Psychological History: No Psychological Hx Reported Smoking Status: Never smoker Past Alcohol Use History: None Reported Past Drug Use History: None Reported - Past Family History Mother Family Medical History: Deep Vein Thrombosis (DVT) Brother(s) Family Medical History: Cancer, Deep Vein Thrombosis (DVT) Additional Family Medical History / Comment(s): . Sister(s) Family Medical History: Deep Vein Thrombosis (DVT) Father Family Medical History: Deep Vein Thrombosis (DVT) Medications and Allergies Home Medications Medication Instructions Recorded Confirmed Type Levothyroxine Sodium [Synthroid] 25 mcg PO DAILY 05/28/16 12/08/19 History Insulin Glargine [Lantus] See Protocol SQ DAILY 12/17/16 12/08/19 History Apixaban [Eliquis] 5 mg PO DAILY 07/28/18 12/08/19 History Atorvastatin [Lipitor] 40 mg PO DAILY 07/28/18 12/08/19 History Furosemide [Lasix] 20 mg PO Q48H 10/04/19 12/08/19 History Lisinopril [Zestril] 5 mg PO DAILY 10/04/19 12/08/19 History Omeprazole [PriLOSEC] 40 mg PO BID #120 cap 11/24/19 12/08/19 Rx Sucralfate [Carafate] 1 gm PO BID #60 tab 11/24/19 12/08/19 Rx Acetaminophen [Tylenol Arthritis] 650 mg PO Q8H PRN 12/08/19 12/08/19 History Albuterol Inhaler [Ventolin Hfa 2 puff INHALATION RT-QID PRN 12/08/19 12/08/19 History Inhaler] Albuterol Nebulized [Ventolin 2.5 mg INHALATION RT-TID PRN 12/08/19 12/08/19 History Nebulized] Budesonide/Formoterol Fumarate 2 puff INHALATION RT-BID 12/08/19 12/08/19 History [Symbicort 80-4.5 Mcg Inhaler] Diclofenac Sodium [Voltaren Gel] 4 gram TOPICAL QID PRN 12/08/19 12/08/19 History Ergocalciferol [Vitamin D2] 50,000 unit PO Q30D 12/08/19 12/08/19 History Insulin Lispro [humaLOG Kwikpen] See Protocol SQ ACHS 12/08/19 12/08/19 History Multivitamins, Thera [Multivitamin 1 tab PO DAILY 12/08/19 12/08/19 History (formulary)] Nystatin 100,000 Unit/gm Powd 1 applic TOPICAL BID PRN 12/08/19 12/08/19 History [Mycostatin Powder] Vitamin B-12(Unknown Dose) 1 tab PO DAILY 12/08/19 12/08/19 History Allergies Allergy/AdvReac Type Severity Reaction Status Date / Time ciprofloxacin [From Cipro] Allergy Unknown Verified 12/08/19 17:36 clarithromycin [From Biaxin] Allergy Anaphylaxis Verified 12/08/19 17:36 nitrofurantoin Allergy Wheezing Verified 12/08/19 17:36 [From Macrodantin] Surgical - Exam Vital Signs Temp Pulse Resp BP Pulse Ox 97.6 F 62 16 96/53 92 L 12/08/19 12:07 12/08/19 12:07 12/08/19 12:07 12/08/19 12:07 12/08/19 12:07 Results - Labs 12/08/19 12:32 12/08/19 12:32 Abnormal Lab Results - Last 24 Hours (Table) 12/08/19 12/08/19 12/08/19 Range/Units 12:32 12:32 12:32 RBC 3.67 L (3.80-5.40) m/uL Chloride 108 H (98-107) mmol/L Carbon Dioxide 20 L (22-30) mmol/L BUN 50 H (7-17) mg/dL Creatinine 2.29 H (0.52-1.04) mg/dL Glucose 135 H (74-99) mg/dL POC Glucose (mg/dL) (75-99) mg/dL Plasma Lactic Acid Qamar 2.2 H* (0.7-2.0) mmol/L AST 47 H (14-36) U/L Alkaline Phosphatase 179 H (38-126) U/L Total Protein 6.1 L (6.3-8.2) g/dL Albumin 2.9 L (3.5-5.0) g/dL Lipase 363 H (23-300) U/L Urine Appearance (Clear) Ur Leukocyte Esterase (Negative) Ur Squamous Epith Cells (0-4) /hpf Hyaline Casts (0-2) /lpf Urine Mucus (None) /hpf 12/08/19 12/08/19 Range/Units 14:44 16:33 RBC (3.80-5.40) m/uL Chloride (98-107) mmol/L Carbon Dioxide (22-30) mmol/L BUN (7-17) mg/dL Creatinine (0.52-1.04) mg/dL Glucose (74-99) mg/dL POC Glucose (mg/dL) 106 H (75-99) mg/dL Plasma Lactic Acid Qamar (0.7-2.0) mmol/L AST (14-36) U/L Alkaline Phosphatase (38-126) U/L Total Protein (6.3-8.2) g/dL Albumin (3.5-5.0) g/dL Lipase (23-300) U/L Urine Appearance Cloudy H (Clear) Ur Leukocyte Esterase Small H (Negative) Ur Squamous Epith Cells 7 H (0-4) /hpf Hyaline Casts 15 H (0-2) /lpf Urine Mucus Rare H (None) /hpf Diabetes panel 12/08/19 Range/Units 12:32 Sodium 138 (137-145) mmol/L Potassium 4.8 (3.5-5.1) mmol/L Chloride 108 H (98-107) mmol/L Carbon Dioxide 20 L (22-30) mmol/L BUN 50 H (7-17) mg/dL Creatinine 2.29 H (0.52-1.04) mg/dL Glucose 135 H (74-99) mg/dL Calcium 8.9 (8.4-10.2) mg/dL AST 47 H (14-36) U/L ALT 27 (4-34) U/L Alkaline Phosphatase 179 H (38-126) U/L Total Protein 6.1 L (6.3-8.2) g/dL Albumin 2.9 L (3.5-5.0) g/dL Thyroid panel 12/08/19 Range/Units 12:32 TSH 1.330 (0.465-4.680) mIU/L Calcium panel 12/08/19 Range/Units 12:32 Calcium 8.9 (8.4-10.2) mg/dL Albumin 2.9 L (3.5-5.0) g/dL Pituitary panel 12/08/19 Range/Units 12:32 Sodium 138 (137-145) mmol/L Potassium 4.8 (3.5-5.1) mmol/L Chloride 108 H (98-107) mmol/L Carbon Dioxide 20 L (22-30) mmol/L BUN 50 H (7-17) mg/dL Creatinine 2.29 H (0.52-1.04) mg/dL Glucose 135 H (74-99) mg/dL Calcium 8.9 (8.4-10.2) mg/dL TSH 1.330 (0.465-4.680) mIU/L Adrenal panel 12/08/19 Range/Units 12:32 Sodium 138 (137-145) mmol/L Potassium 4.8 (3.5-5.1) mmol/L Chloride 108 H (98-107) mmol/L Carbon Dioxide 20 L (22-30) mmol/L BUN 50 H (7-17) mg/dL Creatinine 2.29 H (0.52-1.04) mg/dL Glucose 135 H (74-99) mg/dL Calcium 8.9 (8.4-10.2) mg/dL Total Bilirubin 0.6 (0.2-1.3) mg/dL AST 47 H (14-36) U/L ALT 27 (4-34) U/L Alkaline Phosphatase 179 H (38-126) U/L Total Protein 6.1 L (6.3-8.2) g/dL Albumin 2.9 L (3.5-5.0) g/dL Assessment and Plan (1) Intractable vomiting with nausea Current Visit: Yes Status: Acute Code(s): R11.2 - NAUSEA WITH VOMITING, UNS PECIFIED SNOMED Code(s): 536252626 (2) Gastrojejunal ulcer Current Visit: Yes Status: Acute Code(s): K28.9 - GASTROJEJUNAL ULCER, UNSP ACUTE OR CHR, W/O HEMOR OR PERF SNOMED Code(s): 93602338 (3) Stage 4 chronic kidney disease due to type 2 diabetes mellitus Current Visit: Yes Status: Acute Code(s): E11.22 - TYPE 2 DIABETES MELLITUS W DIABETIC CHRONIC KIDNEY DISEASE; N18.4 - CHRONIC KIDNEY DISEASE, STAGE 4 (SEVERE) SNOMED Code(s): 998259261513 (4) Elevated lipase Current Visit: Yes Status: Acute Code(s): R74.8 - ABNORMAL LEVELS OF OTHER SERUM ENZYMES SNOMED Code(s): 189201045 (5) High risk for readmission Current Visit: No Status: Acute Code(s): Z91.89 - OTH PERSONAL RISK FACTORS, NOT ELSEWHERE CLASSIFIED SNOMED Code(s): 338587503 (6) Hx of deep venous thrombosis Current Visit: No Status: Acute Code(s): Z86.718 - PERSONAL HISTORY OF OTHER VENOUS THROMBOSIS AND EMBOLISM SNOMED Code(s): 378125855
[2019-12-08] MEDS: SYMBICORT 80-4.5 MCG INHALER INHALATION SCH (19:56)
[2019-12-08 20:49] LABS: Glucose,Whole Blood 167 mg/dL (75-99)
[2019-12-08] MEDS: SUCRALFATE 1 GM TAB PO SCH (21:32)
[2019-12-08] MEDS: PANTOPRAZOLE 40 MG TABLET PO SCH (21:32)
[2019-12-08] MEDS: INSULIN ASPART (NovoLOG) 100 UNIT/ML VIAL SQ SCH (21:32)
--- NOTE | 2019-12-08 22:21 | P.HPIM ---
History of Present Illness H&P Date: 12/08/19 Chief Complaint: Difficulty swallowing History of presenting complaint: This is a very pleasant 69-year-old patient with extensive medical history whose chronic stable medical conditions include asthma, diabetes, DVT, GERD, hypertension, osteoarthritis,(s) sleep apnea,. Patient's ears were had a gastric Kbts-ks-[id number]-bypass surgery Dr. Arndt. Patient's is that is over lost over 200 pounds. For quite some time patient was having trouble swallowing. She says the food sometimes gets stuck in the throat, even the liquids. On November 23 patient had a EGD with Dr. Arndt. There was a acute on chronic 1 cm gastrojejunal ulcer with obstruction. Also has a gastric stricture 8 mm dilated to 10 mm. She states that it did not make any difference to her swallowing. Patient is not able to keep anything down and is progressively becoming weak tired dehydrated.She presented to the ER. Patient scheduled for the procedure tomorrow. We're back [place] [address] Arndt today EGD. And patient had a gastrojejunal ulcer that time too. It seems symptoms have been progressive since then. Review of systems: GEN.: Weak tired weight loss EYES: None HEENT: None NECK: None RESPIRATORY: None CARDIOVASCULAR: None GASTROINTESTINAL: As above GENITOURINARY: None MUSCULOSKELETAL: [Some joint pains LYMPHATICS: None HEMATOLOGICAL: None PSYCHIATRY: Slightly anxious NEUROLOGICAL: None Past medical history to include: Asthma, diabetes, DVT, GERD, hypertension, osteoarthritis, renal disease,(s) sleep apnea CPAP is not fitted correctly, hypothyroid, DVT in both legs, decrea sed kidney function, some left-sided weakness from prior stroke, gastrojejunal ulcer,. Social history: Does not smoke or drink alcohol. Lives the . Physical examination: VITAL SIGNS: 96.9, 79, 15, 135/77, 100% on room air GENERAL: BMI 19.1, laying in bed, extensive loss of subcutaneous fat with bony prominences. EYES: Pupils equal. Conjunctiva normal. HEENT: External appearance of nose and ears normal, oral cavity grossly normal. NECK: JVD not raised; masses not palpable. HEART: First and second heart sounds are normal; no edema. LUNGS: Respiratory rate normal; clear to auscultation. ABDOMEN: Soft, nontender, liver spleen not palpable, no masses palpable. PSYCH: [Alert and oriented x3; mood and affect slightly anxious. NEUROLOGICAL: Cranial nerves grossly intact; no facial asymmetry, power and sensation grossly intact. LYMPHATICS: No lymph nodes palpable in the axilla and neck INVESTIGATIONS, reviewed in the clinical context: White count 7.1 hemoglobin 11.5 platelets 249 potassium 4.8 bicarb 20 bun 50 creatinine 2.29 lactic acid 2.2 albumin 2.9 lipase 363 TSH 1.3 Computed tomography scan of the abdomen and pelvis without contrast-moderate left hydroureteronephrosis, renal calcification bilaterally. Assessment: -This is a patient had a gastric Nancy-en-Y bypass surgery about 3 years ago . Patient since then has lost over 200 pounds. Patient initially had a gastrojejunal ulcer in 2017 which has progressively been getting worse. Patient now has dysphagia to both solids and liquids. Food seems to be started getting stuck in the throat 2. Patient had a gastric stricture that was dilated recently. No change in symptoms. My concern is for underlying presbyesophagus. Based on her symptomatology in addition to the above findings. Patient is due to go down for dilatation tomorrow. -Dysphagia to both solids and liquids -Moderate protein calorie malnutrition from poor oral intake -Clinically hyperthyroid possibly from over replacement as patient's TSH is now normal. Patient will not need to Synthroid 25 g she gets. 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 -Acute kidney injury possibly prerenal -Metabolic acidosis from renal failure -New finding or left hydroureteronephrosis -Chronic DVT for which patient is on eliquis Plan: Patient is currently nothing by mouth for a consultation procedure tomorrow. Patient's workup for hypercalcemia including a metabolic panel has already been sent off. We'll discontinue patient's Synthroid. Patient also B12 will be checked. Patient be given IV fluids and bicarb supplementation. We'll also get a urology opinion for the computed tomography scan findings. We'll also a dietitian see the patient. Patient is also on Lasix will be discontinued. Patient also taking Tylenol arthritis without be discontinued. Also patient is on Zestril that'll be held. Care was discussed with the patient. Questions were answered. Also get a nephrology consultation. Past Medical History Past Medical History: Asthma, CVA/TIA, Diabetes Mellitus, Deep Vein Thrombosis (DVT), GERD/Reflux, Hypertension, Osteoarthritis (OA), Renal Disease, Sleep Apnea/CPAP/BIPAP, Thyroid Disorder Additional Past Medical History / Comment(s): DVT ross LEGS, decreased kidney function, cpap NOT USED CURRENTLY, leaky heart valve. TIA 07/2019-left side weakness, ulcer, constipation History of Any Multi-Drug Resistant Organisms: None Reported Past Surgical History: Bariatric Surgery, Section, Cholecystectomy, Heart Catheterization, Tubal Ligation Additional Past Surgical History / Comment(s): cardioversion, gastric bypass, COLONOSCOPY AND EGD, ross cataracts Past Anesthesia/Blood Transfusion Reactions: No Reported Reaction Past Psychological History: No Psychological Hx Reported Smoking Status: Never smoker Past Alcohol Use History: None Reported Past Drug Use History: None Reported - Past Family History Mother Family Medical History: Deep Vein Thrombosis (DVT) Brother(s) Family Medical History: Cancer, Deep Vein Thrombosis (DVT) Additional Family Medical History / Comment(s): . Sister(s) Family Medical History: Deep Vein Thrombosis (DVT) Father Family Medical History: Deep Vein Thrombosis (DVT) Medications and Allergies Home Medications Medication Instructions Recorded Confirmed Type Levothyroxine Sodium [Synthroid] 25 mcg PO DAILY 05/28/16 12/08/19 History Insulin Glargine [Lantus] See Protocol SQ DAILY 12/17/16 12/08/19 History Apixaban [Eliquis] 5 mg PO DAILY 07/28/18 12/08/19 History Atorvastatin [Lipitor] 40 mg PO DAILY 07/28/18 12/08/19 History Furosemide [Lasix] 20 mg PO Q48H 10/04/19 12/08/19 History Lisinopril [Zestril] 5 mg PO DAILY 10/04/19 12/08/19 History Omeprazole [PriLOSEC] 40 mg PO BID #120 cap 11/24/19 12/08/19 Rx Sucralfate [Carafate] 1 gm PO BID #60 tab 11/24/19 12/08/19 Rx Acetaminophen [Tylenol Arthritis] 650 mg PO Q8H PRN 12/08/19 12/08/19 History Albuterol Inhaler [Ventolin Hfa 2 puff INHALATION RT-QID PRN 12/08/19 12/08/19 History Inhaler] Albuterol Nebulized [Ventolin 2.5 mg INHALATION RT-TID PRN 12/08/19 12/08/19 History Nebulized] Budesonide/Formoterol Fumarate 2 puff INHALATION RT-BID 12/08/19 12/08/19 History [Symbicort 80-4.5 Mcg Inhaler] Diclofenac Sodium [Voltaren Gel] 4 gram TOPICAL QID PRN 12/08/19 12/08/19 History Ergocalciferol [Vitamin D2] 50,000 unit PO Q30D 12/08/19 12/08/19 History Insulin Lispro [humaLOG Kwikpen] See Protocol SQ ACHS 12/08/19 12/08/19 History Multivitamins, Thera [Multivitamin 1 tab PO DAILY 12/08/19 12/08/19 History (formulary)] Nystatin 100,000 Unit/gm Powd 1 applic TOPICAL BID PRN 12/08/19 12/08/19 History [Mycostatin Powder] Vitamin B-12(Unknown Dose) 1 tab PO DAILY 12/08/19 12/08/19 History Allergies Allergy/AdvReac Type Severity Reaction Status Date / Time ciprofloxacin [From Cipro] Allergy Unknown Verified 12/08/19 17:36 clarithromycin [From Biaxin] Allergy Anaphylaxis Verified 12/08/19 17:36 nitrofurantoin Allergy Wheezing Verified 12/08/19 17:36 [From Macrodantin] Physical Exam Vitals: Vital Signs Temp Pulse Pulse Resp BP BP Pulse Ox 12/08/19 16:00 79 15 12/08/19 15:49 96.9 F L 79 15 155/84 94 L 12/08/19 15:30 81 18 143/77 100 12/08/19 14:30 80 20 126/68 96 12/08/19 14:00 85 18 130/64 94 L 12/08/19 13:30 82 18 119/64 82 L 12/08/19 12:56 67 16 115/65 97 05/21/20 12:07 97.6 F 62 16 96/53 92 L Intake and Output 12/08/19 12/08/19 12/08/19 06:59 14:59 22:59 Other: Voiding Method Toilet Weight 47.4 kg 47.4 kg Results CBC & Chem 7: 12/08/19 12:32 12/08/19 12:32 Labs: Abnormal Lab Results - Last 24 Hours (Table) 12/08/19 12/08/19 12/08/19 Range/Units 12:32 12:32 12:32 RBC 3.67 L (3.80-5.40) m/uL Chloride 108 H (98-107) mmol/L Carbon Dioxide 20 L (22-30) mmol/L BUN 50 H (7-17) mg/dL Creatinine 2.29 H (0.52-1.04) mg/dL Glucose 135 H (74-99) mg/dL POC Glucose (mg/dL) (75-99) mg/dL Plasma Lactic Acid Qamar 2.2 H* (0.7-2.0) mmol/L AST 47 H (14-36) U/L Alkaline Phosphatase 179 H (38-126) U/L Total Protein 6.1 L (6.3-8.2) g/dL Albumin 2.9 L (3.5-5.0) g/dL Lipase 363 H (23-300) U/L Urine Appearance (Clear) Ur Leukocyte Esterase (Negative) Ur Squamous Epith Cells (0-4) /hpf Hyaline Casts (0-2) /lpf Urine Mucus (None) /hpf 12/08/19 12/08/19 12/08/19 Range/Units 14:44 16:33 20:42 RBC (3.80-5.40) m/uL Chloride (98-107) mmol/L Carbon Dioxide (22-30) mmol/L BUN (7-17) mg/dL Creatinine (0.52-1.04) mg/dL Glucose (74-99) mg/dL POC Glucose (mg/dL) 106 H 167 H (75-99) mg/dL Plasma Lactic Acid Qamar (0.7-2.0) mmol/L AST (14-36) U/L Alkaline Phosphatase (38-126) U/L Total Protein (6.3-8.2) g/dL Albumin (3.5-5.0) g/dL Lipase (23-300) U/L Urine Appearance Cloudy H (Clear) Ur Leukocyte Esterase Small H (Negative) Ur Squamous Epith Cells 7 H (0-4) /hpf Hyaline Casts 15 H (0-2) /lpf Urine Mucus Rare H (None) /hpf Thrombosis Risk Factor Assmnt - Choose All That Apply Each Risk Factor Represents 2 Points: Age 61-74 years Each Risk Factor Represents 3 Points: History of DVT/PE Thrombosis Risk Factor Assessment Total Risk Factor Score: 5 Thrombosis Risk Factor Assessment Level: High Risk
[2019-12-09] MEDS: SODIUM BICARBONATE TAB 650 MG TAB PO SCH ×4 (02:41→22:04)
[2019-12-09] MEDS: LACTATED RINGERS 1,000 ML IV SCH ×4 (03:02→15:21)
[2019-12-09] MEDS ORDERED: LEVOTHYROXINE 25 MCG TAB PO SCH (05:30)
[2019-12-09 07:09] LABS: Glucose,Whole Blood 114 mg/dL (75-99)
[2019-12-09] MEDS: INSULIN ASPART (NovoLOG) 100 UNIT/ML VIAL SQ SCH ×4 (07:14→22:02)
[2019-12-09] MEDS: PANTOPRAZOLE 40 MG TABLET PO SCH (08:21)
[2019-12-09] MEDS: ATORVASTATIN 40 MG TAB PO SCH (08:21)
[2019-12-09] MEDS: SUCRALFATE 1 GM TAB PO SCH ×2 (08:22→22:04)
[2019-12-09] MEDS: SYMBICORT 80-4.5 MCG INHALER INHALATION SCH ×2 (08:23→20:05)
[2019-12-09] MEDS ORDERED: MULTIVITAMINS, THERA 1 EACH TAB PO SCH (09:00)
[2019-12-09] MEDS ORDERED: LISINOPRIL 5 MG TAB PO SCH (09:00)
[2019-12-09] MEDS ORDERED: PANTOPRAZOLE 40 MG/10 ML VIAL IV SCH (09:00)
[2019-12-09] MEDS ORDERED: APIXABAN 5 MG TAB PO SCH (09:00)
[2019-12-09 10:30] LABS: Prothrombin Time 10.7 sec (9.0-12.0)
[2019-12-09 10:45] LABS: Calcium 8.4 mg/dL (8.4-10.2); Potassium 4.9 mmol/L (3.5-5.1)
[2019-12-09 11:17] LABS: Glucose,Whole Blood 82 mg/dL (75-99)
[2019-12-09 12:49] VITALS: BMI 19.1
[2019-12-09] MEDS ORDERED: PROPOFOL 10 MG/ML 20 ML VIAL IV ONE (14:14)
[2019-12-09] MEDS ORDERED: IV FLUID CONTINUATION 1,000 ML IV ONE ×2 (14:17)
--- NOTE | 2019-12-09 15:06 | P.PCN ---
Date of Procedure: 12/09/19 Description of Procedure: PREOPERATIVE DIAGNOSIS: Dysphagia. Nausea with vomiting. Diabetes type 2. POSTOPERATIVE DIAGNOSIS: Dysphagia. Nausea with vomiting. Diabetes type 2. 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 INDICATIONS: The patient is a 69-year-old female who presents with a history of dysphagia, nausea and vomiting. Benefits and risks of the procedure were described. Informed consent was obtained. DESCRIPTION: The patient was brought into the endoscopy suite and laid in the left lateral decubitus position. After a timeout was confirmed, the procedure was initiated. An Olympus gastroscope was passed along the posterior oropharynx down to the distal esophagus where the squamocolumnar junction was hypertensive including of the distal esophagus with tertiary contractions. A gastrojejunal stricture of 2 mm was found as the adult gastroscope was 9.5 mm in size and fit the tip of a dilator. A [employer] esophageal balloon dilator including pyloric ballon dilator was placed through the scope in a stepwise fashion from 8 mm to 9 mm. Each dilation was performed for a total of 2 minutes. Despite multiple attempts to dilate beyond 9 mm, the scope could not advance beyond the gastroesophageal junction. No full-thickness injury was encountered. The GI tra ct was desufflated. The patient tolerated the procedure well. FINDINGS: Stricture of approximately 2 mm encountered with attempted dilation to 9 mm, scope could not pass beyond stricture. Tertiary contractions of the distal esophagus consistent with presbyesophagus RECOMMENDATIONS: 1. Start TPN for nutrition 2. Recommend esophagram 3. Will need surgical intervention for near complete obstruction of GE junction.
[2019-12-09] MEDS: MORPHINE SULFATE 4 MG/ML SYRINGE IV PRN ×2 (15:21→22:26)
--- NOTE | 2019-12-09 15:56 | P.PN ---
Progress Note - Text Progress Note Date: 12/09/19 Procedural findings were described to the patient including a very tight stricture along the GE junction into her gastric pouch. Dilation up to 9 mm was performed however unable to pass the scope. Patient was given water to drink at bedside and she reports clinical improvement of her dysphagia. Recommend liquid diet only as much as she can tolerate. Also recommend TPN for nutrition. We'll obtain an esophagram after clinical response to IV Protonix daily. Recommend switch medications to liquid form or open, crushed, cut to prevent complete gastric obstruction
[2019-12-09 16:00] LABS: Glucose,Whole Blood 110 mg/dL (75-99)
--- NOTE | 2019-12-09 16:08 | P.PN ---
Progress Note - Text Progress Note Date: 12/09/19 Chief Complaint: Difficulty swallowing History of presenting complaint: This is a very pleasant 69-year-old patient with extensive medical history whose chronic stable medical conditions include asthma, diabetes, DVT, GERD, hypertension, osteoarthritis,(s) sleep apnea,. Patient's ears were had a gastric Hxil-ue-I-bypass surgery Dr. Arndt. Patient's is that is over lost over 200 pounds. For quite some time patient was having trouble swallowing. She says the food sometimes gets stuck in the throat, even the liquids. On November 23 patient had a EGD with Dr. Arndt. There was a acute on chronic 1 cm gastrojejunal ulcer with obstruction. Also has a gastric stricture 8 mm dilated to 10 mm. She states that it did not make any difference to her swallowing. Patient is not able to keep anything down and is progressively becoming weak tired dehydrated.She presented to the ER. Patient scheduled for the procedure tomorrow. We're back [place] [address] Arndt today EGD. And patient had a gastrojejunal ulcer that time too. It seems symptoms have been progressive since then. Admitted with-progressive dysphagia to solids and liquids. Today-saw the patient this morning. Awaiting to go down for endoscopy. No new issues. Getting IV fluids. Review of systems: Was done for constitutional, cardiovascular, GI, pulmonary. relevant finding as above Active Medications Acetaminophen (Tylenol Tab) 650 mg PO Q8H PRN PRN Reason: Pain Atorvastatin Calcium (Lipitor) 40 mg PO DAILY [facility] Last Admin: 12/09/19 08:21 Dose: Not Given Documented by: Budesonide/Formoterol Fumarate (Symbicort 80-4.5 Mcg Inhaler) 2 puff INHALATION RT-BID [facility] Last Admin: 12/09/19 08:23 Dose: 2 puff Documented by: Lactated Ringer's (Lactated Ringers) 1,000 mls @ 150 mls/hr IV .Q6H40M [facility] Last Admin: 12/09/19 15:21 Dose: 150 mls/hr Documented by: Insulin Aspart (Novolog) 0 unit SQ ACHS [facility]; Protocol Last Admin: 12/09/19 11:18 Dose: Not Given Documented by: Morphine Sulfate (Morphine Sulfate (Inj)) 4 mg IV Q4HR PRN PRN Reason: Severe Pain Last Admin: 12/09/19 15:21 Dose: 4 mg Documented by: Multivitamins (Theragran) 1 each PO DAILY [facility] Last Admin: 12/09/19 08:21 Dose: Not Given Documented by: Naloxone HCl (Narcan) 0.2 mg IV Q2M PRN PRN Reason: Opioid Reversal Ondansetron HCl (Zofran) 4 mg IVP Q8HR PRN PRN Reason: Nausea And Vomiting Pantoprazole Sodium (Protonix) 40 mg IVP BID [facility] Sodium Bicarbonate (Sodium Bicarbonate Tab) 650 mg PO TID [facility] Last Admin: 12/09/19 15:20 Dose: Not Given Documented by: Sucralfate (Carafate) 1 gm PO BID [facility] Last Admin: 12/09/19 08:22 Dose: Not Given Documented by: Physical examination: VITAL SIGNS: 97.6, 76, 16, [id number], 100% on room air GENERAL: BMI 19.1, laying in bed, extensive loss of subcutaneous fat with bony prominences. EYES: Pupils equal. Conjunctiva normal. HEENT: External appearance of nose and ears normal, oral cavity grossly normal. NECK: JVD not raised; masses not palpable. HEART: First and second heart sounds are normal; no edema. LUNGS: Respiratory rate normal; clear auscultation. ABDOMEN: Soft, nontender, liver spleen not palpable, no masses palpable. PSYCH: [Alert and oriented x3; mood and affect slightly anxious. INVESTIGATIONS, reviewed in the clinical context: Potassium 4.9 bicarb 20 bun 45 creatinine 1.98 LDL 45 TSH 1.5 Previous testing White count 7.1 hemoglobin 11.5 platelets 249 potassium 4.8 bicarb 20 bun 50 creatinine 2.29 lactic acid 2.2 albumin 2.9 lipase 363 TSH 1.3 Computed tomography scan of the abdomen and pelvis without contrast-moderate left hydroureteronephrosis, renal calcification bilaterally. Assessment: -This is a patient had a gastric Nancy-en-Y bypass surgery about 3 years ago . Patient since then has lost over 200 pounds. Patient initially had a gastrojejunal ulcer in 2017 which has progressively been getting worse. Patient now has dysphagia to both solids and liquids. Food seems to be started getting stuck in the throat 2. Patient had a gastric stricture that was dilated recently. No change in symptoms. My concern is for underlying presbyesophagus. Based on her symptomatology in addition to the above findings. Patient is due to go down for dilatation today -Dysphagia to both solids and liquids -Moderate protein calorie malnutrition from poor oral intake -Clinically hyperthyroid possibly from over replacement as patient's TSH is now normal. Patient will not need to Synthroid 25 g she gets. 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 -Acute kidney injury possibly prerenal-some improvement -Metabolic acidosis from renal failure -New finding or left hydroureteronephrosis -Chronic DVT for which patient is on eliquis Plan: Later this afternoon patient was taken down and had an EGD GEN. Patient had balloon dilatation from 2-8 mm the distal esophagus and the gastrojejunal anastomosis. Diet to be advanced per Dr. Arndt. Other medication. Plan to continue. Continue with IV fluids. Repeat labs in the morning.
--- NOTE | 2019-12-09 16:11 | CONS ---
CONSULTATION REASON FOR CONSULT: Renal failure. HISTORY OF PRESENT ILLNESS: The patient is a 69-year-old female with chronic kidney disease secondary to diabetic kidney disease, stage IIIB to IV, baseline creatinine around 1.6 and 1.4 mg/dL as of July of 2018. The patient also has an underlying history of gastric bypass surgery in 2017. Since then she has continued to lose weight and has not been able to eat. She was seen by Surgery and is scheduled for possible balloon dilatation today. Patient states that she has been continuously losing weight, as she has not been able to eat. She denied use of any nonsteroidal anti-inflammatory agents. Serum creatinine was 2.29 on initial admission. It is down to 1.9 now. The patient has been voiding. She is maintained on IV fluids. PAST MEDICAL HISTORY: CKD stage IIIB secondary to nephrosclerosis, baseline creatinine about 1.4 to 1.7 mg/dL. Past medical history also includes asthma, CVA, TIA, type 2 diabetes, DVT in lower extremities. PAST SURGICAL HISTORY: Bariatric surgery, , cholecystectomy, cardiac catheterization, tubal ligation, cardioversion, colonoscopy, bilateral cataract surgery, EGDs. SOCIAL HISTORY: Negative for smoking, drug abuse or alcohol abuse. MEDICATIONS: Medications prior to admission included Synthroid, insulin, Eliquis, Lipitor, Lasix, Zestril, Prilosec, Carafate, Symbicort, Voltaren gel, vitamin D2, insulin, multivitamins. ALLERGIES: ALLERGIES include CIPRO, CLARITHROMYCIN, NITROFURANTOIN. REVIEW OF SYSTEMS: As per HPI. Other systems negative. PHYSICAL EXAMINATION: Patient is comfortable, awake, not in any acute distress. Blood pressure was 103/81, heart rate 72 per minute. Patient is afebrile. EXAMINATION OF THE HEART: S1 and S2. EXAMINATION OF LUNGS: Bilateral breath sounds are heard. ABDOMEN: Soft, non-tender. Examination of lower extremities shows trace edema bilaterally. [employer] exam is grossly intact. LABS: Sodium 139, potassium 4.9, chloride 112. CO2 is 20, BUN 45, creatinine 1.98. ASSESSMENT: 1. Acute kidney injury, prerenal, associated with some degree of volume depletion associated with decreased oral intake, maintained on IV fluids. 2. Chronic kidney disease, stage IIIB, secondary to diabetic kidney disease; baseline creatinine about 1.4 to 1.7 mg/dL. 3. Persistent nausea, decreased oral intake and weight loss post gastric bypass surgery in 2017, scheduled for dilatation and esophagogastroduodenoscopy today. 4. Metabolic acidosis, maintained on oral sodium bicarb. 5. Volume depletion. PLAN: Continue IV fluids. Repeat labs in a.m. MMMELBAL / BETHN: [id number] /
[2019-12-09 17:18] LABS: Phosphorus 3.9 mg/dL (2.5-4.5)
[2019-12-09 18:40] LABS: Hemoglobin A1C 9.3 % (4.0-6.0)
[2019-12-09] MEDS ORDERED: MVI, ADULT NO.4 WITH VIT K 10 ML, TRACE (CONC-1ML/DOSE) 1 ML in AMINO ACID 4.25%-D10W+L... IV SCH ×3 (19:00)
[2019-12-09] MEDS: FAT EMULSION 20% 250 ML in EMPTY BAG 1 BAG IV SCH (19:53)
[2019-12-09 20:08] LABS: % Iron Saturation 36.75 (12.00-45.00); Ferritin 504.9 ng/mL (10.0-291.0)
[2019-12-09] MEDS: PANTOPRAZOLE 40 MG/10 ML VIAL IVP SCH (22:05)
[2019-12-10] MEDS: INSULIN ASPART (NovoLOG) 100 UNIT/ML VIAL SQ SCH ×4 (00:20→17:50)
[2019-12-10 00:28] LABS: Glucose,Whole Blood 236 mg/dL (75-99)
[2019-12-10] MEDS: LACTATED RINGERS 1,000 ML IV SCH ×3 (05:33→13:16)
[2019-12-10 05:42] LABS: Glucose,Whole Blood 194 mg/dL (75-99)
[2019-12-10] MEDS: SYMBICORT 80-4.5 MCG INHALER INHALATION SCH ×2 (07:24→19:40)
[2019-12-10 08:02] LABS: Ionized Calcium 5.3 mg/dL (4.5-5.3)
[2019-12-10 08:15] LABS: Calcium 7.9 mg/dL (8.4-10.2); Magnesium 1.8 mg/dL (1.6-2.3); Phosphorus 3.9 mg/dL (2.5-4.5)
[2019-12-10] MEDS: PANTOPRAZOLE 40 MG/10 ML VIAL IVP SCH ×2 (08:41→21:22)
[2019-12-10] MEDS: ATORVASTATIN 40 MG TAB PO SCH (08:41)
[2019-12-10] MEDS: SODIUM BICARBONATE TAB 650 MG TAB PO SCH ×3 (08:41→21:23)
[2019-12-10] MEDS: APIXABAN 5 MG TAB PO SCH (08:41)
[2019-12-10] MEDS: SUCRALFATE 1 GM TAB PO SCH ×2 (08:41→21:22)
[2019-12-10] MEDS: MULTIVITAMINS, THERA LIQUID 237 ML BOTTLE PO SCH (08:42)
[2019-12-10] MEDS: ONDANSETRON 4 MG/2 ML VIAL IVP PRN (08:47)
[2019-12-10] MEDS ORDERED: FUROSEMIDE 20 MG TAB PO SCH (09:00)
--- NOTE | 2019-12-10 10:25 | P.PN ---
Progress Note - Text Progress Note Date: 12/10/19 The patient's resting comfortably in her bed. She denies any abdominal pain. She appears to be tolerating a full liquid diet. On exam her vital signs are stable. Abdomen soft nontender Patient has gastrojejunostomy stricture. Patient will undergo imaging on Thursday
--- NOTE | 2019-12-10 11:41 | P.PN ---
Subjective Patient is seen in follow-up for acute kidney injury on chronic kidney disease. Renal function is fairly stable. Creatinine 1.68 today. She underwent balloon dilatation of the distal esophagus and gastrojejunal anastomosis on December 08. She is tolerating full liquid diet. No nausea or vomiting. Nonoliguric. Has a Collins catheter. She is maintained on IV fluids as well as TPN. Vital signs are stable. General: The patient appeared well nourished and normally developed. HEENT: Head exam is unremarkable. Neck is without jugular venous distension. LUNGS: Lungs are clear to auscultation and percussion. Breath sounds decreased. HEART: Rate and Rhythm are regular. ABDOMEN: Abdominal exam reveals normal bowel sounds. Non-tender and non-dist ended. EXTREMITITES: No clubbing, cyanosis, or edema. Objective - Vital Signs Vital signs: Vital Signs Temp 98.4 F 12/10/19 07:00 Pulse 83 12/10/19 07:00 Resp 16 12/10/19 07:00 BP 99/56 12/10/19 07:00 Pulse Ox 98 12/10/19 07:00 Intake & Output 12/09/19 12/10/19 12/10/19 18:59 06:59 18:59 Intake Total 1350 300 Output Total 250 600 Balance 1100 -300 Weight 47.4 kg Intake: IV 300 Intake, IV Titration 1050 Amount Lactated Ringers 1,000 ml 1050 @ 150 mls/hr IV .Q6H40M [facility] Rx#:[id number] Oral 300 Output: Urine 250 600 Uretheral (Collins) 300 Other: Voiding Method Toilet Indwelling Catheter Indwelling Catheter # Voids 1 - Labs CBC & Chem 7: 12/08/19 12:32 12/10/19 07:08 Labs: Abnormal Lab Results - Last 24 Hours (Table) 12/09/19 12/09/19 12/09/19 Range/Units 09:39 09:39 15:58 Sodium (137-145) mmol/L Chloride (98-107) mmol/L Carbon Dioxide (22-30) mmol/L BUN (7-17) mg/dL Creatinine (0.52-1.04) mg/dL Glucose (74-99) mg/dL POC Glucose (mg/dL) 110 H (75-99) mg/dL Hemoglobin A1c 9.3 H (4.0-6.0) % Calcium (8.4-10.2) mg/dL TIBC 166 L (228-460) ug/dL Ferritin 504.9 H (10.0-291.0) ng/mL Vitamin B12 1165.0 H (200.0-944.0) pg/mL 12/10/19 12/10/19 12/10/19 Range/Units 00:09 05:34 07:08 Sodium 136 L (137-145) mmol/L Chloride 111 H (98-107) mmol/L Carbon Dioxide 20 L (22-30) mmol/L BUN 44 H (7-17) mg/dL Creatinine 1.86 H (0.52-1.04) mg/dL Glucose 168 H (74-99) mg/dL POC Glucose (mg/dL) 236 H 194 H (75-99) mg/dL Hemoglobin A1c (4.0-6.0) % Calcium 7.9 L (8.4-10.2) mg/dL TIBC (228-460) ug/dL Ferritin (10.0-291.0) ng/mL Vitamin B12 (200.0-944.0) pg/mL Assessment and Plan Plan: Assessment: 1. Acute kidney injury mostly prerenal secondary to intravascular volume depletion from vomiting. Creatinine was 2.29 on admission and is down to 1.86 today. 2. Chronic kidney disease stage III with baseline creatinine in the range of 1.4-1.6 secondary to diabetic kidney disease. 3. History of gastric bypass status post balloon dilatation of the distal esophagus and gastric jejunal anastomosis on December 08. 4. Metabolic acidosis secondary to acute kidney injury. Maintained on oral sodium bicarbonate. 5. Insulin-dependent diabetes mellitus. 6. Hypertension with chronic kidney disease. Blood pressure on the lower side. Plan: Maintain TPN. Decreased rate of her lower to 40 mL an hour. Encouraged oral intake. Hold antihypertensives. Repeat electrolytes in the morning.
[2019-12-10 12:01] LABS: Glucose,Whole Blood 298 mg/dL (75-99)
--- NOTE | 2019-12-10 15:13 | P.PN ---
Subjective 69-year-old patient with extensive medical history whose chronic stable medical conditions include asthma, diabetes, DVT, GERD, hypertension, osteoarthritis,(s) sleep apnea,. Patient's ears were had a gastric Rgjv-yh-I-bypass surgery Dr. Arndt. Patient's is that is over lost over 200 pounds. For quite some time patient was having trouble swallowing. She says the food sometimes gets stuck in the throat, even the liquids. On November 23 patient had a EGD with Dr. Arndt. There was a acute on chronic 1 cm gastrojejunal ulcer with obstruction. Also has a gastric stricture 8 mm dilated to 10 mm. She states that it did not make any difference to her swallowing. Patient is not able to keep anything down and is progressively becoming weak tired dehydrated.She presented to the ER. Patient scheduled for the procedure tomorrow. We're back [place] [address] Arndt today EGD. And patient had a gastrojejunal ulcer that time too. It seems symptoms have been progressive since then. Admitted with-progressive dysphagia to solids and liquids. Today-saw the patient this morning. Awaiting to go down for endoscopy. No new issues. Getting IV fluids. 12/10/2019 Patient underwent a dilatation of his of esophageal stricture. Patient is still only tolerating full liquid diet as per Gen. surgery patient will undergo barium esophagogram on Thursday. Patient remains on total parenteral nutrition at this time. Constitutional: Denied any fatigue denied any fever. Cardio vascular: denied any chest pain, palpitations Gastrointestinal denied any nausea vomiting Pulmonary: Denied any shortness of breath cough Neurologic denied any new focal deficits All inpatient medications were reviewed and appropriate changes in these medications as dictated in the interval history and assessment and plan. Objective - Vital Signs Vital signs: Vital Signs Temp 98.4 F 12/10/19 07:00 Pulse 83 12/10/19 07:00 Resp 16 12/10/19 07:00 BP 99/56 12/10/19 07:00 Pulse Ox 98 12/10/19 07:00 Intake & Output 12/09/19 12/10/19 12/10/19 18:59 06:59 18:59 Intake Total 1350 300 Output Total 250 600 Balance 1100 -300 Weight 47.4 kg Intake: IV 300 Intake, IV Titration 1050 Amount Lactated Ringers 1,000 ml 1050 @ 150 mls/hr IV .Q6H40M [facility] Rx#:[id number] Oral 300 Output: Urine 250 600 Uretheral (Collins) 300 Other: Voiding Method Toilet Indwelling Catheter Indwelling Catheter # Voids 1 - Exam PHYSICAL EXAMINATION: GENERAL: The patient is alert and oriented x3, not in any acute distress. Well developed, well nourished. HEENT: Pupils are round and equally reacting to light. EOMI. No scleral icterus. No conjunctival pallor. Normocephalic, atraumatic. No pharyngeal erythema. No thyromegaly. CARDIOVASCULAR: S1 and S2 present. No murmurs, rubs, or gallops. PULMONARY: Chest is clear to auscultation, no wheezing or crackles. ABDOMEN: Soft, nontender, nondistended, normoactive bowel sounds. No palpable organomegaly. MUSCULOSKELETAL: No joint swelling or deformity. EXTREMITIES: No cyanosis, clubbing, or pedal edema. NEUROLOGICAL: Gross neurological examination did not reveal any focal deficits. SKIN: No rashes. - Labs CBC & Chem 7: 12/08/19 12:32 12/10/19 07:08 Labs: Abnormal Lab Results - Last 24 Hours (Table) 12/09/19 12/09/19 12/09/19 Range/Units 09:39 09:39 15:58 Sodium (137-145) mmol/L Chloride (98-107) mmol/L Carbon Dioxide (22-30) mmol/L BUN (7-17) mg/dL Creatinine (0.52-1.04) mg/dL Glucose (74-99) mg/dL POC Glucose (mg/dL) 110 H (75-99) mg/dL Hemoglobin A1c 9.3 H (4.0-6.0) % Calcium (8.4-10.2) mg/dL TIBC 166 L (228-460) ug/dL Ferritin 504.9 H (10.0-291.0) ng/mL Vitamin B12 1165.0 H (200.0-944.0) pg/mL 12/10/19 12/10/19 12/10/19 Range/Units 00:09 05:34 07:08 Sodium 136 L (137-145) mmol/L Chloride 111 H (98-107) mmol/L Carbon Dioxide 20 L (22-30) mmol/L BUN 44 H (7-17) mg/dL Creatinine 1.86 H (0.52-1.04) mg/dL Glucose 168 H (74-99) mg/dL POC Glucose (mg/dL) 236 H 194 H (75-99) mg/dL Hemoglobin A1c (4.0-6.0) % Calcium 7.9 L (8.4-10.2) mg/dL TIBC (228-460) ug/dL Ferritin (10.0-291.0) ng/mL Vitamin B12 (200.0-944.0) pg/mL 12/10/19 Range/Units 11:59 Sodium (137-145) mmol/L Chloride (98-107) mmol/L Carbon Dioxide (22-30) mmol/L BUN (7-17) mg/dL Creatinine (0.52-1.04) mg/dL Glucose (74-99) mg/dL POC Glucose (mg/dL) 298 H (75-99) mg/dL Hemoglobin A1c (4.0-6.0) % Calcium (8.4-10.2) mg/dL TIBC (228-460) ug/dL Ferritin (10.0-291.0) ng/mL Vitamin B12 (200.0-944.0) pg/mL Assessment and Plan Plan: -Dysphagia secondary to esophageal stricture and patient is status post esophageal dilatation procedure still not able to tolerate soft diet patient has history of Nancy-en-Y bypass surgery. Patient is on TPN at this time -Mild protein calorie malnutrition -Hypothyroidism -Moderate left hydroureteronephrosis: Neurology evaluated the patient patient has a Collins catheter -Asthma without any acute exacerbation Have just esophageal reflux disease -Essential hypertension -Sleep apnea and doesn't use any CPAP machine at home -Peptic ulcer disease -Chronic kidney disease stage III with baseline creatinine around 1.6 there is a competent of acute renal failure secondary to poor by mouth intake which is improving at this time chronic kidney disease is probably secondary to hypertensive nephrosclerosis -Metabolic acidosis non-anion gap secondary to renal failure which is improving -History of DVT for which patient is on Eliquis
[2019-12-10] MEDS: 1: MVI, ADULT NO.4 WITH VIT K 10 ML, TRACE (CONC-1ML/DOSE) 1 ML in AMINO ACID 4.25%-D10W IV SCH ×3 (15:22)
[2019-12-10 17:28] LABS: Glucose,Whole Blood 303 mg/dL (75-99)
[2019-12-10] MEDS: FAT EMULSION 20% 250 ML in EMPTY BAG 1 BAG IV SCH (17:59)
[2019-12-11 00:08] LABS: Glucose,Whole Blood 167 mg/dL (75-99)
[2019-12-11] MEDS: MORPHINE SULFATE 4 MG/ML SYRINGE IV PRN ×2 (00:20→19:46)
[2019-12-11] MEDS: INSULIN ASPART (NovoLOG) 100 UNIT/ML VIAL SQ SCH ×4 (00:21→17:23)
[2019-12-11 06:09] LABS: Glucose,Whole Blood 181 mg/dL (75-99)
[2019-12-11] MEDS: LACTATED RINGERS 1,000 ML IV SCH ×4 (06:15→17:23)
[2019-12-11] MEDS: PANTOPRAZOLE 40 MG/10 ML VIAL IVP SCH ×2 (07:58→21:24)
[2019-12-11] MEDS: 1: MVI, ADULT NO.4 WITH VIT K 10 ML, TRACE (CONC-1ML/DOSE) 1 ML in AMINO ACID 4.25%-D10W IV SCH ×3 (07:58)
[2019-12-11] MEDS: APIXABAN 5 MG TAB PO SCH (07:58)
[2019-12-11] MEDS: ATORVASTATIN 40 MG TAB PO SCH (07:59)
[2019-12-11] MEDS: MULTIVITAMINS, THERA LIQUID 237 ML BOTTLE PO SCH (07:59)
[2019-12-11] MEDS: SODIUM BICARBONATE TAB 650 MG TAB PO SCH ×3 (07:59→21:24)
[2019-12-11] MEDS: SUCRALFATE 1 GM TAB PO SCH ×2 (07:59→21:24)
[2019-12-11 08:01] LABS: Ionized Calcium 5.1 mg/dL (4.5-5.3)
[2019-12-11] MEDS: SYMBICORT 80-4.5 MCG INHALER INHALATION SCH ×2 (08:04→19:55)
[2019-12-11 08:23] LABS: Magnesium 1.9 mg/dL (1.6-2.3); Phosphorus 4.3 mg/dL (2.5-4.5); Potassium 4.5 mmol/L (3.5-5.1)
[2019-12-11] MEDS ORDERED: LACTULOSE 20 GM/30 ML CUP PO PRN (10:41)
--- NOTE | 2019-12-11 10:41 | P.PN ---
Progress Note - Text Progress Note Date: 12/11/19 Patient remains comfortable in bed. She is tolerating her clear liquids. On exam her vital signs are stable. Abdomen soft. Patient will undergo imaging of her gastrojejunostomy and Thursday per Dr. Arndt.
[2019-12-11 11:35] LABS: Glucose,Whole Blood 235 mg/dL (75-99)
--- NOTE | 2019-12-11 11:44 | P.PN ---
Subjective Patient is seen in follow-up for acute kidney injury on chronic kidney disease. Renal function is fairly stable. Creatinine 1.91repeat sodium level this evening. today. She underwent balloon dilatation of the distal esophagus and gastrojejunal anastomosis on December 08. She is tolerating full liquid diet. No nausea or vomiting. Nonoliguric. Has a Collins catheter. She is maintained on IV fluids as well as TPN. Vital signs are stable. General: The patient appeared well nourished and normally developed. HEENT: Head exam is unremarkable. Neck is without jugular venous distension. LUNGS: Lungs are clear to auscultation and percussion. Breath sounds decreased. HEART: Rate and Rhythm are regular. ABDOMEN: Abdominal exam reveals normal bowel sounds. Non-tender and non- distended. EXTREMITITES: No clubbing, cyanosis, or edema. Objective - Vital Signs Vital signs: Vital Signs Temp 97.8 F 12/11/19 07:14 Pulse 64 12/11/19 07:14 Resp 14 12/11/19 07:14 BP 104/62 12/11/19 07:14 Pulse Ox 97 12/11/19 07:14 Intake & Output 12/10/19 12/11/19 12/11/19 18:59 06:59 18:59 Output Total 250 Balance -250 Weight 47.4 kg Output: Urine 250 Other: Voiding Method Indwelling Catheter Indwelling Catheter Indwelling Catheter # Voids 2 # Bowel Movements 0 - Labs CBC & Chem 7: 12/08/19 12:32 12/11/19 07:35 Labs: Abnormal Lab Results - Last 24 Hours (Table) 12/10/19 12/10/19 12/11/19 Range/Units 11:59 17:27 00:07 Sodium (137-145) mmol/L Chloride (98-107) mmol/L Carbon Dioxide (22-30) mmol/L BUN (7-17) mg/dL Creatinine (0.52-1.04) mg/dL Glucose (74-99) mg/dL POC Glucose (mg/dL) 298 H 303 H 167 H (75-99) mg/dL Calcium (8.4-10.2) mg/dL 12/11/19 12/11/19 12/11/19 Range/Units 06:03 07:35 11:31 Sodium 134 L (137-145) mmol/L Chloride 110 H (98-107) mmol/L Carbon Dioxide 17 L (22-30) mmol/L BUN 54 H (7-17) mg/dL Creatinine 1.91 H (0.52-1.04) mg/dL Glucose 149 H (74-99) mg/dL POC Glucose (mg/dL) 181 H 235 H (75-99) mg/dL Calcium 8.0 L (8.4-10.2) mg/dL Assessment and Plan Plan: Assessment: 1. Acute kidney injury mostly prerenal secondary to intravascular volume depletion from vomiting. Creatinine was 2.29 on admission and is stable at 1.91 today. No proteinuria on UA. 2. Chronic kidney disease stage III with baseline creatinine in the range of 1.4-1.6 secondary to diabetic kidney disease. 3. History of gastric bypass status post balloon dilatation of the distal esophagus and gastric jejunal anastomosis on December 08. 4. Metabolic acidosis secondary to acute kidney injury. Maintained on oral sodium bicarbonate. 5. Insulin-dependent diabetes mellitus. 6. Hypertension with chronic kidney disease. Blood pressure on the lower side. Plan: Maintain TPN. Continue LR at 50 cc/hr. Encouraged oral intake. Hold antihypertensives. Increase oral bicarb dose. Repeat electrolytes in the morning.
--- NOTE | 2019-12-11 11:59 | P.PN ---
Subjective 69-year-old patient with extensive medical history whose chronic stable medical conditions include asthma, diabetes, DVT, GERD, hypertension, osteoarthritis,(s) sleep apnea,. Patient's ears were had a gastric Abli-cy-M-bypass surgery Dr. Arndt. Patient's is that is over lost over 200 pounds. For quite some time patient was having trouble swallowing. She says the food sometimes gets stuck in the throat, even the liquids. On November 23 patient had a EGD with Dr. Arndt. There was a acute on chronic 1 cm gastrojejunal ulcer with obstruction. Also has a gastric stricture 8 mm dilated to 10 mm. She states that it did not make any difference to her swallowing. Patient is not able to keep anything down and is progressively becoming weak tired dehydrated.She presented to the ER. Patient scheduled for the procedure tomorrow. We're back [place] [address] Arndt today EGD. And patient had a gastrojejunal ulcer that time too. It seems symptoms have been progressive since then. Admitted with-progressive dysphagia to solids and liquids. Today-saw the patient this morning. Awaiting to go down for endoscopy. No new issues. Getting IV fluids. 12/10/2019 Patient underwent a dilatation of his of esophageal stricture. Patient is still only tolerating full liquid diet as per Gen. surgery patient will undergo barium esophagogram on Thursday. Patient remains on total parenteral nutrition at this time. 12/11/2019 sodium is 134 today probably because of TPN Constitutional: Denied any fatigue denied any fever. Cardio vascular: denied any chest pain, palpitations Gastrointestinal denied any nausea vomiting Pulmonary: Denied any shortness of breath cough Neurologic denied any new focal deficits All inpatient medications were reviewed and appropriate changes in these medications as dictated in the interval history and assessment and plan. Objective - Vital Signs Vital signs: Vital Signs Temp 97.8 F 12/11/19 07:14 Pulse 64 12/11/19 07:14 Resp 14 12/11/19 07:14 BP 104/62 12/11/19 07:14 Pulse Ox 97 12/11/19 07:14 Intake & Output 12/10/19 12/11/19 12/11/19 18:59 06:59 18:59 Output Total 250 Balance -250 Weight 47.4 kg Output: Urine 250 Other: Voiding Method Indwelling Catheter Indwelling Catheter Indwelling Catheter # Voids 2 # Bowel Movements 0 - Exam PHYSICAL EXAMINATION: GENERAL: The patient is alert and oriented x3, not in any acute distress. Well developed, well nourished. HEENT: Pupils are round and equally reacting to light. EOMI. No scleral icterus. No conjunctival pallor. Normocephalic, atraumatic. No pharyngeal erythema. No thyromegaly. CARDIOVASCULAR: S1 and S2 present. No murmurs, rubs, or gallops. PULMONARY: Chest is clear to auscultation, no wheezing or crackles. ABDOMEN: Soft, nontender, nondistended, normoactive bowel sounds. No palpable organomegaly. MUSCULOSKELETAL: No joint swelling or deformity. EXTREMITIES: No cyanosis, clubbing, or pedal edema. NEUROLOGICAL: Gross neurological examination did not reveal any focal deficits. SKIN: No rashes. - Labs CBC & Chem 7: 12/08/19 12:32 12/11/19 07:35 Labs: Abnormal Lab Results - Last 24 Hours (Table) 12/10/19 12/10/19 12/11/19 Range/Units 11:59 17:27 00:07 Sodium (137-145) mmol/L Chloride (98-107) mmol/L Carbon Dioxide (22-30) mmol/L BUN (7-17) mg/dL Creatinine (0.52-1.04) mg/dL Glucose (74-99) mg/dL POC Glucose (mg/dL) 298 H 303 H 167 H (75-99) mg/dL Calcium (8.4-10.2) mg/dL 12/11/19 12/11/19 12/11/19 Range/Units 06:03 07:35 11:31 Sodium 134 L (137-145) mmol/L Chloride 110 H (98-107) mmol/L Carbon Dioxide 17 L (22-30) mmol/L BUN 54 H (7-17) mg/dL Creatinine 1.91 H (0.52-1.04) mg/dL Glucose 149 H (74-99) mg/dL POC Glucose (mg/dL) 181 H 235 H (75-99) mg/dL Calcium 8.0 L (8.4-10.2) mg/dL Assessment and Plan Plan: -Dysphagia secondary to esophageal stricture and patient is status post esoph ageal dilatation procedure still not able to tolerate soft diet patient has history of Nancy-en-Y bypass surgery. Patient is on TPN at this time -Mild protein calorie malnutrition -Hypothyroidism -Moderate left hydroureteronephrosis: Neurology evaluated the patient patient has a Collins catheter -Asthma without any acute exacerbation Have just esophageal reflux disease -Essential hypertension -Sleep apnea and doesn't use any CPAP machine at home -Peptic ulcer disease -Chronic kidney disease stage III with baseline creatinine around 1.6 there is a competent of acute renal failure secondary to poor by mouth intake which is improving at this time chronic kidney disease is probably secondary to h ypertensive nephrosclerosis -Metabolic acidosis non-anion gap secondary to renal failure which is improving -History of DVT for which patient is on Eliquis
[2019-12-11 17:16] LABS: Glucose,Whole Blood 225 mg/dL (75-99)
[2019-12-11] MEDS: FAT EMULSION 20% 250 ML in EMPTY BAG 1 BAG IV SCH (18:58)
[2019-12-12] LABS: Glucose,Whole Blood 175 mg/dL (75-99)
[2019-12-12] MEDS: INSULIN ASPART (NovoLOG) 100 UNIT/ML VIAL SQ SCH ×4 (00:44→18:14)
[2019-12-12] MEDS: 1: MVI, ADULT NO.4 WITH VIT K 10 ML, TRACE (CONC-1ML/DOSE) 1 ML in AMINO ACID 4.25%-D10W IV SCH ×6 (01:22→18:03)
[2019-12-12 05:57] LABS: Glucose,Whole Blood 183 mg/dL (75-99)
[2019-12-12 07:54] LABS: Ionized Calcium 4.9 mg/dL (4.5-5.3)
[2019-12-12 08:11] LABS: Calcium 7.6 mg/dL (8.4-10.2); Phosphorus 4.5 mg/dL (2.5-4.5); Potassium 5.6 mmol/L (3.5-5.1)
[2019-12-12] MEDS: SYMBICORT 80-4.5 MCG INHALER INHALATION SCH ×2 (08:13→20:49)
[2019-12-12] MEDS ORDERED: SODIUM POLYSTYRENE SULFONATE 15 GM/60 ML BOTTLE PO ONE (08:59)
[2019-12-12] MEDS: SODIUM BICARBONATE TAB 650 MG TAB PO SCH ×2 (09:16→21:49)
[2019-12-12] MEDS: MULTIVITAMINS, THERA LIQUID 237 ML BOTTLE PO SCH (09:16)
[2019-12-12] MEDS: ATORVASTATIN 40 MG TAB PO SCH (09:16)
[2019-12-12] MEDS: SUCRALFATE 1 GM TAB PO SCH ×2 (09:16→21:49)
[2019-12-12] MEDS: APIXABAN 5 MG TAB PO SCH (09:16)
[2019-12-12] MEDS: PANTOPRAZOLE 40 MG/10 ML VIAL IVP SCH ×2 (09:17→21:50)
--- NOTE | 2019-12-12 11:21 | P.PN ---
Subjective Patient is seen in follow-up for acute kidney injury on chronic kidney disease. Renal function is fairly stable. She underwent balloon dilatation of the distal esophagus and gastrojejunal anastomosis on December 08. She is tolerating full liquid diet. No nausea or vomiting. Nonoliguric. Has a Collins catheter. She is maintained on IV fluids as well as TPN. No changes overnight. Vital signs are stable. General: The patient appeared well nourished and normally developed. HEENT: Head exam is unremarkable. Neck is without jugular venous distension. LUNGS: Lungs are clear to auscultation and percussion. Breath sounds decreased. HEART: Rate and Rhythm are regular. ABDOMEN: Abdominal exam reveals normal bowel sounds. Non-tender and non-diste nded. EXTREMITITES: No clubbing, cyanosis, or edema. Objective - Vital Signs Vital signs: Vital Signs Temp 97.6 F 12/12/19 07:32 Pulse 87 12/12/19 07:32 Resp 16 12/12/19 07:32 BP 112/69 12/12/19 07:32 Pulse Ox 99 12/12/19 07:32 Intake & Output 12/11/19 12/12/19 12/12/19 18:59 06:59 18:59 Intake Total 1011 Output Total 400 400 Balance 611 -400 Weight 47.4 kg Intake: Intake, IV Titration 1011 Amount Mvi, Adult No.4 with Vit 1011 K 10 ml Trace (Conc-1Ml/ Dose) 1 ml In Amino Acid 4.25%-D10w+Lytes*E* 1,000 ml @ 60 mls/hr IV .BY DURATION [facility] Rx#: [id number] Output: Urine 400 400 Other: Voiding Method Indwelling Catheter Indwelling Catheter Indwelling Catheter # Bowel Movements 0 - Labs CBC & Chem 7: 12/08/19 12:32 12/12/19 06:54 Labs: Abnormal Lab Results - Last 24 Hours (Table) 12/11/19 12/11/19 12/11/19 Range/Units 11:31 17:12 23:59 Sodium (137-145) mmol/L Potassium (3.5-5.1) mmol/L Carbon Dioxide (22-30) mmol/L BUN (7-17) mg/dL Creatinine (0.52-1.04) mg/dL Glucose (74-99) mg/dL POC Glucose (mg/dL) 235 H 225 H 175 H (75-99) mg/dL Calcium (8.4-10.2) mg/dL 12/12/19 12/12/19 Range/Units 05:56 06:54 Sodium 131 L (137-145) mmol/L Potassium 5.6 H (3.5-5.1) mmol/L Carbon Dioxide 20 L (22-30) mmol/L BUN 61 H (7-17) mg/dL Creatinine 1.75 H (0.52-1.04) mg/dL Glucose 164 H (74-99) mg/dL POC Glucose (mg/dL) 183 H (75-99) mg/dL Calcium 7.6 L (8.4-10.2) mg/dL Assessment and Plan Plan: Assessment: 1. Acute kidney injury mostly prerenal secondary to intravascular volume depletion from vomiting. Creatinine was 2.29 on admission and is stable at 1.75 today. No proteinuria on UA. 2. Chronic kidney disease stage III with baseline creatinine in the range of 1.4-1.6 secondary to nephrosclerosis. 3. History of gastric bypass status post balloon dilatation of the distal esophagus and gastric jejunal anastomosis on December 08. 4. Metabolic acidosis secondary to acute kidney injury. Maintained on oral sodium bicarbonate. 5. Insulin-dependent diabetes mellitus. 6. Hypertension with chronic kidney disease. Blood pressure on the lower side. 7. Hyperkalemia. However this was a hemolyzed sample. I will recheck again. 8. Hyponatremia secondary to acute kidney injury as well as poor solute intake. Plan: Maintain TPN. I will change LR to normal saline at 50 mL an hour. Encouraged oral intake. Hold antihypertensives. Repeat electrolytes in the morning.
--- NOTE | 2019-12-12 11:28 | P.PN ---
Subjective Progress Note Date: 12/12/19 Principal diagnosis: 69-year-old patient with extensive medical history whose chronic stable medical conditions include asthma, diabetes, DVT, GERD, hypertension, osteoarthritis,(s) sleep apnea,. Patient's ears were had a gastric Eggu-rh-A-bypass surgery Dr. Arndt. Patient's is that is over lost over 200 pounds. For quite some time patient was having trouble swallowing. She says the food sometimes gets stuck in the throat, even the liquids. On November 23 patient had a EGD with Dr. Arndt. There was a acute on chronic 1 cm gastrojejunal ulcer with obstruction. Also has a gastric stricture 8 mm dilated to 10 mm. She states that it did not make any difference to her swallowing. Patient is not able to keep anything down and is progressively becoming weak tired dehydrated.She presented to the ER. Patient scheduled for the procedure tomorrow. We're back [place] [address] Arndt today EGD. And patient had a gastrojejunal ulcer that time too. It seems symptoms have been progressive since then. Admitted with-progressive dysphagia to solids and liquids. Today-saw the patient this morning. Awaiting to go down for endoscopy. No new issues. Getting IV fluids. 12/10/2019 Patient underwent a dilatation of his of esophageal stricture. Patient is still only tolerating full liquid diet as per Gen. surgery patient will undergo barium esophagogram on Thursday. Patient remains on total parenteral nutrition at this time. 12/11/2019 sodium is 134 today probably because of TPN Constitutional: Denied any fatigue denied any fever. Cardio vascular: denied any chest pain, palpitations Gastrointestinal denied any nausea vomiting Pulmonary: Denied any shortness of breath cough Neurologic denied any new focal deficits All inpatient medications were reviewed and appropriate changes in these medications as dictated in the interval history and assessment and plan. 12/12/2019 Patient is seen and evaluated and follow-up currently on a full liquid diet and tolerating with some episodes of intermittent nausea noted. Patient's potassium was slightly elevated at 5.6 and given a dose of Kayexalate. Slight hemolysis noted. Will repeat labs. Patient states she has not been having bowel movements but is passing some gas. Patient continues to have poor oral intake. Surgery following and will likely undergo imaging of the gastrojejunostomy tomorrow with Dr. Ramírez. Patient to continue on TPN as well. Currently no reports of chest pain, shortness of breath, or palpitations. Patient is afebrile. No reports of nausea or vomiting and patient is tolerating diet. Creatinine slightly improved at 1.75 and sodium remains low at 131. She following. Objective - Vital Signs Vital signs: Vital Signs Temp 97.6 F 12/12/19 07:32 Pulse 87 12/12/19 07:32 Resp 16 12/12/19 07:32 BP 112/69 12/12/19 07:32 Pulse Ox 99 12/12/19 07:32 Intake & Output 12/11/19 12/12/19 12/12/19 18:59 06:59 18:59 Intake Total 1011 Output Total 400 400 Balance 611 -400 Weight 47.4 kg Intake: Intake, IV Titration 1011 Amount Mvi, Adult No.4 with Vit 1011 K 10 ml Trace (Conc-1Ml/ Dose) 1 ml In Amino Acid 4.25%-D10w+Lytes*E* 1,000 ml @ 60 mls/hr IV .BY DURATION [facility] Rx#: [id number] Output: Urine 400 400 Other: Voiding Method Indwelling Catheter Indwelling Catheter Indwelling Catheter # Bowel Movements 0 - Exam GENERAL: The patient is alert and oriented x3, not in any acute distress. Well developed, well nourished. HEENT: Pupils are round and equally reacting to light. EOMI. No scleral icterus. No conjunctival pallor. Normocephalic, atraumatic. No pharyngeal erythema. No thyromegaly. CARDIOVASCULAR: S1 and S2 present. No murmurs, rubs, or gallops. PULMONARY: Chest is clear to auscultation, no wheezing or crackles. ABDOMEN: Soft, nontender, nondistended, normoactive bowel sounds. No palpable organomegaly. MUSCULOSKELETAL: No joint swelling or deformity. EXTREMITIES: No cyanosis, clubbing, or pedal edema. NEUROLOGICAL: Gross neurological examination did not reveal any focal deficits. SKIN: No rashes. - Labs CBC & Chem 7: 12/08/19 12:32 12/12/19 06:54 Labs: Abnormal Lab Results - Last 24 Hours (Table) 12/11/19 12/11/19 12/11/19 Range/Units 11:31 17:12 23:59 Sodium (137-145) mmol/L Potassium (3.5-5.1) mmol/L Carbon Dioxide (22-30) mmol/L BUN (7-17) mg/dL Creatinine (0.52-1.04) mg/dL Glucose (74-99) mg/dL POC Glucose (mg/dL) 235 H 225 H 175 H (75-99) mg/dL Calcium (8.4-10.2) mg/dL 12/12/19 12/12/19 Range/Units 05:56 06:54 Sodium 131 L (137-145) mmol/L Potassium 5.6 H (3.5-5.1) mmol/L Carbon Dioxide 20 L (22-30) mmol/L BUN 61 H (7-17) mg/dL Creatinine 1.75 H (0.52-1.04) mg/dL Glucose 164 H (74-99) mg/dL POC Glucose (mg/dL) 183 H (75-99) mg/dL Calcium 7.6 L (8.4-10.2) mg/dL Assessment and Plan Assessment: -Dysphagia secondary to esophageal stricture and patient is status post esophageal dilatation procedure still not able to tolerate soft diet patient has history of Nancy-en-Y bypass surgery. Patient is on TPN at this time. Patient currently remains on full liquids and tolerating but continues to have poor oral intake -Mild protein calorie malnutrition -Hypothyroidism -Moderate left hydroureteronephrosis: Nephrology evaluated the patient patient has a Collins catheter -Asthma without any acute exacerbation -History of gastro-esophageal reflux disease -Essential hypertension -Sleep apnea and doesn't use any CPAP machine at home -Peptic ulcer disease -Chronic kidney disease stage III with baseline creatinine around 1.6 there is a component of acute renal failure secondary to poor by mouth intake which is improving at this time chronic kidney disease is probably secondary to hypertensive nephrosclerosis, current creatinine is 1.75, nephrology following. -Metabolic acidosis non-anion gap secondary to renal failure which is improving -History of DVT for which patient is on Eliquis
[2019-12-12 11:29] LABS: Glucose,Whole Blood 297 mg/dL (75-99)
--- NOTE | 2019-12-12 11:30 | P.PN ---
Progress Note - Text Progress Note Date: 12/12/19 The patient states he had a difficult time drinking fluids yesterday. She feels like things are back no. On exam her vital signs are stable. Her abdomen soft. Patient will be scheduled for esophagram/upper GI to evaluate gastrojejunostomy stricture. Dr. Arndt will be seen the patient tomorrow.
[2019-12-12] MEDS: SODIUM CHLORIDE 0.9% 1,000 ML IV SCH (11:50)
[2019-12-12 15:54] LABS: Vitamin D, 1, 25-Dihydroxy 37 pg/mL (20 - 79)
[2019-12-12 17:04] LABS: Glucose,Whole Blood 205 mg/dL (75-99)
--- NOTE | 2019-12-12 20:15 | P.PN ---
Progress Note - Text Progress Note Date: 12/12/19 Ms. Morales is a 69-year-old female who was admitted to the hospital for dehydration, abdominal pain and LINK. On presentation she underwent a CT abdomen and pelvis which showed left-sided hydronephrosis, and right-sided renal fullness. Of note her bladder was mildly distended. Her creatinine is 2.29 on admission, creat trending down, 1.75 this am . Of note her baseline is 1.4-1.6. -Renal U/S to assess for improvement of hydro with bladder decompression -mayberry can be removed prior to discharge -F/U with Urology in 1-2 weeks
[2019-12-12] MEDS: FAT EMULSION 20% 250 ML in EMPTY BAG 1 BAG IV SCH (20:23)
[2019-12-12] MEDS: ONDANSETRON 4 MG/2 ML VIAL IVP PRN (22:03)
[2019-12-13 00:19] LABS: Glucose,Whole Blood 306 mg/dL (75-99)
[2019-12-13] MEDS: INSULIN ASPART (NovoLOG) 100 UNIT/ML VIAL SQ SCH ×4 (01:49→18:11)
[2019-12-13 07:07] LABS: Glucose,Whole Blood 304 mg/dL (75-99)
[2019-12-13] MEDS: SYMBICORT 80-4.5 MCG INHALER INHALATION SCH ×2 (07:45→19:59)
--- NOTE | 2019-12-13 08:28 | FL ---
EXAMINATION TYPE: FL esophagus cervic/pharynx DATE OF EXAM: 12/13/2019 HISTORY: Dysphagia, gastric bypass 3 years prior COMPARISON: CT 12/08/2019 TECHNIQUE: Single contrast swallow performed with attention directed to the gastroesophageal junction FINDINGS: 7 images obtained, 1.31 minutes fluoroscopy time. The esophagus shows tertiary contractions. At the level of the surgical bed there is hesitancy of con trast to flow across the anastomosis. Focal outpouching is identified at the site of anastomosis. Con trast does move into the small bowel on delayed images. There is narrowing at the anastomotic site. Incidental note of retrocardiac density and obscured portion of the medial aspect of left hemidiaphra gm possibly due to left lower lobe atelectasis, correlate to exclude pneumonia. Surgical clips are pr esent status post cholecystectomy. IMPRESSION: Possible postsurgical scarring at the gastric bypass anastomosis. Exam is limited. Addit ional findings in the retrocardiac region. Consider correlation with x-ray.
[2019-12-13] MEDS: APIXABAN 5 MG TAB PO SCH (08:50)
[2019-12-13] MEDS: SODIUM BICARBONATE TAB 650 MG TAB PO SCH ×2 (09:12→22:39)
[2019-12-13] MEDS: SUCRALFATE 1 GM TAB PO SCH ×2 (09:12→22:39)
[2019-12-13] MEDS: ATORVASTATIN 40 MG TAB PO SCH (09:12)
[2019-12-13] MEDS: PANTOPRAZOLE 40 MG/10 ML VIAL IVP SCH ×2 (09:13→22:38)
[2019-12-13] MEDS: MULTIVITAMINS, THERA LIQUID 237 ML BOTTLE PO SCH (09:13)
[2019-12-13] MEDS: SODIUM CHLORIDE 0.9% 1,000 ML IV SCH (09:14)
[2019-12-13 09:24] LABS: Albumin 2.5 g/dL (3.5-5.0); Calcium 8.2 mg/dL (8.4-10.2); Magnesium 2.1 mg/dL (1.6-2.3); Phosphorus 4.7 mg/dL (2.5-4.5); Potassium 5.2 mmol/L (3.5-5.1); Total Bilirubin 0.2 mg/dL (0.2-1.3); Total Protein 5.7 g/dL (6.3-8.2)
[2019-12-13 12:06] LABS: Glucose,Whole Blood 165 mg/dL (75-99)
[2019-12-13 13:18] LABS: Zinc, Serum 38 ug/dL (60-130)
--- NOTE | 2019-12-13 13:41 | P.PN ---
<Roxanne Espitia - Last Filed: 12/13/19 13:38> Subjective Progress Note Date: 12/13/19 CHIEF COMPLAINT: Dysphagia HISTORY OF PRESENT ILLNESS: Patient is status post EGD with balloon dilatation from 2 to 8mm of distal esophagus and gastrojejunal anastomosis performed on 12/09/2019. Patient states she has been tolerating full liquids over the weekend. However she ate some pudding yesterday and states she threw it up. She has been receiving TPN. Her Eliquis is on hold. She is scheduled to have a PICC line placed tomorrow per nursing. Esophagram completed today reveals hesitancy of contrast to flow across anastomosis. Focal outpouching is identified at the site of the anastomosis. Contrast does move into the small bowel on delayed images. PHYSICAL EXAM: VITAL SIGNS: Reviewed GENERAL: Well-developed in no acute distress. HEENT: No sclera icterus. Extraocular movements grossly intact. Moist buccal mucosa. Head is atraumatic, normocephalic. Hears conversational speech. No nasal drainage. NECK: Supple without lymphadenopathy. CHEST: Non-labored respirations and equal bilateral excursions. CARDIOVASCULAR: Regular rate with regular rhythm. Palpable 2+ radial pulses. ABDOMEN: Soft. Nondistended. Nontender. MUSCULOSKELETAL: No clubbing or cyanosis. NEUROLOGIC: No focal or lateralizing signs. Cranial nerves II through XII gr ossly intact. PSYCH: Appropriate affect. Alert and oriented to person, place and time. SKIN: Well perfused. Good skin turgor. ASSESSMENT: 1. Intractable nausea and vomiting 2. Severe dehydration 3. Under weight 4. Gastrojejunal ulcer with dysphagia 5. Body mass index reduced from 57.0 down to 19.1 6. Uncontrolled insulin-dependent diabetes type 2 7. Hypertensive heart disease with cardiomyopathy 8. Obstructive sleep apnea 9. Fibromyalgia. 10. Osteoarthritis bilateral hips 11. Osteoarthritis lower back. 12. Prior history of deep venous thromboses. 13. Chronic obstructive pulmonary disease. 14. 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 Bilateral lower extremity edema, 16. Massive weight loss, 222 pounds s/p gastric bypass PLAN: -Continue full liquid diet -Patient to receive PICC line tomorrow per nursing -Continue to hold Eliquis -Possible repeat EGD with dilation -Patient will be examined this afternoon by Dr. Desiree Nurse practitioner note has been reviewed by physician. Signing provider agrees with the documented findings, assessment, and plan of care. Objective - Vital Signs Vital signs: Vital Signs Temp 98.2 F 12/13/19 07:13 Pulse 85 12/13/19 00:30 Resp 14 12/13/19 07:13 BP 120/65 12/13/19 07:13 Pulse Ox 98 12/13/19 07:13 Intake & Output 12/12/19 12/13/19 12/13/19 18:59 06:59 18:59 Intake Total 970 100 Output Total 300 300 Balance 970 -200 -300 Intake: Intake, IV Titration 970 Amount Amino Acid 4.25%-D10w+ 420 Lytes*E* 1,000 ml @ 60 mls/hr IV .BY DURATION REA Rx#:[id number] Fat Emulsion 20% 250 ml 250 In Empty Bag 1 bag @ 21 mls/hr IV DAILY@1900 REA Rx#:[id number] Sodium Chloride 0.9% 1, 300 000 ml @ 50 mls/hr IV . Q20H [facility] Rx#:[id number] Oral 100 Output: Urine 300 300 Uretheral (Collins) 300 Other: Voiding Method Indwelling Catheter Indwelling Catheter Indwelling Catheter - Labs CBC & Chem 7: 12/08/19 12:32 12/13/19 08:23 Labs: Abnormal Lab Results - Last 24 Hours (Table) 12/09/19 12/12/19 12/13/19 Range/Units 09:39 17:03 00:10 Sodium (137-145) mmol/L Potassium (3.5-5.1) mmol/L Carbon Dioxide (22-30) mmol/L BUN (7-17) mg/dL Creatinine (0.52-1.04) mg/dL Glucose (74-99) mg/dL POC Glucose (mg/dL) 205 H 306 H (75-99) mg/dL Calcium (8.4-10.2) mg/dL Phosphorus (2.5-4.5) mg/dL Alkaline Phosphatase (38-126) U/L Total Protein (6.3-8.2) g/dL Albumin (3.5-5.0) g/dL Zinc 38 L (60-130) ug/dL 12/13/19 12/13/19 12/13/19 Range/Units 07:05 08:23 11:40 Sodium 132 L (137-145) mmol/L Potassium 5.2 H (3.5-5.1) mmol/L Carbon Dioxide 19 L (22-30) mmol/L BUN 64 H (7-17) mg/dL Creatinine 1.81 H (0.52-1.04) mg/dL Glucose 214 H (74-99) mg/dL POC Glucose (mg/dL) 304 H 165 H (75-99) mg/dL Calcium 8.2 L (8.4-10.2) mg/dL Phosphorus 4.7 H (2.5-4.5) mg/dL Alkaline Phosphatase 164 H (38-126) U/L Total Protein 5.7 L (6.3-8.2) g/dL Albumin 2.5 L (3.5-5.0) g/dL Zinc (60-130) ug/dL <Amy Ramírez - Last Filed: 12/13/19 18:30> Subjective Patient seen and evaluated and agree with above. CHIEF COMPLAINT: Dysphagia HISTORY OF PRESENT ILLNESS: Rita Morales is a 69-year-old female who was adm itted to the hospital secondary to severe dehydration, intractable nausea and vomiting, abdominal pain including dysphagia. She has history of gastric bypass with weight loss over 200+ pounds in 3 years. She had an upper endoscopy last week with balloon dilation of the gastrojejunal stricture from 2 mm to 8 mm. She has been able to tolerate full liquid diet. She reports for the first time she is able to belch since hospitalization. She reports general weakness. She is also being seen by the bariatric dietitian to manage her nutrition for her diabetes, renal impairment and gastric bypass. REVIEW OF ORGAN SYSTEMS: No fevers or chills. No chest pain. No productive sputum. PHYSICAL EXAM: VITAL SIGNS: 5 feet 3-1/2 inches, 104 pounds. Body mass index of 19.1 MUSCULOSKELETAL: No clubbing, cyanosis or edema. GENERAL: Well-developed female in no acute distress. HEENT: No scleral icterus. Extraocular movements grossly intact. Moist mucosa. NECK: Supple without lymphadenopathy. CHEST: Nonlabored respirations. Equal bilateral excursions. CARDIOVASCULAR: Regular rate and rhythm. ABDOMEN: Scaphoid tender along the epigastrium. No peritonitis. NEURO: No focal or lateralizing signs. Cranial nerves II through XII grossly within normal limits. PSYCH: Appropriate affect. Alert and oriented to person, place and time. SKIN: Chronic venous stasis disease. No rash. Good skin turgor. STUDIES: Esophagram independently reviewed demonstrating contrast from the esophagus into the gastric pouch. REPORT: Esophagram report confirms narrowness along the anastomosis. LABS: Reviewed. Potassium elevated at 5.2. Creatinine improved from 2.29 to 1.1. PTH within normal limits. Iron within normal limits. TSH within normal limits. Vitamin D within normal limits. Albumin low at 2.5. Hemoglobin A1c elevated at 9.3 ASSESSMENT: 1. Intractable nausea and vomiting 2. Severe dehydration 3. Under weight 4. Gastrojejunal ulcer with dysphagia 5. Body mass index reduced from 57.0 down to 19.1 6. Uncontrolled insulin-dependent diabetes type 2 7. Hypertensive heart disease with cardiomyopathy 8. Obstructive sleep apnea 9. Fibromyalgia. 10. Osteoarthritis bilateral hips 11. Osteoarthritis lower back. 12. Prior history of deep venous thromboses. 13. Chronic obstructive pulmonary disease. 14. 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 Bilateral lower extremity edema, 16. Massive weight loss, 222 pounds s/p gastric bypass PLAN: 1. She reports moderate improvement of her dysphagia where she can tolerate liquids however not solids. 2. Recommend repeat upper endoscopy with balloon dilation to at least 15 mm to allow for solid foods 3. Continue with PPN including full liquid diet 4. Alternatively, revision of gastrojejunostomy also described to address obstruction 5. At this time, hold for PICC line at upon completion of upper endoscopy 6. Objective - Vital Signs Vital signs: Vital Signs Temp 98.1 F 12/13/19 14:39 Pulse 84 12/13/19 14:39 Resp 16 12/13/19 14:39 BP 100/62 12/13/19 14:39 Pulse Ox 99 12/13/19 14:39 Intake & Output 12/12/19 12/13/19 12/13/19 18:59 06:59 18:59 Intake Total 970 100 410 Output Total 300 300 Balance 970 -200 110 Weight 47.4 kg Intake: Intake, IV Titration 970 410 Amount Amino Acid 4.25%-D10w+ 420 Lytes*E* 1,000 ml @ 60 mls/hr IV .BY DURATION REA Rx#:[id number] Fat Emulsion 20% 250 ml 250 In Empty Bag 1 bag @ 21 mls/hr IV DAILY@1900 [facility] Rx#:[id number] Sodium Acetate 40 meq 60 Magnesium Sulfate gm 0.5 gm Calcium Gluconate 1 gm In Amino Acid 4.25%-D10w 1,000 ml @ 60 mls/hr IV .BY DURATION REA Rx#: [id number] Sodium Chloride 0.9% 1, 300 350 000 ml @ 50 mls/hr IV . Q20H [facility] Rx#:[id number] Oral 100 Output: Urine 300 300 Uretheral (Collins) 300 Other: Voiding Method Indwelling Catheter Indwelling Catheter Indwelling Catheter - Labs CBC & Chem 7: 12/08/19 12:32 12/13/19 08:23 Labs: Abnormal Lab Results - Last 24 Hours (Table) 12/09/19 12/13/19 12/13/19 Range/Units 09:39 00:10 07:05 Sodium (137-145) mmol/L Potassium (3.5-5.1) mmol/L Carbon Dioxide (22-30) mmol/L BUN (7-17) mg/dL Creatinine (0.52-1.04) mg/dL Glucose (74-99) mg/dL POC Glucose (mg/dL) 306 H 304 H (75-99) mg/dL Calcium (8.4-10.2) mg/dL Phosphorus (2.5-4.5) mg/dL Alkaline Phosphatase (38-126) U/L Total Protein (6.3-8.2) g/dL Albumin (3.5-5.0) g/dL Zinc 38 L (60-130) ug/dL 12/13/19 12/13/19 12/13/19 Range/Units 08:23 11:40 18:06 Sodium 132 L (137-145) mmol/L Potassium 5.2 H (3.5-5.1) mmol/L Carbon Dioxide 19 L (22-30) mmol/L BUN 64 H (7-17) mg/dL Creatinine 1.81 H (0.52-1.04) mg/dL Glucose 214 H (74-99) mg/dL POC Glucose (mg/dL) 165 H 222 H (75-99) mg/dL Calcium 8.2 L (8.4-10.2) mg/dL Phosphorus 4.7 H (2.5-4.5) mg/dL Alkaline Phosphatase 164 H (38-126) U/L Total Protein 5.7 L (6.3-8.2) g/dL Albumin 2.5 L (3.5-5.0) g/dL Zinc (60-130) ug/dL Assessment and Plan (1) Intractable vomiting with nausea Current Visit: Yes Status: Acute Code(s): R11.2 - NAUSEA WITH VOMITING, UNSPECIFIED SNOMED Code(s): 837251084 (2) Gastrojejunal ulcer Current Visit: Yes Status: Acute Code(s): K28.9 - GASTROJEJUNAL ULCER, UNSP ACUTE OR CHR, W/O HEMOR OR PERF SNOMED Code(s): 12938415 (3) Stage 4 chronic kidney disease due to type 2 diabetes mellitus Current Visit: Yes Status: Acute Code(s): E11.22 - TYPE 2 DIABETES MELLITUS W DIABETIC CHRONIC KIDNEY DISEASE; N18.4 - CHRONIC KIDNEY DISEASE, STAGE 4 (SEVERE) SNOMED Code(s): 197872697251 (4) Elevated lipase Current Visit: Yes Status: Acute Code(s): R74.8 - ABNORMAL LEVELS OF OTHER SERUM ENZYMES SNOMED Code(s): 871312507 (5) High risk for readmission Current Visit: No Status: Acute Code(s): Z91.89 - OTH PERSONAL RISK FACTORS, NOT ELSEWHERE CLASSIFIED SNOMED Code(s): 652182957 (6) Hx of deep venous thrombosis Current Visit: No Status: Acute Code(s): Z86.718 - PERSONAL HISTORY OF OTHER VENOUS THROMBOSIS AND EMBOLISM SNOMED Code(s): 155390501 (7) Gastric stomal obstruction Current Visit: Yes Status: Acute Code(s): K94.23 - GASTROSTOMY MALFUNCTION SNOMED Code(s): 687988687
[2019-12-13] MEDS ORDERED: SODIUM BICARB 8.4% 50 ML SYR (1 MEQ/ML) IV STA (14:13)
--- NOTE | 2019-12-13 14:13 | P.PN ---
Subjective Patient is seen in follow-up for acute kidney injury on chronic kidney disease. Renal function is fairly stable. She underwent balloon dilatation of the distal esophagus and gastrojejunal anastomosis on December 08. She is tolerating full liquid diet. No nausea or vomiting. Nonoliguric. Has a Collins catheter. She is maintained on IV fluids as well as TPN. No changes overnight. Wants to go home. Vital signs are stable. General: The patient appeared well nourished and normally developed. HEENT: Head exam is unremarkable. Neck is without jugular venous distension. LUNGS: Lungs are clear to auscultation and percussion. Breath sounds decreased. HEART: Rate and Rhythm are regular. ABDOMEN: Abdominal exam reveals normal bowel sounds. Non-tender and non- distended. EXTREMITITES: No clubbing, cyanosis, or edema. Objective - Vital Signs Vital signs: Vital Signs Temp 98.2 F 12/13/19 07:13 Pulse 85 12/13/19 00:30 Resp 14 12/13/19 07:13 BP 120/65 12/13/19 07:13 Pulse Ox 98 12/13/19 07:13 Intake & Output 12/12/19 12/13/19 12/13/19 18:59 06:59 18:59 Intake Total 970 100 Output Total 300 300 Balance 970 -200 -300 Intake: Intake, IV Titration 970 Amount Amino Acid 4.25%-D10w+ 420 Lytes*E* 1,000 ml @ 60 mls/hr IV .BY DURATION REA Rx#:[id number] Fat Emulsion 20% 250 ml 250 In Empty Bag 1 bag @ 21 mls/hr IV DAILY@1900 [facility] Rx#:[id number] Sodium Chloride 0.9% 1, 300 000 ml @ 50 mls/hr IV . Q20H [facility] Rx#:[id number] Oral 100 Output: Urine 300 300 Uretheral (Collins) 300 Other: Voiding Method Indwelling Catheter Indwelling Catheter Indwelling Catheter - Labs CBC & Chem 7: 12/08/19 12:32 12/13/19 08:23 Labs: Abnormal Lab Results - Last 24 Hours (Table) 12/09/19 12/12/19 12/13/19 Range/Units 09:39 17:03 00:10 Sodium (137-145) mmol/L Potassium (3.5-5.1) mmol/L Carbon Dioxide (22-30) mmol/L BUN (7-17) mg/dL Creatinine (0.52-1.04) mg/dL Glucose (74-99) mg/dL POC Glucose (mg/dL) 205 H 306 H (75-99) mg/dL Calcium (8.4-10.2) mg/dL Phosphorus (2.5-4.5) mg/dL Alkaline Phosphatase (38-126) U/L Total Protein (6.3-8.2) g/dL Albumin (3.5-5.0) g/dL Zinc 38 L (60-130) ug/dL 12/13/19 12/13/19 12/13/19 Range/Units 07:05 08:23 11:40 Sodium 132 L (137-145) mmol/L Potassium 5.2 H (3.5-5.1) mmol/L Carbon Dioxide 19 L (22-30) mmol/L BUN 64 H (7-17) mg/dL Creatinine 1.81 H (0.52-1.04) mg/dL Glucose 214 H (74-99) mg/dL POC Glucose (mg/dL) 304 H 165 H (75-99) mg/dL Calcium 8.2 L (8.4-10.2) mg/dL Phosphorus 4.7 H (2.5-4.5) mg/dL Alkaline Phosphatase 164 H (38-126) U/L Total Protein 5.7 L (6.3-8.2) g/dL Albumin 2.5 L (3.5-5.0) g/dL Zinc (60-130) ug/dL Assessment and Plan Plan: Assessment: 1. Acute kidney injury mostly prerenal secondary to intravascular volume depletion from vomiting. Creatinine was 2.29 on admission and is stable at 1.81 today. No proteinuria on UA. 2. Chronic kidney disease stage III with baseline creatinine in the range of 1.4-1.6 secondary to nephrosclerosis. 3. History of gastric bypass status post balloon dilatation of the distal esophagus and gastric jejunal anastomosis on December 08. 4. Metabolic acidosis secondary to acute kidney injury. Maintained on oral sodium bicarbonate. 5. Insulin-dependent diabetes mellitus. 6. Hypertension with chronic kidney disease. Controlled. 7. Hyperkalemia secondary to acute kidney injury, metabolic acidosis and hyperglycemia. Stable. 8. Hyponatremia secondary to acute kidney injury as well as poor solute intake. Plan: Maintain normal saline at 50 mL an hour. Encouraged oral intake. Hold antihypertensives. Repeat electrolytes in the morning. 2 A sodium bicarb IV push today.
--- NOTE | 2019-12-13 14:46 | P.PN ---
Subjective Progress Note Date: 12/13/19 Principal diagnosis: 69-year-old patient with extensive medical history whose chronic stable medical conditions include asthma, diabetes, DVT, GERD, hypertension, osteoarthritis,(s) sleep apnea,. Patient's ears were had a gastric Goqe-ys-W-bypass surgery Dr. Arndt. Patient's is that is over lost over 200 pounds. For quite some time patient was having trouble swallowing. She says the food sometimes gets stuck in the throat, even the liquids. On November 23 patient had a EGD with Dr. Arndt. There was a acute on chronic 1 cm gastrojejunal ulcer with obstruction. Also has a gastric stricture 8 mm dilated to 10 mm. She states that it did not make any difference to her swallowing. Patient is not able to keep anything down and is progressively becoming weak tired dehydrated.She presented to the ER. Patient scheduled for the procedure tomorrow. We're back [place] [address] Arndt today EGD. And patient had a gastrojejunal ulcer that time too. It seems symptoms have been progressive since then. Admitted with-progressive dysphagia to solids and liquids. Today-saw the patient this morning. Awaiting to go down for endoscopy. No new issues. Getting IV fluids. 12/10/2019 Patient underwent a dilatation of his of esophageal stricture. Patient is still only tolerating full liquid diet as per Gen. surgery patient will undergo barium esophagogram on Thursday. Patient remains on total parenteral nutrition at this time. 12/11/2019 sodium is 134 today probably because of TPN Constitutional: Denied any fatigue denied any fever. Cardio vascular: denied any chest pain, palpitations Gastrointestinal denied any nausea vomiting Pulmonary: Denied any shortness of breath cough Neurologic denied any new focal deficits All inpatient medications were reviewed and appropriate changes in these medications as dictated in the interval history and assessment and plan. 12/12/2019 Patient is seen and evaluated and follow-up currently on a full liquid diet and tolerating with some episodes of intermittent nausea noted. Patient's potassium was slightly elevated at 5.6 and given a dose of Kayexalate. Slight hemolysis noted. Will repeat labs. Patient states she has not been having bowel movements but is passing some gas. Patient continues to have poor oral intake. Surgery following and will likely undergo imaging of the gastrojejunostomy tomorrow with Dr. Ramírez. Patient to continue on TPN as well. Currently no reports of chest pain, shortness of breath, or palpitations. Patient is afebrile. No reports of nausea or vomiting and patient is tolerating diet. Creatinine slightly improved at 1.75 and sodium remains low at 131. She following. 12/13/2019 Patient is seen in follow-up today continues to be on a full liquid diet along with TPN. Surgery following closely. Patient underwent fluoroscopy of the pharynx and larynx showing possible postsurgical scarring at the gastric bypass anastomosis with focal outpouching at the site along with narrowing of the anastomotic site. Surgery is following. Patient awaiting to be seen by Dr. Ramírez today. Patient did have an episode of vomiting last night after eating pudding and states it is probably due to the fact that she is lactose intolerant. Otherwise patient is tolerating full liquids today with no reports of nausea or vomiting noted. Nephrology also following and creatinine slightly worsened at 1.81 and sodium today is 132. Patient is maintained on sodium bicarbonate. Patient is to receive a PICC line tomorrow. Currently no reports of chest pain, shortness of breath, or palpitations patient is afebrile. Objective - Vital Signs Vital signs: Vital Signs Temp 98.2 F 12/13/19 07:13 Pulse 85 12/13/19 00:30 Resp 14 12/13/19 07:13 BP 120/65 12/13/19 07:13 Pulse Ox 98 12/13/19 07:13 Intake & Output 12/12/19 12/13/19 12/13/19 18:59 06:59 18:59 Intake Total 970 100 Output Total 300 300 Balance 970 -200 -300 Intake: Intake, IV Titration 970 Amount Amino Acid 4.25%-D10w+ 420 Lytes*E* 1,000 ml @ 60 mls/hr IV .BY DURATION REA Rx#:[id number] Fat Emulsion 20% 250 ml 250 In Empty Bag 1 bag @ 21 mls/hr IV DAILY@1900 [facility] Rx#:[id number] Sodium Chloride 0.9% 1, 300 000 ml @ 50 mls/hr IV . Q20H [facility] Rx#:[id number] Oral 100 Output: Urine 300 300 Uretheral (Collins) 300 Other: Voiding Method Indwelling Catheter Indwelling Catheter Indwelling Catheter - Exam GENERAL: The patient is alert and oriented x3, not in any acute distress. Well developed, well nourished. HEENT: Pupils are round and equally reacting to light. EOMI. No scleral icterus. No conjunctival pallor. Normocephalic, atraumatic. No pharyngeal erythema. No thyromegaly. CARDIOVASCULAR: S1 and S2 present. No murmurs, rubs, or gallops. PULMONARY: Chest is clear to auscultation, no wheezing or crackles. ABDOMEN: Soft, nontender, nondistended, normoactive bowel sounds. No palpable organomegaly. MUSCULOSKELETAL: No joint swelling or deformity. EXTREMITIES: No cyanosis, clubbing, or pedal edema. NEUROLOGICAL: Gross neurological examination did not reveal any focal deficits. SKIN: No rashes. - Labs CBC & Chem 7: 12/08/19 12:32 12/13/19 08:23 Labs: Abnormal Lab Results - Last 24 Hours (Table) 12/09/19 12/12/19 12/13/19 Range/Units 09:39 17:03 00:10 Sodium (137-145) mmol/L Potassium (3.5-5.1) mmol/L Carbon Dioxide (22-30) mmol/L BUN (7-17) mg/dL Creatinine (0.52-1.04) mg/dL Glucose (74-99) mg/dL POC Glucose (mg/dL) 205 H 306 H (75-99) mg/dL Calcium (8.4-10.2) mg/dL Phosphorus (2.5-4.5) mg/dL Alkaline Phosphatase (38-126) U/L Total Protein (6.3-8.2) g/dL Albumin (3.5-5.0) g/dL Zinc 38 L (60-130) ug/dL 12/13/19 12/13/19 12/13/19 Range/Units 07:05 08:23 11:40 Sodium 132 L (137-145) mmol/L Potassium 5.2 H (3.5-5.1) mmol/L Carbon Dioxide 19 L (22-30) mmol/L BUN 64 H (7-17) mg/dL Creatinine 1.81 H (0.52-1.04) mg/dL Glucose 214 H (74-99) mg/dL POC Glucose (mg/dL) 304 H 165 H (75-99) mg/dL Calcium 8.2 L (8.4-10.2) mg/dL Phosphorus 4.7 H (2.5-4.5) mg/dL Alkaline Phosphatase 164 H (38-126) U/L Total Protein 5.7 L (6.3-8.2) g/dL Albumin 2.5 L (3.5-5.0) g/dL Zinc (60-130) ug/dL Assessment and Plan Assessment: -Dysphagia secondary to esophageal stricture and patient is status post esophageal dilatation procedure still not able to tolerate soft diet patient has history of Nancy-en-Y bypass surgery. Patient is on TPN at this time. Patient currently remains on full liquids and tolerating but continues to have poor oral intake -Mild protein calorie malnutrition -Hypothyroidism -Moderate left hydroureteronephrosis: Nephrology evaluated the patient patient has a Collins catheter -Asthma without any acute exacerbation -History of gastro-esophageal reflux disease -Essential hypertension -Sleep apnea and doesn't use any CPAP machine at home -Peptic ulcer disease -Chronic kidney disease stage III with baseline creatinine around 1.6 there is a component of acute renal failure secondary to poor by mouth intake which is improving at this time chronic kidney disease is probably secondary to hyperten sive nephrosclerosis, current creatinine is 1.81, nephrology following. -Metabolic acidosis non-anion gap secondary to renal failure which is improving -History of DVT for which patient is on Eliquis Plan: Patient to continue on full liquid diet and TPN at this time. Eliquis currently on hold as patient is supposed to be receiving a PICC line tomorrow. Awaiting to see Dr. Ramírez today. Continue on gentle IV hydration and repeat labs in the morning. Nephrology following. further recommendations to follow.
--- NOTE | 2019-12-13 17:07 | US ---
EXAMINATION TYPE: US kidneys/renal and bladder DATE OF EXAM: 12/13/2019 COMPARISON: 12/08/2019 CLINICAL HISTORY: hydronephrosis . EXAM MEASUREMENTS: Right Kidney: 10.6 x 3.6 x 5.1 cm Left Kidney: 10.3 x 5.3 x 5.0 cm Mild ascites in all four quadrants and pelvis. Right Kidney: No hydronephrosis or masses seen, inferior pole obscured by overlying bowel gas Left Kidney: Mild hydronephrosis Bladder: mayberry IMPRESSION: 1. Moderate left hydronephrosis. 2. Partially visualized abdominal ascites in all 4 quadrants. 3. Suboptimally visualized right kidney with no gross hydronephrosis.
[2019-12-13 18:08] LABS: Glucose,Whole Blood 222 mg/dL (75-99)
[2019-12-13] MEDS: FAT EMULSION 20% 250 ML in EMPTY BAG 1 BAG IV SCH (20:21)
[2019-12-13 21:05] LABS: Glucose,Whole Blood 204 mg/dL (75-99)
[2019-12-13] MEDS: ONDANSETRON 4 MG/2 ML VIAL IVP PRN (22:58)
[2019-12-14 00:07] LABS: Glucose,Whole Blood 357 mg/dL (75-99)
[2019-12-14] MEDS: INSULIN ASPART (NovoLOG) 100 UNIT/ML VIAL SQ SCH ×4 (00:46→23:40)
[2019-12-14] MEDS: SODIUM CHLORIDE 0.9% 1,000 ML IV SCH ×2 (06:25→23:36)
[2019-12-14 06:26] LABS: Glucose,Whole Blood 277 mg/dL (75-99)
[2019-12-14 07:24] LABS: Vitamin A 25 ug/dL (38-106)
[2019-12-14 07:31] LABS: Vit B1(Thiamine) 43 ug/L (38-122)
[2019-12-14] MEDS: SUCRALFATE 1 GM TAB PO SCH ×2 (07:53→23:30)
[2019-12-14] MEDS: SODIUM BICARBONATE TAB 650 MG TAB PO SCH ×2 (07:53→23:30)
[2019-12-14] MEDS: MULTIVITAMINS, THERA LIQUID 237 ML BOTTLE PO SCH (07:53)
[2019-12-14] MEDS: ATORVASTATIN 40 MG TAB PO SCH (07:53)
[2019-12-14 09:08] LABS: Albumin 1.9 g/dL (3.5-5.0); Calcium 7.6 mg/dL (8.4-10.2); Magnesium 2.1 mg/dL (1.6-2.3); Phosphorus 3.4 mg/dL (2.5-4.5); Potassium 5.4 mmol/L (3.5-5.1); Total Bilirubin 0.2 mg/dL (0.2-1.3); Total Protein 4.5 g/dL (6.3-8.2)
[2019-12-14] MEDS: PANTOPRAZOLE 40 MG/10 ML VIAL IVP SCH ×2 (09:10→23:35)
[2019-12-14] MEDS: SYMBICORT 80-4.5 MCG INHALER INHALATION SCH ×2 (09:44→20:10)
[2019-12-14] MEDS ORDERED: LIDOCAINE 1% INJ 10MG/ML (20 ML MDV) ONE (11:01)
[2019-12-14] MEDS ORDERED: PROPOFOL 10 MG/ML 20 ML VIAL IV ONE (11:01)
[2019-12-14] MEDS ORDERED: SODIUM CHLORIDE 0.9% 500 ML 500 ML IV ONE (11:05)
--- NOTE | 2019-12-14 11:39 | P.PCN ---
Date of Procedure: 12/14/19 Description of Procedure: PREOPERATIVE DIAGNOSIS: Dysphagia. Nausea with vomiting. 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 Nausea with vomiting. Diabetes type 2. 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 INDICATIONS: The patient is a 69-year-old female who 1 week ago had a near complete obstruction of a gastrojejunal anastomosis noted GE junction. At that time, the anastomosis and distal esophagus were dilated from 2 mm to 8 mm. After TPN including liquid nutrition and IV Protonix, the patient is brought back for attempted dilation of the gastric stricture and distal esophagus. Benefits and risks of the procedure were described. Informed consent was obtained. DESCRIPTION: The patient was brought into the endoscopy suite and laid in the left lateral decubitus position. After a timeout was confirmed, the procedure was initiated. An Olympus gastroscope was passed along the posterior oropharynx down to the distal esophagus where a hypertensive distal esophagus and gastroesophageal junction was encountered. Moderate tertiary contractions were identified of the esophagus. A gastrojejunal stricture of 8 mm was found as the adult gastroscope was 9.5 mm in size. A [employer] esophageal balloon dilator was placed through the scope in a stepwise fashion from 8 mm to 18 mm. Each dilation was performed for a total of 2 minutes. The scope was advanced beyond the gas troesophageal junction into the Nancy limb at 60 cm from the incisors. No full- thickness injury was encountered with my bleeding along the anastomosis. The GI tract was desufflated. The patient tolerated the procedure well. FINDINGS: 1. Stricture of approximately 8 mm dilated to 18 mm scope passed beyond the stricture to 60 cm from the incisors 2. Tertiary contractions of the distal esophagus 3. Hypertensive gastroesophageal junction RECOMMENDATIONS: 1. Recommend outpatient manometry to evaluate for esophageal spasms, achalasia including gastroesophageal junction dysmotility 2. Recommend warm beverages and modify diet for presbyesophagus/esophageal motility
[2019-12-14 12:30] LABS: Glucose,Whole Blood 204 mg/dL (75-99)
--- NOTE | 2019-12-14 12:45 | XR ---
EXAMINATION TYPE: XR chest 1V DATE OF EXAM: 12/14/2019 CLINICAL HISTORY: Postesophageal dilatation. TECHNIQUE: Single AP portable upright view of the chest is obtained. COMPARISON: Chest x-ray from January 02, 2017 FINDINGS: There is new left basilar opacity. Background chronic parenchymal change. Cardiac silhouet te size upper limits of normal currently. Osseous structures demineralized. Cholecystectomy clips not ed. IMPRESSION: Chronic painful change with New small left pleural effusion or fluid collection and assoc iated left basilar atelectasis and/or infiltrate. No obvious pneumothorax or pneumomediastinum noted. Consider progress study.
--- NOTE | 2019-12-14 13:12 | P.PN ---
Subjective Patient is seen in follow-up for acute kidney injury on chronic kidney disease. Renal function is fairly stable. She underwent balloon dilatation of the distal esophagus and gastrojejunal anastomosis this morning to 18 mm. She will be started on a diet today. PPN is on hold. Denies chest pain or shortness of breath. She has been voiding. Vital signs are stable. General: The patient appeared well nourished and normally developed. HEENT: Head exam is unremarkable. Neck is without jugular venous distension. LUNGS: Lungs are clear to auscultation and percussion. Breath sounds decreased. HEART: Rate and Rhythm are regular. ABDOMEN: Abdominal exam reveals normal bowel sounds. Non-tender and non- distended. EXTREMITITES: No clubbing, cyanosis, or edema. Objective - Vital Signs Vital signs: Vital Signs Temp 98.5 F 12/14/19 07:00 Pulse 93 12/14/19 07:00 Resp 18 12/14/19 07:00 BP 121/68 12/14/19 07:00 Pulse Ox 96 12/14/19 07:00 Intake & Output 12/13/19 12/14/19 12/14/19 18:59 06:59 18:59 Intake Total 410 480 250 Output Total 300 350 Balance 110 130 250 Weight 47.4 kg Intake: IV 250 Intake, IV Titration 410 Amount Sodium Acetate 40 meq 60 Magnesium Sulfate gm 0.5 gm Calcium Gluconate 1 gm In Amino Acid 4.25%-D10w 1,000 ml @ 60 mls/hr IV .BY DURATION REA Rx#: [id number] Sodium Chloride 0.9% 1, 350 000 ml @ 50 mls/hr IV . Q20H REA Rx#:[id number] Oral 480 Output: Urine 300 350 Uretheral (Collins) 300 Other: Voiding Method Indwelling Catheter # Voids 1 1 # Bowel Movements 1 - Labs CBC & Chem 7: 12/08/19 12:32 12/14/19 08:02 Labs: Abnormal Lab Results - Last 24 Hours (Table) 12/09/19 12/13/19 12/13/19 Range/Units 09:39 18:06 21:04 Sodium (137-145) mmol/L Potassium (3.5-5.1) mmol/L BUN (7-17) mg/dL Creatinine (0.52-1.04) mg/dL Glucose (74-99) mg/dL POC Glucose (mg/dL) 222 H 204 H (75-99) mg/dL Calcium (8.4-10.2) mg/dL Total Protein (6.3-8.2) g/dL Albumin (3.5-5.0) g/dL Vitamin A 25 L (38-106) ug/dL Zinc 38 L (60-130) ug/dL 12/14/19 12/14/19 12/14/19 Range/Units 00:05 06:24 08:02 Sodium 132 L (137-145) mmol/L Potassium 5.4 H (3.5-5.1) mmol/L BUN 69 H (7-17) mg/dL Creatinine 1.88 H (0.52-1.04) mg/dL Glucose 204 H (74-99) mg/dL POC Glucose (mg/dL) 357 H 277 H (75-99) mg/dL Calcium 7.6 L (8.4-10.2) mg/dL Total Protein 4.5 L (6.3-8.2) g/dL Albumin 1.9 L (3.5-5.0) g/dL Vitamin A (38-106) ug/dL Zinc (60-130) ug/dL 12/14/19 Range/Units 12:29 Sodium (137-145) mmol/L Potassium (3.5-5.1) mmol/L BUN (7-17) mg/dL Creatinine (0.52-1.04) mg/dL Glucose (74-99) mg/dL POC Glucose (mg/dL) 204 H (75-99) mg/dL Calcium (8.4-10.2) mg/dL Total Protein (6.3-8.2) g/dL Albumin (3.5-5.0) g/dL Vitamin A (38-106) ug/dL Zinc (60-130) ug/dL Assessment and Plan Plan: Assessment: 1. Acute kidney injury mostly prerenal secondary to intravascular volume depletion from vomiting. Creatinine was 2.29 on admission and is stable at 1.88 today. No proteinuria on UA. 2. Chronic kidney disease stage III with baseline creatinine in the range of 1.4-1.6 secondary to nephrosclerosis. 3. History of gastric bypass status post balloon dilatation of the distal esophagus and gastric jejunal anastomosis. 4. Metabolic acidosis secondary to acute kidney injury. Maintained on oral sodium bicarbonate. 5. Insulin-dependent diabetes mellitus. 6. Hypertension with chronic kidney disease. Controlled. 7. Hyperkalemia secondary to acute kidney injury, metabolic acidosis and hyperglycemia. Stable. 8. Hyponatremia secondary to acute kidney injury as well as poor solute intake. 9. Left-sided hydronephrosis. Urology following. Collins catheter removed. Post void residuals have been within limits. Plan: Remains off IV fluids. Diet to be advanced per surgery recommendations. Hold antihypertensives. Repeat electrolytes in the morning. Repeat potassium level this evening. Reduce potassium content in the PPN.
--- NOTE | 2019-12-14 15:15 | P.PN ---
Subjective Progress Note Date: 12/14/19 Principal diagnosis: 69-year-old patient with extensive medical history whose chronic stable medical conditions include asthma, diabetes, DVT, GERD, hypertension, osteoarthritis,(s) sleep apnea,. Patient's ears were had a gastric [id number]-bypass surgery Dr. Arndt. Patient's is that is over lost over 200 pounds. For quite some time patient was having trouble swallowing. She says the food sometimes gets stuck in the throat, even the liquids. On November 23 patient had a EGD with Dr. Arndt. There was a acute on chronic 1 cm gastrojejunal ulcer with obstruction. Also has a gastric stricture 8 mm dilated to 10 mm. She states that it did not make any difference to her swallowing. Patient is not able to keep anything down and is progressively becoming weak tired dehydrated.She presented to the ER. Patient scheduled for the procedure tomorrow. We're back in [address] Arndt today EGD. And patient had a gastrojejunal ulcer that time too. It seems symptoms have been progressive since then. Admitted with-progressive dysphagia to solids and liquids. Today-saw the patient this morning. Awaiting to go down for endoscopy. No new issues. Getting IV fluids. 12/10/2019 Patient underwent a dilatation of his of esophageal stricture. Patient is still only tolerating full liquid diet as per Gen. surgery patient will undergo barium esophagogram on Thursday. Patient remains on total parenteral nutrition at this time. 12/11/2019 sodium is 134 today probably because of TPN Constitutional: Denied any fatigue denied any fever. Cardio vascular: denied any chest pain, palpitations Gastrointestinal denied any nausea vomiting Pulmonary: Denied any shortness of breath cough Neurologic denied any new focal deficits All inpatient medications were reviewed and appropriate changes in these medications as dictated in the interval history and assessment and plan. 12/12/2019 Patient is seen and evaluated and follow-up currently on a full liquid diet and tolerating with some episodes of intermittent nausea noted. Patient's potassium was slightly elevated at 5.6 and given a dose of Kayexalate. Slight hemolysis noted. Will repeat labs. Patient states she has not been having bowel movements but is passing some gas. Patient continues to have poor oral intake. Surgery following and will likely undergo imaging of the gastrojejunostomy tomorrow with Dr. Ramírez. Patient to continue on TPN as well. Currently no reports of chest pain, shortness of breath, or palpitations. Patient is afebrile. No reports of nausea or vomiting and patient is tolerating diet. Creatinine slightly improved at 1.75 and sodium remains low at 131. She following. 12/13/2019 Patient is seen in follow-up today continues to be on a full liquid diet along with TPN. Surgery following closely. Patient underwent fluoroscopy of the pharynx and larynx showing possible postsurgical scarring at the gastric bypass anastomosis with focal outpouching at the site along with narrowing of the anastomotic site. Surgery is following. Patient awaiting to be seen by Dr. Ramírez today. Patient did have an episode of vomiting last night after eating pudding and states it is probably due to the fact that she is lactose intolerant. Otherwise patient is tolerating full liquids today with no reports of nausea or vomiting noted. Nephrology also following and creatinine slightly worsened at 1.81 and sodium today is 132. Patient is maintained on sodium bicarbonate. Patient is to receive a PICC line tomorrow. Currently no reports of chest pain, shortness of breath, or palpitations patient is afebrile. 12/14/2019 Patient was seen and evaluated and follow-up status post esophagogastrojejunoscopy with dilatation with Dr. Ramírez. Patient resumed on diet and will continue to monitor closely. Sodium slightly low at 132 with a potassium of 5.4. TPN on hold at this time. Creatinine 1.88 today. Will continue with gentle IV hydration and patient is maintained on sodium bicarbonate tablets and will continue at this time. Currently no reports of chest pain, shortness of breath, or palpitations. Patient is afebrile. No reports of nausea or vomiting and patient is tolerating clear liquids. Discussed with the patient about increasing activity as she has been mostly lying in the bed. Objective - Vital Signs Vital signs: Vital Signs Temp 98.5 F 12/14/19 07:00 Pulse 93 12/14/19 07:00 Resp 18 12/14/19 07:00 BP 121/68 12/14/19 07:00 Pulse Ox 96 12/14/19 07:00 Intake & Output 12/13/19 12/14/19 12/14/19 18:59 06:59 18:59 Intake Total 410 480 250 Output Total 300 350 Balance 110 130 250 Weight 47.4 kg Intake: IV 250 Intake, IV Titration 410 Amount Sodium Acetate 40 meq 60 Magnesium Sulfate gm 0.5 gm Calcium Gluconate 1 gm In Amino Acid 4.25%-D10w 1,000 ml @ 60 mls/hr IV .BY DURATION REA Rx#: [id number] Sodium Chloride 0.9% 1, 350 000 ml @ 50 mls/hr IV . Q20H REA Rx#:[id number] Oral 480 Output: Urine 300 350 Uretheral (Collins) 300 Other: Voiding Method Indwelling Catheter # Voids 1 1 # Bowel Movements 1 - Exam GENERAL: The patient is alert and oriented x3, not in any acute distress. Well developed, well nourished. HEENT: Pupils are round and equally reacting to light. EOMI. No scleral icterus. No conjunctival pallor. Normocephalic, atraumatic. No pharyngeal erythema. No thyromegaly. CARDIOVASCULAR: S1 and S2 present. No murmurs, rubs, or gallops. PULMONARY: Chest is clear to auscultation, no wheezing or crackles. ABDOMEN: Soft, nontender, nondistended, normoactive bowel sounds. No palpable organomegaly. MUSCULOSKELETAL: No joint swelling or deformity. EXTREMITIES: No cyanosis, clubbing, or pedal edema. NEUROLOGICAL: Gross neurological examination did not reveal any focal deficits. SKIN: No rashes. - Labs CBC & Chem 7: 12/08/19 12:32 12/14/19 08:02 Labs: Abnormal Lab Results - Last 24 Hours (Table) 12/09/19 12/13/19 12/13/19 Range/Units 09:39 18:06 21:04 Sodium (137-145) mmol/L Potassium (3.5-5.1) mmol/L BUN (7-17) mg/dL Creatinine (0.52-1.04) mg/dL Glucose (74-99) mg/dL POC Glucose (mg/dL) 222 H 204 H (75-99) mg/dL Calcium (8.4-10.2) mg/dL Total Protein (6.3-8.2) g/dL Albumin (3.5-5.0) g/dL Vitamin A 25 L (38-106) ug/dL Zinc 38 L (60-130) ug/dL 12/14/19 12/14/19 12/14/19 Range/Units 00:05 06:24 08:02 Sodium 132 L (137-145) mmol/L Potassium 5.4 H (3.5-5.1) mmol/L BUN 69 H (7-17) mg/dL Creatinine 1.88 H (0.52-1.04) mg/dL Glucose 204 H (74-99) mg/dL POC Glucose (mg/dL) 357 H 277 H (75-99) mg/dL Calcium 7.6 L (8.4-10.2) mg/dL Total Protein 4.5 L (6.3-8.2) g/dL Albumin 1.9 L (3.5-5.0) g/dL Vitamin A (38-106) ug/dL Zinc (60-130) ug/dL 12/14/19 Range/Units 12:29 Sodium (137-145) mmol/L Potassium (3.5-5.1) mmol/L BUN (7-17) mg/dL Creatinine (0.52-1.04) mg/dL Glucose (74-99) mg/dL POC Glucose (mg/dL) 204 H (75-99) mg/dL Calcium (8.4-10.2) mg/dL Total Protein (6.3-8.2) g/dL Albumin (3.5-5.0) g/dL Vitamin A (38-106) ug/dL Zinc (60-130) ug/dL Assessment and Plan Assessment: -Dysphagia secondary to esophageal stricture and patient is status post esophageal dilatation procedure still not able to tolerate soft diet patient has history of Nancy-en-Y bypass surgery. TPN is currently on hold and patient has been resumed on clear liquids status post dilatation to 18 mm with surgery today. -Mild protein calorie malnutrition -Hypothyroidism -Moderate left hydroureteronephrosis: Nephrology evaluated the patient patient has a Collins catheter, redemonstrated on repeat abdomen and bladder ultrasound -Asthma without any acute exacerbation -History of gastro-esophageal reflux disease -Essential hypertension -Sleep apnea and doesn't use any CPAP machine at home -Peptic ulcer disease -Chronic kidney disease stage III with baseline creatinine around 1.6 there is a component of acute renal failure secondary to poor by mouth intake which is improving at this time chronic kidney disease is probably secondary to hypertensive nephrosclerosis, current creatinine is 1.88, nephrology following. Maintained on gentle IV hydration and sodium bicarbonate tablets -Metabolic acidosis non-anion gap secondary to renal failure which is improving -History of DVT for which patient is on Eliquis, anticoagulation currently on hold for possibility of PICC placement Plan: Patient to continue on clear liquid diet. Eliquis currently on hold as patient is supposed to be possibly receiving a PICC line. Continue on gentle IV hydration and repeat labs in the morning. Nephrology following. further recommendations to follow.
[2019-12-14 18:30] LABS: Glucose,Whole Blood 239 mg/dL (75-99)
[2019-12-14] MEDS: FAT EMULSION 20% 250 ML in EMPTY BAG 1 BAG IV SCH (19:55)
[2019-12-14] MEDS ORDERED: SODIUM BICARB 8.4% 50 ML SYR (1 MEQ/ML) IV STA (21:47)
[2019-12-14] MEDS ORDERED: DEXTROSE 50% SYRINGE 50 ML IVP STA (21:48)
[2019-12-14] MEDS ORDERED: INSULIN REGULAR 100 UNIT/ML VIAL IV ONE (22:00)
[2019-12-14 23:45] LABS: Glucose,Whole Blood 214 mg/dL (75-99)
[2019-12-15 05:38] LABS: Glucose,Whole Blood 189 mg/dL (75-99)
[2019-12-15] MEDS: INSULIN ASPART (NovoLOG) 100 UNIT/ML VIAL SQ SCH ×3 (05:58→12:34)
[2019-12-15] MEDS: MULTIVITAMINS, THERA LIQUID 237 ML BOTTLE PO SCH (07:54)
[2019-12-15] MEDS: SUCRALFATE 1 GM TAB PO SCH (07:54)
[2019-12-15 07:55] VITALS: BP 129/76; PULSE 92; RESP 17; TEMP 97.8
[2019-12-15] MEDS: SODIUM BICARBONATE TAB 650 MG TAB PO SCH (07:55)
[2019-12-15] MEDS: ATORVASTATIN 40 MG TAB PO SCH (07:55)
[2019-12-15] MEDS: PANTOPRAZOLE 40 MG/10 ML VIAL IVP SCH (07:55)
[2019-12-15] MEDS: SYMBICORT 80-4.5 MCG INHALER INHALATION SCH (08:31)
[2019-12-15 10:44] LABS: Potassium 4.9 mmol/L (3.5-5.1)
[2019-12-15 10:45] LABS: Albumin 1.9 g/dL (3.5-5.0); Calcium 7.7 mg/dL (8.4-10.2); Magnesium 2.2 mg/dL (1.6-2.3); Phosphorus 3.1 mg/dL (2.5-4.5); Total Bilirubin 0.3 mg/dL (0.2-1.3); Total Protein 4.5 g/dL (6.3-8.2)
--- NOTE | 2019-12-15 10:57 | P.PN ---
Subjective Patient is seen in follow-up for acute kidney injury on chronic kidney disease. Renal function is fairly stable this admission. She underwent balloon dilatation of the distal esophagus and gastrojejunal anastomosis this morning to 18 mm. Diet is being advanced per surgery. PPN is on hold. Denies chest pain or shortness of breath. She has been voiding. Potassium level was high yesterday and was medically treated. 4.9 this morning. Vital signs are stable. General: The patient appeared well nourished and normally developed. HEENT: Head exam is unremarkable. Neck is without jugular venous distension. LUNGS: Lungs are clear to auscultation and percussion. Breath sounds decreased. HEART: Rate and Rhythm are regular. ABDOMEN: Abdominal exam reveals normal bowel sounds. Non-tender and non- distended. EXTREMITITES: No clubbing, cyanosis, or edema. Objective - Vital Signs Vital signs: Vital Signs Temp 97.8 F 12/15/19 07:00 Pulse 92 12/15/19 07:00 Resp 17 12/15/19 07:00 BP 129/76 12/15/19 07:00 Pulse Ox 99 12/15/19 07:00 Intake & Output 12/14/19 12/15/19 12/15/19 18:59 06:59 18:59 Intake Total 250 Balance 250 Intake: IV 250 Other: Voiding Method Bedside Commode # Voids 2 2 # Bowel Movements 1 - Labs CBC & Chem 7: 12/08/19 12:32 12/15/19 09:47 Labs: Abnormal Lab Results - Last 24 Hours (Table) 12/14/19 12/14/19 12/14/19 Range/Units 12:29 18:26 18:29 Potassium 5.8 H (3.5-5.1) mmol/L POC Glucose (mg/dL) 204 H 239 H (75-99) mg/dL 12/14/19 12/15/19 Range/Units 23:34 05:36 Potassium (3.5-5.1) mmol/L POC Glucose (mg/dL) 214 H 189 H (75-99) mg/dL Assessment and Plan Plan: Assessment: 1. Acute kidney injury mostly prerenal secondary to intravascular volume depletion from vomiting. Creatinine was 2.29 on admission and is stable at 1.88 as of yesterday. No proteinuria on UA. 2. Chronic kidney disease stage III with baseline creatinine in the range of 1.4-1.6 secondary to nephrosclerosis. 3. History of gastric bypass status post balloon dilatation of the distal esophagus and gastric jejunal anastomosis. 4. Metabolic acidosis secondary to acute kidney injury. Maintained on oral sodium bicarbonate. 5. Insulin-dependent diabetes mellitus. 6. Hypertension with chronic kidney disease. Controlled. 7. Hyperkalemia secondary to acute kidney injury, metabolic acidosis and hyperglycemia. Improved with medical management. 8. Hyponatremia secondary to acute kidney injury as well as poor solute intake. 9. Left-sided hydronephrosis. Urology following. Collins catheter removed. Post void residuals have been within limits. Plan: Remains off IV fluids. Diet to be advanced per surgery recommendations. Hold antihypertensives. Stable to be discharged from nephrology standpoint. Follow up outpatient in 1-2 weeks.
[2019-12-15 11:56] LABS: Glucose,Whole Blood 190 mg/dL (75-99)
--- NOTE | 2019-12-16 17:20 | P.DS ---
Providers Date of admission: 12/08/19 14:42 Expected date of discharge: 12/15/19 Attending physician: Leandro Pinon Consults: 12/08/19 14:46 Consult Physician Stat Consulting Provider: Amy Ramírez Consult Reason/Comments: Nausea, vomiting, abdominal pain Do you want consulting provider notified?: Yes 12/08/19 22:22 Consult Physician Routine Consulting Provider: Doc Gaytan Consult Reason/Comments: Left hydronephroureter Do you want consulting provider notified?: Yes 12/08/19 22:23 Consult Physician Routine Consulting Provider: Lida Westbrook Consult Reason/Comments: Renal failure Do you want consulting provider notified?: Yes Primary care physician: Leonard Morse Hospital Course: Chief Complaint: Difficulty swallowing History of presenting complaint: This is a very pleasant 69-year-old patient with extensive medical history whose chronic stable medical conditions include asthma, diabetes, DVT, GERD, hypertension, osteoarthritis,(s) sleep apnea,. Patient's ears were had a gastric [id number]-G-bypass surgery Dr. Arndt. Patient's is that is over lost over 200 pounds. For quite some time patient was having trouble swallowing. She says the food sometimes gets stuck in the throat, even the liquids. On November 23 patient had a EGD with Dr. Arndt. There was a acute on chronic 1 cm gastrojejunal ulcer with obstruction. Also has a gastric stricture 8 mm dilated to 10 mm. She states that it did not make any difference to her swallowing. Patient is not able to keep anything down and is progressively becoming weak tired dehydrated.She presented to the ER. Patient scheduled for the procedure tomorrow. We're back [place] [address] Arndt today EGD. And patient had a gastrojejunal ulcer that time too. It seems symptoms have been progressive since then. Admitted with-progressive dysphagia to solids and liquids. On December 08 patient underwent EGD by Dr. Arndt and had balloon dilatation from 2-8 mm of distal esophagus and gastrojejunal anastomosis. Patient is getting TPN and lipids. Patient underwent fluoroscopy study of the esophagus and cervical pharynx area. Showed possible postsurgical scarring at the gastric bypass anastomosis. Patient underwent a repeat esophagogastrojejunoscopy by Dr. Arndt on December 13 with balloon dilatation from 8-18 mm the distal esophagus and gastrojejunal anastomosis. Patient also felt to presbyesophagus. 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 Not really intervention of the present time. Patient's creatinine did come down from 2.29 at admission down to 1.85 Today-sitting up in a chair. Feeling better. Patient has been cleared by Dr. Arndt for discharge. Further workup as an outpatient. Discussed with Dr. Hernandez from nephrology. TPN and lipids are being discontinued. Patient feeling better. Discussed with the patient. Questions answered. Discussion and discharge planning more than 35 minutes Consultation: Dr. Arndt from general surgery Dr. jaramillo from neurology Dr. Hernandez from nephrology Physical examination: VITAL SIGNS: 97.8, 92, 17, 129/76, 99% on room air GENERAL: BMI 19.1, sitting up in a chair, appearing more comfortable. EYES: Pupils equal. Conjunctiva normal. HEENT: External appearance of nose and ears normal, oral cavity grossly normal. NECK: JVD not raised; masses not palpable. HEART: First and second heart sounds are normal; no edema. LUNGS: Respiratory rate normal; clear auscultation. ABDOMEN: Soft, nontender, liver spleen not palpable, no masses palpable. PSYCH: [Alert and oriented x3; mood and affect normal. INVESTIGATIONS, reviewed in the clinical context: Potassium 4.9 bun 73 creatinine 1.85 albumin 1.9 Previous testing White count 7.1 hemoglobin 11.5 platelets 249 potassium 4.8 bicarb 20 bun 50 creatinine 2.29 lactic acid 2.2 albumin 2.9 lipase 363 TSH 1.3 Computed tomography scan of the abdomen and pelvis without contrast-moderate left hydroureteronephrosis, renal calcification bilaterally. 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 -Acute kidney injury possibly prerenal-some improvement -Metabolic acidosis from renal failure -Chronic DVT for which patient is on eliquis Disposition: Home Labs: CBC-BMP in 3 days Patient Condition at Discharge: Stable Plan - Discharge Summary Discharge Rx Participant: No New Discharge Prescriptions: New Sodium Bicarbonate Tab 1,300 mg PO BID #30 tab Continue Insulin Glargine [Lantus] See Protocol SQ DAILY Apixaban [Eliquis] 5 mg PO DAILY Atorvastatin [Lipitor] 40 mg PO DAILY Omeprazole [PriLOSEC] 40 mg PO BID #120 cap Sucralfate [Carafate] 1 gm PO BID #60 tab Vitamin B-12(Unknown Dose) 1 tab PO DAILY Multivitamins, Thera [Multivitamin (formulary)] 1 tab PO DAILY Albuterol Nebulized [Ventolin Nebulized] 2.5 mg INHALATION RT-TID PRN PRN Reason: Shortness Of Breath Ergocalciferol [Vitamin D2 (DRISDOL)] 50,000 unit PO Q30D Budesonide/Formoterol Fumarate [Symbicort 80-4.5 Mcg Inhaler] 2 puff INHALATION RT-BID Albuterol Inhaler [Ventolin Hfa Inhaler] 2 puff INHALATION RT-QID PRN PRN Reason: Shortness Of Breath Insulin Lispro [humaLOG Kwikpen] See Protocol SQ ACHS Diclofenac Sodium [Voltaren Gel] 4 gram TOPICAL QID PRN PRN Reason: knee pain Acetaminophen [Tylenol Arthritis] 650 mg PO Q8H PRN PRN Reason: Pain Discontinued Levothyroxine Sodium [Synthroid] 25 mcg PO DAILY Lisinopril [Zestril] 5 mg PO DAILY Furosemide [Lasix] 20 mg PO Q48H Nystatin 100,000 Unit/gm Powd [Mycostatin Powder] 1 applic TOPICAL BID PRN PRN Reason: abdominal folds Discharge Medication List Insulin Glargine [Lantus] See Protocol SQ DAILY 12/17/16 [History] Apixaban [Eliquis] 5 mg PO DAILY 07/28/18 [History] Atorvastatin [Lipitor] 40 mg PO DAILY 07/28/18 [History] Omeprazole [PriLOSEC] 40 mg PO BID #120 cap 11/24/19 [Rx] Sucralfate [Carafate] 1 gm PO BID #60 tab 11/24/19 [Rx] Acetaminophen [Tylenol Arthritis] 650 mg PO Q8H PRN 12/08/19 [History] Albuterol Inhaler [Ventolin Hfa Inhaler] 2 puff INHALATION RT-QID PRN 12/08/19 [History] Albuterol Nebulized [Ventolin Nebulized] 2.5 mg INHALATION RT-TID PRN 12/08/19 [History] Budesonide/Formoterol Fumarate [Symbicort 80-4.5 Mcg Inhaler] 2 puff INHALATION RT-BID 12/08/19 [History] Diclofenac Sodium [Voltaren Gel] 4 gram TOPICAL QID PRN 12/08/19 [History] Ergocalciferol [Vitamin D2 (DRISDOL)] 50,000 unit PO Q30D 12/08/19 [History] Insulin Lispro [humaLOG Kwikpen] See Protocol SQ ACHS 12/08/19 [History] Multivitamins, Thera [Multivitamin (formulary)] 1 tab PO DAILY 12/08/19 [History] Vitamin B-12(Unknown Dose) 1 tab PO DAILY 12/08/19 [History] Sodium Bicarbonate Tab 1,300 mg PO BID #30 tab 12/15/19 [Rx] Follow up Appointment(s)/Referral(s): Lida Westbrook MD [STAFF PHYSICIAN] - 01/04/20 11:20 am Osmany Jaramillo MD [STAFF PHYSICIAN] - 12/21/19 10:20 am Amy Ramírez MD [STAFF PHYSICIAN] - 12/20/19 (Phone Conference. Dont know a time) [facility], [NON-STAFF] - Jean Paul Ricketts MD [Primary Care Provider] - 1-2 days (office not answering please call to make appointment) Patient Instructions/Handouts: Acute Kidney Injury (DC), Potassium Content of Foods List (DC) Activity/Diet/Wound Care/Special Instructions: bmp - 5 days home on current diet- renal diet Discharge Disposition: HOME SELF-CARE
[2019-12-16 18:21] LABS: Selenium 57 mcg/L (63-160)
--- NOTE | 2019-12-17 13:17 | P.PN ---
Subjective Progress Note Date: 12/15/19 CHIEF COMPLAINT: Dysphagia HISTORY OF PRESENT ILLNESS: Rita Morales is a 69-year-old female who was adm itted to the hospital secondary to severe dehydration, intractable nausea and vomiting, abdominal pain including dysphagia. Yesterday, she had successful upper endoscopy with balloon dilation from 8 mm to 18 mm. She reports moderate improvement. No further ports of epigastric abdominal pain or moderate dysphagia. She is tolerating liquid diet. She is eager to go home. REVIEW OF ORGAN SYSTEMS: No fevers or chills. No chest pain. No productive sputum. PHYSICAL EXAM: VITAL SIGNS: Reviewed MUSCULOSKELETAL: No clubbing, cyanosis or edema. GENERAL: Well-developed female in no acute distress. HEENT: No scleral icterus. Extraocular movements grossly intact. Moist mucosa. NECK: Supple without lymphadenopathy. CHEST: Nonlabored respirations. Equal bilateral excursions. CARDIOVASCULAR: Regular rate and rhythm. ABDOMEN: Soft, nontender, nondistended NEURO: No focal or lateralizing signs. Cranial nerves II through XII grossly within normal limits. PSYCH: Appropriate affect. Alert and oriented to person, place and time. SKIN: Chronic venous stasis disease. No rash. Good skin turgor. STUDIES: Chest x-ray reviewed without any free air ASSESSMENT: 1. Intractable nausea and vomiting 2. Severe dehydration 3. Under weight 4. Gastrojejunal ulcer with dysphagia 5. Body mass index reduced from 57.0 down to 19.1 6. Uncontrolled insulin-dependent diabetes type 2 7. Hypertensive heart disease with cardiomyopathy 8. Obstructive sleep apnea 9. Fibromyalgia. 10. Osteoarthritis bilateral hips 11. Osteoarthritis lower back. 12. Prior history of deep venous thromboses. 13. Chronic obstructive pulmonary disease. 14. 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 Bilateral lower extremity edema, 16. Massive weight loss, 222 pounds s/p gastric bypass PLAN: 1. Clinically, her symptoms has resolved. Surgical intervention for today has been canceled. 2. Recommend pure diet upon discharge. 3. Discontinue PPN. No need for PICC line 4. Follow-up as outpatient Objective - Vital Signs Vital signs: Vital Signs Temp 98.3 F 12/15/19 01:50 Pulse 79 12/14/19 19:15 Resp 16 12/15/19 00:00 BP 103/60 12/15/19 01:50 Pulse Ox 96 12/15/19 01:50 Intake & Output 12/14/19 12/15/19 12/15/19 18:59 06:59 18:59 Intake Total 250 Balance 250 Intake: IV 250 Other: Voiding Method Bedside Commode # Voids 2 2 # Bowel Movements 1 - Labs CBC & Chem 7: 12/08/19 12:32 12/15/19 09:47 Labs: Abnormal Lab Results - Last 24 Hours (Table) 12/14/19 12/14/19 12/14/19 Range/Units 08:02 12:29 18:26 Sodium 132 L (137-145) mmol/L Potassium 5.4 H 5.8 H (3.5-5.1) mmol/L BUN 69 H (7-17) mg/dL Creatinine 1.88 H (0.52-1.04) mg/dL Glucose 204 H (74-99) mg/dL POC Glucose (mg/dL) 204 H (75-99) mg/dL Calcium 7.6 L (8.4-10.2) mg/dL Total Protein 4.5 L (6.3-8.2) g/dL Albumin 1.9 L (3.5-5.0) g/dL 12/14/19 12/14/19 12/15/19 Range/Units 18:29 23:34 05:36 Sodium (137-145) mmol/L Potassium (3.5-5.1) mmol/L BUN (7-17) mg/dL Creatinine (0.52-1.04) mg/dL Glucose (74-99) mg/dL POC Glucose (mg/dL) 239 H 214 H 189 H (75-99) mg/dL Calcium (8.4-10.2) mg/dL Total Protein (6.3-8.2) g/dL Albumin (3.5-5.0) g/dL Assessment and Plan (1) Intractable vomiting with nausea Status: Acute Code(s): R11.2 - NAUSEA WITH VOMITING, UNSPECIFIED SNOMED Code(s): 819223471 (2) Gastrojejunal ulcer Status: Acute Code(s): K28.9 - GASTROJEJUNAL ULCER, UNSP ACUTE OR CHR, W/O HEMOR OR PERF SNOMED Code(s): 33321260 (3) Stage 4 chronic kidney disease due to type 2 diabetes mellitus Status: Acute Code(s): E11.22 - TYPE 2 DIABETES MELLITUS W DIABETIC CHRONIC KIDNEY DISEASE; N18.4 - CHRONIC KIDNEY DISEASE, STAGE 4 (SEVERE) SNOMED Code(s): 173888777725 (4) Elevated lipase Status: Acute Code(s): R74.8 - ABNORMAL LEVELS OF OTHER SERUM ENZYMES SNOMED Code(s): 706637482 (5) High risk for readmission Status: Acute Code(s): Z91.89 - OTH PERSONAL RISK FACTORS, NOT ELSEWHERE CL ASSIFIED SNOMED Code(s): 328169464 (6) Hx of deep venous thrombosis Status: Acute Code(s): Z86.718 - PERSONAL HISTORY OF OTHER VENOUS THROMBOSIS AND EMBOLISM SNOMED Code(s): 761402925 (7) Gastric stomal obstruction Status: Acute Code(s): K94.23 - GASTROSTOMY MALFUNCTION SNOMED Code(s): 435299705
== END 2019-12-15 13:03 | disposition home or self-care (01) | DRG 389 ==
LOC: EC 12:05 → 4SSUR 14:42
PROVIDERS: ADMIT Hospitalist; ATTEND Hospitalist
PROC: 3E0G76Z Introduction of Nutritional Substance into Upper GI, Via Natural or Artificial Opening (ICD-10-PCS; 2019-12-08)
PROC: 0D7A8ZZ Dilation of Jejunum, Via Natural or Artificial Opening Endoscopic (ICD-10-PCS; principal; 2019-12-09 07:30)
PROC: 0D748ZZ Dilation of Esophagogastric Junction, Via Natural or Artificial Opening Endoscopic (ICD-10-PCS; principal; 2019-12-09 07:30)
PROC: 0D748ZZ Dilation of Esophagogastric Junction, Via Natural or Artificial Opening Endoscopic (ICD-10-PCS; 2019-12-14 10:00)
DX: K56.699 Other intestinal obstruction unspecified as to partial versus complete obstruction (principal); E44.0 Moderate protein-calorie malnutrition; E87.1 Hypo-osmolality and hyponatremia; E87.2 Acidosis; I13.0 Hypertensive heart and chronic kidney disease with heart failure and stage 1 through stage 4 chronic kidney disease, or unspecified chronic kidney disease; I43 Cardiomyopathy in diseases classified elsewhere; N13.30 Unspecified hydronephrosis; N17.9 Acute kidney failure, unspecified; N18.4 Chronic kidney disease, stage 4 (severe); I82.509 Chronic embolism and thrombosis of unspecified deep veins of unspecified lower extremity; K94.23 Gastrostomy malfunction; Z68.1 Body mass index [BMI] 19.9 or less, adult; B17.9 Acute viral hepatitis, unspecified; K22.2 Esophageal obstruction; E11.22 Type 2 diabetes mellitus with diabetic chronic kidney disease; E11.65 Type 2 diabetes mellitus with hyperglycemia; E03.9 Hypothyroidism, unspecified; Z11.59 Encounter for screening for other viral diseases; E05.90 Thyrotoxicosis, unspecified without thyrotoxic crisis or storm; I50.9 Heart failure, unspecified; E78.5 Hyperlipidemia, unspecified; E83.52 Hypercalcemia; E86.0 Dehydration; E87.5 Hyperkalemia; G47.33 Obstructive sleep apnea (adult) (pediatric); G72.89 Other specified myopathies; J44.9 Chronic obstructive pulmonary disease, unspecified; J45.20 Mild intermittent asthma, uncomplicated; K21.9 Gastro-esophageal reflux disease without esophagitis; K22.4 Dyskinesia of esophagus; K22.8 Other specified diseases of esophagus; K27.9 Peptic ulcer, site unspecified, unspecified as acute or chronic, without hemorrhage or perforation; K28.7 Chronic gastrojejunal ulcer without hemorrhage or perforation; M16.0 Bilateral primary osteoarthritis of hip; M47.9 Spondylosis, unspecified; M79.7 Fibromyalgia; M85.80 Other specified disorders of bone density and structure, unspecified site; Z79.01 Long term (current) use of anticoagulants; Z79.4 Long term (current) use of insulin; Z79.51 Long term (current) use of inhaled steroids; Z79.82 Long term (current) use of aspirin; Z79.890 Hormone replacement therapy; Z79.899 Other long term (current) drug therapy; Z83.3 Family history of diabetes mellitus; Z87.11 Personal history of peptic ulcer disease; Z86.73 Personal history of transient ischemic attack (TIA), and cerebral infarction without residual deficits; Z90.49 Acquired absence of other specified parts of digestive tract; Z98.51 Tubal ligation status; Z98.42 Cataract extraction status, left eye; Z98.41 Cataract extraction status, right eye; R74.8 Abnormal levels of other serum enzymes; Z91.89 Other specified personal risk factors, not elsewhere classified; E86.9 Volume depletion, unspecified; Z98.84 Bariatric surgery status; Z88.1 Allergy status to other antibiotic agents; M10.9 Gout, unspecified; Z81.8 Family history of other mental and behavioral disorders
CPT/HCPCS: 36410; 36415; 43245; 43249; 71045; 74176; 74210; 76770; 76937; 80048; 80053; 80061; 81001; 82150; 82306; 82330; 82525; 82607; 82652; 82728; 83036; 83540; 83550; 83605; 83690; 83735; 83970; 84100; 84132; 84255; 84425; 84443; 84590; 84630; 85025; 85610; 85730; 87635; 94640; 96361; 96374; 96375; 99285

== ENCOUNTER → 2019-12-21 | Outpatient (CLI) | payer MEDICARE ==
--- NOTE | 2019-12-21 13:45 | P.PN ---
Subjective Progress Note Date: 12/21/19 She is pucking again. Her granddaurghter is at bedside. She reports painful legs and moderate swelling. She can tolerate pills and apple sauce. "I want to eat." Recommend dietitian. Recommend stretch. May need surgery later. DATE OF SERVICE: 06/22/2019 CHIEF COMPLAINT: Dysphagia HISTORY OF PRESENT ILLNESS: Rita Morales is a 69-year-old female who is status post gastric bypass 12/29/2016. She is over 3 years out. She has pain at the epigastrium. She has an ulcer found on upper endoscopy. She was not able to get her prescription of Omeprazole. She has lost over 180 pounds. Separately, she reports moderate lower back pain from her pannus including ulcerations along her pannus from panniculitis. She is being treated for panniculitis for over 2 years without improvement of her symptoms. She comes in for management of her abdominal pain and panniculitis. At a height of 5 feet 3-1/2 inches, her ideal body weight is 140 pounds. Her highest weight is 326 pounds. Today, she comes in weighing 128 pounds from 196 pounds, 1 year ago. She has lost 68 pounds in 1 year. Her total lifetime weight loss is 198 pounds. Percent excess weight loss is 107 %. Body mass index is reduced from 57.0 down to 22.3. PAST MEDICAL HISTORY: 1. Gout. 2. Vitamin D deficiency. 3. Hyperlipidemia. 4. Hypertension. 5. Hypothyroidism. 6. Hypertensive cardiomyopathy. 7. Gastroesophageal reflux disease. 8. Magnesium deficiency. 9. Insulin-dependent diabetes. 10. Congestive heart failure. 11. Asthma. 12. Deep venous thrombosis. 13. Fibromyalgia. 14. Varicose veins. 15. Obstructive sleep apnea. 16. History of abnormal vaginal bleeding. 17. Renal insufficiency. 18. History of pancreatitis of unclear etiology. 19. Acute hepatitis. 20. Stage IV chronic kidney disease improved. 21. Morbid obesity, BMI 57.0 initial PAST SURGICAL HISTORY: 1. . 2. Cholecystectomy. 3. Heart catheterization. 4. Tubal ligation. 5. History of cardioversion. 6. Upper endoscopy. 7. Status post gastric bypass. 8. Upper endoscopy balloon dilation MEDICATIONS: Home Medications Medication Instructions Recorded Confirmed Insulin Glargine [Lantus] See Protocol SQ DAILY 12/17/16 12/21/19 Apixaban [Eliquis] 5 mg PO DAILY 07/28/18 12/21/19 Atorvastatin [Lipitor] 40 mg PO DAILY 07/28/18 12/21/19 Acetaminophen [Tylenol Arthritis] 650 mg PO Q8H PRN 12/08/19 12/21/19 Albuterol Inhaler [Ventolin Hfa 2 puff INHALATION RT-QID PRN 12/08/19 12/21/19 Inhaler] Albuterol Nebulized [Ventolin 2.5 mg INHALATION RT-TID PRN 12/08/19 12/21/19 Nebulized] Budesonide/Formoterol Fumarate 2 puff INHALATION RT-BID 12/08/19 12/21/19 [Symbicort 80-4.5 Mcg Inhaler] Diclofenac Sodium [Voltaren Gel] 4 gram TOPICAL QID PRN 12/08/19 12/21/19 Ergocalciferol [Vitamin D2 50,000 unit PO Q30D 12/08/19 12/21/19 (DRISDOL)] Insulin Lispro [humaLOG Kwikpen] See Protocol SQ ACHS 12/08/19 12/21/19 Multivitamins, Thera [Multivitamin 1 tab PO DAILY 12/08/19 12/21/19 (formulary)] Vitamin B-12(Unknown Dose) 1 tab PO DAILY 12/08/19 12/21/19 Previous Rx's Medication Instructions Recorded Omeprazole [PriLOSEC] 40 mg PO BID #120 cap 11/24/19 Sucralfate [Carafate] 1 gm PO BID #60 tab 11/24/19 Sodium Bicarbonate Tab 1,300 mg PO BID #30 tab 12/15/19 ALLERGIES: 1. CLINDAMYCIN. 2. HYDROCODONE. SOCIAL HISTORY: No active alcohol or tobacco use. FAMILY HISTORY: Pertinent for diabetes including morbid obesity. REVIEW OF ORGAN SYSTEMS: CONSTITUTIONAL: At a height of 5 feet 3-1/2 inches, her ideal body weight is 140 pounds. Her highest weight is 326 pounds. BMI 57.0. GENITOURINARY: History of severe stage IV chronic kidney disease secondary to diabetes stable. GASTROINTESTINAL: Has dysphagia. No diarrhea. MUSCULOSKELETAL: Has history of osteoarthritis of the lower back and joints. CARDIOVASCULAR: History of congestive heart failure with diastolic dysfunction. Persistent lower extremity edema. HEENT: No troubles with vision or hearing. ENDOCRINE: History of insulin-dependent diabetes type 2 over 10+ years. No active thyroid disorder. RESPIRATORY: History of obstructive sleep apnea. History of asthma. NEURO:Past history of stroke. No seizure disorders. PSYCH: No active depression. Anxiety. HEMATOLOGIC: Prior history of DVT. No reports easy bruising or bleeding. PHYSICAL EXAM: VITAL SIGNS: 5 feet 3-1/2 inches, 124 pounds. Body mass index of 21.6 Vital Signs Temp 98.2 F 12/21/19 15:13 Pulse 81 12/21/19 15:13 Resp BP 111/73 12/21/19 15:13 Pulse Ox Intake & Output 12/20/19 12/21/19 12/21/19 18:59 06:59 18:59 Weight 56.245 kg MUSCULOSKELETAL: No clubbing, cyanosis. 3+ pitting edema lower extremity. GENERAL: Well-developed female in no acute distress. HEENT: No scleral icterus. Extraocular movements grossly intact. Moist mucosa. NECK: Supple without lymphadenopathy. CHEST: Nonlabored respirations. Equal bilateral excursions. CARDIOVASCULAR: Regular rate and rhythm. ABDOMEN: Soft, nontender, nondistended. NEURO: No focal or lateralizing signs. Cranial nerves II through XII grossly within normal limits. PSYCH: Appropriate affect. Alert and oriented to person, place and time. SKIN: Poor skin turgor. STUDIES: EGD FINDINGS: Stricture of approximately 8 mm encountered. Successful balloon dilatation to 18 mm of distal esophagus and anastomosis ASSESSMENT: 1. Morbid obesity due to excess calories. 2. Body mass index reduced from 57.0 down to 22.3 3. Uncontrolled insulin-dependent diabetes type 2, improved. 4. Hypertensive heart disease with cardiomyopathy, improved. 5. Obstructive sleep apnea, improved. 6. Fibromyalgia. 7. Osteoarthritis bilateral hips, improved. 8. Osteoarthritis lower back. 9. Prior history of deep venous thromboses. 10. Chronic obstructive pulmonary disease. 11. Dietary surveillance and counseling. 12. 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 13. Chronic pain syndrome. 14. Severe bilateral lower extremity edema, now improved. 15. Dysphagia 16. Panniculitis 17. Massive weight loss, 198 pounds s/p gastric bypass. PLAN: 1. Omeprazole 40 mg daily prescribed for gastric ulcers and to address pain at the epigastrium. 2. Recommend bariatric labs to correct nutritional deficiencies. 3. Recommend pictures for panniculectomy 4. Will need follow up upper endoscopy in 1 month with EGD for ulcers. Laboratory Last Values WBC 4.5 k/uL (3.8-10.6) 06/22/19 14:20 RBC 3.71 m/uL (3.80-5.40) L 06/22/19 14:20 Hgb 11.4 gm/dL (11.4-16.0) 06/22/19 14:20 Hct 35.5 % (34.0-46.0) 06/22/19 14:20 MCV 95.6 fL (80.0-100.0) 06/22/19 14:20 MCH 30.7 pg (25.0-35.0) 06/22/19 14:20 MCHC 32.1 g/dL (31.0-37.0) 06/22/19 14:20 RDW 13.4 % (11.5-15.5) 06/22/19 14:20 Plt Count 138 k/uL (150-450) L 06/22/19 14:20 PT 10.2 sec (9.0-12.0) 06/22/19 14:20 INR 0.9 (<1.2) 06/22/19 14:20 APTT 24.3 sec (22.0-30.0) 06/22/19 14:20 Sodium 143 mmol/L (135-145) 06/22/19 14:20 Potassium 5.2 mmol/L (3.5-5.5) 06/22/19 14:20 Chloride 114 mmol/L (96-109) H 06/22/19 14:20 Carbon Dioxide 24.6 mmol/L (21.6-31.8) 06/22/19 14:20 Anion Gap 4.40 mmol/L (4.00-12.00) 06/22/19 14:20 BUN 28.0 mg/dL (9.0-27.0) H 06/22/19 14:20 Creatinine 1.6 mg/dL (0.6-1.5) H 06/22/19 14:20 Est GFR (CKD-EPI)AfAm 38.2 (60.0-200.0) L 06/22/19 14:20 Est GFR (CKD-EPI)NonAf 33.0 (60.0-200.0) L 06/22/19 14:20 BUN/Creatinine Ratio 17.50 Ratio (12.00-20.00) 06/22/19 14:20 Glucose 141 mg/dL (70-110) H 06/22/19 14:[address] Glu mg/dL 194 06/22/19 14:20 Hemoglobin A1c 8.4 % (4.0-6.0) H 06/22/19 14:20 Calcium 9.1 mg/dL (8.7-10.3) 06/22/19 14:20 Phosphorus 3.7 mg/dL (2.4-5.1) 06/22/19 14:20 Magnesium 1.8 mg/dL (1.5-2.4) 06/22/19 14:20 Iron 74 ug/dL (50-170) 06/22/19 14:20 TIBC 248 ug/dL (228-460) 06/22/19 14:20 % Saturation 29.84 (12.00-45.00) 06/22/19 14:20 Ferritin 365.4 ng/mL (10.0-291.0) H 06/22/19 14:20 Total Bilirubin 0.4 mg/dL (0.2-1.2) 06/22/19 14:20 AST 31 U/L (13-35) 06/22/19 14:20 ALT 28 U/L (8-44) 06/22/19 14:20 Alkaline Phosphatase 99 U/L (41-126) 06/22/19 14:20 Total Protein 5.8 g/dL (6.2-8.2) L 06/22/19 14:20 Albumin 3.70 g/dL (3.80-4.90) L 06/22/19 14:20 Globulin 2.1 g/dL (1.6-3.3) 06/22/19 14:20 Albumin/Globulin Ratio 1.76 g/dL (1.60-3.17) 06/22/19 14:20 Prealbumin 18.0 mg/dL (18.0-42.0) 06/22/19 14:20 Triglycerides 107.0 mg/dL (0.0-149.0) 06/22/19 14:20 Cholesterol 149 mg/dL (0-200) 06/22/19 14:20 LDL Cholesterol, Calc 68.6 mg/dL (0.0-131.0) 06/22/19 14:20 VLDL Cholesterol, Calc 21.40 mg/dL (5.00-40.00) 06/22/19 14:20 HDL Cholesterol 59.0 mg/dL (40.0-60.0) 06/22/19 14:20 Cholesterol/HDL Ratio 2.53 06/22/19 14:20 Vitamin A 41 ug/dL (38-106) 06/22/19 14:20 Vitamin B1 53 ug/L (38-122) 06/22/19 14:20 Vitamin B12 532.0 pg/mL (200.0-944.0) 06/22/19 14:20 Vitamin D 25-Hydroxy 31.1 ng/mL (30.0-100.0) 06/22/19 14:20 Folate 9.3 ng/mL 06/22/19 14:20 TSH 1.890 uIU/mL (0.350-5.500) 06/22/19 14:20 PTH Intact 116.4 pg/mL (14.0-72.0) H 06/22/19 14:20 Selenium 88 mcg/L (63-160) 06/22/19 14:20 Zinc 47 ug/dL (60-130) L 06/22/19 14:20
[2019-12-21 15:15] VITALS: BP 111/73; PULSE 81; TEMP 98.2; BMI 21.6
== END | disposition home or self-care (01) ==
LOC: BARWHC3 12:52
PROVIDERS: ATTEND Surgery Plastic and Reconstructive Surgery
DX: Z48.815 Encounter for surgical aftercare following surgery on the digestive system (principal); E66.01 Morbid (severe) obesity due to excess calories; I11.9 Hypertensive heart disease without heart failure; I43 Cardiomyopathy in diseases classified elsewhere; G47.33 Obstructive sleep apnea (adult) (pediatric); M79.7 Fibromyalgia; M16.0 Bilateral primary osteoarthritis of hip; J44.9 Chronic obstructive pulmonary disease, unspecified; E11.21 Type 2 diabetes mellitus with diabetic nephropathy; N28.9 Disorder of kidney and ureter, unspecified; G89.4 Chronic pain syndrome; R60.0 Localized edema; R13.10 Dysphagia, unspecified; E11.22 Type 2 diabetes mellitus with diabetic chronic kidney disease; I12.9 Hypertensive chronic kidney disease with stage 1 through stage 4 chronic kidney disease, or unspecified chronic kidney disease; N18.4 Chronic kidney disease, stage 4 (severe); M79.3 Panniculitis, unspecified; Z68.22 Body mass index [BMI] 22.0-22.9, adult; Z71.3 Dietary counseling and surveillance; Z86.718 Personal history of other venous thrombosis and embolism; Z98.84 Bariatric surgery status; Z83.49 Family history of other endocrine, nutritional and metabolic diseases; Z79.4 Long term (current) use of insulin; Z79.899 Other long term (current) drug therapy; Z79.51 Long term (current) use of inhaled steroids; Z79.01 Long term (current) use of anticoagulants; Z88.1 Allergy status to other antibiotic agents; Z88.5 Allergy status to narcotic agent
CPT/HCPCS: 99211

== ENCOUNTER 2020-01-23 16:55 | Emergency (ER) | payer MEDICARE ==
[2020-01-23 17:12] VITALS: RESP 14
[2020-01-23] MEDS ORDERED: AMOXIC-POT CLAV 875MG STARTER PACK 2 TAB BTL PO STA (18:29)
[2020-01-23] MEDS ORDERED: AMOXIC-POT CLAV 875-125MG 1 EACH TAB PO STA (18:29)
--- NOTE | 2020-01-23 18:30 | ED ---
Recheck HPI - General Chief Complaint: Recheck/Abnormal Lab/Rx Stated Complaint: Peg Tube Issue Time Seen by Provider: 01/23/20 17:23 Source: family, EMS, RN notes reviewed, old records reviewed Mode of arrival: EMS Limitations: no limitations - History of Present Illness Initial Comments: This is a 69-year-old female presents today for evaluation patient poor historian secondary to not very willing to participate in history and physical, story, history obtained from patient's granddaughter who is at bedside, she is here for PEG tube evaluation he did think it's infected it does appear to work appropriately MD Complaint: other (PEG tube evaluation) -: week(s) (Symptoms haven't had drainage for 2 weeks) Returns Today for: wound recheck Symptoms Since Prior Visit: no new symptoms (patient does have mild worsening pain), worsening pain Context: called for abnormal lab result (70 ER by hospice nurse) Associated Symptoms: none - Related Data Home Medications Medication Instructions Recorded Confirmed Insulin Glargine [Lantus] See Protocol SQ DAILY 12/17/16 12/21/19 Apixaban [Eliquis] 5 mg PO DAILY 07/28/18 12/21/19 Atorvastatin [Lipitor] 40 mg PO DAILY 07/28/18 12/21/19 Acetaminophen [Tylenol Arthritis] 650 mg PO Q8H PRN 12/08/19 12/21/19 Albuterol Inhaler [Ventolin Hfa 2 puff INHALATION RT-QID PRN 12/08/19 12/21/19 Inhaler] Albuterol Nebulized [Ventolin 2.5 mg INHALATION RT-TID PRN 12/08/19 12/21/19 Nebulized] Budesonide/Formoterol Fumarate 2 puff INHALATION RT-BID 12/08/19 12/21/19 [Symbicort 80-4.5 Mcg Inhaler] Diclofenac Sodium [Voltaren Gel] 4 gram TOPICAL QID PRN 12/08/19 12/21/19 Ergocalciferol [Vitamin D2 50,000 unit PO Q30D 12/08/19 12/21/19 (DRISDOL)] Insulin Lispro [humaLOG Kwikpen] See Protocol SQ ACHS 12/08/19 12/21/19 Multivitamins, Thera [Multivitamin 1 tab PO DAILY 12/08/19 12/21/19 (formulary)] Vitamin B-12(Unknown Dose) 1 tab PO DAILY 12/08/19 12/21/19 Previous Rx's Medication Instructions Recorded Omeprazole [PriLOSEC] 40 mg PO BID #120 cap 11/24/19 Sucralfate [Carafate] 1 gm PO BID #60 tab 11/24/19 Sodium Bicarbonate Tab 1,300 mg PO BID #30 tab 12/15/19 Amoxic-Pot Clav 875-125Mg 1 tab PO Q12HR #20 tablet 01/23/20 [Augmentin 875-125] Allergies Allergy/AdvReac Type Severity Reaction Status Date / Time ciprofloxacin [From Cipro] Allergy Unknown Verified 01/23/20 17:12 clarithromycin [From Biaxin] Allergy Anaphylaxis Verified 01/23/20 17:12 nitrofurantoin Allergy Wheezing Verified 01/23/20 17:12 [From Macrodantin] Review of Systems ROS Statement: Those systems with pertinent positive or pertinent negative responses have been documented in the HPI. ROS Other: All systems not noted in ROS Statement are negative. Past Medical History Past Medical History: Asthma, CVA/TIA, Diabetes Mellitus, Deep Vein Thrombosis (DVT), GERD/Reflux, Hypertension, Osteoarthritis (OA), Renal Disease, Sleep Apnea/CPAP/BIPAP, Thyroid Disorder Additional Past Medical History / Comment(s): DVT ross LEGS, decreased kidney function, cpap NOT USED CURRENTLY, leaky heart valve. TIA 07/2019-left side weakness, ulcer, constipation History of Any Multi-Drug Resistant Organisms: None Reported Past Surgical History: Bariatric Surgery, Section, Cholecystectomy, Heart Catheterization, Tubal Ligation Additional Past Surgical History / Comment(s): cardioversion, gastric bypass, COLONOSCOPY AND EGD, ross cataracts Past Anesthesia/Blood Transfusion Reactions: No Reported Reaction Past Psychological History: No Psychological Hx Reported Smoking Status: Never smoker - Past Family History Mother Family Medical History: Deep Vein Thrombosis (DVT) Brother(s) Family Medical History: Cancer, Deep Vein Thrombosis (DVT) Additional Family Medical History / Comment(s): . Sister(s) Family Medical History: Deep Vein Thrombosis (DVT) Father Family Medical History: Deep Vein Thrombosis (DVT) General Exam - General Exam Comments Initial Comments: Significant infectious drainage and pus around PEG tube site Limitations: no limitations General appearance: alert, in no apparent distress Head exam: Present: atraumatic, normocephalic, normal inspection Eye exam: Present: normal appearance, PERRL, EOMI. Absent: scleral icterus, conjunctival injection, periorbital swelling ENT exam: Present: normal exam, mucous membranes moist Neck exam: Present: normal inspection. Absent: tenderness, meningismus, lymphadenopathy Respiratory exam: Present: normal lung sounds bilaterally. Absent: respiratory distress, wheezes, rales, rhonchi, stridor Cardiovascular Exam: Present: regular rate, normal rhythm, normal heart sounds. Absent: systolic murmur, diastolic murmur, rubs, gallop, clicks GI/Abdominal exam: Present: soft, normal bowel sounds. Absent: distended, tenderness, guarding, rebound, rigid Extremities exam: Present: normal inspection, full ROM, normal capillary refill. Absent: tenderness, pedal edema, joint swelling, calf tenderness Back exam: Present: normal inspection Neurological exam: Present: alert, oriented X3, CN II-XII intact Psychiatric exam: Present: normal affect, normal mood Skin exam: Present: warm, dry, intact, normal color. Absent: rash Course Vital Signs 01/23/20 01/23/20 17:07 19:01 Temperature 97.2 F L 97.6 F Pulse Rate 87 Respiratory 14 14 Rate Blood Pressure 115/73 118/66 O2 Sat by Pulse 97 98 Oximetry - Reevaluation(s) Reevaluation #1: 01/23/20 19:39 Medical records reviewed Reevaluation #2: 01/23/20 19:39 Family daughter at length regarding treatment plan, they are agreeable Medical Decision Making - Medical Decision Making 8 female DF for PEG tube evaluation. Patient is placed correctly will place on antibiotics secondary infection and patient can be discharged home - Radiology Data Radiology results: report reviewed (X-ray KUB shows good PEG tube placement), image reviewed Disposition Clinical Impression: Infection of PEG site Disposition: HOME SELF-CARE Condition: Fair Instructions (If sedation given, give patient instructions): PEG Tube Insertion (DC) Prescriptions: Amoxic-Pot Clav 875-125Mg [Augmentin 875-125] 1 tab PO Q12HR #20 tablet Is patient prescribed a controlled substance at d/c from ED?: No Referrals: Westley Dacosta MD [Primary Care Provider] - 1-2 days
[2020-01-23] MEDS ORDERED: HYDROcodone/APAP 5-325MG 1 EACH TAB PO STA (18:57)
--- NOTE | 2020-01-23 19:12 | XR ---
EXAMINATION TYPE: XR KUB DATE OF EXAM: 01/23/2020 COMPARISON: None HISTORY: PEG tube placement Contrast: 20 mL [id number] TECHNIQUE: Single AP supine abdomen FINDINGS: Catheter filled with contrast is within a loop of small bowel. It is unclear based on this single image whether this is pointing towards the more proximal or more distal portion of the jejunum . No leaking of contrast is evident. IMPRESSION: 1. Catheter tip is within a loop of small bowel.
[2020-01-23] MEDS ORDERED: MORPHINE SULFATE 4 MG/ML SYRINGE IM STA (20:05)
[2020-01-23 20:24] VITALS: BP 120/67; PULSE 83; TEMP 98
== END 2020-01-23 20:20 | disposition home or self-care (01) ==
LOC: EC 16:55
DX: K94.22 Gastrostomy infection (principal); J45.909 Unspecified asthma, uncomplicated; E11.9 Type 2 diabetes mellitus without complications; I10 Essential (primary) hypertension; M19.90 Unspecified osteoarthritis, unspecified site; G47.30 Sleep apnea, unspecified; Z79.01 Long term (current) use of anticoagulants; Z79.4 Long term (current) use of insulin; Z79.1 Long term (current) use of non-steroidal anti-inflammatories (NSAID); Z79.899 Other long term (current) drug therapy; Z99.89 Dependence on other enabling machines and devices; Z95.5 Presence of coronary angioplasty implant and graft; Z90.49 Acquired absence of other specified parts of digestive tract; Z86.718 Personal history of other venous thrombosis and embolism; Z86.73 Personal history of transient ischemic attack (TIA), and cerebral infarction without residual deficits; Z88.1 Allergy status to other antibiotic agents; Z98.84 Bariatric surgery status
CPT/HCPCS: 74018; 99284; 96372; J2270; Q9967